=== PATIENT | female | born 1955 | race Caucasian/White ===

== ENCOUNTER → 2021-11-26 12:01 | Outpatient (CLI) | payer MEDICARE, OTHER, SELFPAY ==
--- NOTE | 2021-11-26 12:17 | XR_ITS ---
FINAL REPORT CLINICAL HISTORY: rt hand pain FINDINGS: Right hand Three views were obtained. There is no acute fracture or dislocation. There are mild degenerative changes. No soft tissue abnormality is identified. IMPRESSION: No acute process. Reviewed, Interpreted and Dictated by Bang Anne III, MD Transcribed by Miroslava Vizcaino Authenticated and [facility]
== END ==
PROVIDERS: PCP Internal Medicine; Visit Provider Orthopaedic Surgery
DX: M65.331 Trigger finger, right middle finger (principal)
CPT/HCPCS: 73130

== ENCOUNTER → 2021-12-08 11:31 | Outpatient (CLI) | payer MEDICARE, OTHER, SELFPAY ==
--- NOTE | 2021-12-08 11:37 | XR_ITS ---
FINAL REPORT CLINICAL HISTORY: preop, DIABETIC, PAST SMOKER FINDINGS: Two views of the chest were obtained. The heart size and pulmonary vascularity are within normal limits. The mediastinum is normal. No acute pulmonary abnormality is identified. There is no pneumothorax. The bony thorax is intact. IMPRESSION: No active cardiopulmonary disease. Reviewed, Interpreted and Dictated by Bang Anne III, MD Transcribed by Radha Ramirez Authenticated and [facility]
== END ==
PROVIDERS: PCP Internal Medicine; Visit Provider Orthopaedic Surgery
DX: Z01.810 Encounter for preprocedural cardiovascular examination (principal); M65.331 Trigger finger, right middle finger
CPT/HCPCS: 71046

== ENCOUNTER 2021-12-10 13:04 | Day surgery (SDC) | payer MEDICARE, OTHER, SELFPAY ==
[2021-12-08 13:23] VITALS: BMI 26.3
[2021-12-10 13:18] VITALS: BP 121/61; PULSE 70; RESP 18; TEMP 36.7; O2SAT 100
--- NOTE | 2021-12-10 13:52 | EXP.ANES.CKL ---
PFSH PFSH Medical History Allergies Anxiety Arthritis Depression Diabetes mellitus, type 2 Endometriosis Heart attack History of anemia History of COVID-19 History of transient ischemic attack (TIA) Hyperlipemia Hypothyroid Kidney stone Sinus headache Sleep apnea Tonsillectomy planned Urinary tract infection Surgical History H/O gastric bypass History of hysterectomy History of surgery History of surgery History of thyroidectomy Hx of LASIK Family History Father Heart attack Cirrhosis Mother Heart attack Cirrhosis Grandfather Heart attack Family/Other Heart attack Social History Smoking Status: Former smoker smoking status stop date: QUIT 15 YEARS AGO how long ago did patient quit smokin YEARS alcohol intake: never substance use type: denies use current occupational status: retired Travel in the last 8 weeks: None caffeine: Yes [facility] Anesthesia Checklist Patient Identification Patient Identification: Arm Band and Verbal (Name & ) Structural Data Admitted From: Home Planned Operative Procedure/s: Trigger finger release Consent for Planned Operative Procedure(s) Verified: Yes NPO Status Verified Time NPO: 00:00 Additional verifications Anesthesia Reactions: Yes (N/V) Hx Blood Transfusions: No Blood Transfusion Reaction: No Airway Assessment C-Spine Mobility Assessed: Yes TMJ Mobility Assessed: Yes Dentition: Good Dentition Neurological Assessment Level of Consciousness: Awake Hx Seizures: No Numbness or tingling in extremities: No Anesthesia Plan Anesthesia Risk discussed: Yes Anesthesia Plan: Verified ASA Class: III Anesthesia Type: General
[2021-12-10 14:12] LABS: POC Glucose,Bedside 93 (70-110)
[2021-12-10 15:08] VITALS: BP 144/84; PULSE 82; RESP 16; TEMP 36.2; O2SAT 92
--- NOTE | 2021-12-10 15:08 | P.OP_ITS ---
Date of procedure: 12/10/21 Pre-op Diagnosis:: Right middle finger trigger finger Post-op Diagnosis:: Same Procedure performed:: Right hand middle finger A1 kady release, trigger finger release. Surgeon:: Carlos Hall DO Hat Cleaner(s):: Moises CAMP COMPUTER TRAINING SPECIALIST:: Savage Flores Anesthesia: GETA Estimated blood loss (mL): 0 Operative findings:: Cyst in the flexor tendon sheath with significant swelling of the flexor tendons Operative note:: Patient was identified preoperatively right middle finger was marked yes my initials. Transferred operative suite placed upon operating bed general anesthesia ministered airway secured right upper extremity was then prepped and draped in normal sterile fashion. Once prepped and draped final operative timeout performed to identify proper patient procedure and extremity. Everyone involved in the case agreed. There were no counter indications to beginning. Did receive preoperative antibiotics. Marking pen was used to make plan incision over the A1 kady middle finger right hand. Esmarch was used to exsanguinate extremity pneumatic tourniquet inflated to 250 mmHg. Skin knife was used to incise through skin. Scissor di ssection was taken down to identify the A1 kady. Ragnell retractors were placed and the A1 kady was cut with a [place] blade. Completion of the A1 kady release was completed with scissors under direct visualization. I pulled the flexor tendons through the incision and inspected there was a large amount of swelling along the flexor flexor tendon sheath with a cyst in the flexor tendon sheath this was debrided. There remained a lot of swelling at the flexor tendons. Fingers were taken through range of motion cyst was carefully debrided until able to passively flex and extend without catching. Copious irrigation of the wound was performed skin was closed with nylon stitch sterile hand dressing placed patient with anesthesia taken recovery stable condition. Condition: stable Disposition: PACU Complications:: None apparent
[2021-12-10 15:23] VITALS: BP 126/72; PULSE 66; RESP 18; TEMP 36.2; O2SAT 94
[2021-12-10 15:38] VITALS: BP 133/73; PULSE 69; RESP 18; TEMP 36.2; O2SAT 100
[2021-12-10 15:55] VITALS: BP 129/71; PULSE 69; RESP 18; TEMP 36.2; O2SAT 96
== END 2021-12-10 15:55 | disposition home or self-care (01) ==
PROVIDERS: PCP Internal Medicine; Visit Provider Orthopaedic Surgery
PROC: (CPT 26055; principal; 2021-12-10 14:30)
DX: M65.331 Trigger finger, right middle finger (principal); E11.9 Type 2 diabetes mellitus without complications; Z79.899 Other long term (current) drug therapy
CPT/HCPCS: 26055; 82962; J2405

== ENCOUNTER → 2022-04-28 13:13 | Outpatient (CLI) | payer MEDICARE, OTHER, SELFPAY ==
--- NOTE | 2022-04-28 13:20 | XR_ITS ---
FINAL REPORT CLINICAL HISTORY: trigger finger COMPARISON: 11/26/2021 FINDINGS: RIGHT HAND Three views of the right hand were obtained. The hand is held in partial flexion. There is no acute fracture. There is no dislocation. The visualized joint spaces are normally aligned. There are mild hypertrophic changes of the PIP and DIP joints. There are some mild hypertrophic changes of osteoarthritis at the basilar joint. The soft tissues are unremarkable. IMPRESSION: Hypertrophic changes as above with no acute bony abnormality. Reviewed, Interpreted and Dictated by Kyle Cavazos MD Transcribed by Radha Ramirez Authenticated and [facility]
== END ==
PROVIDERS: PCP Nurse Practitioner Family; Visit Provider Orthopaedic Surgery
DX: M65.331 Trigger finger, right middle finger (principal)
CPT/HCPCS: 73130

== ENCOUNTER → 2022-08-18 14:32 | Outpatient (CLI) | payer MEDICARE, OTHER, SELFPAY ==
--- NOTE | 2022-08-18 14:35 | XR_ITS ---
FINAL REPORT CLINICAL HISTORY: left knee pain FINDINGS: LEFT KNEE SERIES Three views of the left knee were obtained. There is no acute fracture or dislocation. There is mild degenerative change. There is no soft tissue abnormality. IMPRESSION: Mild degenerative change. Reviewed, Interpreted and Dictated by Bang Anne III, MD Transcribed by Kaila Arreaga Authenticated and [facility]
== END ==
PROVIDERS: PCP Nurse Practitioner Family; Visit Provider Orthopaedic Surgery
DX: M25.562 Pain in left knee (principal)
CPT/HCPCS: 73562

== ENCOUNTER → 2022-09-03 15:37 | Outpatient (CLI) | payer MEDICARE, OTHER, SELFPAY ==
--- NOTE | 2022-09-03 15:37 | MR_ITS ---
FINAL REPORT TECHNIQUE: Multiplanar MR without contrast CLINICAL HISTORY: Lt knee pain. MEDIAL SIDED KNEE PAIN WITH PAIN RADIATING DOWN LEG. NO INJURY OR TRAUMA FINDINGS: Articular cartilage: Mild diffuse thinning without focal defect Marrow signal: Unremarkable Joint fluid: Physiologic Menisci: Normal morphology without tear Ligaments: Collateral and cruciate ligaments intact Tendons: Partial tear of the tendinous insertion of the gastrocnemius tendon. IMPRESSION: No meniscal or ligamentous injury. Partial tear of the gastrocnemius tendon. Reviewed, Interpreted and Dictated by Samreen Berg MD Transcribed by Shanda Haile Authenticated and [facility]
== END ==
PROVIDERS: PCP Nurse Practitioner Family; Visit Provider Orthopaedic Surgery
DX: M25.562 Pain in left knee (principal)
CPT/HCPCS: 73721

== ENCOUNTER → 2022-10-06 16:01 | Outpatient (CLI) | payer MEDICARE, OTHER, SELFPAY ==
--- NOTE | 2022-10-06 16:02 | MR_ITS ---
FINAL REPORT CLINICAL HISTORY: right shoulder pain some days are harder than others FINDINGS: Multi planar MR imaging of the right shoulder was performed. The supraspinatus tendon appears intact. There is no abnormal fluid in the subacromial/subdeltoid bursa. The anterior and posterior glenoid yenifer appear intact. The biceps tendon appears intact. There is abnormal marrow edema in the distal clavicle. There are moderate hypertrophic changes of the AC joint. IMPRESSION: Moderate hypertrophic changes of AC joint with abnormal marrow edema in the distal clavicle. Findings may be related to underlying ligamentous instability. Reviewed, Interpreted and Dictated by Kyle Cavazos MD Transcribed by Miroslava Vizcaino Authenticated and [facility]
== END ==
PROVIDERS: PCP Nurse Practitioner Family; Visit Provider Orthopaedic Surgery
DX: M25.811 Other specified joint disorders, right shoulder (principal)
CPT/HCPCS: 73221

== ENCOUNTER 2023-08-03 12:40 | Outpatient (CLI) | payer MEDICARE, OTHER, SELFPAY ==
--- NOTE | 2023-08-03 13:09 | XR_ITS ---
FINAL REPORT CLINICAL HISTORY: lt hip pain COMPARISON: None FINDINGS: LEFT HIP: Two views of the left hip demonstrate no acute fracture or dislocation. Mild degenerative changes present. Osteopenia is present as well. The visualized bony structures are well aligned. No soft tissue abnormality is seen. IMPRESSION: Mild degenerative change, with osteopenia. Reviewed, Interpreted and Dictated by Samreen Berg MD Transcribed by Christen Britton Authenticated and [facility]
== END 2023-08-03 23:59 | disposition home or self-care (01) ==
LOC: RAD 12:41
PROVIDERS: PCP Internal Medicine; Visit Provider Orthopaedic Surgery
DX: M25.552 Pain in left hip (principal)
CPT/HCPCS: 73502

== ENCOUNTER 2023-12-13 12:38 | Outpatient (CLI) | payer MEDICARE, OTHER, SELFPAY ==
--- NOTE | 2023-12-13 12:43 | XR_ITS ---
PROCEDURE INFORMATION: Exam: XR Right Hand Exam date and time: 12/13/2023 1:10 PM Age: 68 years old Clinical indication: Other: Pain right middle finger, trigger; Additional info: Right hand trigger finger TECHNIQUE: Imaging protocol: Radiologic exam of the right hand. Views: 3 or more views. COMPARISON: CR XR HAND RT MIN 3V 04/28/2022 1:27 PM FINDINGS: Bones/joints: Joint space narrowing in the DIP joints and PIP joints of the fingers consistent with degenerative changes.. Persistent flexion of the long finger was present in April 2022. This could represent Dupuytren's contracture.. Degenerative changes in the thumb carpometacarpal joint and in the radiocarpal joint and thumb carpometacarpal joint. There is no evidence of acute fracture.There is no evidence of malalignment or dislocation. Soft tissues: Soft tissue swelling of the hand. IMPRESSION: 1. Joint space narrowing in the DIP joints and PIP joints of the fingers consistent with degenerative changes.. 2. Persistent flexion of the long finger was present in April 2022. This could represent Dupuytren's contracture.. 3. Degenerative changes in the thumb carpometacarpal joint and in the radiocarpal joint and thumb carpometacarpal joint.
== END 2023-12-13 23:59 | disposition home or self-care (01) ==
LOC: RAD 12:39
PROVIDERS: PCP Internal Medicine; Visit Provider Orthopaedic Surgery
DX: M65.331 Trigger finger, right middle finger (principal)
CPT/HCPCS: 73130

== ENCOUNTER 2024-05-01 13:50 | Outpatient (CLI) | payer MEDICARE, OTHER, SELFPAY ==
--- NOTE | 2024-05-01 14:03 | XR_ITS ---
FINAL REPORT CLINICAL HISTORY: dyspnea, recent pneumonia, quit smoking 25 yrs ago, prior to that she smoked for 10 yrs. 4 heart attacks, 1 stent placement. COMPARISON: 12/08/2021 FINDINGS: PA and lateral views of the chest are obtained. There is no prior exam for comparison. The cardiac and mediastinal silhouettes are within normal limits. The lungs are clear. There is no pleural effusion, pneumothorax, or acute osseous abnormality. IMPRESSION: No radiographic evidence of acute cardiac or pulmonary disease. Reviewed, Interpreted and Dictated by Ya Moreau MD Transcribed by Christen Britton Authenticated and [facility]
--- NOTE | 2024-05-01 14:30 | CA_ITS ---
APPROVED REPORT EXAM: Comprehensive 2D, Doppler, and color-flow Echocardiogram [employer] Course Laborer: Negin Quick CRT Ht: 5 ft 2 in Wt: 154lbs BSA: 1.71 BP: 138/64 mmHg Indications: Abnormal ECG, Chest Pain, Diabetes, CAD, 4 MS's, Stents, Takotsubo Syndrome Hx of EF 25%, rebounded to 40's% per pt. Pt getting cath tmw 2D Dimensions LA Volume 24.00 mL LA Volume Index 13.70 mL/m2 (M/F) 16-34 M-Mode Dimensions RVDd 2.56 cm (0.9-2.6) LA Diam 3.43 cm (1.9-4.0) LVDd 3.69 cm (3.5-5.7) LVDs 2.71 cm (3.5-5.7) IVSd 1.47 cm (0.6-1.1) PWd 0.72 cm (0.6-1.1) EF (Teich) 52.80% FS 26.60% EDV (Teich) 57.80 mL TAPSE 1.82 (<1.7) ESV (Teich) 27.30 mL LV Diastology E Decel Time 207 (160-240 msec) E/A Ratio 0.80 MED A' 10.50 cm/s LAT A' 9.00 cm/s Aortic Valve AO Peak GR. 4.60 mmHg Mitral Valve MV E Max Franki. 81.0 (40-130 cm/s) MV A Velocity 101.0 (40-130 cm/s) E/A Ratio 0.80 MV PHT 61.0 ms Pulmonary Valve PV Peak Velocity 97.0 (50-150 cm/s) Tricuspid Valve TR P. Velocity 248.00 cm/s RAP Estimate 10.00 mmHg RVSP 34.60 mmHg Left Ventricle The left ventricle is normal size. The left ventricular systolic function is low normal. There is increased LV wall thickness. The septum is asynchronous. Diastolic function is indeterminate. LVEF is 50%. Right Ventricle The right ventricle is normal size. The right ventricular systolic function is normal. Atria The left atrium is mildly dilated. The right atrium is mildly dilated. Color Doppler demonstrates presence of left to right interatrial shunt. Aortic Valve The aortic valve is mildly thickened. Trace aortic regurgitation. There is no aortic valvular stenosis. Mitral Valve The mitral valve is mildly thickened. Mild mitral regurgitation. Tricuspid Valve Tricuspid valve is grossly normal in structure and function. Mild tricuspid regurgitation. RVSP is 20???25 mmHg. Pulmonic Valve The pulmonary valve is normal in structure. Trace pulmonic regurgitation. Great Vessels The aortic root is normal in size. IVC is normal in size and collapses >50% with inspiration. Pericardium There is no pericardial effusion. Other Information Study Quality: Fair Conclusion Low normal LV systolic function (LVEF 50%). Asynchronous septum. Mild biatrial dilation. Mild MR, mild TR. Color Doppler demonstrates presence of left to right interatrial shunt. Electronically signed by : Machelle Saba MD 05/02/2024 01:12:56
[2024-05-01 16:41] LABS: Anion Gap 7.2 mEq/L (5-15); Blood Urea Nitrogen 11 mg/dl (7-17); Calcium 10.7 mg/dl (8.4-10.2); Carbon Dioxide 33 mmol/L (22.0-30.0); Chloride 108 mmol/L (98-107); Estimated Glomerular Filt Rate 72 ml/min (>60); GFR (African American) 87 ML/MIN (>60); Glucose 113 mg/dl (74-100); Potassium 5.2 mmoL/L (3.5-5.1); Sodium 143 mmol/L (136-145)
[2024-05-01 18:08] LABS: Triiodothryronine (T3) Uptake 27 % (23.5-40.5)
[2024-05-01 18:09] LABS: Free Thyroxine Index 1.5 ug/dL (5.93-13.13); T4 (Thyroxine) 5.7 ug/dl (5.53-11.0)
[2024-05-01 18:23] LABS: Thyroid Stimulating Hormone 5.19 uIU/mL (0.465-4.68)
== END 2024-05-01 23:59 | disposition home or self-care (01) ==
LOC: RT 13:54
PROVIDERS: PCP Internal Medicine; Visit Provider Internal Medicine
DX: I51.7 Cardiomegaly (principal); I34.0 Nonrheumatic mitral (valve) insufficiency; I36.1 Nonrheumatic tricuspid (valve) insufficiency; I25.118 Atherosclerotic heart disease of native coronary artery with other forms of angina pectoris; I44.7 Left bundle-branch block, unspecified; R06.09 Other forms of dyspnea; E13.9 Other specified diabetes mellitus without complications; R94.31 Abnormal electrocardiogram [ECG] [EKG]; Z79.84 Long term (current) use of oral hypoglycemic drugs; Z87.891 Personal history of nicotine dependence
CPT/HCPCS: 36415; 71046; 80048; 84436; 84443; 84479; 93306

== ENCOUNTER 2024-05-02 11:18 | Day surgery (SDC) | payer MEDICARE, OTHER, SELFPAY ==
[2024-05-02] VITALS (9 sets, daily range): BP systolic 118–158; BP diastolic 65–85; PULSE 65–90; RESP 17–20; O2SAT 3–98; BMI 28.1
--- NOTE | 2024-05-02 07:03 | IR_ITS ---
APPROVED REPORT Patient Location: Outpatient PROCEDURES Left heart catheterization Left ventriculogram Selective coronary angiogram INDICATION Left bundle branch block, Known ischemic heart disease, Accelerated angina pectoris, Known coronary disease with stents Informed consent was obtained prior to the procedure. COMPLICATIONS none Estimated Blood Loss: less than 10ml TECHNIQUE One percent lidocaine used to anesthetize the right anterior aspect of the wrist. The right radial artery was accessed via the Seldinger technique. A 6 Faroese sheath was placed in the right radial artery. 2.5 mg of Verapamil, 800 mcg of nitroglycerin, 1mg Lidocaine and 5000 U Heparin were given through the arterial sheath. The papa catheter and 6 Faroese JL 3.5 guide catheter were also used to perform left heart catheterization, left ventriculogram and selective coronary angiogram. At the end of the procedure the sheath was removed good hemostasis was achieved using Traclet band, patient was transferred to the postop holding area in stable condition. ANGIOGRAPHIC RESULTS The left main artery Normal The left anterior descending artery Has a stent in the proximal segment which extends into the midportion which is widely patent free of in-stent restenosis. Distal to the stent there is a 30% transitioning stenosis. The mid to distal LAD is small caliber with diffuse 30 and 40% stenoses. The mid LAD to distal LAD is less than 2 mm in diameter The circumflex artery Is nondominant and has proximal and mid vessel 30 to 40% stenosis The right coronary artery Large and dominant and has a long ostial to proximal 30 to 40% stenosis. There is additional 30 and 40% mid vessel and distal stenoses The VILLARREAL ventriculogram reveals Preserved at 55 to 60% The left ventricular end-diastolic pressure 15 mmHg IMPRESSION Patent stents as described above Diffuse moderate nonflow limiting disease as described above Preserved ejection fraction with normal wall motion Normal LVEDP PLAN 1. Maximize medical management and antianginal medications 2. Risk factor modification Electronically signed by : Raad Juan MD 05/02/2024 13:50:13
[2024-05-02 12:07] LABS: Basophils # 0.1 K/mm3 (0-0.2); Basophils % 0.8 % (0.1-2.0); Eosinophils # 0.4 K/mm3 (0.0-0.4); Eosinophils % 5.6 % (0.1-12.0); Hematocrit 40.4 % (37.0-47.0); Hemoglobin 12.8 g/dL (12.2-16.2); Lymphocytes % 32.7 % (10-50); Mean Corpuscular HGB Conc 31.7 g/dL (31.8-35.4); Mean Corpuscular Hemoglobin 28.1 pg (27.0-31.2); Mean Corpuscular Volume 88.6 fl (81-99); Mean Platelet Volume 10.7 fl (7.4-10.4); Monocytes # 0.5 K/mm3 (0.1-1.0); Monocytes % 7.7 % (1.7-9.3); Neutrophils # 3.3 K/mm3 (1.8-7.8); Platelet Count 255 K/mm3 (142-424); Red Blood Count 4.56 M/mm3 (4.20-5.40); Red Cell Distribution Width 13.3 % (11.5-17.5); White Blood Count 6.2 K/mm3 (4.8-10.8)
[2024-05-02 12:14] LABS: Chloride 105 mmol/L (98-107); Sodium 140 mmol/L (136-145)
[2024-05-02 12:15] LABS: Potassium 4.6 mmoL/L (3.5-5.1)
[2024-05-02 12:17] LABS: Blood Urea Nitrogen 12 mg/dl (7-17); Creatinine Clearance Estimated 60 mL/min (50-200); Estimated Glomerular Filt Rate 62 ml/min (>60); GFR (African American) 76 ML/MIN (>60)
[2024-05-02 12:18] LABS: Anion Gap 9.6 mEq/L (5-15); Calcium 9.6 mg/dl (8.4-10.2); Carbon Dioxide 30 mmol/L (22.0-30.0); Glucose 174 mg/dl (74-100)
[2024-05-02] MEDS: diphenhydrAMINE 50MG/ML VIAL 50 MG IV (12:58)
[2024-05-02] MEDS: NITROGLYCERIN 800MCG/8ML SYR (CATH LAB) 800 MCG IA (12:59)
[2024-05-02] MEDS: VERAPAMIL 2.5MG/ML 2ML VIAL 2.5 MG IV (12:59)
[2024-05-02] MEDS: LIDOCAINE 1% 10ML MDV 20 ML IJ (12:59)
[2024-05-02] MEDS: HEPARIN 1,000 UNITS/ML 10ML VIAL (CATH LAB) 10000 UNIT IV (12:59)
[2024-05-02] MEDS: HEPARIN 1,000 UNITS/500ML NS (CATH LAB) 3000 UNIT IV (13:00)
[2024-05-02] MEDS: FENTANYL 100MCG/2ML VIAL 50 MCG IV ×2 (13:12→13:29)
[2024-05-02] MEDS: MIDAZOLAM HCL 1MG/ML 5ML VIAL 1 MG IV (13:13)
[2024-05-02] MEDS: 0.9 % SODIUM CHLORIDE 500 ML 25 ML IV (13:16)
[2024-05-02] MEDS: MIDAZOLAM 2MG/2ML VIAL 1 MG IV (13:29)
[2024-05-02] MEDS: IOPAMIDOL-370 (76%);100ML BOTTLE 60 ML IV (14:27)
== END 2024-05-02 15:35 | disposition home or self-care (01) ==
LOC: CATHLAB 11:22
PROVIDERS: PCP Internal Medicine; Visit Provider Internal Medicine
DX: I25.118 Atherosclerotic heart disease of native coronary artery with other forms of angina pectoris (principal); Z87.891 Personal history of nicotine dependence; Z88.3 Allergy status to other anti-infective agents; Z79.84 Long term (current) use of oral hypoglycemic drugs; Z95.5 Presence of coronary angioplasty implant and graft; Z82.49 Family history of ischemic heart disease and other diseases of the circulatory system; E11.9 Type 2 diabetes mellitus without complications; Z86.16 Personal history of COVID-19; I25.2 Old myocardial infarction; E03.9 Hypothyroidism, unspecified; I44.7 Left bundle-branch block, unspecified; Z79.899 Other long term (current) drug therapy
CPT/HCPCS: 80048; 85025; 93458; 99152; C1725; C1769; J1200; J1644; J2250; J3010; Q9967

== ENCOUNTER 2024-08-31 08:39 | Outpatient (CLI) | payer MEDICARE, OTHER, SELFPAY ==
--- OUTSIDE RECORDS SUMMARY | 2024-07-11 13:00 | XMS_ITS | Encounter Summary ---
Author Organization [facility] ([place], [place], [place], [place]) Address [address] [place] [address] Care Team Providers Care Workday Consultant Name Role Phone Darrian Reno PA-C Unavailable [phone] Jessica Gomez MD Primary Care Provider [phone] Gibson Bai MD Unavailable Encounter Details Date Type Department Care Team (Late st Contact Info) Description 07/11/2024 1:00 PM EDT - 07/11/2024 11:59 PM EDT Hospital Encounter [facility] Preadmission Testing [address] [facility] [address] [place] [address] Chris Casey MD [address] [facility] [address] [place] [address] Preop examination (Primary Dx); LBBB (left bundle branch block) Discharge Disposition: Home or Self Care Social History Tobacco Use Types Packs/Day Years Used Date Smoking Tobacco: Former Cigarettes 0.3 10 0 05/09/1989 - 05/10/1999 Smokeless Tobacco: Never Alcohol Use Standard Drinks/Week Comments Not Currently 0 (1 standard drink = 0.6 oz pur e alcohol) Family and Community Support Answer Shahram e Recorded Help with Day to Day Activities Not on file 02/20/2023 Feeling Lonely or Isolated Not on file 02/20 Educational Attainment Answer Date Yemi rded Speak language other than [place] Citizen at home Not on file 02/20/2023 Want help with school or training Not on file 02/20/2023 Substance Use Answer Date Recorded Used prescription meds for non-medical reasons N ot on file 02/20/2023 Used illegal drugs past 12 months Not on file 02/20/2023 Comments No Sex and Gender Information Value Date Recorded Sex Assigned at Not on file Legal Sex Female 5:09 PM CDT Gender Identity Not on file Sexual Orientation Not on file documented as of this encounter Last Filed Vital Signs Vital Sign Reading Time Taken Comments Blood Pressure 121/58 07/11/2024 1:13 PM EDT Pulse 90 07/11/2024 1:13 PM EDT Temperature 36.1 C (97 F) 07/11/2024 1:13 PM EDT Respiratory Rate 18 07/11/2024 1:13 PM EDT Oxygen Saturation 98% 07/11/2024 1:13 PM EDT Inhaled Oxygen Concentration - - Weight 68 kg (150 lb) 07/11/2024 1:13 PM EDT Height 157.5 cm (5' 2 ) 07/11/2024 1:13 PM EDT Body Mass Index 27.44 07/11/2024 1:13 PM EDT documented in this encounter Medications at Time of Discharge liothyronine (CYTOMEL) 5 MCG tablet Take 1 tablet (5 mcg total) by mouth daily. 02/04/2024 propranoloL (INDERAL) 20 MG tabletIndication s:Essential tremor Take 1 tablet (20 mg total) by mouth 2 (two) times daily. 180 tablet 3 09/01/2023 ALPRAZolam (XANAX) 0.5 MG tablet Take 1 tablet (0.5 mg total) by mouth 2 (two) times daily. 05/26/2023 aspirin 81 MG EC tablet Take 1 tablet (81 mg total) by mouth daily TAKE 1 TABLET DAILY. cyanocobalamin (vitamin B-12) 1000 MCG tablet Take 1 tablet (1,000 mcg total) by mouth daily. ergocalciferol (ERGOCALCIFEROL) 1,250 mcg (50,000 unit) capsule Take by mouth. 03/17/2022 escitalopram oxalate (LEXAPRO) 10 MG tablet Take 1 tablet (10 mg total) by mouth daily. glipiZIDE (GLUCOTROL XL) 2.5 MG 24 hr tablet Take 1 tablet (2.5 mg total) by mouth daily. loratadine (CLARITIN) 10 mg tablet Take 1 tablet (10 mg total) by mouth daily. metFORMIN (GLUCOPHAGE) 500 MG tablet Take 1 tablet (500 mg total) by mouth 2 (two) times daily with breakfast and dinner Look-alike/Kayleen nd-alike medication. multivitamin per tablet Take 1 tablet by mouth daily. nitroglycerin (NITROSTAT) 0.[address] 1 tablet (0.4 mg total) under the tongue every 5 (five) minutes as needed Put 1 pill under tongue every 5min as needed for chest pain.No more than 3 doses in 15min.Call 911 if pain unrelieved 5min after 1st dose. rosuvastatin (CRESTOR) 40 MG tablet Take 1 tablet (40 mg total) by mouth in the morning. TAKE 1 TABLET DAILY. 30 tablet 11 05/19/2022 zolpidem (AMBIEN) 10 mg tablet Take 1 tablet (10 mg total) by mouth daily. 05/19/2023 HYDROcodone-acet aminophen (NORCO) 7.5-325 mg per tablet Take 1 tablet by mouth every 6 (six) hours as needed for pain for up to 10 days. Max Daily Amount: 4 tablets 20 tablet 07/17/2024 5 levothyroxine (SYNTHROID, LEVOTHROID) 75 MCG tablet Take 1 tablet (75 mcg total) by mouth Every morning on an empty stomach TAKE 1 TABLET DAILY DIRECTED . 5 nitrofurantoin (Macrodantin) 50 MG capsuleIndicatio ns:History of UTI Take 1 capsule (50 mg total) by mouth daily. 30 capsule 3 08/11/2023 5 nitrofurantoin, macrocrystal-mon ohydrate, (MACROBID) 100 MG capsuleIndicatio ns:History of UTI Take 1 capsule (100 mg total) by mouth 2 (two) times daily. 10 capsule 08/11/2023 5 documented as of this encounter Progress Notes * Albertina Cevallos RN - 07/11/2024 1:00 PM EDT Spoke with Kylah at Dr. Casey's office regarding incorrect laterality scheduled for this patient.She stated she left a message for Sania, museum service scheduler for Dr. Casey and would have her giveus a call regarding this matter. documented in this encounter H&P Notes * HERMINIA Candelario - 07/11/2024 1:00 PM EDT History & Physical Name: Emmett Haas : 1955 Age: 69 y.o. SUBJECTIVE: Chief Complaint / Reason for Visit: preop exam HPI: Emmett Haas is a 69 y.o. female who presents prior to PROCEDURE Due to renal calculus. Pt states she has staghorn calculus and has recurrent e. Coli UTI. She saw urology who recommended above procedure. HISTORY: Patient Active Problem List Diagnosis Date Noted LBBB (left bundle branch block) 07/11/2024 Atrial tachycardia (HCC) 07/07/2022 Abnormal ECG 04/16/2022 Angina pectoris ([facility]) 04/16/2022 Coronary artery disease involving grand traverse coronary artery of grand traverse heart without angina pectoris 04/16/2022 Diabetes mellitus (HCC) 04/16/2022 Mixed hyperlipidemia 04/16/2022 Hypertension 04/16/2022 Palpitations 04/16/2022 Stroke with cerebral ischemia ([facility]) 04/16/2022 Takotsubo cardiomyopathy 04/16/2022 Past Surgical History: Procedure Laterality Date ABDOMINOPLASTY 1986 BLADDER SURGERY 1962 COLONOSCOPY CORNEAL LASIK BILATERAL 1999 CORONARY ANGIOPLASTY WITH STENT PLACEMENT ESOPHAGOGASTRODUODENOSCOPY EYE SURGERY Bilateral CATARACT REMOVAL WITH IOL IMPLANTS GASTRIC SURGERY FOR MORBID OBESITY GASTRIC [facility]PASS 2004 HYSTERECTOMY 1987 THERAPEUTIC CYSTOSCOPY THYROID SURGERY 1999 TONSILLECTOMY 1961 URETEROTOMY FOR INSERTION OF STENT ALLERGIES: Farxiga [Dapagliflozin], Neosporin [Benzalkonium Chloride], Ozempic [Semaglutide], Zetia [Ezetimibe], and Niacin Social History Tobacco Use Smoking status: Former Current packs/day: 0.00 Average packs/day: 0.3 packs/day for 10.0 years (2.5 ttl pk-yrs) Types: Cigarettes Start date: 05/09/1989 Quit date: 05/10/1999 Years since quittin.1 Smokeless tobacco: Never Substance Use Topics Alcohol use: Not Currently Family History Problem Relation Name Age of Onset Heart disease Mother Heart disease Father Heart disease Paternal Grandmother Heart disease Paternal Grandfather Heart disease Maternal Grandmother Heart disease Maternal Grandfather Diabetes Brother Diabetes Sister Current Outpatient Medications on File Prior to Encounter Medication Sig Dispense Refill liothyronine (CYTOMEL) 5 MCG tablet Take 1 tablet (5 mcg total) by mouth daily. ALPRAZolam (XANAX) 0.5 MG tablet Take 1 tablet (0.5 mg total) by mouth 2 (two) times daily. aspirin 81 MG EC tablet Take 1 tablet (81 mg total) by mouth daily TAKE 1 TABLET DAILY. cyanocobalamin (vitamin B-12) 1000 MCG tablet Take 1 tablet (1,000 mcg total) by mouth daily. ergocalciferol (ERGOCALCIFEROL) 1,250 mcg (50,000 unit) capsule Take by mouth. escitalopram oxalate (LEXAPRO) 10 MG tablet Take 1 tablet (10 mg total) by mouth daily. glipiZIDE (GLUCOTROL XL) 2.5 MG 24 hr tablet Take 1 tablet (2.5 mg total) by mouth daily. levothyroxine (SYNTHROID, LEVOTHROID) 75 MCG tablet Take 1 tablet (75 mcg total) by mouth Every morning on an empty stomach TAKE 1 TABLET DAILY DIRECTED . (Patient not taking: Reported on 07/11/2024.) loratadine (CLARITIN) 10 mg tablet Take 1 tablet (10 mg total) by mouth daily. metFORMIN (GLUCOPHAGE) 500 MG tablet Take 1 tablet (500 mg total) by mouth 2 (two) times daily withbreakfast and dinner Look-alike/Sound-alike medication. multivitamin per tablet Take 1 tablet by mouth daily. nitrofurantoin (Macrodantin) 50 MG capsule Take 1 capsule (50 mg total) by mouth daily. (Patient not taking: Reported on 07/11/2024.) 30 capsule 3 nitrofurantoin, macrocrystal-monohydrate, (MACROBID) 100 MG capsule Take 1 capsule (100 mg total) by mouth 2 (two) times daily. (Patient not taking: Reported on 07/11/2024.) 10 capsule 0 nitroglycerin (NITROSTAT) 0.[address] 1 tablet (0.4 mg total) under the tongue every 5 (five) minutes as needed Put 1 pill under tongue every 5min as needed for chest pain.No more than 3 doses in 15min.Call 911 if pain unrelieved 5min after 1st dose. propranoloL (INDERAL) 20 MG tablet Take 1 tablet (20 mg total) by mouth 2 (two) times daily. 180 tablet 3 rosuvastatin (CRESTOR) 40 MG tablet Take 1 tablet (40 mg total) by mouth in the morning. TAKE 1 TABLET DAILY. 30 tablet 11 zolpidem (AMBIEN) 10 mg tablet Take 1 tablet (10 mg total) by mouth daily. No current facility-administered medications on file prior to encounter. OBJECTIVE: Blood pressure 121/58, pulse 90, temperature 97 ??F (36.1 ??C), temperature source Tympanic, resp. rate 18, height 1.575 m (5' 2 ), weight 68 kg (150 lb), SpO2 98%. Physical Exam Vitals and nursing note reviewed. Constitutional: Appearance: Normal appearance. She is normal weight. HENT: Head: Normocephalic. Nose: Nose normal. Mouth/Throat: Mouth: Mucous membranes are moist. Eyes: Conjunctiva/sclera: Conjunctivae normal. Cardiovascular: Rate and Rhythm: Normal rate and regular rhythm. Heart sounds: No murmur heard. Pulmonary: Effort: Pulmonary effort is normal. Breath sounds: Normal breath sounds. Musculoskeletal: General: Normal range of motion. Neurological: General: No focal deficit present. Mental Status: She is alert and oriented to person, place, and time. Psychiatric: Mood and Affect: Mood normal. Behavior: Behavior normal. Thought Content: Thought content normal. LABORATORY Results for orders placed or performed during the hospital encounter of 07/11/24 Basic Metabolic Panel Result Value Ref Range Sodium 139 136 - 146 meq/L Potassium 4.8 3.5 - 5.1 meq/L Chloride 106 102 - 112 meq/L CO2 23 21 - 32 meq/L Anion Gap 15 9 - 20 BUN 18 7 - 22 mg/dL Creatinine 1.30 (H) 0.55 - 1.02 mg/dL BUN/Creatinine 14 8 - 20 Glucose 288 (H) 74 - 106 mg/dL Calcium 9.5 8.5 - 10.1 mg/dL Osmolality Calc 290.0 mOsm/kg eGFR (mL/min/1.73m2) 45 (L) >=60 mL/min/1.73m2 CBC - Hemogram (-BK) Result Value Ref Range WBC 6.2 3.9 - 10.0 K/??L RBC 4.93 3.93 - 5.22 M/??L Hemoglobin 13.6 11.2 - 15.7 GM/DL Hematocrit 43.7 34.1 - 44.9 % MCV 89 79 - 95 fL MCH 27.6 25.6 - 32.2 pg MCHC 31.1 (L) 32.2 - 36.5 GM/DL RDW 14.6 (H) 11.6 - 14.4 % Platelets 297 163 - 369 K/CU MM MPV 11.0 9.4 - 12.4 fL nRBC 0 (L) 1 - 5 /100 WBC Hemoglobin A1c Result Value Ref Range Hemoglobin A1C 7.1 (H) 4.2 - 6.3 % eAVG Glucose 157.07 mg/dL ECG 12 lead Result Value Ref Range VENTRICULAR RATE EKG/MIN 77 BPM ATRIAL RATE (MCT) 77 BPM ND Interval 142 ms QRS-INTERVAL (MSEC) 122 ms QT Interval 394 ms QTC Interval 445 ms P Kaleva 50 degrees R AXIS (MCT) 51 degrees T Wave Kaleva 131 degrees Chancellor Diagnosis Normal sinus rhythm Left bundle branch block Abnormal ECG Confirmed by Monica ARIZA SUZANNE ([id number]) on 07/11/2024 4:57:55 PM [facility] 06/01/22 DIAGNOSES: 1. Moderate single vessel coronary artery atherosclerosis with continued patency LAD stent. 2. Normal left ventricular filling pressure without gradient across the aortic valve. CORONARY ANATOMY: 1. Left main trunk: Angiographically normal. 2. Left anterior descending artery: Large caliber vessel with patent proximal LAD stent, which gives rise to 2 small diagonal branches before extending to the apex. The LAD becomes a small caliber vessel after 2nd diagonal branch with ~ 50% tubular stenosis in its mid portion. Mild atherosclerosis in the remainder of anterior descending artery and diagonal branches. 3. Circumflex artery: Large caliber vessel, which gives rise to a tiny high lateral branch, tiny lateral branch, and a large caliber 2nd lateral branch, and a small posterolateral branch. Mild atherosclerosis present in the circumflex artery. 5. Right coronary artery: Dominant vessel. Large caliber vessel, which gives rise to a small caliber posterior descending artery and a small caliber posterolateral branch. Mild atherosclerosis present in the right coronary artery. 6. Left ventricle: Normal left ventricular filling pressure without gradient across the aortic valve. Left ventriculography was not performed. IMPRESSION: Angiographically, the patient has moderate single vessel coronary artery atherosclerosis in small caliber mid LAD. There is continued patency of proximal LAD stent. There is normal filling pressure without gradient across the aortic valve. Medical management and lifestyle optimization of cardiovascular risk factors are recommended. ASSESSMENT & PLAN: Active Problems: Abnormal ECG Coronary artery disease involving grand traverse coronary artery of grand traverse heart without angina pectoris Diabetes mellitus (HCC) Mixed hyperlipidemia Takotsubo cardiomyopathy Atrial tachycardia (HCC) LBBB (left bundle branch block) Preop exam Renal colic Recurrent e. 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 Carr--old, proceed. Hx of takatsubo -hold asa 7 days per anne marie Holbrook to proceed -Echo at OSH 04/03: EF 55%, mild TR. -LHC 04/03 at OSH: long moderate disease of mid LAD and moderate disease of RCA - hx of CAD w/ hx of PCI to LAD. Hx of stress cardiomyopathy w/ recovered EF 55% (8-18). Lexiscanmyoview (04/30): EF 76%, septal photopenia with small ischemic zone. 14 day arrhythmia monitor w/ early cessation at 6 days (04/30): 11 episodes of AT lasting up to 25 seconds, < 1%, PACs/PVC LHC (05/31): moderate single vessel CAD in 2nd diagonal ~50%, patent prox LAD stent Hx of Atrial Tachy BET -continue propranolol HLP -continue statin Reported Hx of CVA by MRI. Hx of bariatric surgery w/ episodes of dry heaving Insomnia, continue ambien EKG: LBBB, NSR RCRI: 2 Proceed pending labs, confirm EKG with LBBB old, Electronically signed by: Keila Cota PA-C, 07/11/2024 at 2:33 PM Labs reviewed and within acceptable limits. LBBB old, may proceed. Cosigned by Mike Culp MD at 07/17/2024 8:42 AM EDT documented in this encounter Procedure Notes * Albertina Cevallos RN - 07/11/2024 1:00 PM EDTSummary: MEDICATION INSTRUCTIONS Medication List ASK your doctor about these medications ALPRAZolam 0.5 MG tablet Commonly known as: XANAX Medication Adjustments for Surgery: Continue until night before surgery aspirin 81 MG EC tablet Medication Adjustments for Surgery: Other (Comment) Notes to patient: PT STATES LAST DOSE WAS 10 DAYS AGO; PER PARTS ROOM CLERK MAY STOP 7 DAYS PRIOR TO SURGERY ergocalciferol 1,250 mcg (50,000 unit) capsule Commonly known as: DRISDOL Medication Adjustments for Surgery: Continue until night before surgery escitalopram 10 MG tablet Commonly known as: LEXAPRO Medication Adjustments for Surgery: Continue until night before surgery glipiZIDE 2.5 MG 24 hr tablet Commonly known as: GLUCOTROL XL Medication Adjustments for Surgery: Continue until night before surgery levothyroxine 75 MCG tablet Commonly known as: SYNTHROID Medication Adjustments for Surgery: Other (Comment) Notes to patient: PT MEDICATION CHANGED TO LIOTHYRONINE liothyronine 5 MCG tablet Commonly known as: CYTOMEL Medication Adjustments for Surgery: Take morning of surgery with sip of water, no other fluids loratadine 10 mg tablet Commonly known as: CLARITIN Medication Adjustments for Surgery: Continue until night before surgery metFORMIN 500 MG tablet Commonly known as: GLUCOPHAGE Medication Adjustments for Surgery: Other (Comment) Notes to patient: STOP 2 DAYS PRIOR TO SURGERY (LAST DOSE ON 07/14/24) multivitamin per tablet Medication Adjustments for Surgery: Other (Comment) Notes to patient: STOP NOW nitrofurantoin (macrocrystal-monohydrate) 100 MG capsule Commonly known as: MACROBID Take 1 capsule (100 mg total) by mouth 2 (two) times daily. Medication Adjustments for Surgery: Other (Comment) Notes to patient: PT NOT TAKING THIS MEDICATION nitrofurantoin 50 MG capsule Commonly known as: Macrodantin Take 1 capsule (50 mg total) by mouth daily. Medication Adjustments for Surgery: Other (Comment) Notes to patient: PT NOT TAKING THIS MEDICATION nitroglycerin 0.4 MG SL tablet Commonly known as: NITROSTAT Medication Adjustments for Surgery: Other (Comment) Notes to patient: TAKE NEEDED propranoloL 20 MG tablet Commonly known as: INDERAL Take 1 tablet (20 mg total) by mouth 2 (two) times daily. Medication Adjustments for Surgery: Take morning of surgery with sip of water, no other fluids rosuvastatin 40 MG tablet Commonly known as: CRESTOR Take 1 tablet (40 mg total) by mouth in the morning. TAKE 1 TABLET DAILY. Medication Adjustments for Surgery: Continue until night before surgery vitamin B-12 1000 MCG tablet Generic drug: cyanocobalamin Medication Adjustments for Surgery: Continue until night before surgery zolpidem 10 mg tablet Commonly known as: AMBIEN Medication Adjustments for Surgery: Continue until night before surgery NO MOTRIN, ALEVE, IBUPROFEN 10 DAYS PRIOR TO SURGERY. YOU MAY TAKE TYLENOL. NO OVER THE COUNTER VITAMINS OR SUPPLEMENTS 10 DAYS PRIOR TO SURGERY UNLESS PRESCRIBED BY PHYSICIAN. documented in this encounter Plan of Treatment Upcoming Encounters Date Type Department Care Team (Late st Contact Info) Description 10/20/2024 9:00 AM EDT Appointment [facility] Breast Imaging [address] [place] [phone] Jessica Gomez MD [address] [place] [address] 10/20/2024 9:30 AM EDT Appointment [facility] Nuclear Medicine [address] [place] [phone] Jessica Gomez MD [address] [place] [address] documented as of this encounter Procedures Procedure Name Priority Date/Time Associated Diagnosis Comments CBC HEMOGRAM (SJ-BKR) Routine 07/11/2024 1:48 PM EDT Preop examination HEMOGLOBIN A1C Routine 07/11/2024 1:48 PM EDT Preop examination BASIC METABOLIC PANEL Routine 07/11/2024 1:48 PM EDT Preop examination [id number] 12-LEAD Routine 07/11/2024 12:19 PM EDT Preop examination documented in this encounter Results * (ABNORMAL) Hemoglobin A1c (07/11/2024 1:48 PM EDT) Hemoglobin A1C 7.1(H) 4.2 - 6.3 % 07/11/2024 3:47 PM EDT [facility] Comment: Hemoglobin A1C levels are related to mean glucose during the preceding 2-3 months. Less than 7% demonstrates glycemic control in diabetic patients. Hemoglobin AlC % Suggested Diagnosis > or = 6.5 Diabetic 5.7 - 6.4 Prediabetic <5.7 Non-diabetic eAVG Glucose 157.07 mg/dL 07/11/2024 3:47 PM EDT [facility] Blood Venipuncture / Unknown 07/11/2024 1:48 PM EDT 07/11/2024 3:08 PM EDT us Chris Casey MD LAB BLOOD ORDERABLES Final Res ult [facility] [address] [place] [address], [facility] [phone] * (ABNORMAL) CBC - Hemogram (SJ-BKR) (07/11/2024 1:48 PM EDT) WBC 6.2 3.9 - 10.0 K/ L 07/11/2024 3:22 PM EDT [facility] RBC 4.93 3.93 - 5.22 M/ L 07/11/2024 3:22 PM EDT [facility] Hemoglobin 13.6 11.2 - 15.7 GM/DL 07/11/2024 3:22 PM EDT [facility] Hematocrit 43.7 34.1 - 44.9 % 07/11/2024 3:22 PM EDT [facility] MCV 89 79 - 95 fL 07/11/2024 3:22 PM EDT [facility] MCH 27.6 25.6 - 32.2 pg 07/11/2024 3:22 PM EDT [facility] MCHC 31.1(L) 32.2 - 36.5 GM/DL 07/11/2024 3:22 PM EDT [facility] RDW 14.6(H) 11.6 - 14.4 % 07/11/2024 3:22 PM EDT [facility] Platelets 297 163 - 369 K/CU MM 07/11/2024 3:22 PM EDT [facility] MPV 11.0 9.4 - 12.4 fL 07/11/2024 3:22 PM EDT [facility] nRBC 0(L) 1 - 5 /100 WBC 07/11/2024 3:22 PM EDT [facility] Blood Venipuncture / Unknown 07/11/2024 1:48 PM EDT 07/11/2024 3:08 PM EDT us Chris Casey MD LAB BLOOD ORDERABLES Final Res ult [facility] [address] [place] [address] * (ABNORMAL) Basic Metabolic Panel (07/11/2024 1:48 PM EDT) Pathologist [facility] Sodium 139 136 - 146 meq/L 07/11/2024 3:38 PM EDT [facility] Potassium 4.8 3.5 - 5.1 meq/L 07/11/2024 3:38 PM EDT [facility] Chloride 106 102 - 112 meq/L 07/11/2024 3:38 PM EDT [facility] CO2 23 21 - 32 meq/L 07/11/2024 3:38 PM EDT [facility] Anion Gap 15 9 - 20 07/11/2024 3:38 PM EDT [facility] BUN 18 7 - 22 mg/dL 07/11/2024 3:38 PM EDT [facility] Creatinine 1.30(H) 0.55 - 1.02 mg/dL 07/11/2024 3:38 PM EDT [facility] BUN/Creatinine 14 8 - 20 07/11/2024 3:38 PM EDT [facility] Glucose 288(H) 74 - 106 mg/dL 07/11/2024 3:38 PM EDT [facility] Calcium 9.5 8.5 - 10.1 mg/dL 07/11/2024 3:38 PM EDT [facility] Osmolality Calc 290.0 mOsm/kg 3:38 PM EDT [facility] eGFR (mL/min/1.73m2) 45(L) >=60 mL/min/1.7 3m2 07/11/2024 3:38 PM EDT [facility] Comment:eGFR of <60 suggests chronic kidney disease if found over a 3 month period of time. eGFR <15 indicates renal failure. Blood Venipuncture / Unknown 07/11/2024 1:48 PM EDT 07/11/2024 3:08 PM EDT us Chris Casey MD LAB BLOOD ORDERABLES Final Res ult [facility] [place], [place] [address] [phone] * ECG 12 lead (07/11/2024 12:19 PM EDT) VENTRICULAR RATE EKG/MIN 77 BPM GE MUSE ATRIAL RATE (MCT) 77 BPM GE MUSE ND Interval 142 ms GE MUSE QRS-INTERVAL (MSEC) 122 ms GE MUSE QT Interval 394 ms GE MUSE QTC Interval 445 ms GE MUSE P Kaleva 50 degrees GE MUSE R AXIS (MCT) 51 degrees GE MUSE T Wave Kaleva 131 degrees GE MUSE Chancellor Diagnosis Normal sinus rhythm Left bundle branch block Abnormal ECG Confirmed by Monica ARIZA SUZANNE ([id number]) on 07/11/2024 4:57:55 PM GE MUSE 07/11/2024 12:1 9 PM EDT 07/11/2024 4:57 PM EDT us Chris Casey MD ECG ORDERABLES Final Result GE MUSE documented in this encounter Visit Diagnoses Diagnosis Preop examination- Primary Unspecified pre-operative examination LBBB (left bundle branch block) Other left bundle branch block Takotsubo cardiomyopathy Takotsubo syndrome Mixed hyperlipidemia Diabetes mellitus (HCC) Type II or unspecified type diabetes mellitus without mention of complication, not stated as uncontrolled Coronary artery disease involving grand traverse coronary artery of grand traverse heart without angina pectoris Atrial tachycardia (HCC) Other specified cardiac dysrhythmias Abnormal ECG Nonspecific abnormal electrocardiogram (ECG) (EKG) LBBB (left bundle branch block) Other left bundle branch block documented in this encounter Care Teams Workday Consultant Relationship Specialty Start Date End Date Jessica Gomez MD [address] [facility] [address] PCP - General Internal Medicine 08/09/23 Darrian Reno PA-C [address] [place] [address] Cardiology 04/15/23 Gibson Bai MD [address] [place] [address] Consulting Physician Urology 08/09/23 documented as of this encounter
--- OUTSIDE RECORDS SUMMARY | 2024-07-17 06:43 | XMS_ITS | Encounter Summary ---
Author Organization [employer] ([place], [place], [place], [place]) Address [address] [place] [address] Care Team Providers Care Business Unit Controller Name Role Phone Darrian Reno PA-C Unavailable [phone] Jessica Gomez MD Primary Care Provider [phone] Gibson Bai MD Unavailable Reason for Visit * Auth/Cert (Routine) Specialty Diagnoses / Procedures Referred By Contac t Referred To Contact Diagnoses Calculus of kidney N20.0 Procedures AR LITHOTRIPSY XTRCORP SHOCK WAVE LITHOTRIPSY,EXTRACORPOREAL SHOCK WAVE (ESWL) Chris Casey MD [address] [place] [address] Phone: tel: fax: Referral ID Status Reason Start Date Expiration Date Visits Re quested Visits Authorized [id number] 07/04/2024 1 1 Encounter Details Date Type Department Care Team (Late st Contact Info) Description 07/17/2024 6:43 AM EDT - 07/17/2024 11:28 AM EDT Hospital Encounter [facility] Surgery Department [address] [place] [address] Chris Casey MD [facility] [address] [place] [address] Kidney stone (Primary Dx) Discharge Disposition: Home or Self Care Social [...] Date Yemi rded Speak language other than [place] at home Not on file 02/20/2023 Want [...] Sign Reading Time Taken Comments Blood Pressure 151/70 07/17/2024 11:15 AM EDT Pulse 70 07/17/2024 11:15 AM EDT Temperature 36.1 C (97 F) 07/17/2024 11:10 AM EDT Respiratory Rate 16 07/17/2024 11:15 AM EDT Oxygen Saturation 95% 07/17/2024 11:15 AM EDT Inhaled Oxygen Concentration - - Weight 67.2 kg (148 lb 3.2 oz) 07/17/2024 7:05 A M EDT Height 157.5 cm (5' 2 ) 07/17/2024 7:05 AM EDT Body Mass Index 27.11 07/17/2024 7:05 AM EDT documented in this encounter Discharge Instructions * Discharge Instr - Other Orders* Mayra Ness RN - 07/17/2024 11:07 AM EDT Strain urine Postural drainage * Attachments The following attachments cannot be sent through Care Everywhere. * ESWL for Kidney Stones Care After ([facility]) * General Anesthesia Adult Care After ([facility]) documented in this encounter Medications at Time [...] Daily Amount: 4 tablets 20 tablet 07/17/2024 documented as of this encounter Progress Notes * Angel Lopez RN - 07/17/2024 8:00 AM EDT Patient is booked for left EWL. Upon taking the history patient stated that she has right kidney stone.The surgeon also put the consent order for right ESWL. His H&P also shows right kidney stones. I called commercial front load driver and informed them. documented in this encounter H&P Notes * Chris Casey MD - 07/17/2024 7:40 AM EDT History of Present Illness History Of Present Illness Emmett Haas is a 69 y.o. female presenting with right renal stone and history of recurrent UTI.Plan for ESWL for stone fragmentation. All questions have been addressed. Past Medical History She has a past medical history of Arthritis, B12 deficiency, Coronary artery disease, Diabetes mellitus (HCC), Glaucoma, Hearing loss, History of AL (myocardial infarction), Hypertension, Kidney stones, LBBB (left bundle branch block), Low back pain, PONV (postoperative nausea and vomiting), Sleep apnea, Stroke (HCC), Thyroid disease, Tremor, and Vertigo. Surgical History She has a past surgical history that includes Abdominoplasty (1985); Bladder surgery (1962); Coronary angioplasty with stent; CORNEAL LASIK BILATERAL (1999); GASTRIC SURGERY FOR MORBID OBESITY GASTRIC BYPASS (2003); Hysterectomy (1986); THERAPEUTIC CYSTOSCOPY; Thyroid surgery (1999); Tonsillectomy (1961); URETEROTOMY FOR INSERTION OF STENT; Eye surgery (Bilateral); Colonoscopy; and Esophagogastroduodenoscopy. Social History She reports that she quit smoking about 25 years ago. Her smoking use included cigarettes. She started smoking about 35 years ago. She has a 2.5 pack-year smoking history. She has never used smokeless tobacco. She reports that she does not currently use alcohol. She reports that she does not use drugs. Family History Her family history includes Diabetes in her brother and sister; Heart disease in her father, maternal grandfather, maternal grandmother, mother, paternal grandfather, and paternal grandmother. Allergies Farxiga [Dapagliflozin], Neosporin [Benzalkonium Chloride], Ozempic [Semaglutide], Zetia [Ezetimibe], and Niacin Medications Current Outpatient Medications Medication Instructions ALPRAZolam (XANAX) 0.5 mg, oral, 2 times daily aspirin 81 mg, oral, Daily, TAKE 1 TABLET DAILY cyanocobalamin (VITAMIN B-12) 1,000 mcg, oral, Daily ergocalciferol (ERGOCALCIFEROL) 1,250 mcg (50,000 unit) capsule oral escitalopram (LEXAPRO) 10 mg, oral, Daily glipiZIDE (GLUCOTROL XL) 2.5 mg, oral, Daily levothyroxine (SYNTHROID) 75 mcg, Every morning on an empty stomach liothyronine (CYTOMEL) 5 mcg, Daily loratadine (CLARITIN) 10 mg, oral, Daily metFORMIN (GLUCOPHAGE) 500 mg, oral, 2 times daily with breakfast and dinner, Look-alike/Sound-alike medication multivitamin per tablet 1 tablet, oral, Daily nitrofurantoin (MACRODANTIN) 50 mg, oral, Daily nitrofurantoin, macrocrystal-monohydrate, (MACROBID) 100 MG capsule 100 mg, oral, 2 times daily nitroglycerin (NITROSTAT) 0.4 mg, sublingual, Every 5 min PRN, Put 1 pill under tongue every 5min as needed for chest pain.No more than 3 doses in 15min.Call 911 if pain unrelieved 5min after 1st dose propranoloL (INDERAL) 20 mg, oral, 2 times daily rosuvastatin (CRESTOR) 40 mg, oral, Daily, TAKE 1 TABLET DAILY zolpidem (AMBIEN) 10 mg, oral, Daily Review of Systems Review of Systems Constitutional: Negative. Negative for chills and fever. Respiratory: Negative. Negative for shortness of breath. Cardiovascular: Negative. Last Recorded Vitals Blood pressure 113/62, pulse 68, temperature 97.3 ??F (36.3 ??C), temperature source Tympanic, resp. rate 20, height 1.575 m (5' 2 ), weight 67.2 kg (148 lb 3.2 oz), SpO2 97%. Physical Exam Vitals reviewed. Constitutional: Appearance: Normal appearance. Pulmonary: Effort: Pulmonary effort is normal. Abdominal: Palpations: Abdomen is soft. Neurological: Mental Status: She is alert. Diagnostic Results Admission on 07/17/2024 Component Date Value Ref Range Status POC-GLUCOSE 07/17/2024 133 (H) 70 - 110 mg/dL Final Slash Trimmer 07/17/[id number] brain without IV contrast, CT cervical spine without contrast Narrative: CT HEAD WITHOUT CONTRAST HISTORY: Acute headache, fall injury COMPARISON:None TECHNIQUE: Thin-section axial images of the brain were performed without contrast. This study was performed with techniques to keep radiation doses as low as reasonably achievable, (ALARA). Individualized dose reduction techniques using automated exposure control or adjustment of mA and/or kV according to the patient size were employed. FINDINGS: The visualized paranasal sinuses demonstrate no abnormalities. The mastoid air cells are unremarkable. Bone windows demonstrate no fractures or other abnormalities. Intracranially, the brainstem and posterior fossa are within normal limits. There is mild atrophy with mild microvascular change. The ventricles and basal cisterns are unremarkable. There is no evidence of acute ischemia or hemorrhage. There are no masses or mass effect. There are no extra-axial fluid collections. The visualized orbits and globes are unremarkable. Impression: No acute intracranial abnormalities. CT CERVICAL SPINE 01/19/2024 12:37 PM HISTORY: Status post fall with neck pain. COMPARISON: None. PROCEDURE: Axial images were obtained from the skull base to the thoracic inlet by computed tomography. 3 D reconstruction images were performed. This study was performed with techniques to keep radiation doses as low as reasonably achievable, (ALARA). Individualized dose reduction techniques using automated exposure control or adjustment of mA and/or kV according to the patient size were employed. FINDINGS: There is no acute fracture or subluxation. There is minimal leftward curvature of the cervical spine. There is reversal of the normal cervical curve. There is disc space narrowing noted at C6-C7. There is bony foraminal stenosis on the right at C6-C7 and on the left at C7-T1. There are moderate carotid vascular calcifications noted. The facets are normally aligned. The soft tissues are unremarkable. Limited images of the lung apices are unremarkable. IMPRESSION: Degenerative changes without acute fracture. Images reviewed, interpreted, and dictated by Dr. Duane Coelho. Transcribed by Sania Webster PA-C. Assessment & Plan Active Problems: PONV (postoperative nausea and vomiting) Right ESWL Electronically signed by: Chris Casey MD, 07/17/2024 at 7:40 AM documented in this encounter OR Notes * Op Note - Chris Casey MD - 07/17/2024 10:44 AM EDT Date: 07/17/2024 Procedures: Right extracorporal shockwave lithotripsy Diagnosis: Pre-Op Diagnosis Codes: * Calculus of kidney [N20.0] Post-Op Diagnosis Codes: * Calculus of kidney [N20.0] Indications: Emmett Haas is an 69 y.o. female with large right renal stone presenting for ESWL.The risks, benefits, and alternatives of the above procedure were discussed and the patient has elected to proceed. Surgeons: Surgeons and Role: * Chris Casey MD - Primary Findings: Right renal stone, fragmentation seen with fluoroscopy during ESWL Procedure Details: The patient was seen in the preoperative area. The site of surgery was properly noted/marked if necessary per policy. The patient has been actively warmed in preoperative area. Preoperative antibiotics have been ordered and given within 1 hours of case start. Venous thrombosis prophylaxis have been ordered including bilateral sequential compression devices. Patient was taken tot operative suite and positioned supine position. Anesthesia induced. Repositioned on the lithotripter table to position the stone within the lithotripter focus using biplanar fluoroscopy. All pressure points padded. Prepped timeout stage completed. Preoperative antibiotics have been given. With the stone within the lithotripter focus ESWL was initiated with escalating energy. A total of 3000 shockwaves were administered to the stone with initial right setting of 90 and later decreased to 60 shockwaves per minute. A 3-minute pause was performed after 100 shocks to allow for renal vasoconstriction. Intermittent fluoroscopy performed throughout the procedure to confirm the stone remained within the lithotripter focus and to evaluate degree of fragmentation. Stone fragmentation was noted by expansion of the stone and the stone becoming less dense throughout the procedure. Patient tolerated procedure well. She is taken to recovery room in stable condition. Anesthesia: General Estimated Blood Loss: * No values recorded between 07/17/2024 9:35 AM and 07/17/2024 10:44 AM * Total IV Fluids: See anesthesia record Drains: * No LDAs found * Specimens: Specimens (From admission, onward) None Complications: None * No complications entered in OR log * Disposition: PACU - hemodynamically stable. Condition: stable Attending Attestation: I performed the procedure. documented in this encounter Plan of Treatment Upcoming Encounters Date Type Department Care Team (Late st Contact Info) Description 10/20/2024 9:00 AM EDT Appointment [facility] Breast Imaging [address] [place] [address] Jessica Gomez MD [address] [place] [address] 10/20/2024 9:30 AM EDT Appointment [facility] Nuclear Medicine [address] [place] [address] Jessica Gomez MD [address] [place] [address] documented as of this encounter Procedures Procedure Name Priority Date/Time Associated Diagnosis Comments NOVA GLUCOSE POC Routine 07/17/2024 10:4 4 AM EDT AR LITHOTRIPSY XTRCORP SHOCK WAVE 07/17/2024 9:35 AM EDT Calculus of kidney Case Notes AGILITI CONFIRMATION #[id number] SPOKE TO ITALIA NOVA GLUCOSE POC Routine 07/17/2024 7:07 AM EDT XR ABDOMEN/KUB 1 VW Routine 07/17/2024 6:53 AM EDT EKG-SCANNED 07/17/2024 documented in this encounter Results * (ABNORMAL) Glucose, Nova Meter (07/17/2024 10:44 AM EDT) POC-GLUCOSE 146(H) 70 - 110 mg/dL 07/17/2024 10:45 AM EDT [facility] Comment:In the event of poor peripheral blood flow, venous or arterial blood should be used due to the potential of erroneous results. Slash Trimmer [id number] 07/17/2024 10:45 AM EDT [facility] Blood WHOLE BLOOD / Unknown 07/17/2024 10:44 AM EDT 07/17/2024 10:45 AM EDT Narrative [facility] - 07/17/2024 10:45 AM EDT Slash Trimmer ID is - [id number] us Chris Casey MD POINT OF CARE TEST ORDERABLES Final Result Performing Organization Address [facility] Number [facility] [address] [phone] * (ABNORMAL) Glucose, Nova Meter (07/17/2024 7:07 AM EDT) POC-GLUCOSE 133(H) 70 - 110 mg/dL 07/17/2024 7:09 AM EDT [facility] Comment:In the event of poor peripheral blood flow, venous or arterial blood should be used due to the potential of erroneous results. Slash Trimmer [id number] 07/17/2024 7:09 AM EDT [facility] Blood WHOLE BLOOD / Unknown 07/17/2024 7:07 AM EDT 07/17/2024 7:09 AM EDT Narrative [facility] - 07/17/2024 7:09 AM EDT Slash Trimmer ID is - [id number] us Chris Casey MD POINT OF CARE TEST ORDERABLES Final Result Performing Organization Address [facility] Co de Phone Number [facility] [address] [phone] * XR Abdomen KUB 1 view (07/17/2024 6:53 AM EDT) Anatomical Region Laterality Modality Abdomen X-Ray 07/17/2024 7:38 AM EDT Impressions 07/17/2024 7:41 AM EDT Right nephrolithiasis as detailed. Narrative 07/17/2024 7:41 AM EDT Abdomen HISTORY: Preoperative for urinary tract calculus FINDINGS: 2 supine views. Comparison date 08/09/2023. An 18 mm stone overlies the right lower pole kidney. It previously measured 13 mm. There are vascular calcifications. There is a moderately large amount of stool. There is no bowel dilatation. Procedure Note Italia Diaz MD - 07/17/2024 Abdomen HISTORY: Preoperative for urinary tract calculus FINDINGS: 2 supine views. Comparison date 08/09/2023. An 18 mm stone overlies the right lower pole kidney. It previously measured 13 mm. There are vascular calcifications. There is a moderately large amount of stool. There is no bowel dilatation. IMPRESSION: Right nephrolithiasis as detailed. Anselmo Dominguez Jr., MD IMG DIAGNOSTIC IMAGING ORDERABLES Final Result * EKG-SCANNED (07/17/2024) Narrative 07/17/2024 Ordered by an unspecified provider. us Default Scanning Provider SCAN ORDERS Final Result documented in this encounter Visit Diagnoses Diagnosis Kidney stone- Primary Calculus of kidney PONV (postoperative nausea and vomiting) Nausea with vomiting documented in this encounter Administered Medications Inactive Administered Medications - up to 3 most recent administrations Medication Order MAR Action Action Date Dose Rate Site electrolyte-R (NORMOSOL-R) infusion intravenous, Continuous, Starting on Wed07/17/24 at 0730, Pre-op Rate/Dose Change 07/17/2024 9:31 AM EDT 100 mL/hr 100 mL/hr New Bag 07/17/2024 7:48 AM EDT 1,000 mLs famotidine (PEPCID) tablet 20 mg 20 mg Once, oral, On Wed07/17/24 at 0730, For 1 dose, Pharmacist to renally dose if CrCl is less than 50 mL/min or on CRRT., Pre-op Given 07/17/2024 7:23 AM EDT 20 m g fentaNYL PF (SUBLIMAZE) injection 25 mcg 25 mcg Every 5 min PRN, intravenous, moderate pain (4-6) use second line, First Line for pain moderate or greater, Starting on Wed07/17/24 at 1033, For 4 doses, Maximum cumulative dose 100 mcg. If maximum dose is reached, proceed to 2nd Line agent., PACU glucose chew tab 16 g 16 g Every 15 min PRN, oral, low blood glucose (specify value in prn comments), mild symptomatic hypoglycemia,, Starting on Wed07/17/24 at 0739, Give for blood glucose 60-70 mg/dL if patient is alert and symptomatic. Repeat as ordered until blood glucose above 80 mg/dL., Pre-op HYDROmorphone (DILAUDID) injection 0.5 mg 0.5 mg Every 10 min PRN, intravenous, severe pain (7-10), 2nd Line agent after max dose Fentanyl given if ordered., Starting on Wed07/17/24 at 1033, For 4 doses, Maximum cumulative dose 2 mg, PACU, PACU ondansetron (ZOFRAN) injection 4 mg 4 mg Every 15 min PRN, intravenous, nausea, vomiting, Starting on Wed07/17/24 at 1033, For 2 doses, 1st line for nausea For IV push, give over 2 - 5 minutes., PACU Given 07/17/2024 11:06 AM EDT 4 mg oxyCODONE (ROXICODONE) immediate release tablet 5 mg 5 mg Once as needed, oral, moderate pain (4-6) use first line, severe pain (7-10) use first line, For patients going home if they have not received hydromorphone or morphine., Starting on Wed07/17/24 at 1033, For 1 dose, Look-alike/Sound-alike medication, PACU sodium chloride flush 10 mL 10 mL As needed, intravenous, line care, Starting on Wed07/17/24 at 0738, Every 8 hours and PRN to flush, Pre-op documented in this encounter Active and Recently Administered Medications Times are shown in EDT. Scheduled Medication Order 07/15/2024 07/16/2024 07/17/2024 ceFAZolin (ANCEF) IVPB 2 g/50 mL D5W (premix) (COMPLETED) 2 g Once, intravenous, Administer over 30 Minutes, On Wed07/17/24 at 0800, For 1 dose, Administer within 60 minutes of incision or procedure start., Pre-op, Please choose an indication: Surgical Prophylaxis 0748 (Handoff - Prov ider: Angel Lopez RN)0942 (Given - Provider: No Win CRNA) famotidine (PEPCID) tablet 20 mg (COMPLETED) 20 mg Once, oral, On Wed07/17/24 at 0730, For 1 dose, Pharmacist to renally dose if CrCl is less than 50 mL/min or on CRRT., Pre-op 0723 (Given - Provid er: Angel Lopez RN) Continuous Medication Order 07/15/2024 07/16/2024 07/17/2024 electrolyte-R (NORMOSOL-R) infusion intravenous, Continuous, Starting on Wed07/17/24 at 0730, Pre-op 0748 (New Bag - Prov ider: Anegl Lopez RN)0931 (Rate/Dose Change - Provider: No Win CRNA)1043 (Anesthesia Volume Adjustment - Provider: No Win CRNA) PRN Medication Order 07/15/2024 07/16/2024 07/17/2024 fentaNYL PF (SUBLIMAZE) injection 25 mcg 25 mcg Every 5 min PRN, intravenous, moderate pain (4-6) use second line, First Line for pain moderate or greater, Starting on Wed07/17/24 at 1033, For 4 doses, Maximum cumulative dose 100 mcg. If maximum dose is reached, proceed to 2nd Line agent., PACU glucose chew tab 16 g 16 g Every 15 min PRN, oral, low blood glucose (specify value in prn comments), mild symptomatic hypoglycemia,, Starting on Wed07/17/24 at 0739, Give for blood glucose 60-70 mg/dL if patient is alert and symptomatic. Repeat as ordered until blood glucose above 80 mg/dL., Pre-op HYDROmorphone (DILAUDID) injection 0.5 mg 0.5 mg Every 10 min PRN, intravenous, severe pain (7-10), 2nd Line agent after max dose Fentanyl given if ordered., Starting on Wed07/17/24 at 1033, For 4 doses, Maximum cumulative dose 2 mg, PACU, PACU ondansetron (ZOFRAN) injection 4 mg 4 mg Every 15 min PRN, intravenous, nausea, vomiting, Starting on Wed07/17/24 at 1033, For 2 doses, 1st line for nausea For IV push, give over 2 - 5 minutes., PACU 1106 (Given - Provid er: Negin Meléndez RN) oxyCODONE (ROXICODONE) immediate release tablet 5 mg 5 mg Once as needed, oral, moderate pain (4-6) use first line, severe pain (7-10) use first line, For patients going home if they have not received hydromorphone or morphine., Starting on Wed07/17/24 at 1033, For 1 dose, Look-alike/Sound-alike medication, PACU sodium chloride flush 10 mL(Linked Group 1) 10 mL As needed, intravenous, line care, Starting on Wed07/17/24 at 0738, Every 8 hours and PRN to flush, Pre-op Linked Groups Order Group 1: Insert Peripheral IV (CANCELED) STAT, Once, On Wed07/17/24 at 0739, For 1 occurrence, Pre-op And Saline Lock IV (CANCELED) Routine, Once, On Wed07/17/24 at 0739, For 1 occurrence, Pre-op And sodium chloride flush 10 mLJump to med 10 mL As needed, intravenous, line care, Starting on Wed07/17/24 at 0738, Every 8 hours and PRN to flush, Pre-op documented in this encounter Care Teams Business Unit Controller Relationship Specialty Start Date End Date Jessica Gomez MD [address] [place] [address] PCP - General Internal Medicine 08/09/23 Darrian Reno PA-C [address] [facility] [address] [place] [address] Cardiology 04/15/23 Gibson Bai MD [address] [place] [address] Consulting Physician Urology 08/09/23 documented as of this encounter
--- OUTSIDE RECORDS SUMMARY | 2024-07-17 09:17 | XMS_ITS | Encounter Summary ---
Author Organization [employer] ([place], [place], [place], [place]) Address [address] [place] [address] Care Team Providers Care Finishing Trimmer Name Role Phone Darrian Reno PA-C Unavailable [phone] Jessica Gomez MD Primary Care Provider [phone] Gibson Bai MD Unavailable Reason for Visit * Auth/Cert (Routine) Specialty Diagnoses / Procedures Referred By Contac t Referred To Contact Diagnoses Calculus of kidney N20.0 Procedures SD LITHOTRIPSY XTRCORP SHOCK WAVE LITHOTRIPSY,EXTRACORPOREAL SHOCK WAVE (ESWL) Chris Casey MD [address] [place] [address] Phone: tel: fax: Referral ID Status Reason Start Date Expiration Date Visits Re quested Visits Authorized [id number] 07/04/2024 1 1 Encounter Details Date Type Department Care Team (Late st Contact Info) Description 07/17/2024 9:17 AM EDT - 07/17/2024 10:41 AM EDT Surgery [facility] Surgery Department [address] [place] [address] Chris Casey MD [address] [facility] [address] [place] [address] RIGHT EXTRACORPOREAL SHOCKWAVE LITHOTRIPSY Social History Tobacco Use Types Packs/Day Years [...] Date Yemi rded Speak language other than Citizen Of [place] at home Not on file 02/20/2023 Want [...] Sign Reading Time Taken Comments Blood Pressure 141/69 07/17/2024 10:40 AM EDT Pulse 87 07/17/2024 10:40 AM EDT Temperature 36.6 C (97.8 F) 07/17/2024 10:37 AM EDT Respiratory Rate 17 07/17/2024 10:40 AM EDT Oxygen Saturation 91% 07/17/2024 10:40 AM EDT Inhaled Oxygen Concentration - - [...] * ESWL for Kidney Stones Care After (Citizen Of [place]) * General Anesthesia Adult Care After (Citizen Of [place]) documented in this encounter Medications at Time [...] also shows right kidney stones. I called waterfront director and informed them. documented in this encounter [...] mellitus (HCC), Glaucoma, Hearing loss, History of [place] (myocardial infarction), Hypertension, Kidney stones, LBBB (left [...] 133 (H) 70 - 110 mg/dL Final Recycle Worker 07/17/[id number] brain without IV contrast, CT [...] bilateral sequential compression devices. Patient was taken tothe operative suite and positioned supine position. Anesthesia [...] Info) Description 10/20/2024 9:00 AM EDT Appointment [facility] Breast Imaging [address] [place] [address] Jessica Gomez MD [address] [place] [address] 10/20/2024 9:30 AM EDT Appointment [facility] Nuclear Medicine [address] [place] [address] Jessica Gomez MD [address] [place] [address] documented as of this encounter Procedures Procedure Name Priority Date/Time Associated Diagnosis Comments NOVA GLUCOSE POC Routine 07/17/2024 10:4 4 AM EDT SD LITHOTRIPSY XTRCORP SHOCK WAVE 07/17/2024 9:35 AM EDT Calculus of kidney Case Notes AGILITI CONFIRMATION #[id number] SPOKE TO ITALIA NOVA GLUCOSE POC Routine 07/17/2024 7:07 AM EDT XR ABDOMEN/KUB 1 VW Routine 07/17/2024 6:53 AM EDT EKG-SCANNED 07/17/2024 documented in this encounter Results * (ABNORMAL) Glucose, Nova Meter (07/17/2024 10:44 AM EDT) POC-GLUCOSE 146(H) 70 - 110 mg/dL 07/17/2024 10:45 AM EDT [facility] Comment:In the event of poor peripheral blood flow, venous or arterial blood should be used due to the potential of erroneous results. Recycle Worker [id number] 07/17/2024 10:45 AM EDT [facility] Blood WHOLE BLOOD / Unknown 07/17/2024 10:44 AM EDT 07/17/2024 10:45 AM EDT Narrative [facility] - 07/17/2024 10:45 AM EDT Recycle Worker ID is - [id number] us Chris Casey MD POINT OF CARE TEST ORDERABLES Final Result Performing Organization Address [facility] Number [facility] [address] [phone] * (ABNORMAL) Glucose, Nova Meter (07/17/2024 7:07 AM EDT) POC-GLUCOSE 133(H) 70 - 110 mg/dL 07/17/2024 7:09 AM EDT [facility] Comment:In the event of poor peripheral blood flow, venous or arterial blood should be used due to the potential of erroneous results. Recycle Worker [id number] 07/17/2024 7:09 AM EDT [facility] Blood WHOLE BLOOD / Unknown 07/17/2024 7:07 AM EDT 07/17/2024 7:09 AM EDT Narrative [facility] - 07/17/2024 7:09 AM EDT Recycle Worker ID is - [id number] us Chris Casey MD POINT OF CARE TEST ORDERABLES Final Result Performing Organization Address [facility] Number [facility] [address] [phone] * XR Abdomen KUB 1 view (07/17/2024 [...] Narrative 07/17/2024 Ordered by an unspecified provider. Default Scanning Provider SCAN ORDERS Final Result documented in this encounter Visit Diagnoses Diagnosis Kidney stone- Primary Calculus of kidney PONV (postoperative nausea and vomiting) Nausea with vomiting Calculus of kidney documented in this encounter Administered Medications Inactive [...] Pre-op 0748 (New Bag - Prov ider: Angel Lopez RN)0931 (Rate/Dose Change - Provider: No [...] Pre-op documented in this encounter Care Teams Finishing Trimmer Relationship Specialty Start Date End Date Jessica Gomez MD [address] [place] [address] PCP - General Internal Medicine 08/09/23 Darrian Reno PA-C [address] [facility] [address] [place] [address] Cardiology 04/15/23 Gibson Bai MD [address] [place] [address] Consulting Physician Urology 08/09/23 documented as of this encounter
--- OUTSIDE RECORDS SUMMARY | 2024-07-17 09:37 | XMS_ITS | Encounter Summary ---
Author Organization [employer] ([place], [place], [place], [place]) Address [address] [place] [address] Care Team Providers Care Hemming And Tacking Machine Operator Name Role Phone Darrian Reno PA-C Unavailable [phone] Jessica Gomez MD Primary Care Provider [phone] Gibson Bai MD Unavailable Reason for Visit * Auth/Cert (Routine) Specialty Diagnoses / Procedures Referred By Contac t Referred To Contact Diagnoses Calculus of kidney N20.0 Procedures [place] LITHOTRIPSY XTRCORP SHOCK WAVE LITHOTRIPSY,EXTRACORPOREAL SHOCK WAVE (ESWL) Chris Casey MD [address] [facility] [address] [place] [address] Phone: tel: fax: Referral ID Status Reason Start Date Expiration Date Visits Re quested Visits Authorized [id number] 07/04/2024 1 1 Encounter Details Date Type Department Care Team (Late st Contact Info) Description 07/17/2024 9:37 AM EDT Anesthesia Event [facility] Surgery Department [address] [place] [address] No Win CRNA [address], [place] [id number] Guilherme Davis MD [address] [place], [place] [id number] Anesthesia Record Procedure Summary Procedure Name Responsible Anesthesiologist Anesthesia Start Time Anesthesia Stop Time RIGHT EXTRACORPOREAL SHOCKWAVE LITHOTRIPSY (Right: Pelvis) No Win, SCANNING TECH 07/17/24 0937 07/17/24 1044 Events Date Time Event Comment 07/17/2024 0739 0937 An Start Patient identif ied and chart reviewed. 0937 An Start Data Anesthesia mac imelda and monitors checked. 0937 Quick Note Preop BP 113/62 0940 Pre-Induction Eval FDA anest hesia machine pre-use checkout completed. Patient status reassessed prior to start of anesthesia care. 0940 An Induction 0943 An Intubation 0943 Anesthesia Ready 0949 an simba now start 1037 An Extubation 1037 an stop data 1043 Handoff to Receiving I compl eted my handoff to the receiving clinician during which we: 1. Identified the patient. 2. Identified the responsible provider. 3. Reviewed the pertinent medical history. 4. Discussed the surgical course. 5. Reviewed intra-op anesthesia management and issues during anesthesia. 6. Set expectations for post-procedure period. 7. Allowed opportunity for questions and acknowledgement of understanding. 1044 An Stop Meds Name Total dexamethasone (DECADRON) injection 4 mg/ mL 4 mg ePHEDrine injection 50 mg/mL 5 mg fentaNYL (SUBLIMAZE) injection 25 mcg lidocaine (XYLOCAINE) injection 2% 40 mg ondansetron (ZOFRAN) injection vial 4 mg propofol (DIPRIVAN) injection 10 mg/mL b olus 140 mg ceFAZolin (ANCEF) IVPB 2 g/50 mL D5W (pr emix) 2 g electrolyte-R (NORMOSOL-R) infusion 121. 67 mL * Agents Name O2 N2O Air SEVOFLURANE * Blood No blood administrations on file. Lines, Drains, and Airways Type Details Placement Removal Peripheral IV Placement Date: 11/02; Placement Time: 0740; Size: 22 G; Orientation: Anterior, Left; Location: Forearm; Site Prep: Chlorhexidine ; Insertion attempts: 1; Removal Date: 07/17/24; Removal Time: 1127 07/17/24 0740 by Angel Lopez RN 07/17/24 1127 by Mayra Ness RN ETT Placement Date 07/17; Placement Time 0943 (created via procedure documentation); Removal Date 07/17/24; Removal Time 1037 07/17/24 0943 by No Win CRNA 07/17/24 1037 by No Win CRNA documented in this encounter Social History Tobacco Use Types Packs/Day Years [...] Date Yemi rded Speak language other than Namibian at home Not on file 02/20/2023 Want [...] on file documented as of this encounter OR Notes * Anesthesia Postprocedure Evaluation - No Win CRNA - 07/17/2024 10:44 AM EDT Patient: Emmett Haas Procedure Summary Date: 07/17/24 Room / Location: [facility] OR [facility] OPERATING ROOM Anesthesia Start: 936 Anesthesia Stop: Procedure: RIGHT EXTRACORPOREAL SHOCKWAVE LITHOTRIPSY (Right: Pelvis) Diagnosis: Calculus of kidney (N20.0) Surgeons: Chris Casey MD Responsible Provider: No Win CRNA Anesthesia Type: general ASA Status: 3 Anesthesia Type: general Vitals Value Taken Time BP 141/69 07/17/24 1041 Temp 97.8 07/17/24 1044 Pulse 81 07/17/24 1043 Resp 9 07/17/24 1043 SpO2 96 % 07/17/24 1043 Vitals shown include unfiled device data. Ht 1.575 m (5' 2 ) Wt 67.2 kg (148 lb 3.2 oz) BMI 27.11 kg/m?? Anesthesia Post Evaluation Patient location during evaluation: PACU Patient participation: complete - patient participated Level of consciousness: awake Pain management: adequate Multimodal analgesia pain management approach Airway patency: patent Two or more strategies used to mitigate risk of obstructive sleep apnea Cardiovascular status: stable Respiratory status: nasal cannula Hydration status: stable Color: Activity: Inotropes/Vasopressors: There were no known notable events for this encounter. No Win CRNA 07/17/2024 10:44 AM EDT * Anesthesia Procedure Notes - No Win CRNA - 07/17/2024 9:49 AM EDT Associated Order(s): Intubation Intubation Authorized by: No Win CRNA Performed by: No Win CRNA Date/Time: 07/17/2024 9:43 AM Urgency: elective Indications and Patient Condition Indications for airway management: anesthesia and airway protection Spontaneous Ventilation: absent Sedation level: general anesthesia Preoxygenated: yes Patient position: sniffing no Mask difficulty assessment: 0 - not attempted no Final Airway Details Final airway type: supraglottic airway Supraglottic airway type: classic Size: 3 Number of attempts at approach: 1 Number of other approaches attempted: 0 * Anesthesia Preprocedure Evaluation - Aleksey Santiago MD - 07/17/2024 7:37 AM EDT Anesthesia Pre Evaluation Ms. Emmett Haas is a 69 y.o. 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 No CP since. >4 METS.) (+) Hypertension (+) LBBB (left bundle branch block) ENDOCRINE (within normal limits) GASTROINTESTINAL (within normal limits) /RENAL (within normal limits) NEURO/PSYCH (+) Stroke with cerebral ischemia (HCC) RESPIRATORY SYSTEM (within normal limits) Clinical information reviewed: NPO Status Date of last liquid: 07/16/24 Time of last liquid: 1999 Date of last solid: 07/16/24 Time of last solid: 1999 Physical Exam Airway Mallampati: II TM distance: >3 FB Neck ROM: full Cardiovascular - normal exam Dental - normal exam Pulmonary - normal exam Abdominal - normal exam Anesthesia Plan ASA 3 Planned anesthetic: general (TIVA) Anesthesia Plan Factors- The patient is not a current smoker. Induction: intravenous Postoperative Plan- Postoperative administration of opioids is intended. Trial extubation is planned. Informed Consent- Anesthetic plan and risks discussed with patient. Blood Consent- Use of blood products discussed with patient who. Plan discussed with SCANNING TECH. documented in this encounter Plan of Treatment Upcoming Encounters Date Type Department Care Team (Late st Contact Info) Description 10/20/2024 9:00 AM EDT Appointment [facility] Breast Imaging [address] [place] [address] Jessica Gomez MD [address] [place] [address] 10/20/2024 9:30 AM EDT Appointment [facility] Nuclear Medicine [address] [place] [address] Jessica Gomez MD [address] [place] [address] documented as of this encounter Procedures Procedure Name Priority Date/Time Associated Diagnosis Comments ANESTHESIA INTUBATION Routine 07/17/2024 9:43 AM EDT documented in this encounter Results * AN SINGLE LUMEN INTUBATION (07/17/2024 9:43 AM EDT) Narrative No Win CRNA - 07/17/2024 9:43 AM EDT No Win CRNA 07/17/2024 9:49 AM Intubation Authorized by: No Win CRNA Performed by: No Win CRNA Date/Time: 07/17/2024 9:43 AM Urgency: elective Indications and Patient Condition Indications for airway management: anesthesia and airway protection Spontaneous Ventilation: absent Sedation level: general anesthesia Preoxygenated: yes Patient position: sniffing no Mask difficulty assessment: 0 - not attempted no Final Airway Details Final airway type: supraglottic airway Supraglottic airway type: classic Size: 3 Number of attempts at approach: 1 Number of other approaches attempted: 0 No Win CRNA ANESTHESIA ORDERABLES Final Result documented in this encounter Visit Diagnoses Not on filedocumented in this encounter Administered Medications Inactive Administered Medications - up to 3 most recent administrations Medication Order MAR Action Action Date Dose Rate Site ceFAZolin (ANCEF) IVPB 2 g/50 mL D5W (premix) 2 g Once, intravenous, Administer over 30 Minutes, On Wed07/17/24 at 0800, For 1 dose, Administer within 60 minutes of incision or procedure start., Pre-op, Please choose an indication: Surgical Prophylaxis Given 07/17/2024 9:42 AM EDT 2 g dexAMETHasone (DECADRON) injection As needed, intravenous, Starting on Wed07/17/24 at 0940, Anesthesia Intra-op Given 07/17/2024 9:40 AM EDT 4 mg electrolyte-R (NORMOSOL-R) infusion intravenous, Continuous, Starting on Wed07/17/24 at 0730, Pre-op Rate/Dose Change 07/17/2024 9:31 AM EDT 100 mL/hr 100 mL/hr New Bag 07/17/2024 7:48 AM EDT 1,000 mLs ePHEDrine sulfate injection As needed, intravenous, Starting on Wed07/17/24 at 1001, Anesthesia Intra-op Given 07/17/2024 10:01 AM EDT 5 mg fentaNYL PF (SUBLIMAZE) injection As needed, intravenous, Starting on Wed07/17/24 at 0940, Anesthesia Intra-op Given 07/17/2024 9:40 AM EDT 25 mcg lidocaine (XYLOCAINE) injection 2% As needed, intravenous, Starting on Wed07/17/24 at 0940, Anesthesia Intra-op Given 07/17/2024 9:40 AM EDT 40 mg ondansetron (ZOFRAN) injection As needed, intravenous, Starting on Wed07/17/24 at 1032, Anesthesia Intra-op Given 07/17/2024 10:32 AM EDT 4 mg propofol (DIPRIVAN) injection 10 mg/mL bolus As needed, intravenous, Starting on Wed07/17/24 at 0940, Anesthesia Intra-op Given 07/17/2024 9:40 AM EDT 140 mg documented in this encounter Care Teams Hemming And Tacking Machine Operator Relationship Specialty Start Date End Date Jessica Gomez MD [address] [place] [address] PCP - General Internal Medicine 08/09/23 Darrian Reno PA-C [address] [place] [address] Cardiology 04/15/23 Gibson Bai MD [address] [place] [address] Consulting Physician Urology 08/09/23 documented as of this encounter
--- NOTE | 2024-08-31 08:42 | XR_ITS ---
FINAL REPORT CLINICAL HISTORY: left hip fx PAIN STARTED IN HIP THEN GOES DOWN TO KNEE AND SHINS X 2 MONTHS FEELS PRESSURE/ SWELLING IN KNEE NO SURGERIES COMPARISON: 08/03/2023 FINDINGS: LEFT HIP: Two views of the left hip with an AP view of the pelvis demonstrate no acute fracture or dislocation. There is mild degenerative change. The visualized bony structures are well aligned. No soft tissue abnormality is seen. IMPRESSION: Mild degenerative change without acute bony abnormality. Reviewed, Interpreted and Dictated by Samreen Berg MD Transcribed by Babita Nguyen Authenticated and [facility]
--- NOTE | 2024-08-31 08:42 | XR_ITS ---
FINAL REPORT CLINICAL HISTORY: Left tibia fibula pain PAIN STARTED IN HIP THEN GOES DOWN TO KNEE AND SHINS X 2 MONTHS FEELS PRESSURE/ SWELLING IN KNEE NO SURGERIES COMPARISON: None FINDINGS: Two views of the left tibia/fibula were obtained. There is no acute fracture or dislocation. The joint spaces are intact. There is no soft tissue abnormality. IMPRESSION: No acute bony abnormality. Reviewed, Interpreted and Dictated by Samreen Berg MD Transcribed by Babita Nguyen Authenticated and [facility]
--- NOTE | 2024-08-31 08:42 | XR_ITS ---
FINAL REPORT CLINICAL HISTORY: left knee pain PAIN STARTED IN HIP THEN GOES DOWN TO KNEE AND SHINS X 2 MONTHS FEELS PRESSURE/ SWELLING IN KNEE NO SURGERIES COMPARISON: 08/18/2022 FINDINGS: LEFT KNEE 3 views of the left knee were obtained. There is no acute fracture or dislocation. Visualized joint spaces are normally aligned. Soft tissues are unremarkable. IMPRESSION: No acute bony abnormality. Reviewed, Interpreted and Dictated by Samreen Berg MD Transcribed by Babita Nguyen Authenticated and [facility]
--- OUTSIDE RECORDS SUMMARY | 2024-08-31 08:43 | XMS_ITS | Clinical Summary ---
Author Organization [facility] Address [address] [place] [address] Care Team Providers Care Director Of Operations Name Role Phone Unavailable Primary Care Provider Unavailabl e Social History Tobacco Use Types Packs/Day Years Used Date Smoking Tobacco: Never Assessed Comments Unknown Sex and Gender Information Value Date Recorded Sex Assigned at Not on file Legal Sex Female 6:24 AM EST Gender Identity Not on file Sexual Orientation Not on file Plan of Treatment Health Maintenance Due Date Last Done Comments COLOGUARD 1956 COLONOSCOPY 1956 Colorectal Screening Combination 1956 FIT 1956 HEP C SCREENING 1956 SIGMOIDOSCOPY 1956 ANNUAL WELLNESS EXAM 06/01/1959 DTAP/TDAP/TD VACCINE (1 - Tdap) 06/01/1975 ANNUAL MAMMOGRAM 1996 PNEUMOCOCCAL VACCINE 65+ YEA RS (1 of 1 - PCV) 2006 Shingles Vaccine (Shingrix) (1 of 2) 2006 DEXA SCAN EVERY 2 YR (Osteoporosis Screen) 2021 INFLUENZA VACCINE (#1) 2024 9, 12/02/2017, 03/01/2017 HEP A VACCINE Aged Out 06/09/2018, 12/20/2017 No longer eligible based on patient's age to complete this topic HIB VACCINE Aged Out No longer eligi ble based on patient's age to complete this topic ROTOVIRUS VACCINE Aged Out No longer eligible based on patient's age to complete this topic Insurance MEDICARE
--- OUTSIDE RECORDS SUMMARY | 2024-08-31 08:43 | XMS_ITS | Encounter Summary ---
Author Organization [employer] ([place], [place], [place], [place]) Address [address] [place] [address] Care Team Providers Care Automotive Exhaust Emissions Technician Name Role Phone Darrian Reno PA-C Unavailable [phone] Jessica Gomez MD Primary Care Provider [phone] Gibson Bai MD Unavailable Encounter Details Date Type Department Care Team (Late st Contact Info) Description 07/17/2024 Outside Orders [facility] Admitting [address] [place] [address] Provider, Not In System [place] Social History Tobacco Use Types Packs/Day Years [...] Date Yemi rded Speak language other than Panamanian at home Not on file 02/20/2023 Want [...] on file documented as of this encounter Plan of Treatment Upcoming Encounters Date Type Department Care Team (Late st Contact Info) Description 10/20/2024 9:00 AM EDT Appointment [facility] Breast Imaging [address] [place] [address] Jessica Gomez MD [address] [facility] [place] [address] 10/20/2024 9:30 AM EDT Appointment [facility] Nuclear Medicine [address] [place] [address] Jessica Gomez MD [address] [facility] [place] [address] documented as of this encounter Visit Diagnoses Not on filedocumented in this encounter Care Teams Automotive Exhaust Emissions Technician Relationship Specialty Start Date End Date Jessica Gomez MD [address] [place] [address] PCP - General Internal Medicine 08/09/23 Darrian Reno PA-C [address], [facility] [address] [place] [address] Cardiology 04/15/23 Gibson Bai MD [address] [facility] [address] [place] [address] Consulting Physician Urology 08/09/23 documented as of this encounter
--- OUTSIDE RECORDS SUMMARY | 2024-08-31 08:43 | XMS_ITS | Encounter Summary ---
Author Organization [employer] ([place], [place], [place], [place]) Address [address] [place] [address] Care Team Providers Care Molder Wax Ball Name Role Phone Shadia Darrian CAMP Unavailable [phone] Jessica Gomez MD Primary Care Provider Gibson Bai MD Unavailable Encounter Details Date Type Department Care Team (Latest Contact Info) Description 07/17/2024 Travel Social History Tobacco Use Types Packs/Day Years [...] Date Yemi rded Speak language other than Syrian at home Not on file 02/20/2023 Want [...] Info) Description 10/20/2024 9:00 AM EDT Appointment [facility] Breast Imaging [address] [place] [address] Jessica Gomez MD [address] [place] [address] 10/20/2024 9:30 AM EDT Appointment [facility] Nuclear Medicine [address] [place] [address] Jessica Gomez MD [address] [place] [address] documented as of this encounter Visit Diagnoses Not on filedocumented in this encounter Care Teams Molder Wax Ball Relationship Specialty Start Date End Date Jessica Gomez MD [address] [place] [address] PCP - General Internal Medicine 08/09/23 Darrian Reno PA-C [address], [place] [address] [place] [address] Cardiology 04/15/23 Gibson Bai MD [address] [place] [address] Consulting Physician Urology 08/09/23 documented as of this encounter
--- OUTSIDE RECORDS SUMMARY | 2024-08-31 08:43 | XMS_ITS | Encounter Summary ---
Author Organization [employer] ([place], [place], [place], [place]) Address [address] [place] [address] Care Team Providers Care E Merchant Name Role Phone Darrian Reno PA-C Unavailable [phone] Jessica Gomez MD Primary Care Provider [phone] Gibson Bai MD Unavailable Reason for Referral * Mammography (Routine) - New Request Specialty Diagnoses / Procedures Referred By Contac t Referred To Contact Radiology Diagnoses Encounter for screening mammogram for malignant neoplasm of breast Procedures MM digital mammo screen with jaqueline bilateral Jessica Gomez MD [address] [place] [address] Phone: tel: fax: [facility] [address] [place] [phone] Phone: tel: fax: Referral ID Status Reason Start Date Expiration Date V isits Requested Visits Authorized [id number] New Request 08/01/2024 08/01/2025 1 1 Encounter Details Date Type Department Care Team (Late st Contact Info) Description 08/01/2024 Outside Orders [facility] Central Scheduling [address] [place] [address] Jessica Gomez MD [address] [place] [address] Encounter for screening mammogram for malignant neoplasm of breast (Primary Dx) Social History Tobacco Use Types Packs/Day Years [...] Date Yemi rded Speak language other than Hungarian at home Not on file 02/20/2023 Want [...] Info) Description 10/20/2024 9:00 AM EDT Appointment [facility] [address] [place] [phone] Jessica Gomez MD [address] [place] [address] 10/20/2024 9:30 AM EDT Appointment [facility] [address] [place] [phone] Jessica Gomez MD [address] [place] [address] Scheduled Orders Name Type Priority Associated Diagnoses Orde r Schedule MM digital mammo screen with jaqueline bilateral Imaging Routine Encounter for screening mammogram for malignant neoplasm of breast Expected: 08/01/2024, Expires: 08/01/2025 documented as of this encounter Visit Diagnoses Diagnosis Encounter for screening mammogram for malignant neoplasm of breast- Primary documented in this encounter Care Teams E Merchant Relationship Specialty Start Date End Date Jessica Gomez MD [address] [place] [address] PCP - General Internal Medicine 08/09/23 Darrian Reno PA-C [address] [place] [address] Cardiology 04/15/23 Gibson Bai MD [address] [place] [address] Consulting Physician Urology 08/09/23 documented as of this encounter
--- OUTSIDE RECORDS SUMMARY | 2024-08-31 08:43 | XMS_ITS | Encounter Summary ---
Author Organization [employer] ([place], [place], [place], [place]) Address [address] [place] [address] Care Team Providers Care Slipman Name Role Phone Darrian Reno PA-C Unavailable [phone] Jessica Gomez MD Primary Care Provider [phone] Gibson Bai MD Unavailable Reason for Referral * DXA (Routine) - New Request Specialty Diagnoses / Procedures Referred By Contdarci t Referred To Contact Radiology Diagnoses Encounter for screening for osteoporosis Procedures DXA bone density spine and hip Jessica Gomez MD [address] [place] [address] Phone: tel: fax: [facility] [address] [place] [phone] Phone: tel: fax: Referral ID Status Reason Start Date Expiration Date V isits Requested Visits Authorized [id number] New Request 08/02/2024 08/02/2025 1 1 Encounter Details Date Type Department Care Team (Late st Contact Info) Description 08/02/2024 Outside Orders [facility] Central Scheduling [address] [place] [address] Jessica Gomez MD [address] [place] [address] Encounter for screening for osteoporosis (Primary Dx) Social History Tobacco Use Types [...] rded Speak language other than Citizen [place] at home Not on file 02/20/2023 Want [...] Info) Description 10/20/2024 9:00 AM EDT Appointment [facility] [address] [place] [phone] Jessica Gomez MD [address] [place] [address] 10/20/2024 9:30 AM EDT Appointment [facility] Nuclear Medicine [address] [place] [phone] Jessica Gomez MD [address] [facility] [place] [address] Scheduled Orders Name Type Priority Associated Diagnoses Orde r Schedule DXA bone density spine and hip Imaging Routine Encounter for screening for osteoporosis Expected: 08/02/2024, Expires: 08/02/2025 documented as of this encounter Visit Diagnoses Diagnosis Encounter for screening for osteoporosis- Primary documented in this encounter Care Teams Slipman Relationship Specialty Start Date End Date Jessica Gomez MD [address] [place] [address] PCP - General Internal Medicine 08/09/23 Darrian Reno PA-C [address] [place] [address] Cardiology 04/15/23 Gibson Bai MD [address] [place] [address] Consulting Physician Urology 08/09/23 documented as of this encounter
--- OUTSIDE RECORDS SUMMARY | 2024-08-31 08:43 | XMS_ITS | Encounter Summary ---
Author Organization [employer] ([place], [place], [place], [place]) Address [address] [place] [address] Care Team Providers Care Talent Acquisition Relationship Manager Name Role Phone Shadia Darrian CAMP Unavailable [phone] Jessica Gomez MD Primary Care Provider [phone] Gibson Bai MD Unavailable Encounter Details Date Type Department Care Team (Latest Contact Info) Description 07/11/2024 Travel Social History Tobacco Use Types Packs/Day [...] Date Yemi rded Speak language other than Haitian at home Not on file 02/20/2023 Want [...] Info) Description 10/20/2024 9:00 AM EDT Appointment [facility] [address] [place] [address] Jessica Gomez MD [address] [place] [address] 10/20/2024 9:30 AM EDT Appointment [facility] Nuclear Medicine [address] [place] [address] Jessica Gomez MD [address] [place] [address] documented as of this encounter Visit Diagnoses Not on filedocumented in this encounter Care Teams Talent Acquisition Relationship Manager Relationship Specialty Start Date End Date Jessica Gomez MD [address] [place] [address] PCP - General Internal Medicine 08/09/23 Darrian Reno PA-C [address] [facility] [address] [place] [address] Cardiology 04/15/23 Gibson Bai MD [address] [place] [address] Consulting Physician Urology 08/09/23 documented as of this encounter
--- OUTSIDE RECORDS SUMMARY | 2024-08-31 08:43 | XMS_ITS | Data Portability ---
Author Organization [place] [facility], [employer] Address [address] [place] [address] 1 [place] [address] Assessment No assessment recorded. Plan of Treatment Reminders Order Date Submit Date Provider Last Modified By Organization Details Last Modified Time Details Appointments None recorded. Lab CMP, serum or plasma 2021 023 [email or web address] [facility], [address] [place] [address], [address], 3 08:37:23 HbA1c (hemoglobin A1c), blood 2021 023 [facility], [address] [place] [address], [address], 3 08:37:23 CBC w/ auto diff 2021 023 [email or web address] [facility], [address] [place] [address], [address], 3 08:37:23 Referral None recorded. Procedures None recorded. Surgeries None recorded. Imaging MAMMO, screening, digital, bilateral [email or web address] [place] [address] (Central Scheduling), [address], [place], [address], 2 09:26:31 CT, head, w/wo contrast 2021 022 NICOLE [facility] (Central Scheduling), [address], [place], [address], 2 16:34:17 Medication Orders amoxicillin 875 mg tablet 2021 [facility], [address], [place], [address], 11:48:31 zolpidem 10 mg tablet 2021 [facility], [address], [place], [address], 09:02:58 escitalopra m 20 mg tablet 2021 [facility], [address], [place], [address], 09:03:06 alprazolam 0.25 mg tablet 2021 [facility], [address], [place], [address], 09:03:12 rosuvastati n 10 mg tablet 2021 [facility], [address], [place], [address], 09:03:03 primidone 50 mg tablet 2021 [facility], [address], [place], [address], 09:03:09 lisinopril 5 mg tablet 2021 [facility], [address], [place], [address], 09:03:15 Euthyrox 75 mcg tablet 2021 [facility], [address], [place], [address], 2 09:02:52 Janumet XR 100 mg-1,000 mg tablet,exte nded release 2021 022 [facility], [address], [place], [address], 2 09:03:00 Patient TargetsNo targets recorded. Patient InstructionsNo instructions recorded. Reason for Referral None Reported. Results Created Date Observation Date Name Description Value Unit Range Abnormal Flag Note LastModifiedBy Organization Detail LastModifiedTime 11/27/19 22 11/26/2021 XR, hand No observ ation record ed. [email or web address] [facility] [address] [place], [address], 11/26/2021 17:11:17 12/09/19 22 12/08/2021 XR, chest , 2 view No observ ation record ed. [email or web address] [facility] Radiology [facility] [address] [place], [address], 12/08/2021 16:47:17 12/10/19 22 12/09/2021 CT, head, w/wo contr ast No observ ation record ed. [email or web address] [facility] [address] [place], [address], 12/09/2021 17:04:02 01/06/20 22 01/05/2022 MAMMO , scree ranjit, digit al, bilat eral No observ ation record ed. [email or web address] [facility] (Central [facility]) [address], [place], [address], 01/06/2022 11:48:29 08/03/19 24 08/03/2023 imagi ng/di agnos tic resul t No observ ation record ed. [address] , [place], [address], 08/04/2023 12:20:48 12/13/1912/13/2023 XR, hand No observ ation record ed. [email or web address] [address] [place], [address], 12/14/2023 08:37:00 05/02/1905/01/2024 imagi ng/di agnos tic resul t No observ ation record ed. [address] [place], [address], 05/02/2024 08:30:42 05/03/1905/01/2024 imagi ng/di agnos tic resul t No observ ation record ed. [facility] (Registration ) [address] [facility], [place], [address], 05/02/2024 08:30:40 Result Notes None recorded. Problems Name Problem SNOMED Code Status Onset Date Resolution Date Notes Provider Name and Address Organization Details Recorded Time Pure hypercho lesterol emia [id number] Completed 200406/27/2015 Problem Code: E78.0; Problem Code Type: ICD-10; Not Available [facility] 3 14:35:33 Hyperlip idemia 60931667 Completed 200408/07/2016 Problem Code: E78.5; Problem Code Type: ICD-10; Not Available [facility] 3 14:35:33 Acquired hypothyr oidism 323424315 Completed 200412/18/2013 Problem Code: 244.8; Problem Code Type: ICD-9; Not Available [facility] 3 14:35:44 Hypothyr oidism 58264936 Completed 200404/13/2008 Problem Code: 244.9; Problem Code Type: ICD-9; Not Available [facility] 3 14:35:45 Type 2 diabetes mellitus without complica tion 436957087 Completed 200402/16/2014 Problem Code: 250.00; Problem Code Type: ICD-9; Not Available [facility] 3 14:35:46 Uncontro lled type 2 diabetes mellitus 256884745 Completed 200403/01/2017 ProblemC ode: 'E11.65' ; ProblemC odeType: 'ICD-10' ; Not Available [facility] 3 14:36:31 Cellulit is and abscess of foot excludin g toe Active 2004 Problem Code: 682.7; Problem Code Type: ICD-9; Not Available [facility] 3 14:36:00 Low back pain 748165381 Completed 200509/15/2005 Problem Code: 724.2; Problem Code Type: ICD-9; Not Available [facility] 3 14:36:01 Onychomy cosis due to dermatop hyte 595977509 Completed 200511/17/2005 Problem Code: 110.1; Problem Code Type: ICD-9; Not Available [facility] 3 14:35:43 Non-supp urative otitis media 697441076 Active 2005 Problem Code: 381.4; Problem Code Type: ICD-9; Not Available [facility] 3 14:36:20 Pain of multiple joints 00370362 Completed 200605/30/2012 Problem Code: 719.49; Problem Code Type: ICD-9; Not Available [facility] 3 14:36:00 Cramp in limb 279573603 Completed 200602/25/2007 Problem Code: 729.82; Problem Code Type: ICD-9; Not Available [facility] 3 14:36:01 Acquired hypothyr oidism 200351983 Active 2006 Problem Code: 244.8; Problem Code Type: ICD-9; Not Available [facility] 3 14:35:49 Reduced libido 2570529 Active 2008 Problem Code: 799.81; Problem Code Type: ICD-9; Not Available [facility] 3 14:36:06 Spasm 13519404 Completed 200806/12/2008 Problem Code: 728.85; Problem Code Type: ICD-9; Not Available [facility] 3 14:36:24 Disorder of bone and articula r cartilag e 387288994 Active 2008 Problem Code: 733.90; Problem Code Type: ICD-9; Not Available [facility] 3 14:36:02 Spasm 20278705 Completed 200811/26/2008 Problem Code: 728.85; Problem Code Type: ICD-9; Not Available [facility] 3 14:36:01 Single major depressi ve episode, moderate Completed 200903/01/2017 Problem Code: 296.22; Problem Code Type: ICD-9; Not Available [facility] 3 14:35:53 Fibromyo sitis 93784369 Completed 200905/23/2010 Problem Code: 729.1; Problem Code Type: ICD-9; Not Available [facility] 3 14:36:01 Contusio n of multiple sites of upper limb 61067818 Completed 200905/23/2010 Problem Code: 923.8; Problem Code Type: ICD-9; Not Available [facility] 3 14:36:09 Generali zed anxiety disorder 85162306 Active 2009 ProblemC ode: 'F41.8'; ProblemC odeType: 'ICD-10' ; Not Available [facility] 3 14:36:42 Mild depressi on 888157732 Active 2009 ProblemC ode: 'F32.8'; ProblemC odeType: 'ICD-10' ; Not Available [facility] 3 14:36:45 Acute maxillar y sinusiti s 15559003 Completed 200912/16/2010 Problem Code: 461.0; Problem Code Type: ICD-9; Not Available [facility] 3 14:35:58 Mixed hyperlip idemia 954492482 Active 2011 Problem Code: E78.2; Problem Code Type: ICD-10; Not Available [facility] 3 14:35:32 Hypothyr oidism 84905050 Completed 201102/28/2015 Problem Code: 244.9; Problem Code Type: ICD-9; Not Available [facility] 3 14:35:44 Hyperlip idemia 09632651 Completed 201105/15/2013 Problem Code: 272.4; Problem Code Type: ICD-9; Not Available [facility] 3 14:35:52 Spasm 85431927 Completed 201112/14/2011 Problem Code: 728.85; Problem Code Type: ICD-9; Not Available [facility] 3 14:36:01 Bariatri c operativ e procedur e Active 2011 Problem Code: V45.86; Problem Code Type: ICD-9; Not Available [facility] 3 14:36:08 Hormone replacem ent therapy Active 2011 Problem Code: V07.4; Problem Code Type: ICD-9; Not Available [facility] 3 14:36:09 Pain in limb 84675750 Completed 201208/02/2012 Problem Code: 729.5; Problem Code Type: ICD-9; Not Available [facility] 3 14:36:04 Vitamin D deficien cy 61660549 Active 2012 Problem Code: 268.9; Problem Code Type: ICD-9; Not Available [facility] 3 14:36:18 Coronary arterios clerosis in iqugmiut artery 97957874215 07 Completed 201202/28/2015 Problem Code: 414.01; Problem Code Type: ICD-9; Not Available [facility] 3 14:35:57 Kidney stone 05732299 Completed 201211/14/2012 Problem Code: 592.0; Problem Code Type: ICD-9; Not Available [facility] 3 14:35:59 Atherosc lerosis of coronary artery without angina pectoris 15071418637 4103 Completed 201206/27/2015 ProblemC ode: 'I25.10' ; ProblemC odeType: 'ICD-10' ; Not Available [facility] 3 14:36:37 Low back pain 479476898 Active 2012 Problem Code: 724.2; Problem Code Type: ICD-9; Not Available [facility] 3 14:36:02 Single major depressi ve episode Completed 201210/20/2012 Problem Code: 296.20; Problem Code Type: ICD-9; Not Available [facility] 3 14:35:53 Dysthymi a 05220506 Completed 201203/02/2016 Problem Code: 300.4; Problem Code Type: ICD-9; Not Available [facility] 3 14:35:54 Mood disorder 07011747 Active 2012 ProblemC ode: 'F34.8'; ProblemC odeType: 'ICD-10' ; Not Available [facility] 3 14:36:43 Pain in limb 46625733 Active 2012 Problem Code: 729.5; Problem Code Type: ICD-9; Not Available [facility] 3 14:36:05 Acute suppurat mary otitis media without spontane ous rupture of ear drum 24529233 Completed 201210/26/2013 Problem Code: 382.00; Problem Code Type: ICD-9; Not Available [facility] 3 14:35:56 Headache 36430533 Completed 201212/29/2012 Problem Code: 784.0; Problem Code Type: ICD-9; Not Available [facility] 3 14:36:26 Dysfunct ion of eustachi an tube 57476704 Completed 201211/14/2013 Problem Code: 381.81; Problem Code Type: ICD-9; Not Available [facility] 3 14:35:56 Dizzines s and giddines s 768939821 Completed 201307/06/2019 Problem Code: R42; Problem Code Type: ICD-10; Not Available [facility] 3 14:35:35 Screenin g mammogra phy Completed 201303/09/2014 Problem Code: V76.12; Problem Code Type: ICD-9; Not Available [facility] 3 14:36:07 Acute upper respirat ory infectio n of multiple sites Completed 201303/23/2014 Problem Code: 465.8; Problem Code Type: ICD-9; Not Available [facility] 3 14:36:22 Herpes zoster 4821772 Completed 201306/29/2014 Problem Code: 053.9; Problem Code Type: ICD-9; Not Available [facility] 3 14:35:43 Dyssomni a 12772754 Completed 201312/18/2013 Problem Code: 780.59; Problem Code Type: ICD-9; Not Available [facility] 3 14:36:03 Screenin g for cancer Completed 201302/16/2014 Problem Code: V76.49; Problem Code Type: ICD-9; Not Available [facility] 3 14:36:09 Hearing loss 61978920 Active 2014 Problem Code: 389.9; Problem Code Type: ICD-9; Not Available [facility] 3 14:35:55 Headache 29326128 Active 2014 Problem Code: 784.0; Problem Code Type: ICD-9; Not Available [facility] 3 14:36:05 Blisters of multiple sites 935530008 Completed 201404/17/2014 Problem Code: 919.2; Problem Code Type: ICD-9; Not Available [facility] 3 14:36:27 Transien t insomnia 313454114 Completed 201409/29/2014 Problem Code: 307.41; Problem Code Type: ICD-9; Not Available [facility] 3 14:35:56 Neck pain 44112560 Completed 201409/29/2014 Problem Code: 723.1; Problem Code Type: ICD-9; Not Available [facility] 3 14:36:23 Transien t insomnia 245277603 Completed 201412/09/2014 Problem Code: 307.41; Problem Code Type: ICD-9; Not Available [facility] 3 14:35:55 Palpitat ions 91306668 Completed 201412/09/2014 Problem Code: 785.1; Problem Code Type: ICD-9; Not Available [facility] 3 14:36:26 Acute sinusiti s 41062481 Completed 201504/29/2015 Problem Code: J01.90; Problem Code Type: ICD-10; Not Available [facility] 3 14:35:34 Body [facility] 25-29 [facility] 881938261 Completed 201504/14/2016 Problem Code: Z68.27; Problem Code Type: ICD-10; Not Available [facility] 3 14:35:37 Finding of body mass index 395798568 Active 2015 Problem Code: V85.23; Problem Code Type: ICD-9; Not Available [facility] 3 14:36:10 Left upper quadrant pain 449177615 Completed 201507/06/2019 Problem Code: R10.12; Problem Code Type: ICD-10; Not Available [facility] 3 14:35:34 Body [facility] index 25-29 [facility] 324962446 Completed 201506/12/2019 Problem Code: Z68.26; Problem Code Type: ICD-10; Not Available [facility] 3 14:35:41 Insomnia 180321228 Completed 201503/02/2016 Problem Code: 780.52; Problem Code Type: ICD-9; Not Available [facility] 3 14:36:03 Left upper quadrant pain 803550133 Completed 201511/25/2015 Problem Code: R10.12; Problem Code Type: ICD-10; Not Available [facility] 3 14:35:35 Infestat ion by Sarcopte s scabiei perez hominis 985958945 Completed 201502/04/2016 Problem Code: B86; Problem Code Type: ICD-10; Not Available [facility] 3 14:35:32 Body mass index 25-29 - [facility] 468917931 Completed 201506/12/2019 Problem Code: Z68.28; Problem Code Type: ICD-10; Not Available [facility] 3 14:35:39 Acute sinusiti s 36933305 Completed 201603/02/2017 Problem Code: 461.9; Problem Code Type: ICD-9; Not Available [facility] 3 14:35:57 Screenin igor rojo phy Completed 201607/24/2016 Problem Code: Z12.31; Problem Code Type: ICD-10; Not Available [facility] 3 14:35:37 Finding of general energy 256817231 Active 2016 Problem Code: R53.83; Problem Code Type: ICD-10; Not Available [facility] 3 14:35:35 Body mass index 25-29 - [place] 716627177 Completed 201606/12/2019 Problem Code: Z68.27; Problem Code Type: ICD-10; Not Available [facility] 3 14:35:42 Malaise and fatigue 141169368 Active 2016 Problem Code: 780.79; Problem Code Type: ICD-9; Not Available [facility] 3 14:36:03 Finding of body mass index 457171324 Completed 201612/21/2016 Problem Code: V85.23; Problem Code Type: ICD-9; Not Available [facility] 3 14:36:10 Vitamin B deficien cy 22618679 Active 2016 Problem Code: 266.2; Problem Code Type: ICD-9; Not Available [facility] 3 14:35:48 Iron deficien cy anemia 88529243 Completed 201610/30/2016 Problem Code: D50.9; Problem Code Type: ICD-10; Not Available [facility] 3 14:35:32 Iron deficien cy anemia 21418367 Completed 201601/01/2017 Problem Code: D50.9; Problem Code Type: ICD-10; Not Available [facility] 3 14:35:32 Fracture of calcaneu s 684267183 Completed 201601/01/2017 Problem Code: S92.001S ; Problem Code Type: ICD-10; Not Available [facility] 3 14:35:35 Closed fracture of calcaneu s 65566871 Completed 201601/01/2017 Problem Code: 825.0; Problem Code Type: ICD-9; Not Available [facility] 3 14:36:07 Coronary arterios clerosis in iqugmiut artery 73464847032 07 Active 2016 Problem Code: 414.01; Problem Code Type: ICD-9; Not Available [facility] 3 14:35:59 Atherosc lerosis of coronary artery without angina pectoris 71682672490 4103 Completed 201603/01/2017 ProblemC ode: 'I25.10' ; ProblemC odeType: 'ICD-10' ; Not Available [facility] 3 14:36:38 Acute myocardi al infarcti on 88784942 Completed 201602/19/2017 Problem Code: I21.29; Problem Code Type: ICD-10; Not Available [facility] 3 14:35:33 Body mass index 25-29 - [place] 561125827 Completed 201706/12/2019 Problem Code: Z68.26; Problem Code Type: ICD-10; Not Available [facility] 3 14:35:36 Body mass index 25-29 - [place] 489536592 Completed 201706/12/2019 Problem Code: Z68.26; Problem Code Type: ICD-10; Not Available [facility] 3 14:35:40 Body mass index 25-29 - [place] 197563227 Completed 201706/12/2019 Problem Code: Z68.26; Problem Code Type: ICD-10; Not Available [facility] 3 14:35:39 Precordi al pain 91548149 Completed 201712/02/2018 Problem Code: R07.2; Problem Code Type: ICD-10; Not Available [facility] 3 14:35:34 Body mass index 25-29 - [place] 038909652 Completed 201706/12/2019 Problem Code: Z68.26; Problem Code Type: ICD-10; Not Available [facility] 3 14:35:39 Body mass index 25-29 - [facility] 743266657 Completed 201806/12/2019 Problem Code: Z68.26; Problem Code Type: ICD-10; Not Available [facility] 3 14:35:40 Acute vaginiti s 98006247 Active 2018 Problem Code: N76.0; Problem Code Type: ICD-10; Not Available [facility] 3 14:35:34 Atrophic vaginiti s 15166470 Active 2018 Problem Code: N95.2; Problem Code Type: ICD-10; Not Available [facility] 3 14:35:35 Body mass index 25-29 [facility] 828511510 Completed 201806/12/2019 Problem Code: Z68.25; Problem Code Type: ICD-10; Not Available [facility] 3 14:35:38 Hand pain 30462874 Active 2018 Not Available [facility] 3 14:36:42 Body mass index 25-29 - [facility] 485259859 Completed 201806/12/2019 Problem Code: Z68.25; Problem Code Type: ICD-10; Not Available [facility] 3 14:35:39 Cataract 989786869 Active 2018 ProblemC ode: 'H26.9'; ProblemC odeType: 'ICD-10' ; Not Available [facility] 3 14:36:46 Acute pharyngi tis 245836491 Active 2018 ProblemC ode: 'J02.9'; ProblemC odeType: 'ICD-10' ; Not Available [facility] 3 14:36:36 Influenz a vaccine needed 89810698955 06 Active 2018 Problem Code: Z23; Problem Code Type: ICD-10; Not Available [facility] 3 14:35:36 Body mass index 25-29 - [facility] 216617690 Completed 201806/12/2019 Problem Code: Z68.25; Problem Code Type: ICD-10; Not Available [facility] 3 14:35:38 Eustachi an tube disorder 72719480 Active 2019 Problem Code: H69.93; Problem Code Type: ICD-10; Not Available [facility] 3 14:35:33 Acute sinusiti s 08776283 Active 2019 Problem Code: J01.90; Problem Code Type: ICD-10; Not Available [facility] 3 14:36:11 Body mass index 25-29 - [place] 799474384 Completed 201906/12/2019 Problem Code: Z68.26; Problem Code Type: ICD-10; Not Available [facility] 3 14:36:14 Screenin g mammogra phy Completed 201902/05/2020 Problem Code: Z12.31; Problem Code Type: ICD-10; Not Available [facility] 3 14:35:37 Body mass index 20-24 - normal 955774546 Completed 201902/05/2020 ProblemC ode: 'Z68.24' ; ProblemC odeType: 'ICD-10' ; Not Available [facility] 3 14:36:30 Hyperten sive disorder 07220187 Active 2019 Problem Code: I10; Problem Code Type: ICD-10; Not Available [facility] 3 14:35:33 Family history of sudden cardiac 22780676704 9104 Active 2019 Problem Code: Z82.41; Problem Code Type: ICD-10; Not Available [facility] 3 14:35:42 Uncontro lled type 2 diabetes mellitus 013916721 Active 2019 ProblemC ode: 'E11.65' ; ProblemC odeType: 'ICD-10' ; Not Available [facility] 3 14:36:33 Body mass index 25-29 - [place] 140987403 Active 2019 Problem Code: Z68.26; Problem Code Type: ICD-10; Not Available [facility] 3 14:35:37 Finding of gastroin testinal device 375206987 Active 2019 Problem Code: Z98.84; Problem Code Type: ICD-10; Not Available [facility] 3 14:35:43 General examinat ion of patient Completed 201902/05/2020 ProblemC ode: 'Z00.00' ; ProblemC odeType: 'ICD-10' ; Not Available [facility] 3 14:36:28 At risk - finding 814795087 Completed 201902/05/2020 Problem Code: Z91.89; Problem Code Type: ICD-10; Not Available [facility] 3 14:36:15 Screenin g for malignan t neoplasm of colon Active 2019 ProblemC ode: 'Z12.11' ; ProblemC odeType: 'ICD-10' ; Not Available [facility] 3 14:36:30 Bilatera l earache 228398623 Active 2020 ProblemC ode: 'H92.03' ; ProblemC odeType: 'ICD-10' ; Not Available [facility] 3 14:36:42 Nausea 496916434 Active 2020 Problem Code: R11.0; Problem Code Type: ICD-10; Not Available [facility] 3 14:36:12 Iron deficien cy anemia secondar y to inadequa te dietary iron intake 927938740 Active 2020 Problem Code: D50.8; Problem Code Type: ICD-10; Not Available [facility] 3 14:36:11 Intestin al malabsor ption 493227049 Active 2020 Problem Code: K90.9; Problem Code Type: ICD-10; Not Available [facility] 3 14:35:34 Kidney disease 41941257 Active 2020 Problem Code: N28.9; Problem Code Type: ICD-10; Not Available [facility] 3 14:35:34 Screenin g mammogra phy Active 2021 Problem Code: Z12.31; Problem Code Type: ICD-10; Not Available [facility] 3 14:35:36 At risk - finding 295744194 Active 2021 Problem Code: Z91.89; Problem Code Type: ICD-10; Not Available [facility] 3 14:35:43 Obesity 738497797 Active 2021 ProblemC ode: 'E66.9'; ProblemC odeType: 'ICD-10' ; Not Available [facility] 3 14:36:27 Snoring 61929277 Active 2021 Problem Code: R06.83; Problem Code Type: ICD-10; Not Available [facility] 3 14:35:35 Hyperlip idemia 76757250 Active 2021 Nico Lobo [place] [address] [address], [place], [place], [address] [place] [address] , [facility] 2 07:53:04 Hypothyr oidism 87988048 Active 2021 Nico [address] [address], [place], [address] [place] [address] , [facility] 2 07:53:16 Hypergly cemia due to type 2 diabetes mellitus 38843731150 9109 Active 2021 Nico Lobo [address] [address], [place], [address] [place] [address] , [facility] 2 07:54:37 Anxiety 98369121 Active 2021 Nico Lobo [place] [address] [address], [place], [address] [place] [address] , [facility] 2 08:28:50 Coronary atherosc lerosis 689955877 Active [facility] 08:[facility]57 Family history of sudden 358503918 Completed 202112/03/2021 Jessica Gomez [facility] 2 08:40:17 History of bariatri c surgical procedur e 139087779 Completed 202112/03/2021 [facility] 08:[facility]29 Cobalami n deficien cy 111798479 Active 2021 Jessica Gomez null, [facility] 2 08:40:41 Hyperten sive heart disease without congesti ve heart failure 36361801 Active 2021 Jessica Gomez null, [facility] 2 08:41:04 Insomnia 939780264 Active 2021 Jessica Gomez null, [facility] 2 08:41:12 Anemia 178088486 Active 2021 Jessica Gomez null, [facility] 2 08:41:20 Allergic rhinitis 20742628 Active 2021 Jessica Gomez null, [facility] 2 08:41:35 Tremor 83759586 Active 2021 Jessica Gomez null, [facility] 2 08:51:02 Obstruct mary sleep apnea syndrome 00699880 Active [address], [address] , [facility] 2 07:56:45 Problem Notes None recorded. Medical Equipment None Reported. Allergies Allergen ID Allergen Name Allergen Category Reaction Reaction Severity Criticality Documentation Date Start Date Code Code System Note Provider Name and Address Organization Details Recorded Time 09622 Avelox medicatio n Not available Not available Not available 03/27/2022 74418 6 RxNorm Not Available [facility] 3 14:57:16 70672 niacin medicatio n Not available Not available Not available 03/27/20222004 7393 RxNorm Not Available [facility] 3 14:57:16 10271 miconazol e nitrate medicatio n Not available Not available Not available 03/27/20222004 16746 RxNorm Not Available [facility] 3 14:57:16 93680 primidone medicatio n dizziness moderate Not available 03/27/2022 8691 RxNorm Not Available [facility] 3 14:57:16 [id number] Seroquel medicatio n other moderate Not available 03/27/2022 [id number] RxNorm Not Available [facility] 3 14:57:17 Medications Name Sig Start Date Stop Date Status Note LastModified by Organization Details LastModified Time amoxicillin 500 mg capsule 1 cap(s) po q8h for 7 days 05/15 completed Not Available Not Available Not Available metformin 500 mg tablet 1 po q PM 03/09 completed Not Available Not Available Not Available Levoxyl 150 mcg tablet Take 1 tablet(s) by mouth daily 12/29 completed Not Available Not Available Not Available ivermectin 3 mg tablet Take 5 tabs now and 5 tabs one week later 12/12 completed Not Available Not Available Not Available primidone 50 mg tablet Take 1 tablet by mouth twice daily active Not Available Not Available No t Available Levoxyl 88 mcg tablet Take 1 tablet(s) by mouth daily 05/15 completed Not Available Not Available Not Available prednisone 10 mg tablet 6 tabs x2 days, 5 tabs x2 days, 4 tabs x 2 days, 3 tabs x2 days, 2 tabs x2 days, 1 tab x2 days then off 06/11 completed Not Available Not Available Not Available Vitamin B-12 1,000 mcg/mL injection solution 1000mcg weekly x 3 weeks then 1000mcg monthly 10/06 completed Not Available Not Available Not Available clindamycin HCl 300 mg capsule Take 1 capsule(s ) by mouth q6h Take with a full glass of water or with food 01/12 completed Not Available Not Available Not Available Estratest F.S. 1.25 mg-2.5 mg tablet Take 1/2 tablet(s) by mouth daily 12/13 completed Not Available Not Available Not Available Coreg 3.125 mg tablet 1 po qd 09/01 completed Not Available Not Available Not Available trazodone 50 mg tablet Take 1 tablet(s) by mouth at bedtime for 2 weeks and then increase to 2 tablets by mouth at bedtime. 05/31 completed Not Available Not Available Not Available clindamycin HCl 75 mg capsule Take 1 capsule(s ) by mouth q6h Take with a full glass of water or with food 11/13 completed Not Available Not Available Not Available Avelox 400 mg tablet 1 po qd x 14 days 03/12 completed Not Available Not Available Not Available Restoril 15 mg capsule Take 1-2capsul e(s) by mouth at bedtime prn for insomnia 10/10 completed Not Available Not Available Not Available famotidine 40 mg tablet active Not Available Not Available Not Available Medrol (El) 4 mg tablets in a dose pack Take as directed 11/14 completed Not Available Not Available Not Available Levoxyl 100 mcg tablet Take 1 tablet(s) by mouth daily 04/13 completed Not Available Not Available Not Available Levoxyl 175 mcg tablet Take 1 tablet(s) by mouth daily 10/20 completed Not Available Not Available Not Available Seroquel 25 mg tablet 1 po qhs 12/02 completed Not Available Not Available Not Available Lantus U-100 Insulin 100 unit/mL subcutaneou s solution 10 units 07/03 completed Not Available Not Available Not Available Diflucan 150 mg tablet 1 po qd x3 days 08/29 completed Not Available Not Available Not Available Ativan 2 mg tablet Take 1 tablet(s) by mouth at bedtime 12/07 completed Not Available Not Available Not Available clopidogrel 75 mg tablet Take 1 tablet(s) by mouth daily 12/21 completed Not Available Not Available Not Available aspirin 81 mg tablet,ivana yed release 1 po QD 2012 active Not Available Not Available Not Avai lable tramadol 50 mg tablet Take 1 tablet(s) by mouth q 4 to 6 hr PRN active Not Available Not Available No t Available simvastatin 40 mg tablet 1 po qhs 12/16 completed Not Available Not Available Not Available levothyroxi ne 75 mcg tablet Take 1 tablet by mouth once daily active Not Available Not Available No t Available amoxicillin 875 mg tablet Take 1 tablet every 12 hours by oral route for 14 days. active Not Available Not Available No t Available alprazolam 0.25 mg tablet Take 1 tablet by mouth twice daily as needed active Not Available Not Available No t Available MagOx 400 mg (241.3 mg magnesium) tablet 1 po bid 05/31 completed Not Available Not Available Not Available amitriptyli ne 25 mg tablet take 2 tablets (50 mg) by oral route once daily at bedtime 05/06 completed Not Available Not Available Not Available metoclopram miguel 5 mg tablet active Not Available Not Available Not Available Percocet 10 mg-325 mg tablet one po qd prn 03/23 completed Not Available Not Available Not Available Valium 5 mg tablet one qhs 12/07 completed Not Available Not Available Not Available cephalexin 500 mg capsule TAKE 1 CAPSULE BY MOUTH THREE TIMES DAILY FOR 7 DAYS 12/03 completed Not Available Not Available Not Available Elimite 5 % topical cream Apply sufficien t amount and massage into the skin from the head to the soles of the feet. Remove after 8 to 14 hours. 04/04 completed Not Available Not Available Not Available nitroglycer in 0.4 mg sublingual tablet DISSOLVE ONE TABLET UNDER THE TONGUE EVERY 5 MINUTES NEEDED FOR CHEST PAIN. DO NOT EXCEED A TOTAL OF 3 DOSES IN 15 MINUTES active Not Available Not Available No t Available Levoxyl 50 mcg tablet Take 1 tablet(s) by mouth daily 06/26 completed Not Available Not Available Not Available montelukast 10 mg tablet take 1 tablet (10 mg) by oral route once daily in the evening 12/04 completed Not Available Not Available Not Available lisinopril 5 mg tablet TAKE 1 TABLET BY MOUTH ONCE DAILY active Not Available Not Available No t Available zolpidem 5 mg tablet 1-2 po qhs 08/07 completed Not Available Not Available Not Available Levaquin 500 mg tablet Take 1 tablet(s) by mouth daily for 7 days 04/13 completed Not Available Not Available Not Available metoprolol succinate ER 25 mg tablet,exte nded release 24 hr Take 1 tablet(s) by mouth daily 09/02 completed Not Available Not Available Not Available estradiol 0.01% (0.1 mg/gram) vaginal cream active Not Available Not Available Not Available levofloxaci n 750 mg tablet take 1 tablet (750 mg) by oral route once daily 06/11 completed Not Available Not Available Not Available zolpidem 10 mg tablet TAKE 1 TABLET BY MOUTH AT BEDTIME active Not Available Not Available No t Available Vitamin D2 1,250 mcg (50,000 unit) capsule 1 capsule weekly for 8 weeks 09/14 completed Not Available Not Available Not Available cefdinir 300 mg capsule TAKE 1 CAPSULE BY MOUTH EVERY 12 HOURS FOR 7 DAYS 12/03 completed Not Available Not Available Not Available fluoxetine 20 mg capsule Take 1 capsule(s ) by mouth [facility] 12/16 completed Not Available Not Available Not Available fluticasone propionate 50 mcg/actuati on nasal spray,suspe nsion inhale 1 spray (50 mcg) in each nostril by intranasa l route 2 times per day 2019 active Not Available Not Available Not Avai lable lisinopril 2.5 mg tablet Take 1 tablet(s) by mouth daily 08/07 completed Not Available Not Available Not Available loratadine 10 mg tablet take 1 tablet (10 mg) by oral route once daily 2019 active Not Available Not Available Not Avai lable amoxicillin 875 mg-potassiu m clavulanate 125 mg tablet active Not Available Not Available Not Available Flexeril 10 mg tablet 1 po q 6 hours prn 04/20 completed Not Available Not Available Not Available Actos 30 mg tablet Take 1 tablet(s) by mouth daily 11/10 completed Not Available Not Available Not Available Levoxyl 137 mcg tablet Take 1 tablet(s) by mouth daily 12/29 completed Not Available Not Available Not Available escitalopra m 10 mg tablet Take 1 tablet by mouth once daily 2020 active Not Available Not Available Not Avai lable escitalopra m 20 mg tablet Take 1 tablet by mouth once daily active Not Available Not Available No t Available Vitamin D3 25 mcg (1,000 unit) capsule Take 1 capsule(s ) by mouth daily 05/31 completed Not Available Not Available Not Available black cohosh 50 mg capsule BID 10/20 completed Not Available Not Available Not Available Premarin 0.9 mg tablet Take 1 tablet(s) by mouth daily 05/15 completed Not Available Not Available Not Available rosuvastati n 10 mg tablet Take 1 tablet by mouth once daily active Not Available Not Available No t Available Climara Pro 0.045 mg-0.015 mg/24 hr transdermal patch 2 patches q week 03/23 completed Not Available Not Available Not Available Lexapro 5 mg tablet Take 1 tablet(s) by mouth daily 03/01 completed Not Available Not Available Not Available Vytorin 10 mg-20 mg tablet Take 1 tablet(s) by mouth daily in the evening. 09/27 completed Not Available Not Available Not Available duloxetine 30 mg capsule,del ayed release active Not Available Not Available Not Available zolpidem ER 12.5 mg tablet,exte nded release,mul tiphase TAKE 1 TABLET BY MOUTH AT BEDTIME 12/05 completed Not Available Not Available Not Available multivitami n with minerals Take 1 tablet(s) by mouth daily 2018 active Not Available Not Available Not Avai lable Fish Oil 09/14 completed Not Available Not Available Not Available Allergy Relief 12/12 completed Not Available Not Available Not Available Vitamin 08/29 completed Not Available Not Available Not Available Januvia 100 mg tablet Take 1 tablet(s) by mouth daily 08/20 completed Not Available Not Available Not Available Lodrane 24 D 12 mg-90 mg capsule,ext ended release Take 1 cap by mouth daily 06/03 completed Not Available Not Available Not Available calcium 600 mg (as carbonate)- vitamin D3 10 mcg (400 unit) tablet Take 1 tablet(s) by mouth daily 05/30 completed Not Available Not Available Not Available levocetiriz ine 5 mg tablet Take 1 tablet(s) by mouth each evening 05/31 completed Not Available Not Available Not Available estrogens, conjugated, synthetic B 0.9 mg tablet 1/2 applicato r twice weekly 12/05 completed Not Available Not Available Not Available Effient 10 mg tablet 1 po qd 10/20 completed Not Available Not Available Not Available Mucus Relief ER 600 mg tablet, extended release TAKE 1 TABLET BY MOUTH EVERY 12 HOURS FOR 10 DAYS 12/03 completed Not Available Not Available Not Available Janumet XR 100 mg-1,000 mg tablet,exte nded release TAKE 1 TABLET BY MOUTH ONCE DAILY active Not Available Not Available No t Available QNASL 80 mcg/actuati on nasal aerosol spray [place] 2 spray(s) in each nostril daily 12/02 completed Not Available Not Available Not Available Zetonna 37 mcg/actuati on nasal HFA inhaler [place] 1 spray(s) in each nostril daily 09/14 completed Not Available Not Available Not Available Brisdelle 7.5 mg capsule Take 1 capsule(s ) by mouth daily at bedtime 02/16 completed Not Available Not Available Not Available Farxiga 10 mg tablet Take 1 tablet by mouth once daily 2020 active Not Available Not Available Not Avai lable Farxiga 5 mg tablet Take 1 tablet(s) by mouth daily 03/04 completed Not Available Not Available Not Available Tanzeum 30 mg/0.5 mL subcutaneou s pen injector Inject 30 mg subcutane ously q week on the same day every week, with or without meals 12/18 completed Not Available Not Available Not Available Belsomra 20 mg tablet Take 1 tablet(s) by mouth at bedtime 08/07 completed Not Available Not Available Not Available Vitals Date Recorded Body height Respiratory rate Body temperature Body mass index (BMI) Body weight Heart rate Systolic And Diastolic Provider Name and Address Organization Details Last Updated DateTime 2 157.48 cm 18 /min 98.2 [degF] 26.7 kg/m2 99309.2 g 74 /min 108/64 mm[Hg] [place], [place] [address] [facility] [address], [place], [address], [facility] 2 08:22:56 Date Recorded Body height Respiratory rate Body temperature Body mass index (BMI) Body weight Heart rate Systolic And Diastolic Provider Name and Address Organization Details Last Updated DateTime 2 157.48 cm 18 /min 98.4 [degF] 26.2 kg/m2 10182.4 3 g 94 /min 116/64 mm[Hg] Nico Lobo MA [address] [place] [address] 1, [place], [address], [facility] 2 11:06:46 Social History Question Answer Notes LastModified by Organizat ion Details LastModified Time Tobacco Smoking Status Former Smoker Nico Lobo MA [address] [facility] [address], [place], [address], [facility] 12/03/2021 08:20:07 Do You Have An Advance Directive? No Information not available 12/03/2021 Sex: Unknown Functional Status Question Answer Note LastModified by Organization D etails LastModified Time What is your level of alcohol consumption? None Information not available 12/03/2021 Mental Status None recorded. Family History Nothing Reported. Medical History No medical history recorded. Gynecological HistoryNo gynecological history recorded. Obstetrics History GPAL:G 0 P 0 0 0 0 Immunizations Vaccine Type Date Status Note Provider Nam e and Address Organization Details Recorded Time Influenza, high-dose, quadrivalent, PF 2 completed Jessica quiles, [facility] 12/04/2021 11:38:51 Influenza, split virus, quadrivalent, preservative 8 completed Not Available [facility] 03/30/2022 13:59:29 Influenza, split virus, quadrivalent, preservative 6 completed Not Available [facility] 03/30/2022 13:59:29 Influenza, recombinant, quadrivalent, PF 8 completed Not Available [facility] 03/30/2022 13:59:30 Influenza, recombinant, quadrivalent, PF 9 completed Not Available [facility] 03/30/2022 13:59:30 Influenza, split virus, trivalent, preservative 4 completed Not Available [facility] 03/30/2022 13:59:30 Past Encounters Encounter ID Performer Location Encounter Start Date Encounter Closed Date Diagnosis/Indication Diagnosis SNOMED-CT Code Diagnosis ICD10 Code Diagnosis Note [id number] Jessica Gomez MD Main Office [address] [place] [id number] 12/03/2021 08:14:26 12/03/2021 09:26:31 Essential hypertension 89715635 I11.9 Will continue with lisinopril . 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 Hyperlipidemia 30917021 E78.5 Hypothyroidism 81754390 E03.9 Anxiety 02971431 F41.9 Coronary atherosclerosis 104057764 I25.10 Hypertensi ve heart disease without congestive heart failure 38218948 I11.9 Insomnia 968104342 G47.0 0 Headache 50615776 R51.9 She is having frequent headaches and is having issues with balance and dizzy. Will see if can get CT of head with and without contrast. Tremor 04643005 R25.1 Screening mammography 24 319311 Z12.31 Administra tion of influenza vaccine 03349747 Z23 [id number] Jessica Gomez MD Main Office [address] [place] [id number] 12/11/2021 10:55:12 12/11/2021 11:49:21 Obstructive sleep apnea syndrome 40261248 G47.33 She is compliant with her CPAP machine using 4-8 hours/nigh t and is feeling better rested and improved quality of life. Ethmoidal sinusitis 8465 3000 J32.2 Possible cause of her dizziness. Will treat with amoxicilli n. Health Concerns Section Related Observation LastModified by Organization Detai ls LastModified Time None Recorded Concern Status LastModified by Organization Details LastModified Time None Recorded Advance Directives Directive N: Payers Insurance Date Sequence Insurance Name Policy Number Policy Zepeda Covered Member ID Zepeda Member ID Guarantor Name 12/03/2021 1 *SELF PAY* Eddie Haas 03/14/2022 2 [employer] (MEDICARE SUPPLEMENT) Emmett Haas [id number] Emmett Haas 07/16/2022 1 [place] Emmett Haas [id number] Emmett Quinteros Samina Notes Date Note Type Note Provider Name and Address Organization Details Recorded Time 2 text/html DiabetesReported by PatientHPIFor duration, patient reportschronic. For control, patient reportsusually well controlledandnormal range of home blood sugars (in the low 100s). For compliance, patient reportscompliant with medications,compliant with follow-up visits, andcompliant with diet. For self care, patient reportsseeing eye doctor regularlyandchecking feet regularly. For associated symptoms, patient reportsno weight gain,no dizziness,no increased appetite, andno blurred vision. Hypertension IM/FMReported by PatientHPIFor quality, patient reportshere for check-up. For severity, patient reportsno symptoms. For duration, patient reportshtn present for many years. For alleviating factors, patient reportsmedication. For associated symptoms, patient reportsno shortness of breathandno fatigue.She does continue with lisinopril. Jessica quiles, [facility] 12/04/2021 11:38:54 2 text/html Obstructive Sleep ApneaReported by PatientHPIFor severity, patient reportsmoderate. For timing, patient reportsgradual. For duration, patient reports4 months. For aggravating factors, patient reportsnone. For alleviating factors, patient reportspositive airway pressure devices.She has been using her CPAP machine since 07/2021 and using it 4-8 hours/night. She feels that using the CPAP has improved her quality of life and sleeping better. Not having waking periods from snoring. Jessica quiles [facility] 12/11/2021 11:48:37 OBGyn Episode No OBEpisode recorded.
--- OUTSIDE RECORDS SUMMARY | 2024-08-31 08:44 | XMS_ITS | Clinical Summary ---
Author Organization [employer] ([place], [place], [place], [place]) Address [address] [place] [address] Care Team Providers Care Marine Underwriter Name Role Phone Darrian Reno PA-C Unavailable [phone] Jessica Gomez MD Primary Care Provider [phone] Gibson Bai MD Unavailable Allergies Active Allergy Reactions Criticality Noted Date Comments Dapagliflozin Other (See Comments) High 04/15/2023 Worsening kidney function Benzalkonium Chloride Other (See Comments) High 0604/2024 TACHYCARDIA Niacin Palpitations Low 02/21/2016 Semaglutide Nausea And Vomiting,Other (See Comments) High 04/15/2023 Ezetimibe Nausea And Vomiting High 04/15/2023 Medications aspirin 81 MG EC tablet Take 1 tablet (81 mg total) by mouth daily TAKE 1 TABLET DAILY. Active nitroglycerin (NITROSTAT) 0.[address] 1 tablet (0.4 mg total) under the tongue every 5 (five) minutes as needed Put 1 pill under tongue every 5min as needed for chest pain.No more than 3 doses in 15min.Call 911 if pain unrelieved 5min after 1st dose. Active ergocalciferol (ERGOCALCIFEROL ) 1,250 mcg (50,000 unit) capsule Take by mouth. 3 Active rosuvastatin (CRESTOR) 40 MG tablet Take 1 tablet (40 mg total) by mouth in the morning. TAKE 1 TABLET DAILY. 30 tablet 11 3 Active loratadine (CLARITIN) 10 mg tablet Take 1 tablet (10 mg total) by mouth daily. Active metFORMIN (GLUCOPHAGE) 500 MG tablet Take 1 tablet (500 mg total) by mouth 2 (two) times daily with breakfast and dinner Look-alike/So und-alike medication. Active glipiZIDE (GLUCOTROL XL) 2.5 MG 24 hr tablet Take 1 tablet (2.5 mg total) by mouth daily. Active escitalopram oxalate (LEXAPRO) 10 MG tablet Take 1 tablet (10 mg total) by mouth daily. Active ALPRAZolam (XANAX) 0.5 MG tablet Take 1 tablet (0.5 mg total) by mouth 2 (two) times daily. 4 Active zolpidem (AMBIEN) 10 mg tablet Take 1 tablet (10 mg total) by mouth daily. 4 Active cyanocobalamin (vitamin B-12) 1000 MCG tablet Take 1 tablet (1,000 mcg total) by mouth daily. Active multivitamin per tablet Take 1 tablet by mouth daily. Active propranoloL (INDERAL) 20 MG tabletIndicatio ns:Essential tremor Take 1 tablet (20 mg total) by mouth 2 (two) times daily. 180 tablet 3 4 09/01/19 25 Active liothyronine (CYTOMEL) 5 MCG tablet Take 1 tablet (5 mcg total) by mouth daily. 4 Active Active Problems Problem Noted Date Diagnosed Date PONV (postoperative nausea and vomiting) 025 LBBB (left bundle branch block) 07/11/2024 Atrial tachycardia 07/07/2022 Abnormal ECG 04/16/2022 Angina pectoris 04/16/2022 Coronary artery disease invo lving [place] coronary artery of [place] heart without angina pectoris 04/16/2022 Diabetes mellitus 04/16/2022 Mixed hyperlipidemia 04/16/2022 Hypertension 04/16/2022 Palpitations 04/16/2022 Stroke with cerebral ischemia 04/16/2022 Takotsubo cardiomyopathy 04/16/2022 Resolved Problems Problem Noted Date Diagnosed Date Resolved Date Chest pain, atypical 04/16/2022 023 Shortness of breath 04/16/2022 05/20/19 23 Encounters Date Type Department Care Team Description 08/02/2024 Outside Orders [facility] Scheduling [address] [place] [address] Jessica Gomez MD Encounter for screening for osteoporosis (Primary Dx) 08/01/2024 Outside Orders [facility] Scheduling [address] [place] [address] Jessica Gomez MD Encounter for screening mammogram for malignant neoplasm of breast (Primary Dx) 07/17/2024 9:37 AM EDT Anesthesia Event [facility] Surgery Department [address] [place] [address] No Win, Guilherme Zimmerman MD 07/17/2024 9:17 AM EDT - 07/17/2024 10:41 AM EDT Surgery [facility] Surgery Department [address] [place] [address] Chris Casey MD RIGHT EXTRACORPOREAL SHOCKWAVE LITHOTRIPSY 07/17/2024 6:43 AM EDT - 07/17/2024 11:28 AM EDT Hospital Encounter [facility] Surgery Department [address] [place] [address] Chris Casey MD Kidney stone (Primary Dx) Discharge Disposition: Home or Self Care 07/17/2024 Outside [facility] Admitting [address] [place] [address] Provider, Not In System 07/17/2024 Travel 07/11/2024 1:00 PM EDT - 07/11/2024 11:59 PM EDT Hospital Encounter [facility] Preadmission Testing [address] [address] [place] [address] Chris Casey MD Preop examination (Primary Dx); LBBB (left bundle branch block) Discharge Disposition: Home or Self Care 07/11/2024 Travel from Last 3 Months Family History Medical History Relation Name Comments Diabetes Brother Heart disease Father Heart disease Maternal Grandfather Heart disease Maternal Grandmother Heart disease Mother Heart disease Paternal Grandfather Heart disease Paternal Grandmother Diabetes Sister Relation Name Status Comments Brother Alive Father Maternal Grandfather Maternal Grandmother Mother Paternal Grandfather Paternal Grandmother Sister Alive Social History Tobacco Use Types Packs/Day Years Used Date Smoking Tobacco: Former Cigarettes 0.3 10 0 05/09/1989 - 05/10/1999 Smokeless Tobacco: Never Tobacco Cessation:Counseling Given: Not Answered Alcohol Use Standard Drinks/Week Comments Not Currently 0 (1 standard drink = 0.6 oz pur e alcohol) Family and Community Support Answer Shahram e Recorded Help with Day to Day Activities Not on file 02/20/2023 Feeling Lonely or Isolated Not on file 02/20 Educational Attainment Answer Date Yemi rded Speak language other than Belarusian at home Not on file 02/20/2023 Want [...] on file Sexual Orientation Not on file Last Filed Vital Signs Vital Sign Reading [...] Mass Index 27.11 07/17/2024 7:05 AM EDT Plan of Treatment Upcoming Encounters Date Type Department Care Team (Late st Contact Info) Description 10/20/2024 9:00 AM EDT Appointment [facility] [address] [place] [phone] Jessica Gomez MD [address] [place] [phone] 10/20/2024 9:30 AM EDT Appointment [facility] [address] [place] [address] Jessica Gomez MD [address] [place] [address] Health Maintenance Due Date Last Done Comments CT Colonography 1956 Colonoscopy 1956 Colorectal Cancer Screening 1956 DXA SCAN 1956 Diabetic Kidney Health Evalu ation (KED) 1956 FOBT/FIT 1956 Fit-DNA (Cologuard) 1956 Sigmoidoscopy 1956 Diabetic Eye Exam 1966 Depression Screening (12+) 1968 Hepatitis C Screening 1974 DTAP/TDAP/TD VACCINES (1 - Tdap) 06/01/1975 Shingles Vaccine (Zoster) (1 of 2) 2006 Medicare Initial AWV G0438 03/12/2016 Respiratory Syncytial Virus (RSV) Adult or (1 - Risk 60-74 years 1-dose series) 2016 Pneumococcal 50+ years (2 of 2 - PCV) 12/09/202202/2021 COVID-19 VACCINE (1 - season) 2023 Breast Cancer Screening 01/06/2024 01/05/2022 Falls Risk Screening 02/09/2024 Influenza Vaccine (#1) 2024 2, 12/12/2018, 12/02/2017 Hemoglobin A1C 01/10/2025 07/11/2024 Tobacco Cessation Counseling and Screening (12+) 07/17/2025 07/17/2024 Procedures Procedure Name Priority Date/Time Associated Diagnosis Comments NOVA GLUCOSE POC Routine 07/17/2024 10:44 AM EDT ANESTHESIA INTUBATION Routine 07/17/2024 9:43 AM EDT RI LITHOTRIPSY XTRCORP SHOCK WAVE 07/17/2024 9:35 AM EDT Calculus of kidney Case Notes AGILITI CONFIRMATION #[id number] SPOKE TO ITALIA RANKIN GLUCOSE POC Routine 07/17/2024 7:07 AM EDT XR ABDOMEN/KUB 1 VW Routine 07/17/2024 6:53 AM EDT EKG-SCANNED 07/17/2024 HEMOGLOBIN A1C Routine 07/11/2024 1:48 PM EDT Preop examination CBC HEMOGRAM (SJ-BKR) Routine 07/11/2024 1:48 PM EDT Preop examination BASIC METABOLIC PANEL Routine 07/11/2024 1:48 PM EDT Preop examination FS_MODEL_IP_ECG 12-LEAD Routine 07/11/2024 12:19 PM EDT Preop examination MM DIGITAL MAMMO SCREEN BILATERAL Routine 01/05/2022 2:39 PM EST Visit for screening mammogram from Last 3 Months or Most Recently Relevant to Health Maintenance Results * (ABNORMAL) Glucose, Nova Meter (07/17/2024 10:44 AM EDT) Only the most recent of2 resultswithin the time period is included. POC-GLUCOSE 146(H) 70 - 110 mg/dL 07/17/2024 10:45 AM EDT [facility] Comment:In the event of poor peripheral blood flow, venous or arterial blood should be used due to the potential of erroneous results. Laboratory Apparatus Glass Blower [id number] 07/17/2024 10:45 AM EDT [facility] Blood WHOLE BLOOD / Unknown 07/17/2024 10:44 AM EDT 07/17/2024 10:45 AM EDT Narrative [facility] - 07/17/2024 10:45 AM EDT Laboratory Apparatus Glass Blower ID is - [id number] us Chris Casey MD POINT OF CARE TEST ORDERABLES Final Result [facility] [address] [id number] [phone] * AN SINGLE LUMEN INTUBATION (07/17/2024 9:43 AM EDT) Narrative No Win CRNA - 07/17/2024 9:43 AM EDT No iWn CRNA 07/17/2024 9:49 AM Intubation Authorized by: oN Win CRNA Performed by: No Win CRNA [...] 1 Number of other approaches attempted: 0 us No Win CRNA ANESTHESIA ORDERABLES Final Result * XR Abdomen KUB 1 view (07/17/2024 [...] bowel dilatation. IMPRESSION: Right nephrolithiasis as detailed. us Anselmo Dominguez Jr., MD IMG DIAGNOSTIC IMAGING ORDERABLES Final Result * EKG-SCANNED (07/17/2024) Narrative 07/17/2024 Ordered by an unspecified provider. us Default Scanning Provider SCAN ORDERS Final Result * (ABNORMAL) CBC - Hemogram (SJ-BKR) (07/11/2024 1:48 PM EDT) WBC 6.2 3.9 - 10.0 K/ L 07/11/2024 3:22 PM EDT [facility] RBC 4.93 3.93 - 5.22 M/ L 07/11/2024 3:22 PM EDT [facility] Hemoglobin 13.6 11.2 - 15.7 GM/DL 07/11/2024 3:22 PM EDT [facility] Hematocrit 43.7 34.1 - 44.9 % 07/11/2024 3:22 PM EDT [facility] MCV 89 79 - 95 fL 07/11/2024 3:22 PM EDT [facility] MCH 27.6 25.6 - 32.2 pg 07/11/2024 3:22 PM EDT [facility] MCHC 31.1(L) 32.2 - 36.5 GM/DL 07/11/2024 3:22 PM EDT [facility] RDW 14.6(H) 11.6 - 14.4 % 07/11/2024 3:22 PM EDT [facility] Platelets 297 163 - 369 K/CU MM 07/11/2024 3:22 PM EDT [facility] MPV 11.0 9.4 - 12.4 fL 07/11/2024 3:22 PM EDT [facility] nRBC 0(L) 1 - 5 /100 WBC 07/11/2024 3:22 PM EDT [facility] Blood Venipuncture / Unknown 07/11/2024 1:48 PM EDT 07/11/2024 3:08 PM EDT us Chris Casey MD LAB BLOOD ORDERABLES Final Res ult Performing Organization Address [facility] Co de Phone Number [facility] [address] [phone] * (ABNORMAL) Hemoglobin A1c (07/11/2024 1:48 PM EDT) Hemoglobin A1C 7.1(H) 4.2 - 6.3 % 07/11/2024 3:47 PM EDT [facility] Comment: Hemoglobin A1C levels are related to mean glucose during the preceding 2-3 months. Less than 7% demonstrates glycemic control in diabetic patients. Hemoglobin AlC % Suggested Diagnosis > or = 6.5 Diabetic 5.7 - 6.4 Prediabetic <5.7 Non-diabetic eAVG Glucose 157.07 mg/dL 07/11/2024 3:47 PM EDT [facility] Blood Venipuncture / Unknown 07/11/2024 1:48 PM EDT 07/11/2024 3:08 PM EDT us Chris Casey MD LAB BLOOD ORDERABLES Final Res ult Performing Organization Address [facility] Co de Phone Number [facility] [address] [phone] * (ABNORMAL) Basic Metabolic Panel (07/11/2024 1:48 PM EDT) Sodium 139 136 - 146 meq/L 07/11/2024 3:38 PM EDT [facility] Potassium 4.8 3.5 - 5.1 meq/L 07/11/2024 3:38 PM EDT [facility] Chloride 106 102 - 112 meq/L 07/11/2024 3:38 PM EDT [facility] CO2 23 21 - 32 meq/L 07/11/2024 3:38 PM EDT [facility] Anion Gap 15 9 - 20 07/11/2024 3:38 PM EDT [facility] BUN 18 7 - 22 mg/dL 07/11/2024 3:38 PM EDT [facility] Creatinine 1.30(H) 0.55 - 1.02 mg/dL 07/11/2024 3:38 PM EDT [facility] BUN/Creatinine 14 8 - 20 07/11/2024 3:38 PM EDT [facility] Glucose 288(H) 74 - 106 mg/dL 07/11/2024 3:38 PM EDT [facility] Calcium 9.5 8.5 - 10.1 mg/dL 07/11/2024 3:38 PM EDT [facility] Osmolality Calc 290.0 mOsm/kg 3:38 PM EDT [facility] eGFR (mL/min/1.73m2) 45(L) >=60 mL/min/1.7 3m2 07/11/2024 3:38 PM EDT [facility] Comment:eGFR of <60 suggests chronic kidney disease if found over a 3 month period of time. eGFR <15 indicates renal failure. Blood Venipuncture / Unknown 07/11/2024 1:48 PM EDT 07/11/2024 3:08 PM EDT us Chris Casey MD LAB BLOOD ORDERABLES Final Res ult [facility] [address] [place] [address] * ECG 12 lead (07/11/2024 12:19 PM EDT) VENTRICULAR RATE EKG/MIN 77 BPM GE MUSE ATRIAL RATE (MCT) 77 BPM GE MUSE RI Interval 142 ms GE MUSE QRS-INTERVAL (MSEC) 122 ms GE MUSE QT Interval 394 ms GE MUSE QTC Interval 445 ms GE MUSE P Paulina 50 degrees GE MUSE R AXIS (MCT) 51 degrees GE MUSE T Wave Paulina 131 degrees GE MUSE [place] Diagnosis Normal sinus rhythm Left bundle branch block Abnormal ECG Confirmed by Monica ARIZA SUZANNE ([id number]) on 07/11/2024 4:57:55 PM GE MUSE 07/11/2024 12:1 9 PM EDT 07/11/2024 4:57 PM EDT us Chris Casey MD ECG ORDERABLES Final Result GE MUSE * MM digital mammo screen bilateral (01/05/2022 2:39 PM EST) Anatomical Region Laterality Modality Breast Bilateral Mammography 01/05/2022 3:08 PM EST Impressions 01/05/2022 3:09 PM EST BI-RADS 1, negative. Recommendation is for yearly follow-up mammography. Narrative 01/05/2022 3:09 PM EST Bilateral digital screening mammogram with CAD FINDINGS: Comparison date: 06/15/2019 Standard views. Breast parenchyma: Extremely dense, which reduces the sensitivity of the exam. There are no new or suspicious densities. There are some benign-appearing calcifications. There are no areas of focal mammographic concern. There have been no appreciable changes. us Jessica Gomez MD IMG MAMMOGRAPHY ORDERABLES Fi nal Result from Last 3 Months or Most Recently Relevant to Health Maintenance Insurance MEDICARE PART [place] [address] Advance Directives For more information, please contact: [phone] Documents on File Type Date Recorded Patient Construction Technology Instructor Expl tiannaion Advance Directives and Bry g Will 06/01/2022 5:26 AM * Full Code (Latest Code Status on File) Date Activated Date Inactivated Comments 07/17/2024 6:40 AM 07/17/2024 12:28 PM * Full Code Date Activated Date Inactivated Comments 06/01/2022 8:46 AM 06/02/2022 4:24 AM * Full Code Date Activated Date Inactivated Comments 06/01/2022 5:25 AM 06/01/2022 8:46 AM Care Teams Marine Underwriter Relationship Specialty Start Date End Date Jessica Gomez MD [address] [facility] [place] [address] PCP - General Internal Medicine 08/09/23 Darrian Reno PA-C [address] [place] [address] Cardiology 04/15/23 Gibson Bai MD [address] [place] [address] Consulting Physician Urology 08/09/23
--- OUTSIDE RECORDS SUMMARY | 2024-08-31 08:44 | XMS_ITS | Data Portability ---
Author Organization [place] - At Home Visit, [facility], AT HOME VISIT, [facility] Address [address] [facility] [address] [place] [address] Assessment Encounter Date Assessment Date Assessment LastModified by Organization Details LastModified Time 03/16/2022 03/16/2022 Emmett HAAS 66yo F 1955 #679 New office visit today to establish care for primary care. States PCP has moved. Through intake completed with allergy review, problem, medication reconciliation, vaccines, vitals reviewed, , , Surgical history also reviewed. Medical release signed today. Will need records from old PCP. c/o fatigue, feelings of impending doom, concentration issues. States she needs lab work today. Not available 03/16/2022 19:17:43 03/19/2022 03/19/2022 Emmett HAAS 66yo F 1955 #679 Patient presented for follow up of labs. Studies ordered as below. Discussed plan with patient, who expressed understanding. Follow up as noted below. c/o being unable to get medications from the pharmacy. Needs refills. Not available 03/19/2022 14:15:16 04/13/2022 04/13/2022 Emmett HAAS 66yo F 1955 #679 Follow up visit today to check symptoms and to see if patient has improved from med changes. c/o ongoing insomnia, not feeling any different, lump in throat, thoracic back pain. Not available 04/13/2022 13:58:09 05/21/2022 05/21/2022 Emmett HAAS 66yo F 1955 #449 Office visit today. NAD. Gait stable. Appears fatigued today. Follow up after cardiology visit, and medical records being pulled, recent medication changes as well. c/o on going palpitations, atypical chest pain. Not available 05/22/2022 09:22:05 07/13/2022 07/13/2022 Emmett HAAS 66yo F 1955 #679 New office visit today to establish care for primary care. States PCP has moved. Through intake completed with allergy review, problem, medication reconciliation, vaccines, vitals reviewed, SH, FH, Surgical history also reviewed. Medical release signed today. Will need records from old PCP. c/o fatigue, feelings of impending doom, concentration issues. States she needs lab work today. Not available 07/13/2022 21:22:47 Plan of Treatment Reminders Order Date Submit Date Provider Last Modified By Organization Details Last Modified Time Details Appointments None recorded. Lab CBC w/ auto diff 2022 023 Not available 3 21:42:00 TSH, serum or plasma 2022 023 Not available 3 21:42:00 CMP, serum or plasma 2022 023 Not available 3 21:42:00 lipid panel, serum 2022 023 Not available 3 21:42:00 HbA1c (hemoglobin A1c), blood 2022 023 Not available 3 21:42:01 vitamin B12, serum 2022 023 Not available 3 19:35:22 vitamin D, 25-hydroxy, total, serum 2022 023 Not available 3 19:35:22 iron + TIBC + ferritin, serum 2022 023 Not available 3 19:35:21 estradiol, serum 2022 023 Not available 3 19:35:21 CBC w/ auto diff 2022 023 Not available 3 19:35:22 TSH, serum or plasma 2022 023 Not available 3 19:35:22 CMP, serum or plasma 2022 023 Not available 3 19:35:22 lipid panel, serum 2022 023 Not available 3 19:35:21 magnesium, serum or plasma 2022 023 Not available 3 19:35:23 HbA1c (hemoglobin A1c), blood 2022 023 Not available 3 19:35:21 Referral gastroenter ologist referral 2022 023 Raad Kinsey MD, [address], [place] [address], [place], [address], 3 12:23:12 Procedures None recorded. Surgeries None recorded. Imaging US, thyroid 2022 023 [email or web address] [id number] [facility] [address], [place], [address], 3 15:35:33 XR, thoracic spine, 2 view 2022 023 [email or web address] 8 [facility] ([facility]), [address], [place], [address], 3 15:35:33 Medication Orders rosuvastati n 40 mg tablet 2022 023 [facility], [address], [place], [address], 3 21:42:18 ergocalcife rol (vitamin D2) 1,250 mcg (50,000 unit) capsule 2022 023 [facility], [address], [place], [address], 3 21:42:25 famotidine 40 mg tablet 2022 023 [facility], [address] [facility] [address] [facility] [address] [address], [place], [address], 3 21:42:19 duloxetine 30 mg capsule,del ayed release [address] [facility], [address], [place], [address], 3 10:34:45 metformin 500 mg tablet 2022 023 [facility], [address], [place], [address], 3 21:42:15 cyanocobala min (vit B-12) 1,000 mcg/mL injection solution 2022 023 [facility], [address], [place], [address], 3 21:42:18 ergocalcife rol (vitamin D2) 1,250 mcg (50,000 unit) capsule 2022 023 [facility], [address], [place], [address], 3 15:30:36 alprazolam 0.25 mg tablet 2022 023 [facility], [address], [place], [address], 3 15:30:38 Ozempic 0.25 mg or 0.5 mg (2 mg/1.5 mL) subcutaneou s pen injector 2022 023 [facility], [address], [place], [address], 3 21:21:58 daridorexan t 25 mg tablet [address] [facility], [address], [place], [address], 3 08:25:08 metronidazo le 0.75 % (37.5 mg/5 gram) vaginal gel 2022 023 [facility], [address], [place], [address], 3 12:09:10 duloxetine 60 mg capsule,del ayed release [address] [facility], [address], [place], [address], 3 21:36:42 levothyroxi ne 100 mcg tablet [address] [facility], [address], [place], [address], 3 15:00:44 zolpidem 10 mg tablet [address] [facility], [address], [place], [address], 3 11:46:01 alprazolam 0.25 mg tablet 2022 023 [facility], [address], [place], [address], 3 12:26:11 neomycin-po lymyxin-dex ameth 3.5 mg/mL-10,00 0 unit/mL-0.1 % eye drops [address] [facility], [address], [place], [address], 3 21:21:26 metformin 500 mg tablet [address] [facility], [address], [place], [address], 3 15:00:08 glipizide ER 2.5 mg tablet, extended release 24 hr [address] [facility], [address], [place], [address], 3 21:20:49 estradiol 0.01% (0.1 mg/gram) vaginal cream 2022 023 [facility], [address], [place], [address], 3 12:08:09 metoclopram miguel 5 mg tablet [address] [facility], [address], [place], [address], 3 21:21:04 polymyxin B sulfate 10,000 unit-trimet hoprim 1 mg/mL eye drops [address] [facility], [address], [place], [address], 3 21:21:53 ergocalcife rol (vitamin D2) 1,250 mcg (50,000 unit) capsule 2022 023 [facility], [address], [place], [address], 3 09:15:50 famotidine 40 mg tablet [address] [facility], [address], [place], [address], 3 15:01:40 lisinopril 5 mg tablet 2022 023 [facility], [address], [place], [address], 3 14:53:52 duloxetine 30 mg capsule,del ayed release [address] [facility], [address], [place], [address], 3 10:34:45 glipizide 2.5 mg-metformi n 500 mg tablet 2022 023 [facility], [address], [place], [address], 3 14:10:38 cyanocobala min (vit B-12) 1,000 mcg/mL injection solution 2022 023 [facility], [address], [place], [address], 3 09:15:48 Patient TargetsNo targets recorded. Patient Instructions Encounter Date Encounter Id Patient Instructions Last Modified By Organization Details Last Modified Time 03/16/2022 [id number] Call 911 or go directly to ER for increased shortness of breath, chest pain, muscle weakness, changes in speech, visual changes, facial asymmetry. Call our office for any needs, changes, or for any issues. Continue to take medications as directed and until finished. Not available 03/16/2022 19:31:40 03/19/2022 [id number] Call 911 or go directly to ER for increased shortness of breath, chest pain, muscle weakness, changes in speech, visual changes, facial asymmetry. Call our office for any needs, changes, or for any issues. Continue to take medications as directed and until finished. Not available 03/19/2022 14:19:42 04/13/2022 [id number] Call 911 or go directly to ER for increased shortness of breath, chest pain, muscle weakness, changes in speech, visual changes, facial asymmetry. Call our office for any needs, changes, or for any issues. Continue to take medications as directed and until finished. Not available 04/13/2022 14:07:36 05/21/2022 [id number] Call 911 or go directly to ER for increased shortness of breath, chest pain, muscle weakness, changes in speech, visual changes, facial asymmetry. Call our office for any needs, changes, or for any issues. Continue to take medications as directed and until finished. Not available 05/22/2022 09:57:02 07/13/2022 [id number] Call 911 or go directly to ER for increased shortness of breath, chest pain, muscle weakness, changes in speech, visual changes, facial asymmetry. Call our office for any needs, changes, or for any issues. Continue to take medications as directed and until finished. 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 Not Available 2022 09:20:02 05/15/19 23 01/05/2022 MAMMO , diagn ostic , bilat eral No observ ation record ed. Not Available 2022 09:20:02 05/15/19 23 12/09/2021 CT, brain , w/wo contr ast No observ ation record ed. Not Available 2022 09:20:02 05/29/19 23 05/22/2022 US, thyro id No observ ation record ed. [facility] (Medical Record) [address], [place], [address], 07/13/2022 21:27:17 08/19/19 23 08/18/2022 XR, knee No observ ation record ed. [address], [place], [id number], 08/21/2022 11:23:16 09/04/1909/03/2022 MRI, knee, w/o contr ast No observ ation record ed. [address], [place], [id number], 09/03/2022 21:50:56 10/07/1910/06/2022 MRI, shoul gabbie, w/o contr ast No observ ation record ed. [address], [place], [id number], 10/13/2022 09:07:43 Result Notes None recorded. Problems Name Problem SNOMED Code Status Onset Date Resolution Date Notes Provider Name and Address Organization Details Recorded Time Gastroeso phageal reflux disease without esophagit is 295010482 Active 2022 Vonda Martinez NP, S [facility] [address], [place], [address], [place] - [place], [facility] 3 15:09:39 Essential hypertens ion 51361621 Active 2022 Vonda Martinez NP, S [facility] [place] [address], [place], [address], [place], [facility] 3 15:09:40 Fatigue 39943298 Active 2022 Vonda Martinez NP, [facility] [place] [address], [place], [address], [place], [facility] 3 15:09:40 Chronic anemia 984430835 Active 2022 Vonda Martinez NP, [facility] [place] [address], [place], [address], [place], [facility] 3 15:09:39 Hyperglyc emia due to type 2 diabetes mellitus 925791712858 109 Active 2022 Vonda Martinez NP, S [facility] [place] [address], [place], [address], [place], [facility] 3 15:09:40 Depressiv e disorder 29980625 Active 2022 Vonda Martinez NP, [address], [place], [address], [place], [facility] 3 15:09:40 Atrophic vaginitis 39530373 Active 2022 Vonda Martinez NP, [address], [place], [address], [place], [facility] 3 15:09:40 Atheroscl erosis of coronary artery without angina pectoris 969474839894 103 Active 2022 Vonda Martinez NP, [address], [place], [address], [place], [facility] 3 15:09:40 Sense of impending doom 656175010 Active 2022 Vonda Martinez NP, [address], [place], [address], [place], [facility] 3 15:09:40 Essential tremor 961360893 Active 2022 Vonda Martinez NP, [address], [place], [address], [place], [facility] 3 15:09:40 Insomnia 275751625 Active 2022 Vonda Martinez NP, [address], [place], [address], [place], [facility] 3 15:09:39 Generaliz ed anxiety disorder 74787378 Active 2022 Vonda Martinez NP, [address], [place], [address], [place], [facility] 3 15:09:39 Acquired hypothyro idism 967615083 Active 2022 Vonda Martinez NP, [address], [place], [address], [place], [facility] 3 15:09:39 Chronic hiccup 894515625 Active 2022 Vonda Martinez NP, [facility] [place] [address], [place], [address], [place], [facility] 3 15:09:40 Disorder of vitamin B12 891192661 Active 2022 Vonda Martinez NP, [facility] [place] [address], [place], [address], [place], [facility] 3 15:09:40 Vitamin D deficienc y 39181548 Active 2022 Vonda Martinez NP, [address], [place], [address], [place], [facility] 3 15:09:40 Chronic kidney disease stage 3A 558694907 Active 2022 Vonda Martinez NP, [address], [place], [address], [place], [facility] 3 15:09:40 Feeling of lump in throat 802112300 Active 2022 Vonda Martinez NP, [facility] [place] [address], [place], [address], [place], [facility] 3 15:09:39 Obstructi ve sleep apnea syndrome 22020143 Active 2022 Vonda Martinez NP, [facility] [place] [address], [place], [address], [place], [facility] 3 15:09:40 Postgastr ic surgery syndrome 90318793 Active 2022 Vonda Martinez NP, [facility] [place] [address], [place], [address], [place], [facility] 3 15:09:40 Thoracic back pain 143881315 Active 2022 Vonda Martinez NP, S [address], [place], [address], [place], [facility] 3 15:09:39 Fishy vaginal discharge 042358187 Active 2022 Vonda Martinez NP, S [address], [place], [address], [place], [facility] 3 15:09:40 Acute urinary tract infection 981342274 Active 2022 Vonda Martinez NP, S [address], [place], [address], [place] [facility] 3 15:09:40 Mixed hyperlipi demia 049825354 Active 2022 Vonda Martinez NP, S [address], [place], [address], [place], [facility] 3 15:09:39 Electroca rdiogram abnormal 707627449 Active 2022 Vonda Martinez NP, S [address], [place], [address], [place], [facility] 15:09:39 Angina pectoris 040319355 Completed 202204/16/2022 Vonda Martinez NP, S [address], [place], [address], [place], [facility] 15:09:39 Cerebrova scular accident 131811684 Completed 202204/16/2022 Vonda Martinez NP, S [address], [place], [address], [place], [facility] 15:09:39 Hypertens mary disorder 95403387 Active 2022 Vonda Martinez NP, S [address], [place], [address], [place] [facility] 3 15:09:40 Takotsubo cardiomyo angelito 490337508 Active 2022 Vonda Martinez NP, S [address], [place], [address], [place], [facility] 15:09:40 Coronary arteriosc lerosis 48768331 Active 2022 Vonda Martinez NP, S [facility] [place] [address], [place], [address], [place] [facility] 3 15:09:40 Diabetes mellitus 50477767 Completed 202204/16/2022 Vonda Martinez NP, [address] [facility] [place] [address], [place], [address], [place], [facility] 15:09:40 Palpitati ons 86006612 Active 2022 Vonda Martinez NP, [facility] [place] [address], [place], [address], [place], [facility] 15:09:40 Angina co-occurr ent and due to coronary arteriosc lerosis 234323968589 31809 Active 2022 Vonda Martinez NP, S [facility] [place] [address], [place], [address], [place], [facility] 09:22:31 Problem Notes None recorded. Procedures Surgical History Date Name Laterality Status Provider Name and Address Organization Details Recorded Time 07/14/19 lab collection.[facility] gregor Martinez NP, S [facility] [place] [address], [place], [address], [place], [facility] 07/13/2022 21:26:49 05/13/19 radionuclide imaging of perfusion of myocardium under stress and reinjection using Thallium 201 completed Vonda Martinez NP, S [facility] [address], [place], [address], [place], [facility] 05/21/2022 15:19:22 03/16/19 23 lab collection.brendon gregor Chino Martinez, [employer], S [address], [place], [place], [address], [place], [facility] 03/16/2022 19:12:30 01/06/20 22 Date of Last Mammogram completed JANET CAMACHO [place] - [place], [facility] 05/14/2022 12:15:17 09/19/19 17 Date of Last Colonoscopy completed Vonda Martinez NP, S [address], [place], [place], [address], [place], [facility] 05/21/2022 15:15:17 07/14/19 15 cardiac catheterization completed Vonda Martinez NP, S [address], [place], [place], [address], [place], [facility] 05/21/2022 15:23:25 09/13/19 13 placement of stent in coronary artery completed Vonda Martinez NP, S [address], [place], [address], [place], [facility] 05/21/2022 15:19:49 05/16/19 09 Most Recent Bone Density completed Vonda Martinez NP, S [address], [place], [address], [place], [facility] 05/21/2022 15:14:22 lithotripsy completed Vonda Martinez NP, S [address], [place], [address], [place], [facility] 05/21/2022 15:21:09 tonsillectomy completed Vonda Martinez NP, S [address], [place], [address], [place], [facility] 05/21/2022 15:20:09 thyroidectomy completed Vonda Martinez NP, S [address], [place], [address], [place], [facility] 05/21/2022 15:20:28 excision of lipoma completed Nikhil Martinez NP, S [address], [place], [address], [place], [facility] 05/21/2022 15:20:36 Cataract Surgery completed Vonda Martinez NP, S [facility] [place] [address], [place], [address], [place], [facility] 05/21/2022 15:21:32 Hysterectomy completed Vonda Martinez NP, [facility] [place] [address], [place], [address], [place], [facility] 05/21/2022 15:21:47 Gastric bypass for obesity completed Vonda Martinez NP, [facility] [place] [address], [place], [address], [place], [facility] 05/21/2022 15:22:03 procedure on urinary bladder completed Vonda Martinez NP, [facility] [place] [address], [place], [address], [place], [facility] 05/21/2022 15:22:26 abdominoplasty completed Vonda Martinez NP, [address] [place] [address], [place], [address], [place], [facility] 05/21/2022 15:22:46 LASIK completed Vonda Martinez NP, [address] [place] [address], [place], [address], [place], [facility] 05/21/2022 15:23:01 Imaging Results None recorded. Procedure Notes None recorded. Medical Equipment None Reported. Allergies Allergen ID Allergen Name Allergen Category Reaction Reaction Severity Criticality Documentation Date Start Date Code Code System Note Provider Name and Address Organization Details Recorded Time 3086 Avelox medicatio n Not available Not available Not available 05/14/2022 74315 6 RxNorm [place] - At Home Visit, [facility] 3 11:50:53 3087 Seroquel medicatio n Not available Not available Not available 05/14/2022 25776 RxNorm JANET quiles, [place] - [place], [facility] 3 11:51:33 3088 niacin medicatio n palpitati ons mild Not available 05/14/20222016 7393 RxNorm Vonda Martinez NP, [address] [facility], [place], [address], [place] - [place], [facility] 3 15:09:38 3089 bacitraci n / neomycin / polymyxin B medicatio n Not available Not available Not available 05/14/2022 21110 9 RxNorm JANET CAMACHO [facility], [place] - At [place] Visit, [facility] 3 11:52:11 Medications Name Sig Start Date Stop Date Status Note LastModified by Organization Details LastModified Time metformin 500 mg tablet Take 1 tablet twice a day by oral route for 90 days. active Not Available Not Available No t Available primidone 50 mg tablet 04/13 completed Not Available Not Available Not Available BD Insulin Syringe 1 mL 25 x 1 active Not Available Not Available N ot Available metronidazo le 0.75 % (37.5 mg/5 gram) vaginal gel INSERT 1 APPLICATO RFUL VAGINALLY ONCE DAILY FOR 5 DAYS 05/14 completed Not Available Not Available Not Available famotidine 40 mg tablet Take 1 tablet every day by oral route for 90 days. 2022 active Not Available Not Available Not Avai lable Medrol (El) 4 mg tablets in a dose pack per manufactu re direction 03/16 completed Not Available Not Available Not Available aspirin 81 mg tablet,ivana yed release 81 mg by oral route. active Not Available Not Available No t Available tramadol 50 mg tablet TAKE 1 TABLET BY MOUTH EVERY 4 HOURS NEEDED FOR POST OP PAIN 03/19 completed Not Available Not Available Not Available levothyroxi ne 75 mcg tablet 03/19 completed Not Available Not Available Not Available levothyroxi ne 100 mcg tablet Take 1 tablet every day by oral route for 90 days. active Not Available Not Available No t Available alprazolam 0.5 mg tablet TAKE 1 TABLET BY MOUTH TWICE DAILY NEEDED active Not Available Not Available No t Available amoxicillin 875 mg tablet 03/16 completed Not Available Not Available Not Available alprazolam 0.25 mg tablet TAKE 1 TABLET BY MOUTH TWICE DAILY NEEDED active Not Available Not Available No t Available metoclopram miguel 5 mg tablet Take 1 tablet 3 times a day by oral route as needed for 30 days. 07/13 completed Not Available Not Available Not Available glipizide ER 2.5 mg tablet, extended release 24 hr TAKE 1 TABLET BY MOUTH ONCE DAILY active Not Available Not Available No t Available cephalexin 500 mg capsule TAKE 1 CAPSULE BY MOUTH THREE TIMES DAILY FOR 7 DAYS 03/16 completed Not Available Not Available Not Available cyanocobala min (vit B-12) 1,000 mcg/mL injection solution INJECT 1 ML SUBCUTANE OUSLY ONCE A WEEK active Not Available Not Available No t Available neomycin-po lymyxin-dex ameth 3.5 mg/mL-10,00 0 unit/mL-0.1 % eye drops INSTILL 1 DROP INTO AFFECTED EYE(S) EVERY 3 TO 4 HOURS 07/13 completed Not Available Not Available Not Available polymyxin B sulfate 10,000 unit-trimet hoprim 1 mg/mL eye drops INSTILL 1 DROP INTO AFFECTED EYE(S) BY OPHTHALMI C ROUTE EVERY 6 HOURS 07/13 completed Not Available Not Available Not Available nitroglycer in 0.[address] by sublingua l route. active Not Available Not Available No t Available montelukast 10 mg tablet Take 1 tablet every day by oral route in the evening. 05/21 completed Not Available Not Available Not Available lisinopril 5 mg tablet Take 1 tablet every day by oral route for 90 days. 05/21 completed Not Available Not Available Not Available zolpidem 5 mg tablet Take 5 mg by oral route. 05/21 completed Not Available Not Available Not Available metoprolol succinate ER 25 mg tablet,exte nded release 24 hr TAKE 1 TABLET BY MOUTH IN THE MORNING active Not Available Not Available No t Available ergocalcife rol (vitamin D2) 1,250 mcg (50,000 unit) capsule TAKE 1 CAPSULE BY MOUTH ONCE EVERY MONTH 2022 active Not Available Not Available Not Avai lable BD Tuberculin Syringe 1 mL 25 gauge x 5/8 USE DIRECTED active Not Available Not Available No t Available estradiol 0.01% (0.1 mg/gram) vaginal cream Insert 1 g 3 times a week by vaginal route for 90 days. 05/14 completed Not Available Not Available Not Available zolpidem 10 mg tablet TAKE 1 TABLET BY MOUTH ONCE DAILY FOR 30 DAYS active Not Available Not Available No t Available cefdinir 300 mg capsule TAKE 1 CAPSULE BY MOUTH EVERY 12 HOURS FOR 7 DAYS 03/16 completed Not Available Not Available Not Available amoxicillin 875 mg-potassiu m clavulanate 125 mg tablet Take 1 tablet every 12 hours by oral route for 10 days. 03/16 completed Not Available Not Available Not Available amoxicillin 500 mg-potassiu m clavulanate 125 mg tablet Take 1 tablet every 12 hours by oral route for 10 days. 03/16 completed Not Available Not Available Not Available escitalopra m 10 mg tablet TAKE 1 TABLET BY MOUTH ONCE DAILY active Not Available Not Available No t Available escitalopra m 20 mg tablet 03/16 completed Not Available Not Available Not Available Asprin Ec Low Dose 81 mg tablet,ivana yed release Take 1 tablet every day by oral route. 07/13 completed Not Available Not Available Not Available glipizide 2.5 mg-metformi n 500 mg tablet Take 1 tablet twice a day by oral route for 90 days. 03/19 completed Not Available Not Available Not Available ezetimibe 10 mg tablet Take 1 tablet every day by oral route in the morning for 90 days. active Not Available Not Available No t Available rosuvastati n 10 mg tablet 05/21 completed Not Available Not Available Not Available rosuvastati n 40 mg tablet TAKE 1 TABLET BY MOUTH ONCE DAILY IN THE MORNING active Not Available Not Available No t Available nitrofurant oin monohydrate /macrocryst als 100 mg capsule TAKE 1 CAPSULE BY MOUTH EVERY 12 HOURS FOR 5 DAYS 05/14 completed Not Available Not Available Not Available duloxetine 30 mg capsule,del ayed release TAKE 1 CAPSULE BY MOUTH ONCE DAILY AT BEDTIME FOR 90 DAYS 08/17 completed Not Available Not Available Not Available duloxetine 60 mg capsule,del ayed release Take 1 capsule every day by oral route for 90 days. 07/13 completed Not Available Not Available Not Available loratadine 10 mg oral tablet by oral route once daily active Not Available Not Available No t Available Levoxyl 75 mcg oral tablet by oral route once daily 05/21 completed Not Available Not Available Not Available primidone 50 mg oral tablet oral route 2 times per day 05/21 completed Not Available Not Available Not Available Salonpas 07/13 completed Not Available Not Available Not Available multivitami n 1 tablet qd active Not Available Not Available No t Available Mucus Relief ER 600 mg tablet, extended release TAKE 1 TABLET BY MOUTH EVERY 12 HOURS FOR 10 DAYS 03/16 completed Not Available Not Available Not Available Janumet XR 100 mg-1,000 mg tablet,exte nded release Take 1 tablet every day by oral route. 05/21 completed Not Available Not Available Not Available cyanocobala min (vit B-12) 1,000 mcg/mL injection kit Inject 1000 ugs every week by injection route. 05/21 completed Not Available Not Available Not Available Farxiga 10 mg tablet Take 1 tablet every day by oral route. 05/21 completed Not Available Not Available Not Available Flonase Allergy Relief 50 mcg/actuati on nasal spray,suspe nsion [place] 1 spray every day by intranasa l route. 07/13 completed Not Available Not Available Not Available Ozempic 0.25 mg or 0.5 mg (2 mg/1.5 mL) subcutaneou s pen injector 0.25 mg SC qwk x4wk 07/13 completed Not Available Not Available Not Available Paxlovid 300 mg (150 mg x 2)-100 mg tablets in a dose pack per manufactu re direction . 03/16 completed Not Available Not Available Not Available Quviviq 25 mg tablet 04/17 completed Not Available Not Available Not Available Ozempic 0.25 mg or 0.5 mg (2 mg/3 mL) subcutaneou s pen injector INJECT 0.5MG SUBCUTANE OUSLY ONCE A WEEK active Not Available Not Available No t Available Vitals Date Recorded Body height Body mass index (BMI) Body weight Body temperature Respiratory rate Heart rate Oxygen saturation Oxygen saturation in Arterial blood by Pulse oximetry Systolic And Diastolic Provider Name and Address Organization Details Last Updated DateTime 3 154.94 cm 28.6 kg/m2 56371.1 7 g 97.6 [degF] 18 /min 73 /min 99 % 99 % 137/98 mm[Hg] Vonda Martinez NP, [address], [place], [address], [place] - At Home Visit, [facility] 3 19:03:53 Date Recorded Body height Body mass index (BMI) Body weight Body temperature Respiratory rate Heart rate Oxygen saturation Oxygen saturation in Arterial blood by Pulse oximetry Systolic And Diastolic Provider Name and Address Organization Details Last Updated DateTime 3 154.94 cm 29.1 kg/m2 57984.9 4 g 97.9 [degF] 18 /min 85 /min 95 % 95 % 122/80 mm[Hg] Vonda Martinez NP, [address], [place], [address], [place] - At Home Visit, [facility] 3 14:09:47 Date Recorded Body height Body mass index (BMI) Body weight Body temperature Respiratory rate Heart rate Oxygen saturation Oxygen saturation in Arterial blood by Pulse oximetry Systolic And Diastolic Provider Name and Address Organization Details Last Updated DateTime 3 154.94 cm 28.9 kg/m2 87851.9 1 g 97.5 [degF] 18 /min 93 /min 96 % 96 % 117/82 mm[Hg] Vonda Martinez NP, [address], [place], [address], [place] - At Home Visit, [facility] 3 13:53:08 Date Recorded Body height Body mass index (BMI) Body weight Respiratory rate Body temperature Heart rate Oxygen saturation Oxygen saturation in Arterial blood by Pulse oximetry Systolic And Diastolic Provider Name and Address Organization Details Last Updated DateTime 3 154.94 cm 28.7 kg/m2 91682.3 2 g 16 /min 97 [degF] 99 /min 97 % 97 % 127/88 mm[Hg] Vonda Martinez NP, [address], [place], [address], [place] - At Home Visit, [facility] 3 15:06:29 Date Recorded Body height Body mass index (BMI) Body weight Body temperature Respiratory rate Heart rate Oxygen saturation Oxygen saturation in Arterial blood by Pulse oximetry Systolic And Diastolic Provider Name and Address Organization Details Last Updated DateTime 154.94 cm 270.6 kg/m2 914831. 27 g 97.8 [degF] 16 /min 75 /min 96 % 96 % 111/80 mm[Hg] Vonda Martinez NP, [address] [facility] [address], [place], [address], [place] - At Home Visit, [facility] 21:18:41 Social History Question Answer Notes LastModified by myLINGO[employer] ion Details LastModified Time Tobacco Smoking Status Never Smoker Vonda Martinez NP, [address] [facility] [address], [place], [address], [place] - At Home Visit, [facility] 03/16/2022 19:06:52 Do You Have An Advance Directive? No Information n ot available 03/16/2022 Are You Blind Or Do You Have Difficulty Seeing? No Information n ot available 03/16/2022 Is Blood Transfusion Acceptable In An Emergency? Yes Information not available 03/16/2022 What Is Your Level Of Caffeine Consumption? Moderate Information not available 03/16/2022 Are You A Caregiver? Yes Information not available 03/16/2022 In The 14 Days Before Symptom Onset, Have You Had Close Contact With A Laboratory-confirm ed COVID-19 While That Case Was Ill? No Information n ot available 03/16/2022 In The 14 Days Before Symptom Onset, Have You Had Close Contact With A Person Who Is Under Investigation For COVID-19 While That Person Was Ill? No Information not available 03/16/2022 Have You Been To An Area Known To Be High Risk For COVID-19? No Information not available 03/16/2022 Are You Deaf Or Do You Have Serious Difficulty Hearing? No Information not available 03/16/2022 Have There Been Any Changes To Your Family Or Social Situation? No Information no t available 03/16/2022 Do You Have A Medical Power Of President Sales [employer] Marketing? No Information not available 03/16/2022 What Was The Date Of Your Most Recent Tobacco Screening? 07/13/2022 Information not available 07/13/2022 How Many Children Do You Have? 2 Information not available 03/16/2022 Do You Have An Out Of Hospital DNR? No Information not available 03/16/2022 Do You Have Any Pets? No Information not available 03/16/2022 What Is Your Relationship Status? Information not available 03/16/2022 Do You Use Your Seat Belt Or Car Seat Routinely? Yes Information not available 03/16/2022 Do You Have Smoke And Carbon Monoxide Detectors In Your Home? Yes Information not available 03/16/2022 Are You Passively Exposed To Smoke? No Information no t available 03/16/2022 Are There Any Smokers In Your House? No Information not available 03/16/2022 Do You Use Sunscreen Routinely? No Information not available 03/16/2022 Has Tobacco Cessation Counseling Been Provided? Yes Information not available 03/16/2022 On What Date Was Tobacco Cessation Counseling Provided? 07/13/2022 Information not available 07/13/2022 Do You Have Difficulty Walking Or Climbing Stairs? No Information not available 03/16/2022 Are You Currently In School? No Information not available 03/16/2022 Do You Have Any Dietary Restrictions? No Information not available 03/16/2022 Sex: Female Functional Status Question Answer Note LastModified by Organizat ion Details LastModified Time Do you use any illicit or recreational drugs? No Information not available 03/16/2022 Do you or have you ever used any other forms of tobacco or nicotine? No Information not available 03/16/2022 What is your level of alcohol consumption? None Information not available 03/16/2022 Are you currently employed? No Information not available 03/16/2022 Do you have transportation difficulties? No Information not available 03/16/2022 Are you able to walk? YESWOREST Information not available 03/16/2022 Do you have difficulty doing errands alone? No Information not available 03/16/2022 Are you able to care for yourself? Yes Information not available 03/16/2022 Do you have difficulty dressing or bathing? No Information not available 03/16/2022 Mental Status Question Answer Note LastModified by Organizat ion Details LastModified Time Do you feel stressed (tense, restless, nervous, or anxious, or unable to sleep at night)? [id number] Information not available 03/16/2022 Do you have difficulty concentrating, remembering or making decisions? No Information no t available 03/16/2022 Family History Relationship Description Onset Age of this Age Resolved Age Notes LastModified by Organization Details LastModified Time Father No current problems or disability Not available 03/16 19:06:16 Mother No current problems or disability Not available 03/16 19:06:16 Medical History Condition Response Coronary Artery Disease Y Other N Hyperthyroidism N Blood Transfusion N Hypothyroidism Y Developmental or Behavioral Disorders N Defects or Inherited Disease N Breast Problem N Blood Diseases-HIV/AIDS, Hepatitis N Headaches, Migraines N Anesthesia Complications N Meniere's disease N Obesity N Vision or Eye Problems N Head Injury/Concussion N Infertility N Cancer N Varicosities N Endometriosis N High Cholesterol Y Allergies/Hayfever N Ear or Hearing Problems N Hospitalizations Y COPD, Asthma, Bronchiectasis, History of TB N Liver Disease-Cirrhosis, Fatty Liver N ADD/ADHD N Skin Problems N Anemia Y MRSA exposure N GI Problems-Constipation, GERD Y Pulmonary Embolism, DVT, Stroke N Mental Issues- Depression, Anxiety, Eati ng disorder N Diabetes Y Seizures/Epilepsy N Bladder, Prostate, Kidney Stones Y AIDS/HIV N Muscle, Joint, Bone Problems, Gout, Fibr omyalgia, Back Pain Y Congestive Heart Failure (CHF) N Eczema N Abuse/Domestic Violence N Heart Disease Y Pre-Eclampsia N Hypertension Y Osteoporosis N Autism Spectrum Disorder (ASD) N Thrombophilias N Gynecological History Statement/Question Response Date of Last Colonoscopy 09/18/2016 Date of Last Mammogram 01/05/2022 Most Recent Bone Density 05/15/2008 Post Menopausal Bleeding N Menses Monthly N Date of Last Pap Smear Hormone Replacement Therapy N Obstetrics History GPAL:G 0 P 0 0 0 0 Immunizations Vaccine Type Date Status Note Provider Nam e and Address Organization Details Recorded Time pneumococcal polysaccharide PPV23 2 completed Not Available [facility] 07/07/2022 14:15:06 influenza, unspecified formulation 2 completed Not Available [facility] 07/07/2022 14:15:07 Past Encounters Encounter ID Performer Location Encounter Start Date Encounter Closed Date Diagnosis/Indication Diagnosis SNOMED-CT Code Diagnosis ICD10 Code Diagnosis Note [id number] Vonda Martinez NP, S Office [address] [facility] [address] [place] [address] 03/16/2022 11:30:40 03/16/2022 19:38:45 Essential hypertension 37342896 I10 BP 137/98. Patient's blood pressure is at goal of 139/89 or less. Condition is stable. Continue current medication s and treatment plan. I recommend that you exercise for 30-45 minutes 5 days a week. I also recommend a balanced diet with fruits and vegetables every day, lean meats, and little fried foods. The DASH diet (you can find this online) is a good example of this.Check your blood pressure 3-4 times a week. Write them down and bring that blood pressure log to your next appointmen t. Notify me if your blood pressure stays over 140/90.Mera cking cbc, cmp, tsh, flp, mag today. Currently on lisinopril 5mg qd. Fatigue 94192457 R53.83 c/o debilitati ng fatigue. Checking vit b, vit d, tibc, estradiol level. Mixed hyperlipidemia 267 017590 E78.2 Checking flp today. Currently on rosuvastat in 10mg hs. Discussed weight loss and weight management . Encouraged 30 min of physical activity daily. Increase fruits/veg gies in diet. Avoid process foods and concentrat ed sweets. Voiced understand ing. Chronic anemia 338254140 D51.1 history of iron infusions. Poor absorption due to weight loss surgery. Checking TIBC today. Hyperglyce kristyn due to type 2 diabetes mellitus [id number] 29765 E11.65 Does not know last A1c. Checking A1c today. Reports being on Janumet and unable to afford med. She then purchased Novolin 70/30 and has been self administer ing 50units every am. Reports weight gain and general feeling of being unwell.Dis cussed lifestyle modificati on.1. Increase physical activity: Physical activity makes you more sensitive to insulin, one reason why it s a corner[place] e of diabetes management .2. Weight loss: Weight loss is important too, as is avoiding high blood sugar, reducing stress, and getting enough sleep.3. Diet: Eliminate concentrat ed sweets, white sugar from your diet such as sodas, pastas, white bread.4. Drink plenty of water. Pt unable to tolerate metformin due to GI side effects Depressive disorder 9442 0251 F32.1 Pt expresses feeling of impending doom. D/c escitalopr am. Starting on Duloxetine 30mg for 30 day trail. Discussed depressive symptoms. Defers referral to psych at this time. Denies feelings of self harm. Atrophic vaginitis 69930 000 N95.2 c/o painful intercours e. Has been on ELMORE therapy before. Starting on estradiol vaginal cream. Gastroesop hageal reflux disease without esophagitis 861774194 K21.9 Reports symptoms are controlled using famotidine and metoclopra mide. Following lifestyle changes recommende d may reduce your symptoms. This changes would include: 1. losing weight if you re overweight or have obesity 2. elevating your head during sleep by placing a foam wedge or extra pillows under your head and upper back to incline your body and raise your head off your bed 6 to 8 inches 3. quitting smoking if you smoke4. Avoid Foods and drinks that have been commonly linked to GERD symptoms include: acidic foods, such as citrus fruits and tomatoes; alcoholic drinks; chocolate coffee and other sources of caffeine; high-fat foods; mint; spicy foods.5. Avoid bending at the waste. Atheroscle rosis of coronary artery without angina pectoris [id number] 88907 I25.10 History of cardiac issues in the past, [place]. Pulling patient medical records. Denies any chest pain today. Is on ASA daily. Essential tremor 0698679 09 G25.0 Currently on primidone. Pt reports med is not helping. Will reassess once lab return. Insomnia 136723734 G47.0 9 Currently on ambien and xanax. Discussed that both meds need to be d/c. Advised to start duloxetine , stop ambien, begin to wean off xanax. Pt voiced understand ing. Generalize d anxiety disorder 24110412 F41.1 Takes xanax as needed. Acquired hypothyroidism 827535810 E03.4 Currently on levothyrox ine 75mcg daily. Pt educated about Hypothyroi dism symptoms which may includeTir edness. More sensitivit y to cold. Constipati on. Dry skin. Weight gain. Puffy face. Hoarse voice.Coar se hair and skin. Muscle weakness. Muscle aches, tenderness and stiffness. Menstrual cycles that are heavier than usual or irregular. Thinning hair. Slowed heart rate, also called bradycardi a. Depression . Memory problems. Pt self reports symptoms of hypothyroi dism: weight gain, puffy face, depression , hair falling out. Checking tsh today. Chronic hiccup 301351321 R06.6 Mucopurule nt conjunctivitis of bilateral eyes 4138632675 99488 H10.023 Disorder o f vitamin B12 240447582 E53.8 Vitamin D deficiency 347 04692 E55.9 [id number] Vonda Martinez NP, S Office [address] [place] [id number] 03/19/2022 11:56:33 03/19/2022 15:00:28 Hyperglycemia due to type 2 diabetes mellitus [id number] 84583 E11.65 Does not know last A1c. Checking A1c today. Reports being on Janumet and unable to afford med. She then purchased Novolin 70/30 and has been self administer ing 50units every am. Reports weight gain and general feeling of being unwell.Dis cussed lifestyle modificati on.1. Increase physical activity: Physical activity makes you more sensitive to insulin, one reason why it s a [place] e of diabetes management .2. Weight loss: Weight loss is important too, as is avoiding high blood sugar, reducing stress, and getting enough sleep.3. Diet: Eliminate concentrat ed sweets, white sugar from your diet such as sodas, pastas, white bread.4. Drink plenty of water. Pt unable to tolerate metformin due to GI side effects. Unable to get combo medication due to pharmacy. Ordering regular metformin 500mg and glipizide 2.5 ER. Advised to take together. Mucopurule nt conjunctivitis of bilateral eyes 4321794596 22649 H10.023 ongoing eye infection. Pharmacy was unable to supply med to patient. Out of stock. Called pharmacy. Sending new script for randi-poly-d ex to pharmacy. Acquired hypothyroidism 325066679 E03.4 Currently on levothyrox ine 75mcg daily. Pt educated about Hypothyroi dism symptoms which may includeTir edness. More sensitivit y to cold. Constipati on. Dry skin. Weight gain. Puffy face. Hoarse voice.Coar se hair and skin. Muscle weakness. Muscle aches, tenderness and stiffness. Menstrual cycles that are heavier than usual or irregular. Thinning hair. Slowed heart rate, also called bradycardi a. Depression . Memory problems. Pt self reports symptoms of hypothyroi dism: weight gain, puffy face, depression , hair falling out.TSH 3.13. Due to s/s of hypothyroi dism. Increasing levothyrox ine to 100mcg and instructed to contact our office for racing heart. Generalize d anxiety disorder 18520011 F41.1 Takes xanax as needed. Needs Pedro Luis report. Discussed narcotic agreement with patient and signed. Pt voiced understand ing that we may require same day drug test via urine or blood. Also voiced that we require at least 2 business day to fill any and all scripts. That narcotics are only prescribed in 30 day increments and may be discontinu ed by the provider at the providers discretion . Any violation of the narcotic contract, voids the contract, and the provider will not prescribe any future script, other than to wean off the narcotic. Discussed that all narcotics have the tendency for addiction. Pt voiced understand ing and accepts responsibi lity. Pedro Luis UTD, narcotic agreement on file. Insomnia 948018211 G47.0 9 Currently on ambien and xanax. Discussed that both meds need to be d/c. Advised to start duloxetine , stop ambien, begin to wean off xanax. Pt voiced understand ing. Needs refill on zolpidem today. Chronic ki dney disease stage 3A 467600051 N18.31 GFR 50. Will continue to monitor. Advised to avoid nephrotoxi c drugs. [id number] Vonda Martinez NP, S Office [address] [facility] [address] [place] [id number] 04/13/2022 11:16:48 04/13/2022 14:56:40 Depressive disorder 06054424 F32.1 Duloxetine 30mg has helped some. Not great difference for the patient symptoms. Increasing to Duloxetine 60mg daily. Advised to track symptoms. Feeling of lump in throat 794755862 F45.8 c/o ongoing lump in throat. 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 States has not had ultrasound in years. Due to current feeling of globus, Im ordering thyroid ultrasound today and GI referral. Pt has issues with Gerd as well as gastric surgery in the past. Insomnia 847546075 G47.0 9 Currently on ambien and xanax. Discussed that both meds need to be d/c. Advised to start duloxetine , stop ambien, begin to wean off xanax. Pt voiced understand ing.Stoppi ng ambien today, trailing daridorexa nt 25 mg. Discussed not to take ambien and daridorexa nt at the same time. Obstructiv e sleep apnea syndrome 20834371 G47.33 Wear CPAP as directed. Postgastri c surgery syndrome 15744664 K91.1 History of gastric surgery for weight loss. Pt reports issues with reflux and diarrhea. Sending referral to GI. Thoracic back pain 79092 8004 M54.6 c/o upper thoracic back pain since Jan 2022. Ordering thoracic spine xray. Pain worse at night. Concern for malignancy or heart blockage. No trauma. Fishy vagi nal discharge 759955587 N89.8 c/o fishy vaginal order with estrogen cream use. Sending metronidaz ole to pharmacy x 5 days at HS. Advised to hold estrogen cream during metronidaz ole use. [id number] Vonda Martinez, BRYNN, S Office [address] [facility] [address] [place] [address] 05/21/2022 14:29:46 05/22/2022 10:04:49 Hyperglycemia due to type 2 diabetes mellitus [id number] 34939 E11.65 A1c 7.9. Currently on metformin and glipizide 2.5. State sugars are mostly controlled . Cardiology recommende d adding Ozempic. Prescribin g this today.Disc ussed lifestyle modificati on.1. Increase physical activity: Physical activity makes you more sensitive to insulin, one reason why it s a cornerston e of diabetes management .2. Weight loss: Weight loss is important too, as is avoiding high blood sugar, reducing stress, and getting enough sleep.3. Diet: Eliminate concentrat ed sweets, white sugar from your diet such as sodas, pastas, white bread.4. Drink plenty of water. Pt unable to tolerate metformin due to GI side effects. Unable to get combo medication due to pharmacy. Ordering regular metformin 500mg and glipizide 2.5 ER. Advised to take together. Generalize d anxiety disorder [id number] F41.1 Takes xanax as needed. Needs Pedro Luis report. Discussed narcotic agreement with patient and signed. Pt voiced understand ing that we may require same day drug test via urine or blood. Also voiced that we require at least 2 business day to fill any and all scripts. That narcotics are only prescribed in 30 day increments and may be discontinu ed by the provider at the providers discretion . Any violation of the narcotic contract, voids the contract, and the provider will not prescribe any future script, other than to wean off the narcotic. Discussed that all narcotics have the tendency for addiction. Pt voiced understand ing and accepts responsibi lity. Pedro Luis UTD, narcotic agreement on file. Needs refill today. Vitamin D deficiency [id number] E55.9 Needs refill on vitamin D today. Palpitations [id number] R0 0.2 reports ongoing flips-flop s of heart with one forceful beat. Pain radiates into neck when this occurs. Occurs at rest and with activity. Is intermitte nt, frequency has increased. Reports decreased caffeine intake. Angina co- occurrent and due to coronary arteriosclerosis [id number] I25.119 CP relief with nitro. She is symptomati c with unstable angina. Is scheduled for LHC with possible interventi on [facility] . History of CAD. Recent myocardial perfusion imaging and response to regadenoso n stress test is abnormal, borderline 04/30. Normal wall motion Lexiscan myoview- no ischemia, EF >70% 11/26. Hx of stress cardiomyop athy with recovered EF 55% 09/25. 50% LAD stenosis, patent stent 12/25. Last EKG- SR w LBBB, rate 95. Reviewed cardiology note:Start ed on metoprolol Er 25mg, stop Lisinopril . Holter results show some runs of atrial tach, no afib. Stress test + for ischemia. Mixed hyperlipidemia 267 829820 E78.2 03/17/22-TCC 195, TRI 214, HDL 64, LDL 88.2. Cardiology increased Rosuvastat in to 40mg. Discussed weight loss and weight management . Encouraged 30 min of physical activity daily. Increase fruits/veg gies in diet. Avoid process foods and concentrat ed sweets. Voiced understand ing. [address] Vonda Martinez, [employer], [address] [facility], [address] [place] [address] 07/13/2022 12:41:41 07/13/2022 21:43:14 Atherosclerosis of coronary artery without angina pectoris [id number] I25.10 History of cardiac issues in the past, [place]. Pulling patient medical records. Denies any chest pain today. Is on ASA, metoprolol , ezetimibe, rosuvastat in. Followed by Cardiology at [facility]. Recent heart cath 05/31. Has SL nitro as needed. Essential hypertension [id number] I10 BP 137/98. Patient's blood pressure is at goal of 139/89 or less. Condition is stable. Continue current medication s and treatment plan. I recommend that you exercise for 30-45 minutes 5 days a week. I also recommend a balanced diet with fruits and vegetables every day, lean meats, and little fried foods. The DASH diet (you can find this online) is a good example of this.Check your blood pressure 3-4 times a week. Write them down and bring that blood pressure log to your next appointmen t. Notify me if your blood pressure stays over 140/90.Mera cking cbc, cmp, tsh, flp, mag today. Currently on lisinopril 5mg qd. Mixed hyperlipidemia 267 [id number] E78.2 Checking flp today. Currently on rosuvastat in 40 mg hs. Discussed weight loss and weight management . Encouraged 30 min of physical activity daily. Increase fruits/veg gies in diet. Avoid process foods and concentrat ed sweets. Voiced understand ing. Sending refill to pharmacy. Cardiology added ezetimibe. Hyperglyce kristyn due to type 2 diabetes mellitus [id number] 45148 E11.65 Checking A1c today. Pt stopped glipizide due to hypoglycem ia. Currently taking metformin 500mg daily and Ozempic. Pt unable to tolerate Ozempic greater than 0.25mg. Advised to stay at this dose until the nausea decreases. Discussed lifestyle modificati on.1. Increase physical activity: Physical activity makes you more sensitive to insulin, one reason why it s a corner[place] e of diabetes management .2. Weight loss: Weight loss is important too, as is avoiding high blood sugar, reducing stress, and getting enough sleep.3. Diet: Eliminate concentrat ed sweets, white sugar from your diet such as sodas, pastas, white bread.4. Drink plenty of water. Acquired hypothyroidism [id number] E03.4 Currently on levothyrox ine 100 mcg daily. Pt educated about Hypothyroi dism symptoms which may includeTir edness. More sensitivit y to cold. Constipati on. Dry skin. Weight gain. Puffy face. Hoarse voice.Coar se hair and skin. Muscle weakness. Muscle aches, tenderness and stiffness. Menstrual cycles that are heavier than usual or irregular. Thinning hair. Slowed heart rate, also called bradycardi a. Depression . Memory problems. Checking tsh. Fatigue [id number] R53.83 c/o fatigue. Checking lab work today. Gastroesop hageal reflux disease without esophagitis [id number] K21.9 Reports symptoms are controlled using famotidine . Following lifestyle changes recommende d may reduce your symptoms. This changes would include:1. losing weight if you re overweight or have obesity2. elevating your head during sleep by placing a foam wedge or extra pillows under your head and upper back to incline your body and raise your head off your bed 6 to 8 inches3. quitting smoking if you smoke4. Avoid Foods and drinks that have been commonly linked to GERD symptoms include:ac idic foods, such as citrus fruits and tomatoes; alcoholic drinks; chocolatec offee and other sources of caffeine; high-fat foods; mint; spicy foods.5. Avoid bending at the waste.Need refill on famotidine Depressive disorder [id number] F32.1 Pt expresses feeling of impending doom. D/c escitalopr am. Starting on Duloxetine 30mg for 30 day trail. Discussed depressive symptoms. Defers referral to psych at this time. Denies feelings of self harm. Insomnia [id number] G47.0 9 Currently on ambien and xanax. Discussed that both meds need to be d/c. Advised to start duloxetine , stop ambien, begin to wean off xanax. Pt voiced understand ing. Generalize d anxiety disorder [id number] F41.1 Takes xanax as needed. States that anxiety is improved with meds. Discussed narcotic agreement with patient. Pt voiced understand ing that we may require same day drug test via urine or blood. Also voiced that we require at least 2 business day to fill any and all scripts. That narcotics are only prescribed in 30 day increments and may be discontinu ed by the provider at the providers discretion . Any violation of the narcotic contract, voids the contract, and the provider will not prescribe any future script, other than to wean off the narcotic. Discussed that all narcotics have the tendency for addiction. Pt voiced understand ing and accepts responsibi lity. Pedro Luis UTD, narcotic agreement on file. 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 Sending refill to [facility]. Vitamin D deficiency [phone] 86773 E55.9 Needs refill on vitamin D today. Health Concerns Section Related Observation LastModified by Organization Detai ls LastModified Time None Recorded Concern Status LastModified by Organization Details LastModified Time None Recorded Advance Directives Directive N: Payers Insurance Date Sequence Insurance Name Policy Number Policy Zepeda Covered Member ID Zepeda Member ID Guarantor Name 07/10/2022 1 [employer] (MEDICARE[place] Emmett Haas [id number] Emmett Haas 03/16/2022 2 [employer] (MEDICARE SUPPLEMENT) Emmett Haas [id number] Emmett Haas Notes Date Note Type Note Provider Name and Address Organization Details Recorded Time 023 text/ht ml HyperlipidemiaReported by PatientHPIFor type of hyperlipidemia, patient reportscombined. For duration, patient reportschronic. For control, patient reportsunchanged. For complications, patient reportscoronary artery diseaseandcardiovascular diseasebut reportsno peripheral artery disease. For risk factors, patient reportsdiabetesandhypertension. For compliance, patient reportscompliant,compliant with diet, andexercises. FatigueReported by PatientHPIFor severity, patient reportschange in sleep patterns,change in exercise habits,changes in normal activities, andworsening. For modifying factors, patient reportsnot taking vitaminsbut reportsno new stressors in life. For associated symptoms, patient reportsdepression,anxiety,sleep disturbances,unrefreshing sleep, andexertional fatiguebut reportsno alcohol consumption,no snoring,no apnea,no weight loss,no weight gain,no chest pain,no joint pain,no rash,no palpitations,no sob,no dizziness,no sore throat,no joint pain,no headache,no tender, swollen glands, andno fever. For status, patient reportschronicandworse. For quality, patient reportsgeneralizedandthroughout the day/evening. For duration, patient reportsconstantandsymptoms lasting over 2 weeks. For timing, patient reportsprogressive. DiabetesReported by PatientHPIFor control, patient reportsusually poorly controlledandworsened since last visitbut reportsnormal range of home blood sugars (in the low 100s). For associated symptoms, patient reportsweight gain (___ lbs)andfatiguebut reportsno weight loss,no dizziness,no sweats,no headaches,no confusion,no increased thirst,no increased appetite,no increased urination,no blurred vision,no numbness of feet,no calluses on feet,no fatigue,no blurred vision, andno paresthesias. For duration, patient reportschronic. For compliance, patient reportscompliant with medications,compliant with follow-up visits,compliant with diet, andcompliant with home glucose monitoring. For self care, patient reportsmonitoring glucose __,seeing eye doctor regularly, andchecking feet regularly. Hypertension IM/FMReported by PatientHPIFor associated symptoms, patient reportsfatiguebut reportsno shortness of breath,no palpitations,no decline in exercise capacity,exertional dyspnea,no snoring,no sleep apnea,no muscle weakness,no numbness,no tingling,no tachycardia,no excessive sweating,no thinning skin,no flank pain,no headaches,no loss of vision, andno chest pain. For quality, patient reportshere for check-up,malaise, andfatigue. For alleviating factors, patient reportsmedication. For aggravating factors, patient reportsworse with activity. For self care, patient reportsnot under emotional stress,non-smoker,on special diet,limiting alcohol intake, andexercises regularly. HypothyroidReported by PatientHPIFor associated symptoms, patient reportsfatigue,depressed mood, andedemabut reportsno weakness,no lightheadedness,no cold intolerance,no constipation,no weight gain,no involuntary weight loss,no menstrual irregularity,no pain,no dry/coarse skin,no deepening of the voice,no hoarseness,no goiter,no mass detected,no chest pain, andno palpitations. For reason for visit, patient reportsmedication adjustment,general check-up, andts check/labs. For duration, patient reports>12 months. For treatment, patient reportstaking medication as directed.ROS as noted in the HPI Vonda Martinez NP, [address], [address], [place] - At Home Visit, [facility] 03/17/2022 09:15:56 023 text/ht ml FatigueReported by PatientHPIFor severity, patient reportschange in sleep patterns,change in exercise habits,changes in normal activities, andworsening. For modifying factors, patient reportsnot taking vitaminsbut reportsno new stressors in life. For associated symptoms, patient reportsdepression,anxiety,sleep disturbances,unrefreshing sleep, andexertional fatiguebut reportsno alcohol consumption,no snoring,no apnea,no weight loss,no weight gain,no chest pain,no joint pain,no rash,no palpitations,no sob,no dizziness,no sore throat,no joint pain,no headache,no tender, swollen glands, andno fever. For status, patient reportschronicandworse. For quality, patient reportsgeneralizedandthroughout the day/evening. For duration, patient reportsconstantandsymptoms lasting over 2 weeks. For timing, patient reportsprogressive. HyperlipidemiaReported by PatientHPIFor type of hyperlipidemia, patient reportscombined. For duration, patient reportschronic. For control, patient reportsunchanged. For complications, patient reportscoronary artery diseaseandcardiovascular diseasebut reportsno peripheral artery disease. For risk factors, patient reportsdiabetesandhypertension. For compliance, patient reportscompliant,compliant with diet, andexercises. Eye PainReported by Patienthas been unable to get med from pharmacy Generalized Anxiety DisorderReported by PatientHPIFor associated symptoms, patient reportsdifficulty concentrating,difficulty controlling worry,excess anxiety,muscle tension, andsleep disturbancesbut reportsno difficulty swallowing,no sweating,no hot flashes,no chest pain,no increased heart rate,no shortness of breath,no nausea,no diarrhea,no fatigue,no irritability,no dizziness,no muscle aches,no trembling,no twitching,no exaggerated startle response,no headaches, andno restlessness. For onset/timing, patient reportsas long as patient can remember. For context, patient reportslife stressors. For modifying factors, patient reportspsychotropic medicationandother medications.needs refill DiabetesReported by PatientHPIFor control, patient reportsusually poorly controlledandworsened since last visitbut reportsnormal range of home blood sugars (in the low 100s). For associated symptoms, patient reportsweight gain (___ lbs)andfatiguebut reportsno weight loss,no dizziness,no sweats,no headaches,no confusion,no increased thirst,no increased appetite,no increased urination,no blurred vision,no numbness of feet,no calluses on feet,no fatigue,no blurred vision, andno paresthesias. For duration, patient reportschronic. For compliance, patient reportscompliant with medications,compliant with follow-up visits,compliant with diet, andcompliant with home glucose monitoring. For self care, patient reportsmonitoring glucose __,seeing eye doctor regularly, andchecking feet regularly.pharmacy does not have the med sent. HypothyroidReported by PatientHPIFor associated symptoms, patient reportsfatigue,depressed mood, andedemabut reportsno weakness,no lightheadedness,no cold intolerance,no constipation,no weight gain,no involuntary weight loss,no menstrual irregularity,no pain,no dry/coarse skin,no deepening of the voice,no hoarseness,no goiter,no mass detected,no chest pain, andno palpitations. For reason for visit, patient reportsmedication adjustment,general check-up, [facility]. For duration, patient reports>12 months. For treatment, patient reportstaking medication as directed. Hypertension IM/FMReported by PatientHPIFor associated symptoms, patient reportsfatiguebut reportsno shortness of breath,no palpitations,no decline in exercise capacity,exertional dyspnea,no snoring,no sleep apnea,no muscle weakness,no numbness,no tingling,no tachycardia,no excessive sweating,no thinning skin,no flank pain,no headaches,no loss of vision, andno chest pain. For quality, patient reportshere for check-up,malaise, andfatigue. For alleviating factors, patient reportsmedication. For aggravating factors, patient reportsworse with activity. For self care, patient reportsnot under emotional stress,non-smoker,on special diet,limiting alcohol intake, andexercises regularly. InsomniaReported by PatientHPIFor associated symptoms, patient reportsanxietyandlegs feel restlessbut reportsno snoring,no depression,no known sleep apnea,no pain,no dyspnea, andno urinary frequency. For severity, patient reportssame.needs refillROS as noted in the HPI Vonda Martinez NP, [address], [address], [place] - At Home Visit, [facility] 03/19/2022 14:20:39 023 text/ht ml FatigueReported by PatientHPIFor severity, patient reportschange in sleep patterns,change in exercise habits,changes in normal activities, andworsening. For modifying factors, patient reportsnot taking vitaminsbut reportsno new stressors in life. For associated symptoms, patient reportsdepression,anxiety,sleep disturbances,unrefreshing sleep, andexertional fatiguebut reportsno alcohol consumption,no snoring,no apnea,no weight loss,no weight gain,no chest pain,no joint pain,no rash,no palpitations,no sob,no dizziness,no sore throat,no joint pain,no headache,no tender, swollen glands, andno fever. For status, patient reportschronicandworse. For quality, patient reportsgeneralizedandthroughout the day/evening. For duration, patient reportsconstantandsymptoms lasting over 2 weeks. For timing, patient reportsprogressive. HyperlipidemiaReported by PatientHPIFor type of hyperlipidemia, patient reportscombined. For duration, patient reportschronic. For control, patient reportsunchanged. For complications, patient reportscoronary artery diseaseandcardiovascular diseasebut reportsno peripheral artery disease. For risk factors, patient reportsdiabetesandhypertension. For compliance, patient reportscompliant,compliant with diet, andexercises. DiabetesReported by PatientHPIFor control, patient reportsusually poorly controlledandworsened since last visitbut reportsnormal range of home blood sugars (in the low 100s). For associated symptoms, patient reportsweight gain (___ lbs)andfatiguebut reportsno weight loss,no dizziness,no sweats,no headaches,no confusion,no increased thirst,no increased appetite,no increased urination,no blurred vision,no numbness of feet,no calluses on feet,no fatigue,no blurred vision, andno paresthesias. For duration, patient reportschronic. For compliance, patient reportscompliant with medications,compliant with follow-up visits,compliant with diet, andcompliant with home glucose monitoring. For self care, patient reportsmonitoring glucose __,seeing eye doctor regularly, andchecking feet regularly. InsomniaReported by PatientHPIFor severity, patient reportsworsening. For associated symptoms, patient reportsanxietyandsleep apneabut reportsno snoring,no depression,no pain,no dyspnea,no urinary frequency, andlegs do not feel restless. HypothyroidReported by PatientHPIFor associated symptoms, patient reportsfatigue,depressed mood, andedemabut reportsno weakness,no lightheadedness,no cold intolerance,no constipation,no weight gain,no involuntary weight loss,no menstrual irregularity,no pain,no dry/coarse skin,no deepening of the voice,no hoarseness,no goiter,no mass detected,no chest pain, andno palpitations. For duration, patient reports>12 months. For treatment, patient reportstaking medication as directed. Hypertension IM/FMReported by PatientHPIFor associated symptoms, patient reportsfatiguebut reportsno shortness of breath,no palpitations,no decline in exercise capacity,exertional dyspnea,no snoring,no sleep apnea,no muscle weakness,no numbness,no tingling,no tachycardia,no excessive sweating,no thinning skin,no flank pain,no headaches,no loss of vision, andno chest pain. For quality, patient reportshere for check-up,malaise, andfatigue. For alleviating factors, patient reportsmedication. For aggravating factors, patient reportsworse with activity. For self care, patient reportsnot under emotional stress,non-smoker,on special diet,limiting alcohol intake, andexercises regularly.ROS as noted in the HPI Vonda Martinez NP, [address] [facility] [address] [address], [place], [address], [place] - At Home Visit, [facility] 04/13/2022 14:08:07 023 text/ht ml FatigueReported by PatientHPIFor severity, patient reportschange in sleep patterns,change in exercise habits,changes in normal activities, andworsening. For modifying factors, patient reportsnot taking vitaminsbut reportsno new stressors in life. For associated symptoms, patient reportsdepression,anxiety,sleep disturbances,unrefreshing sleep, andexertional fatiguebut reportsno alcohol consumption,no snoring,no apnea,no weight loss,no weight gain,no chest pain,no joint pain,no rash,no palpitations,no sob,no dizziness,no sore throat,no joint pain,no headache,no tender, swollen glands, andno fever. For status, patient reportschronicandworse. For quality, patient reportsgeneralizedandthroughout the day/evening. For duration, patient reportsconstantandsymptoms lasting over 2 weeks. For timing, patient reportsprogressive. HyperlipidemiaReported by PatientHPIFor type of hyperlipidemia, patient reportscombined. For duration, patient reportschronic. For control, patient reportsunchanged. For complications, patient reportscoronary artery diseaseandcardiovascular diseasebut reportsno peripheral artery disease. For risk factors, patient reportsdiabetesandhypertension. For compliance, patient reportscompliant,compliant with diet, andexercises.cardiology has increased cholestrol medication. DiabetesReported by PatientHPIFor control, patient reportsusually poorly controlledandworsened since last visitbut reportsnormal range of home blood sugars (in the low 100s). For associated symptoms, patient reportsweight gain (___ lbs)andfatiguebut reportsno weight loss,no dizziness,no sweats,no headaches,no confusion,no increased thirst,no increased appetite,no increased urination,no blurred vision,no numbness of feet,no calluses on feet,no fatigue,no blurred vision, andno paresthesias. For duration, patient reportschronic. For compliance, patient reportscompliant with medications,compliant with follow-up visits,compliant with diet, andcompliant with home glucose monitoring. For self care, patient reportsmonitoring glucose __,seeing eye doctor regularly, andchecking feet regularly.cardiology wants ozempic added to regimen. Pt report that blood sugars are controlled. Angina/Chest PainReported by Patient Hypertension IM/FMReported by PatientHPIFor associated symptoms, patient reportsfatiguebut reportsno shortness of breath,no palpitations,no decline in exercise capacity,exertional dyspnea,no snoring,no sleep apnea,no muscle weakness,no numbness,no tingling,no tachycardia,no excessive sweating,no thinning skin,no flank pain,no headaches,no loss of vision, andno chest pain. For quality, patient reportshere for check-up,malaise, andfatigue. For alleviating factors, patient reportsmedication. For aggravating factors, patient reportsworse with activity. For self care, patient reportsnot under emotional stress,non-smoker,on special diet,limiting alcohol intake, andexercises regularly.bp running too low. Cardiology stopped lisinopril and started on beta esperanza. PalpitationsReported by PatientHPIFor quality, patient reports__ fluttering,skipping,forceful, and__ pounding. For triggers/context, patient reportsat rest,abrupt onset without warning,after caffeine use,restless legs, andanxiety. For associated symptoms, patient reportschest painandfatiguebut reportsno dyspnea,no decline in exercise capacity, andno associated dizziness. For location, patient reportschestandthroat. For severity, patient reportsvery limiting. For duration, patient reportshas noted for months. For onset/timing, patient reportsmultiple times per dayandintermittent. For aggravating factors, (none). For alleviating factors, (none).Seen cardiology 05/19/22- recent stress test, has upcoming cardiac cath on 06/01/22ROS as noted in the HPI Vonda Martinez NP, [address] [address], [place], [address], [place] - At Home Visit, [facility] 05/22/2022 09:57:56 023 text/ht ml FatigueReported by PatientHPIFor severity, patient reportschange in sleep patterns,change in exercise habits,changes in normal activities, andworsening. For modifying factors, patient reportsnot taking vitaminsbut reportsno new stressors in life. For associated symptoms, patient reportsdepression,anxiety,sleep disturbances,unrefreshing sleep, andexertional fatiguebut reportsno alcohol consumption,no snoring,no apnea,no weight loss,no weight gain,no chest pain,no joint pain,no rash,no palpitations,no sob,no dizziness,no sore throat,no joint pain,no headache,no tender, swollen glands, andno fever. For status, patient reportschronicandworse. For quality, patient reportsgeneralizedandthroughout the day/evening. For duration, patient reportsconstantandsymptoms lasting over 2 weeks. For timing, patient reportsprogressive. HyperlipidemiaReported by PatientHPIFor type of hyperlipidemia, patient reportscombined. For duration, patient reportschronic. For control, patient reportsunchanged. For complications, patient reportscoronary artery diseaseandcardiovascular diseasebut reportsno peripheral artery disease. For risk factors, patient reportsdiabetesandhypertension. For compliance, patient reportscompliant,compliant with diet, andexercises.cardiology has increased cholestrol medication. DiabetesReported by PatientHPIFor control, patient reportsusually poorly controlledandworsened since last visitbut reportsnormal range of home blood sugars (in the low 100s). For associated symptoms, patient reportsweight gain (___ lbs)andfatiguebut reportsno weight loss,no dizziness,no sweats,no headaches,no confusion,no increased thirst,no increased appetite,no increased urination,no blurred vision,no numbness of feet,no calluses on feet,no fatigue,no blurred vision, andno paresthesias. For duration, patient reportschronic. For compliance, patient reportscompliant with medications,compliant with follow-up visits,compliant with diet, andcompliant with home glucose monitoring. For self care, patient reportsmonitoring glucose __,seeing eye doctor regularly, andchecking feet regularly.cardiology wants ozempic added to regimen. Pt report that blood sugars are controlled. Angina/Chest PainReported by Patient Hypertension IM/FMReported by PatientHPIFor associated symptoms, patient reportsfatiguebut reportsno shortness of breath,no palpitations,no decline in exercise capacity,exertional dyspnea,no snoring,no sleep apnea,no muscle weakness,no numbness,no tingling,no tachycardia,no excessive sweating,no thinning skin,no flank pain,no headaches,no loss of vision, andno chest pain. For quality, patient reportshere for check-up,malaise, andfatigue. For alleviating factors, patient reportsmedication. For aggravating factors, patient reportsworse with activity. For self care, patient reportsnot under emotional stress,non-smoker,on special diet,limiting alcohol intake, andexercises regularly.bp running too low. Cardiology stopped lisinopril and started on beta esperanza. HypothyroidReported by PatientHPIFor associated symptoms, patient reportsfatigue,depressed mood, andedemabut reportsno weakness,no lightheadedness,no cold intolerance,no constipation,no weight gain,no involuntary weight loss,no menstrual irregularity,no pain,no dry/coarse skin,no deepening of the voice,no hoarseness,no goiter,no mass detected,no chest pain, andno palpitations. For reason for visit, patient reportsmedication adjustment,general check-up, [facility] For duration, patient reports>12 months. For treatment, patient reportstaking medication as directed. PalpitationsReported by PatientHPIFor associated diagnoses, patient reportsanxiety disorder.heart cath completed-wnl. Followed by cardiology- improvedROS as noted in the HPI Vonda Martinez NP, [address] [address], [place], [address], [facility] - At Home Visit, [facility] 07/13/2022 21:42:07 OBGyn Episode No OBEpisode recorded.
--- OUTSIDE RECORDS SUMMARY | 2024-08-31 08:44 | XMS_ITS | Clinical Summary ---
[facility] Address [address] [place] [address] Care Team Providers Care First Helper Name Role Phone Jessica Gomez MD Primary Care Provider [phone] Allergies Active Allergy Reactions Criticality Noted Date Comments Moxifloxacin Hcl GI Intolerance 11/27/2019 Bacitracin Rash Low 03/28/2023 Dapagliflozin Itching 04/15/2023 Worsening kidney function Ezetimibe Irritability 04/15/2023 Omd-Cbaam-Wirr-Lidocaine Irritability 0 Neomycin Rash Low 03/28/2023 Niacin Palpitations Low 10/12/2012 Polymyxin B Rash Low 03/28/2023 Semaglutide Irritability 04/15/2023 Simvastatin Myalgia 10/12/2012 Medications zolpidem (AMBIEN) 10 MG tablet Take 1 tablet by mouth Daily. 09/10/19 20 Active rosuvastatin (CRESTOR) 10 MG tablet Take 4 tablets by mouth Daily. 10/03/19 20 Active montelukast (SINGULAIR) 10 MG tablet Take 1 tablet by mouth Daily. 09/08/19 20 Active escitalopram (LEXAPRO) 10 MG tablet Take 1 tablet by mouth Daily. 08/07/19 20 Active ALPRAZolam (XANAX) 0.25 MG tablet Take 1 tablet by mouth Daily. 09/10/19 20 Active Multiple Vitamins-Minerals (multivitamin with minerals) tablet tablet Take 1 tablet by mouth Daily. Active aspirin 81 MG chewable tablet Chew 1 tablet Daily. Active primidone (MYSOLINE) 50 MG tablet Take 2 tablets by mouth Every Night. 180 tablet 3 11/27/19 Active metFORMIN (GLUCOPHAGE) 500 MG tablet Take 1 tablet by mouth 2 (Two) Times a Day. Active nitrofurantoin (MACRODANTIN) 50 MG capsule Take 1 capsule by mouth Daily. 08/11/19 24 Active nitrofurantoin, macrocrystal-monoh ydrate, (MACROBID) 100 MG capsule Take 1 capsule by mouth 2 (Two) Times a Day. 08/11/19 24 Active glipizide (GLUCOTROL XL) 2.5 MG 24 hr tablet Take 1 tablet by mouth Daily. Active cyanocobalamin 1000 MCG/ML injection Inject 0.1 mL into the appropriate muscle as directed by prescriber 1 (One) Time. 10/05/19 24 Active loratadine (CLARITIN) 10 MG tablet Take 1 tablet by mouth Daily. Active dexAMETHasone (DECADRON) 1 MG tabletIndications: Weight gain Take at 11 pm the night before 8 am cortisol check 1 tablet 10/22/19 24 Active levothyroxine (Synthroid) 75 MCG tabletIndications: Acquired hypothyroidism Take 1 pill 6 days per week 30 tablet 11 11/03/19 24 Active liothyronine (CYTOMEL) 5 MCG tabletIndications: Acquired hypothyroidism Take 1 tablet by mouth Daily. NEEDS AN APPOINTMENT FOR REFILLS 90 tablet 02/04/20 24 Active Active Problems Problem Noted Date Diagnosed Date Tremor 10/04/2019 Encounters Date Type Department Care Team Description 06/03/2024 Refill [facility] END[facility] [address] [address] Fabrizio Del Cid MD Acquired hypothyroidism from Last 3 Months Family History Medical History Relation Name Comments Diabetes Brother Cancer Maternal Grandmother Dementia Maternal Grandmother Diabetes Maternal Grandmother Cancer Mother Dementia Mother Diabetes Mother Diabetes Sister Relation Name Status Comments Brother Maternal Grandmother Mother Sister Social History Tobacco Use Types Packs/Day Years Used Date Smoking Tobacco: Former Smokeless Tobacco: Never Alcohol Use Standard Drinks/Week Comments Never 0 (1 standard drink = 0.6 oz pur e alcohol) AUDIT-C Answer Date Recorded Q1: How often do you have a drink containing alc ohol? Never 10/04/2019 Average Number of Drinks Not on file 020 Frequency of Binge Drinking Not on file 09/09 Abuse Screen Answer Date Recorded Unsafe at Home or Work/School Not on file Feels Threatened by Someone? Not on file 10/2022 Does Anyone Keep You from Co ntacting Others or Doint Things Outside the Home? Not on file 11/16/2022 Physical Sign of Abuse Present Not on file 1 Housing Stability Answer Date Recorded Current Living Arrangements Not on file 10/2022 Potentially Unsafe Housing Conditions Not on isabelle e 11/16/2022 Family and Community Support Answer Shahram e Recorded Help with Day-to-Day Activities Not on file 11/16/2022 Lonely or Isolated Not on file 11/16/2022 Employment Answer Date Recorded Do you want help finding or keeping work or a ciara b? Not on file 11/16/2022 Disabilities Answer Date Recorded Concentrating, Remembering, or Making Decisions Difficulty Not on file 11/16/2022 Doing Errands Independently Difficulty Not on fi le 11/16/2022 Education Answer Date Recorded Help with school or training? Not on file Preferred Language Not on file 11/16/2022 Comments Unknown Sex and Gender Information Value Date Recorded Sex Assigned at Not on file Legal Sex Female 10:12 AM EDT Gender Identity Not on file Sexual Orientation Not on file Last Filed Vital Signs Vital Sign Reading Time Taken Comments Blood Pressure 120/60 10/22/2023 1:10 PM EDT Pulse 68 10/22/2023 1:10 PM EDT Temperature 35.7 C (96.2 F) 11/27/2019 1:38 PM EDT Respiratory Rate - - Oxygen Saturation 98% 10/22/2023 1:10 PM EDT Inhaled Oxygen Concentration - - Weight 69.4 kg (153 lb) 10/22/2023 1:10 PM EDT Height 154.9 cm (5' 0.98 ) 10/22/2023 1:10 PM ED T Body Mass Index 28.92 10/22/2023 1:10 PM EDT Plan of Treatment Health Maintenance Due Date Last Done Comments DXA SCAN 1956 DIABETIC EYE EXAM 1966 DIABETIC FOOT EXAM 1966 URINE MICROALBUMIN-CREATININ E RATIO (uACR) 1966 Pneumococcal Vaccine 50+ (1 of 2 - PCV) 06/01/1975 TDAP/TD VACCINES (1 - Tdap) 06/01/1975 COLOGUARD 2001 COLON CANCER SCREENING 5 YEA R SIGMOIDOSCOPY 2001 COLONOSCOPY 2001 [address]AL CANCER SCREENING 2001 CT COLONOGRAPHY 2001 FECAL OCCULT BLOOD TEST 2001 FIT Testing (1 year) 2001 ZOSTER VACCINE (1 of 2) 2006 ANNUAL WELLNESS VISIT 10/04/2019 HEPATITIS C SCREENING 10/04/2019 COVID-19 Vaccine ( - season) 2023 MAMMOGRAM 01/06/2024 01/05/2022 HEMOGLOBIN A1C 04/20/2024 10/22/2023, 06/0 06/2022, 03/17/2022 INFLUENZA VACCINE 11/08/2024 Procedures Procedure Name Priority Date/Time Associated Diagnosis Comments HEMOGLOBIN A1C Routine 10/22/2023 1:52 PM EDT Controlled type 2 diabetes mellitus without complication, without long-term current use of insulin from Last 3 Months or Most Recently Relevant to Health Maintenance Results * (ABNORMAL) Hemoglobin A1c (10/22/2023 1:52 PM EDT) Hemoglobin A1C 7.60(H) 4.80 - 5.60 % 10/23/2023 12:42 AM EDT [facility] Blood Venipuncture / Unknown 10/22/2023 1:52 PM EDT 10/22/2023 1:52 PM EDT Narrative [facility] - 10/23/2023 12:42 AM EDT Hemoglobin A1C Ranges: Increased Risk for Diabetes 5.7% to 6.4% Diabetes >= 6.5% Diabetic Goal < 7.0% us Tomeka Lee PA-C LAB BLOOD ORDERABLES Final Result [facility]
[address] [place] [address], from Last 3 Months or Most Recently Relevant to Health Maintenance Insurance Member Subscriber Plan / Payer (Ef fective 2015-Present) Name:Emmett Haas Member ID:[id number] Relation to Subscriber:Self Name:Emmett Haas Subscriber ID:[id number] Payer ID:[id number] Group ID:Not on file Type:Not on file Address: [facility] [id number] [employer] Care Teams First Helper Relationship Specialty Start Date End Date Jessica Gomez MD [address] [place] [address] PCP - General Internal Medicine 10/04/19
--- OUTSIDE RECORDS SUMMARY | 2024-08-31 08:44 | XMS_ITS | Patient Health Record ---
Author Organization [facility] Address [address] [place] [id number] Support Name Relationship Address Phone YAMILETH ROCK Guarantor Unknown [phone] Reason For Referral No Information Plan Of Treatment No Information
--- OUTSIDE RECORDS SUMMARY | 2024-08-31 08:44 | XMS_ITS | Data Portability ---
Author Organization [place] [facility] & ALISSA Kenney ADMIN Address [address] [place] [id number] Care Team Providers Care Admin Assistant Name Role Phone JASS BENOIT Primary Care Provider Assessment Encounter Date Assessment Date Assessment LastModified by Organization Details LastModified Time 05/24/2024 05/24/2024 I have personally reviewed the past medical, family, and social histories and ROS, along with all orders in today's record and have noted any changes. A [id number] t electronic director of category management program has been utilized for much of this encounter note. Electronic director of category management of spoken language can sometimes lead to errors, and at times, nonsensical words or phrases may be inadvertently transcribed. Every effort has been taken to review and correct these, but some may still exist. If there are any questions regarding this note please contact my office at [phone]. Thank you! Not available 05/16/2024 15:06:14 06/14/2024 06/14/2024 I have personally reviewed the past medical, family, and social histories and ROS, along with all orders in today's record and have noted any changes. A [id number]-[id number] t electronic director of category management program has been utilized for much of this encounter note. Electronic director of category management of spoken language can sometimes lead to errors, and at times, nonsensical words or phrases may be inadvertently transcribed. Every effort has been taken to review and correct these, but some may still exist. If there are any questions regarding this note please contact my office at [phone]. Thank you! Not available 06/14/2024 09:50:43 Plan of Treatment Reminders Order Date Submit Date Provider Last Modified By Organization Details Last Modified Time Details Appointments OV NEW 15 2024 02:00P M OSMAN SANCHEZ Not available Not available Not available OV EST 15 2024 01:45P M Jass Benoit MD Not available Not available Not available Medicare Annual Wellness 30min 2025 01:45P M Jass Benoit MD Not available Not available Not available Lab vitamin D, 25-hydrox y, total, serum 2024 025 [facility] (Lab Registration) , [address] [place] [address] [place], [address], 08/01/2024 20:18:11 TSH + free T4, serum 2024 025 [facility] (Lab Registration) , [address] [place] [address] [place], [address], 08/01/2024 23:55:48 T3, total, serum 2024 025 [facility] (Lab Registration) , [address] [place] [address] [place], [address], 08/03/2024 13:12:16 CMP, serum or plasma 2024 025 [facility] (Lab Registration) , [address] [place] [address] [place], [address], 08/01/2024 23:45:34 CBC w/ auto diff 2024 025 [facility] (Lab Registration) , [address] [place] [address] [place], [address], 08/01/2024 21:28:38 hemoglobi n A1c, QN, blood [address] [facility] (Lab Registration) , [address] [place] [address] [place], [address], 08/08/2024 08:10:51 lipid panel, serum 2024 025 [facility] (Lab Registration) , [address] [facility] [place], [address], 08/02/2024 00:25:59 microalbu min/creat inine, ratio panel, urine 2024 025 [facility] (Lab Registration) , [address] [facility] [place], [address], 08/02/2024 00:10:31 vitamin B12, serum 2024 025 [facility] (Lab Registration) , [address] [facility] [place], [address], 08/01/2024 20:48:35 drug confirmat ion, urine 2024 025 [facility] (Lab Registration) , [address] [facility] [place], [address], 05/05/2024 16:40:49 urinalysi s, dipstick [id number] [place] [address] Family Medicine- Dept 648, [address] [facility], [place], [address], 04/28/2024 16:13:02 culture, urine 2024 025 [facility] (Lab Registration) , [address] [facility] [place], [address], 04/28/2024 19:54:36 vitamin D, 25-hydrox y, total, serum 2024 025 [facility] (Lab Registration) , [address] [facility] [place], [address], 08/01/2024 23:50:15 CMP, serum or plasma [address] [facility] (Lab Registration) , [address] [facility] [place], [address], 08/02/2024 08:04:57 hemoglobi n A1c, QN, blood 2024 025 [facility] (Lab Registration) , [address] [place] [address] [place], [address], 08/01/2024 22:56:50 microalbu min/creat inine, ratio panel, urine [id number] [facility] [address] [facility] (Lab Registration) , [address] [place] [address] [place], [address], 08/02/2024 08:04:57 CBC w/ auto diff 2023 025 [facility], [address] [place] [address], [address], 04/21/2024 08:38:21 vitamin D, 25-hydrox y, total, serum 2023 025 [facility], [address] [place] [address], [address], 04/21/2024 08:38:23 lipid panel, serum 2023 025 [facility], [address] [place] [address], [address], 04/21/2024 08:38:22 CMP, serum or plasma 2023 025 [facility], [address] [place] [address], [address], 04/21/2024 08:38:20 HbA1c (hemoglob in A1c), blood 2023 025 [facility], [address] [place] [address], [address], 04/21/2024 08:38:23 Referral gastroent erologist referral - please schedule with Taylor 2024 025 evelyn Wright HISTOLOGIC TECHNICIAN, [address] [place], [address], 05/26/2024 11:34:09 Procedures upper endoscopy procedure (EGD) (PROC) [address] (Central Scheduling), [address] [place] [address] [place], [address], 06/21/2024 08:24:05 colonosco py procedure (PROC) [address] (Central Scheduling), [address] [place] [address] [place], [address], 2024 13:39:10 Surgeries None recorded. Imaging MAMMO, screening , digital, bilateral 2024 025 [email or web address] [facility] (Central Scheduling), [address], [place], [address], 08/15/2024 12:00:32 bone density - Please try to schedule on same day as mammogram . 2024 025 [email or web address] [facility] (Central Scheduling), [address], [place], [address], 08/15/2024 12:00:32 XR, chest, 2 view 2024 [facility] (Lab Registration) , [address] [place] [address] [place], [address], 04/29/2024 23:12:33 Medication Orders loratadin e 10 mg tablet 2024 025 [facility], [address], [place], [address], 04/28/2024 15:46:49 zolpidem 10 mg tablet 2024 025 [facility], [address], [place], [address], 04/28/2024 15:46:53 alprazola m 0.5 mg tablet 2024 025 [facility], [address], [place], [address], 04/28/2024 15:46:53 escitalop jus 10 mg tablet 2024 025 [facility], [address], [place], [address], 04/28/2024 15:46:48 propranol ol 20 mg tablet 2024 025 [facility], [address], [place], [address], 04/28/2024 15:46:45 rosuvasta tin 40 mg tablet 2024 025 [facility], [address], [place], [address], 04/28/2024 15:46:45 cholecalc iferol (vitamin D3) 1,250 mcg (50,000 unit) capsule 2024 025 [facility], [address], [place], [address], 04/28/2024 15:46:45 liothyron ine 5 mcg tablet 2024 025 [facility], [address], [place], [address], 04/28/2024 15:46:51 glipizide ER 2.5 mg tablet, extended release 24 hr 2024 025 [facility], [address], [place], [address], 04/28/2024 15:46:46 metformin 500 mg tablet [email or web address] [place] [address] Pharmacy [address], [address], [place], [address], 08/01/2024 14:30:56 cyanocoba rosina (vit B-12) 1,000 mcg/mL injection solution 2024 025 [facility], [address], [place], [address], 04/28/2024 15:46:45 Patient TargetsNo targets recorded. Patient Instructions Encounter Date Encounter Id Patient Instructions Last Modified By Organization Details Last Modified Time 05/24/2024 [id number] learning about swallowing problems [email or web address] Not available 05/24/2024 20:06:17 06/14/2024 [id number] learning about swallowing problems [email or web address] Not available 06/14/2024 18:17:17 Reason for Referral Kiln Stoker Referral for Screening for malignant neoplasm of colon please schedule with Taylor Referring Physician: Jass Benoit, Internal Medicine, Encounter Date: 04/28/2024 Results Created Date Observation Date Name Description Value Unit Range Abnormal Flag Note LastModifiedBy Organization Detail LastModifiedTime 06/08/1906/07/2024 RFS-P ATHOL OGY SPECI MEN REQUE ST pathreq Patho logy [address] [place] [address] Phone or [phone] Fax Camacho hankins Jr., M.D., Medic al Direc tor [facility] [address] : [place] [address] Phone Numbe r: [id number] 00 Elijah conti M.D. PATHO LOGY REPOR T Patie nt Name: OMARI CARSON Date of : 1955 Age/S ex: 69/F Accou nt Numbe r: [id number] Medic al Recor d Numbe r: [id number] Order ing MD: ROESMARY RICHARDSON Date Colle cted : 2024 Date Recei sarah : 2024 Date Repor yomaira : 2024 Exam: Biops y Acces jhonathan# : [id number] Labor atory #: [id number] Copie s To: Techn ician : Clini zeus Histo ry Dysph agia, scree ranjit BodyS ite ANAST OMOSI S, BIOPS Y Gross Descr iptio n Label ed anas tomos is biops y consi sts of multi ple piece s of moreno soft tissu e measu ring 1.3 x 0.4 x 0.2 [address] in aggre gate. Speci mens are filte red and submi tted entir trey in 1 block . BKO Micro scopi c Descr iptio n Secti ons confi rm small porti ons of small bowel mucos a with a stan l villo us archi tectu re and stan l numbe rs of infla mmato ry cells in the rosina a propr ia. No neopl yaakov or evide nce of lakshmi c disea se is seen. Final Diagn osis BENIG N SMALL BOWEL MUCOS A Stain H BodyS ite DUODE NUM, BIOPS Y Gross Descr iptio n Label ed duod enal biops y consi sts of multi ple piece s of moreno soft tissu e measu ring 1.2 x 0.4 x 0.2 [address] in aggre gate. Speci mens are filte red and submi tted entir trey in 1 block . Micro scopi c Descr iptio n Legal ly authe ntica yomaira by ELIJAH LOMAX MD 06-07 15:38 :00 Secti ons of duode num confi rm duode nal mucos a with a stan l villo us archi tectu re and stan l numbe rs of infla mmato ry cells in the rosina a propr ia. Final Diagn osis NO PATHO LOGIC ABNOR MALIT Y, NEGAT CHARANJIT FOR ARANA ES OF LAKSHMI [place] [address] BodyS ite ESOPH МАРИНА, BIOPS Y SubSi te MID Gross Descr iptio n Label ed mid esoph марина biops y consi sts of 3 piece s of moreno soft tissu e measu ring 0.7 x 0.3 x 0.2 cm in aggre gate. Submi tted entir trey in 1 block . Micro scopi c Descr iptio n The squam ous epith elium shows no basal hyper plasi a, elong ation of papil lae or eosin ophil s. Scatt ered lymph ocyte s are prese nt. Viral arana e and dyspl yaakov are not prese nt. Final Diagn osis CHRON IC NONSP ECIFI C [place]OPH [place] [address] BodyS ite TRANS VERSE COLON POLYP SubSi te AT 90CM Gross Descr iptio n Label ed roman svers e polyp biops y consi sts of multi ple piece s of moreno soft tissu e measu ring 1.4 x 0.4 x 0.2 [address] in aggre gate. Speci mens are filte red and submi tted entir trey in 1 block . BKO Micro scopi c Descr iptio n Secti ons confi rm nodul ar fragm ents of color ectal mucos a with stan lly forme d gland s and no adeno matou s or hyper plast ic trans forma tion. Legal ly authe ntica yomaira by ELIJAH LOMAX MD 06-07 15:38 :00 Final Diagn osis BENIG N MUCOS AL POLYP EJT/[place] [address] Legal ly authe ntica yomaira by ELIJAH LOMAX MD 06-07 15:38 :00 Not Available [facility] (Pre-Op Clinic) [address] [place] [address], [address], 06/07/2024 16:00:43 11/22/19 24 11/23/2023 CMP14 +EGFR glucose 144 mg/dL 70-99 above high normal Not Available [facility] ([facility]) [address] [facility], [place], [address], 11/23/2023 04:36:15 11/22/19 24 11/23/2023 CMP14 +EGFR BUN 13 mg/dL 8-27 normal Not Available [facility] ([facility]) [address] [facility], [place], [address], 11/23/2023 04:36:15 11/22/19 24 11/23/2023 CMP14 +EGFR creatinine 1.14 mg/dL 0.57-1 .00 above high normal Not Available [facility] ([facility]) [address] [facility], [address], 11/23/2023 04:36:15 11/22/19 24 11/23/2023 CMP14 +EGFR eGFR 53 mL/mi n/1.7 3 >59 below low normal Not Available [facility] ([facility]) [address] [facility], [address], 11/23/2023 04:36:15 11/22/1911/23/2023 CMP14 +EGFR BUN/creatini ne ratio 11 12-28 below low normal Not Available [facility] ([facility]) [address] [facility], [address], 11/23/2023 04:36:15 11/22/1911/23/2023 CMP14 +EGFR sodium 142 mmol/ L 134-14 4 normal Not Available [facility] ([facility]) [address] [facility], [address], 11/23/2023 04:36:15 11/22/1911/23/2023 CMP14 +EGFR potassium 4.9 mmol/ L 3.5-5. 2 normal Not Available [facility] ([facility]) [address] [facility], [address], 11/23/2023 04:36:15 11/22/1911/23/2023 CMP14 +EGFR chloride 101 mmol/ L 96-106 normal Not Available [facility] ([facility]) [address] [facility], [address], 11/23/2023 04:36:15 11/22/1911/23/2023 CMP14 +EGFR carbon dioxide, total 28 mmol/ L 20-29 normal Not Available [facility] ([facility]) [address] [facility], [address], 11/23/2023 04:36:15 11/22/19 24 11/23/2023 CMP14 +EGFR calcium 9.7 mg/dL 8.7-10 .3 normal Not Available [facility] ([facility]) [address] [facility] [address], [place], [address], 11/23/2023 04:36:15 11/22/19 24 11/23/2023 CMP14 +EGFR protein, total 7.3 g/dL 6.0-8. 5 normal Not Available [facility] ([facility]) [address] [place], [address], 11/23/2023 04:36:15 11/22/1911/23/2023 CMP14 +EGFR albumin 4.6 g/dL 3.9-4. 9 normal Not Available [facility] ([facility]) [address] [place], [address], 11/23/2023 04:36:15 11/22/19 24 11/23/2023 CMP14 +EGFR globulin, total 2.7 g/dL 1.5-4. 5 Not Available [facility] ([facility]) [address] [place], [address], 11/23/2023 04:36:15 11/22/19 24 11/23/2023 CMP14 +EGFR bilirubin, total 0.3 mg/dL 0.0-1. 2 normal Not Available [facility] ([facility]) [address] [place], [address], 11/23/2023 04:36:15 11/22/19 24 11/23/2023 CMP14 +EGFR alkaline phosphatase 63 IU/L 44-121 normal Not Available [facility] ([facility]) [address] [place], [address], 11/23/2023 04:36:15 11/22/19 24 11/23/2023 CMP14 +EGFR AST (SGOT) 23 IU/L 0-40 normal Not Available [facility] ([facility]) [address] [facility], [place], [address], 11/23/2023 04:36:15 11/22/1911/23/2023 CMP14 +EGFR ALT (SGPT) 13 IU/L 0-32 normal Not Available [facility] ([facility]) [address] [facility] [address], [place], [address], 11/23/2023 04:36:15 11/22/1911/23/2023 CBC WITH DIFFE RENTI AL/PL ATELE T WBC 6.0 x10e3 /uL 3.4-10 .8 normal Not Available [facility] ([facility]) [address] [facility] [address], [place], [address], 11/23/2023 04:36:16 11/22/1911/23/2023 CBC WITH DIFFE RENTI AL/PL ATELE T RBC 4.85 x10e6 /uL 3.77-5 .28 normal Not Available [facility] ([facility]) [address] [facility] [address], [place], [address], 11/23/2023 04:36:16 11/22/1911/23/2023 CBC WITH DIFFE RENTI AL/PL ATELE T hemoglobin 14.0 g/dL 11.1-1 5.9 normal Not Available [facility] ([facility]) [address] [facility] [address], [place], [address], 11/23/2023 04:36:16 11/22/1911/23/2023 CBC WITH DIFFE RENTI AL/PL ATELE T hematocrit 45.2 % 34.0-4 6.6 normal Not Available [facility] ([facility]) [address] [place], [address], 11/23/2023 04:36:16 11/22/19 24 11/23/2023 CBC WITH DIFFE RENTI AL/PL ATELE T MCV 93 fL 79-97 normal Not Available [facility] ([facility]) [address] [facility] [address], [place], [address], 11/23/2023 04:36:16 11/22/1911/23/2023 CBC WITH DIFFE RENTI AL/PL ATELE T MCH 28.9 pg 26.6-3 3.0 normal Not Available [facility] ([facility]) [address] [facility] [address], [place], [address], 11/23/2023 04:36:16 11/22/1911/23/2023 CBC WITH DIFFE RENTI AL/PL ATELE T MCHC 31.0 g/dL 31.5-3 5.7 below low normal Not Available [facility] ([facility]) [address] [facility], [place], [address], 11/23/2023 04:36:16 11/22/1911/23/2023 CBC WITH DIFFE RENTI AL/PL ATELE T RDW 13.0 % 11.7-1 5.4 Not Available [facility] ([facility]) [address] [facility], [place], [address], 11/23/2023 04:36:16 11/22/19 24 11/23/2023 CBC WITH DIFFE RENTI AL/PL ATELE T platelets 314 x10e3 /uL 150-45 0 normal Not Available [facility] ([facility]) [address] [facility] [address], [place], [address], 11/23/2023 04:36:16 11/22/1911/23/2023 CBC WITH DIFFE RENTI AL/PL ATELE T neutrophils 48 % not estab. normal Not Available [facility] ([facility]) [address] [facility] [address], [place], [address], 11/23/2023 04:36:16 11/22/19 24 11/23/2023 CBC WITH DIFFE RENTI AL/PL ATELE T lymphs 38 % not estab. normal Not Available [facility] ([facility]) [address] [facility], [place], [address], 11/23/2023 04:36:16 11/22/19 24 11/23/2023 CBC WITH DIFFE RENTI AL/PL ATELE T monocytes 10 % not estab. normal Not Available [facility] ([facility]) [address] [facility], [place], [address], 11/23/2023 04:36:16 11/22/1911/23/2023 CBC WITH DIFFE RENTI AL/PL ATELE T eos 3 % not estab. normal Not Available [facility] ([facility]) [address] [facility], [place], [address], 11/23/2023 04:36:16 11/22/19 24 11/23/2023 CBC WITH DIFFE RENTI AL/PL ATELE T basos 1 % not estab. 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 0 normal Not Available [facility] ([facility]) [address] [place], [address], 11/23/2023 04:36:16 11/22/19 24 11/23/2023 CBC WITH DIFFE RENTI AL/PL ATELE T lymphs (absolute) 2.3 x10e3 /uL 0.7-3. 1 normal Not Available [facility] ([facility]) [address] [place], [address], 11/23/2023 04:36:16 11/22/19 24 11/23/2023 CBC WITH DIFFE RENTI AL/PL ATELE T monocytes(ab solute) 0.6 x10e3 /uL 0.1-0. 9 normal Not Available [facility] ([facility]) [address] [facility], [place], [address], 11/23/2023 04:36:16 11/22/19 24 11/23/2023 CBC WITH DIFFE RENTI AL/PL ATELE T eos (absolute) 0.2 x10e3 /uL 0.0-0. 4 normal Not Available [facility] ([facility]) [address] [facility], [place], [address], 11/23/2023 04:36:16 11/22/19 24 11/23/2023 CBC WITH DIFFE RENTI AL/PL ATELE T baso (absolute) 0.1 x10e3 /uL 0.0-0. 2 normal Not Available [facility] ([facility]) [address] [facility], [place], [address], 11/23/2023 04:36:16 11/22/19 24 11/23/2023 CBC WITH DIFFE RENTI AL/PL ATELE T immature granulocytes 0 % not estab. Not Available [facility] ([facility]) [address] [place], [address], 11/23/2023 04:36:16 11/22/19 24 11/23/2023 CBC WITH DIFFE RENTI AL/PL ATELE T immature grans (abs) 0.0 x10e3 /uL 0.0-0. 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 6 above high normal Predi abete s: 5.7 - 6.4 Diabe radha: >6.4 Glyce danielle contr ol for adult s with diabe radha: <7.0 Not Available [facility] ([facility]) [address] [place], [address], 11/23/2023 04:36:18 11/22/19 24 11/23/2023 TRIIO DOTHY CHRIS E (T3) triiodothyro nine (T3) 97 NG/dL 71-180 normal Not Available [facility] ([facility]) [address] [facility], [place], [address], 11/23/2023 04:36:19 11/22/19 24 11/23/2023 VITAM IN B12 vitamin B12 491 pg/mL 232-12 45 normal Not Available [facility] ([facility]) [address] [facility], [place], [address], 11/23/2023 04:36:20 04/21/19 25 04/21/2024 CMP14 +EGFR glucose 188 mg/dL 70-99 above high normal Not Available [facility] ([facility]) [address] [place], [address], 04/21/2024 08:38:20 04/21/19 25 04/21/2024 CMP14 +EGFR BUN 13 mg/dL 8-27 normal Not Available [facility] ([facility]) [address] [place], [address], 04/21/2024 08:38:20 04/21/19 25 04/21/2024 CMP14 +EGFR creatinine 1.09 mg/dL 0.57-1 .00 above high normal Not Available [facility] ([facility]) [address] [facility], [place], [address], 04/21/2024 08:38:20 04/21/19 25 04/21/2024 CMP14 +EGFR eGFR 56 mL/mi n/1.7 3 >59 below low normal Not Available [facility] ([facility]) [address] [facility], [place], [address], 04/21/2024 08:38:20 04/21/19 25 04/21/2024 CMP14 +EGFR BUN/creatini ne ratio 12 12-28 normal Not Available [facility] ([facility]) [address] [place], [address], 04/21/2024 08:38:20 04/21/19 25 04/21/2024 CMP14 +EGFR sodium 141 mmol/ L 134-14 4 normal Not Available [facility] ([facility]) [address] [place], [address], 04/21/2024 08:38:20 04/21/19 25 04/21/2024 CMP14 +EGFR potassium 4.9 mmol/ L 3.5-5. 2 normal Not Available [facility] ([facility]) [address] [place], [address], 04/21/2024 08:38:20 04/21/19 25 04/21/2024 CMP14 +EGFR chloride 103 mmol/ L 96-106 normal Not Available [facility] ([facility]) [address] [place], [address], 04/21/2024 08:38:20 04/21/19 25 04/21/2024 CMP14 +EGFR carbon dioxide, total 22 mmol/ L 20-29 normal Not Available [facility] ([facility]) [address] [place], [address], 04/21/2024 08:38:20 04/21/19 25 04/21/2024 CMP14 +EGFR calcium 9.6 mg/dL 8.7-10 .3 normal Not Available [facility] ([facility]) [address] [place], [address], 04/21/2024 08:38:20 04/21/19 25 04/21/2024 CMP14 +EGFR protein, total 7.2 g/dL 6.0-8. 5 normal Not Available [facility] ([facility]) [address] [place], [address], 04/21/2024 08:38:20 04/21/19 25 04/21/2024 CMP14 +EGFR albumin 4.5 g/dL 3.9-4. 9 normal Not Available [facility] ([facility]) [address] [place], [address], 04/21/2024 08:38:20 04/21/19 25 04/21/2024 CMP14 +EGFR globulin, total 2.7 g/dL 1.5-4. 5 Not Available [facility] ([facility] [facility]) [address] [place], [address], 04/21/2024 08:38:20 04/21/19 25 04/21/2024 CMP14 +EGFR bilirubin, total 0.2 mg/dL 0.0-1. 2 normal Not Available [facility] ([facility]) [address] [place], [address], 04/21/2024 08:38:20 04/21/19 25 04/21/2024 CMP14 +EGFR alkaline phosphatase 66 IU/L 44-121 normal Not Available [facility] ([facility]) [address] [place], [address], 04/21/2024 08:38:20 04/21/19 25 04/21/2024 CMP14 +EGFR AST (SGOT) 25 IU/L 0-40 normal Not Available [facility] ([facility]) [address] [place], [address], 04/21/2024 08:38:20 04/21/19 25 04/21/2024 CMP14 +EGFR ALT (SGPT) 18 IU/L 0-32 normal Not Available [facility] ([facility]) [address] [place], [address], 04/21/2024 08:38:20 04/21/19 25 04/21/2024 CBC WITH DIFFE RENTI AL/PL ATELE T WBC 5.3 x10e3 /uL 3.4-10 .8 normal Not Available [facility] ([facility]) [address] [place], [address], 04/21/2024 08:38:21 04/21/19 25 04/21/2024 CBC WITH DIFFE RENTI AL/PL ATELE T RBC 4.82 x10e6 /uL 3.77-5 .28 normal Not Available [facility] ([facility]) [address] [place], [address], 04/21/2024 08:38:21 04/21/19 25 04/21/2024 CBC WITH DIFFE RENTI AL/PL ATELE T hemoglobin 13.5 g/dL 11.1-1 5.9 normal Not Available [facility] ([facility]) [address] [place], [address], 04/21/2024 08:38:21 04/21/19 25 04/21/2024 CBC WITH DIFFE RENTI AL/PL ATELE T hematocrit 43.0 % 34.0-4 6.6 normal Not Available [facility] ([facility]) [address] [place], [address], 04/21/2024 08:38:21 04/21/19 25 04/21/2024 CBC WITH DIFFE RENTI AL/PL ATELE T MCV 89 fL 79-97 normal Not Available [facility] ([facility]) [address] [place], [address], 04/21/2024 08:38:21 04/21/19 25 04/21/2024 CBC WITH DIFFE RENTI AL/PL ATELE T MCH 28.0 pg 26.6-3 3.0 normal Not Available [facility] ([facility]) [address] [place], [address], 04/21/2024 08:38:21 04/21/19 25 04/21/2024 CBC WITH DIFFE RENTI AL/PL ATELE T MCHC 31.4 g/dL 31.5-3 5.7 below low normal Not Available [facility] ([facility]) [address] [place], [address], 04/21/2024 08:38:21 04/21/19 25 04/21/2024 CBC WITH DIFFE RENTI AL/PL ATELE T RDW 13.4 % 11.7-1 5.4 Not Available [facility] ([facility]) [address] [place], [address], 04/21/2024 08:38:21 04/21/19 25 04/21/2024 CBC WITH DIFFE RENTI AL/PL ATELE T platelets 279 x10e3 /uL 150-45 0 normal Not Available [facility] ([facility]) [address] [facility], [place], [address], 04/21/2024 08:38:21 04/21/19 25 04/21/2024 CBC WITH DIFFE RENTI AL/PL ATELE T neutrophils 57 % not estab. normal Not Available [facility] ([facility]) [address] [facility], [place], [address], 04/21/2024 08:38:21 04/21/19 25 04/21/2024 CBC WITH DIFFE RENTI AL/PL ATELE T lymphs 31 % not estab. normal Not Available [facility] ([facility]) [address] [facility], [place], [address], 04/21/2024 08:38:21 04/21/19 25 04/21/2024 CBC WITH DIFFE RENTI AL/PL ATELE T monocytes 8 % not estab. normal Not Available [facility] ([facility]) [address] [place], [address], 04/21/2024 08:38:21 04/21/19 25 04/21/2024 CBC WITH DIFFE RENTI AL/PL ATELE T eos 3 % not estab. normal Not Available [facility] ([facility]) [address] [facility], [place], [address], 04/21/2024 08:38:21 04/21/19 25 04/21/2024 CBC WITH DIFFE RENTI AL/PL ATELE T basos 1 % not estab. 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 0 normal Not Available [facility] ([facility]) [address] [place], [address], 04/21/2024 08:38:21 04/21/19 25 04/21/2024 CBC WITH DIFFE RENTI AL/PL ATELE T lymphs (absolute) 1.6 x10e3 /uL 0.7-3. 1 normal Not Available [facility] ([facility]) [address] [place], [address], 04/21/2024 08:38:21 04/21/19 25 04/21/2024 CBC WITH DIFFE RENTI AL/PL ATELE T monocytes(ab solute) 0.4 x10e3 /uL 0.1-0. 9 normal Not Available [facility] ([facility]) [address] [place], [address], 04/21/2024 08:38:21 04/21/19 25 04/21/2024 CBC WITH DIFFE RENTI AL/PL ATELE T eos (absolute) 0.2 x10e3 /uL 0.0-0. 4 normal Not Available [facility] ([facility]) [address] [place], [address], 04/21/2024 08:38:21 04/21/19 25 04/21/2024 CBC WITH DIFFE RENTI AL/PL ATELE T baso (absolute) 0.1 x10e3 /uL 0.0-0. 2 normal Not Available [facility] ([facility]) [address] [place], [address], 04/21/2024 08:38:21 04/21/19 25 04/21/2024 CBC WITH DIFFE RENTI AL/PL ATELE T immature granulocytes 0 % not estab. Not Available [facility] ([facility]) [address] [facility], [place], [address], 04/21/2024 08:38:21 04/21/19 25 04/21/2024 CBC WITH DIFFE RENTI AL/PL ATELE T immature grans (abs) 0.0 x10e3 /uL 0.0-0. 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 Not Available [facility] ([facility]) [address] [facility], [place], [address], 04/21/2024 08:38:21 04/21/19 25 04/21/2024 LIPID PANEL cholesterol, total 145 mg/dL 100-19 9 normal Not Available [facility] ([facility]) [address] [facility], [place], [address], 04/21/2024 08:38:22 04/21/19 25 04/21/2024 LIPID PANEL triglyceride s 230 mg/dL 0-149 above high normal Not Available [facility] ([facility]) [address] [place], [address], 04/21/2024 08:38:22 04/21/19 25 04/21/2024 LIPID PANEL HDL cholesterol 49 mg/dL >39 normal Not Available [facility] ([facility]) [address] [facility], [place], [address], 04/21/2024 08:38:22 04/21/19 25 04/21/2024 LIPID PANEL VLDL cholesterol zeus 37 mg/dL 5-40 Not Available [facility] ([facility]) [address] [place], [address], 04/21/2024 08:38:22 04/21/19 25 04/21/2024 LIPID PANEL LDL chol calc ([facility]) 59 mg/dL 0-99 Not Available [facility] ([facility]) [address] [place], [address], 04/21/2024 08:38:22 04/21/19 25 04/21/2024 LIPID PANEL LDL calc 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 6 above high normal Predi abete s: 5.7 - 6.4 Diabe radha: >6.4 Glyce danielle contr ol for adult s with diabe radha: <7.0 Not Available [facility] ([facility]) [address] [place], [address], 04/21/2024 08:38:23 04/21/1904/21/2024 VITAM IN D, 25-HY DROXY vitamin D, 25-hydroxy 27.0 NG/mL 30.0-1 00.0 below low normal Vitam in D defic iency has been defin ed by the Insti tute of Medic ine and an Endoc rine Socie ty pract ice guide line as a level of serum 25-OH vitam in D less than 20 ng/mL (1,2) . The Endoc rine Socie ty went on to fur er defin e vitam in D insuf ficie ncy as a level betwe en 21 and 29 ng/mL (2). 1. IOM (Inst itute of Medic ine). 2010. Dieta ry refer ence eusebio es for calci um and D. Shannon campos [place]: [facility] Press . 2. Audra arzola MF, Elvin ames [place], Booker off-F sakina i ROONEY, et al. Evalu ation , treat ment, and preve ntion of vitam in D defic iency : an Endoc rine Socie ty clini zeus pract ice guide line. JCEM. 2010; 96(7) :1911 -30. Not Available [facility] ([facility]) [address] [facility], [place], [address], 04/21/2024 08:38:23 04/29/1904/28/2024 CULTU RE URINE W PRESU MP ID results [facility] 04-29 947 No Signi fican t Growt h at 1 Day [facility] 04-30 853 [place] te:1 50,00 0 Colon y Count Gram Negat charanjit Rods Not Available [facility] ([facility]) [address] [place] [address] [place], [address], 04/30/2024 08:54:52 04/29/1904/28/2024 CULTU RE URINE W PRESU MP ID note Unles s other denney noted testi ng perfo rmed at: [facility] [address] [place] [address] Elijah conti MD Not Available [facility] ([facility]) [address] [place] [address] [place], [address], 04/30/2024 08:54:52 04/29/19 25 04/28/2024 CULTU RE URINE W PRESU MP ID culur ===== ===== ===== ===== ===== ===== ===== ===== ===== ===== ===== ===== ===== ===== ===== ===== ===== ===== ===== ===== ===== ===== ===== ===== CULTU RE NO.: [id number] Exam Statu s: Final Exam Type: CULTU RE URINE W PRESU ===== ===== ===== ===== ===== ===== ===== ===== ===== ===== ===== ===== ===== ===== ===== ===== ===== ===== ===== ===== ===== ===== ===== ===== Cultu re Repor t: Organ ism #01 Esche aftab a coli (ESCC OL) Antib iotic s ESCCO L Achie vable Achie vable (01) Dosag e Serum Level Urine Level mcg/m l mcg/m l Amika nancy <=8 S 007S Ampic illin <=4 S 007S Ampic illin /Sulb actam 2/1 S 007S Aztre onam <=2 S 007S Cefep kelsy <=1 S 007S Cefta zidim e <=2 S 007S Ceftr iaxon e <=1 S 007S Cipro floxa nancy <=0.2 5 S 007S CARBR S 007S Ertap enem <=0.2 5 S 007S ESBL NEG N 007S Genta micin <=2 S 007S Levof loxac in <=0.5 S 007S Merop enem <= 0.5 S 007S Nitro furan toin 32 S 007S Piper acill in/Ta zobac <=2/4 S 007S Tetra cycli ne <=2 S 007S Tobra mycin <=2 S 007S Trime thopr im/Grajeda lfame <=0.5 / S 007S [facility] 04-29 947 No Signi fican t Growt h at 1 Day [facility] 04-30 853 [place] te:1 50,00 0 Colon y Count Gram Negat charanjit Rods Not Available [facility] ([facility]) [address] [place] [address] [place], [address], 05/01/2024 07:22:52 04/29/19 25 04/28/2024 CULTU RE URINE W PRESU MP ID note Unles s other denney noted testi ng perfo rmed at: [facility] [address] [place] [address] Elijah conti MD Not Available [facility] ([facility]) [address] [place] [address] [place], [address], 05/01/2024 07:22:52 04/29/19 25 04/28/2024 COMPL IANCE DRUG CLAYTON SIS, UR note Unles s other denney noted testi ng perfo [facility]med at: [facility] [address] [place] [address] Elijah conti MD Not Available [facility] ([facility]) [address] [place] [address] [place], [address], 05/05/2024 16:16:31 04/29/1905/05/2024 COMPL IANCE DRUG CLAYTON SIS, UR summary FINAL ===== ===== ===== ===== ===== ===== ===== ===== ===== ===== ===== ===== ===== === TOXAS SURE COMP DRUG CLAYTON SIS,U R ===== ===== ===== ===== ===== ===== ===== ===== ===== ===== ===== ===== ===== === Test Resul t Flag Uni ts Drug Prese nt Alpra zolam 113 ng/ mg creat Alpha -hydr oxyal prazo cowan 285 ng/ mg creat Sourc e of alpra zolam is a sched uled presc ripti on medic ati on. Alpha -hydr oxyal prazo cowan is an expec yomaira metab olite of alpr azola m. Zolpi dem PRESE NT Zolpi dem Acid PRESE NT Zolpi dem acid is an expec yomaira metab olite of zolpi dem. Cital opram PRESE NT Desme thylc lisbet pram PRESE NT Desme thylc lisbet pram is an expec yomaira metab olite of cital opr am or the enant iomer ic form, escit alopr am. Aceta minop hen PRESE NT Napro xen PRESE NT Diphe nhydr amine PRESE NT Doxyl amine PRESE NT Dextr ometh orpha n PRESE NT Dextr orpha n/Lev orpha nol PRESE NT Dextr orpha n is an expec yomaira metab olite of dextr ometh orpha n , an over- the-c ounte r or presc ripti on cough suppr essan t. Dextr orpha n canno t be disti nguis hed from the sched uled presc ripti on medic ation levor phano l by the metho d used for clayton sis. Propr anolo l PRESE NT ===== ===== ===== ===== ===== ===== ===== ===== ===== ===== ===== ===== ===== === Test Resul t Flag Units Ref Ra nge Creat inine 119 mg/dL >=20 ===== ===== ===== ===== ===== ===== ===== ===== ===== ===== ===== ===== ===== === Decla red Medic ation s: Medic ation list was not provi ded. ===== ===== ===== ===== ===== ===== ===== ===== ===== ===== ===== ===== ===== === For clini zeus consu ltati on, pleas e call . ===== ===== ===== ===== ===== ===== ===== ===== ===== ===== ===== ===== ===== === Not Available [facility] ([facility]) [address] [place] [address] [place], [address], 05/05/2024 16:16:31 04/29/19 25 05/05/2024 COMPL IANCE DRUG CLAYTON SIS, UR pdf . Perfo rmed at: - [facility] [address] [place] [address] Lab Direc tor: Ivana hankins [facility] , Phone : [phone] Not Available [facility] ([facility]Op [facility]) [address] [place] [address] [place], [address], 05/05/2024 16:16:31 04/29/19 25 04/28/2024 urina lysis , dipst ick Leukocytes (reference range) small Not Available [facility]- Dept [address] [place] [address], [phone], 04/28/2024 15:38:02 04/29/19 25 04/28/2024 urina lysis , dipst ick Nitrite (reference range:) negati ve Not Available [facility]- Dept [address] [place] [address], [phone], 04/28/2024 15:38:02 04/29/19 25 04/28/2024 urina lysis , dipst ick Urobilinogen (reference range) 0.2 Not Available [facility]- Dept [address] [place] [address], [phone], 04/28/2024 15:38:02 04/29/19 25 04/28/2024 urina lysis , dipst ick Protein (reference range) trace Not Available [address], [address], 04/28/2024 15:38:02 04/29/19 25 04/28/2024 urina lysis , dipst ick pH (reference range 5-8.5) 5.0 Not Available [address], [address], 04/28/2024 15:38:02 04/29/19 25 04/28/2024 urina lysis , dipst ick Blood (reference range:) small Not Available [address], [address], 04/28/2024 15:38:02 04/29/19 25 04/28/2024 urina lysis , dipst ick Specific Otis (reference range) 1.025 Not Available [address], [address], 04/28/2024 15:38:02 04/29/19 25 04/28/2024 urina lysis , dipst ick Ketone (reference range) trace Not Available [address], [address], 04/28/2024 15:38:02 04/29/19 25 04/28/2024 urina lysis , dipst ick Bilirubin (reference range) negati ve Not Available [address], [address], 04/28/2024 15:38:02 04/29/19 25 04/28/2024 urina lysis , dipst ick Glucose (reference range) negati ve Not Available [facility]- Dept [address] [place] [address], [phone], 04/28/2024 15:38:02 04/29/19 25 04/28/2024 urina lysis , dipst ick Color (reference range: yellow-brown ) Yellow Not Available [facility]- Dept [address] [place] [address], [phone], 04/28/2024 15:38:02 08/02/19 25 08/01/2024 CBC W/ AUTO DIFF WBC 7.14 K/uL 4.5-11 .5 Not Available [facility] ([facility]) [address] [place] [address] [place], [address], 08/01/2024 19:10:55 08/02/19 25 08/01/2024 CBC W/ AUTO DIFF RBC 4.50 M/uL 4.0-5. 4 Not Available [facility] ([facility]) [address] [place] [address] [place], [address], 08/01/2024 19:10:55 08/02/19 25 08/01/2024 CBC W/ AUTO DIFF HGB 12.7 g/dL 12.0-1 5.0 Not Available [facility] ([facility]) [address] [place] [address] [place], [address], 08/01/2024 19:10:55 08/02/19 25 08/01/2024 CBC W/ AUTO DIFF HCT 39.7 % 35-49 Not Available [facility] ([facility]) [address] [place] [address] [place], [address], 08/01/2024 19:10:55 08/02/19 25 08/01/2024 CBC W/ AUTO DIFF MCV 88.2 fL 80.0-1 00.0 Not Available [facility] (Pre-Op Clinic) [address] [place] [address] [place], [address], 08/01/2024 19:10:55 08/02/19 25 08/01/2024 CBC W/ AUTO DIFF MCH 28.2 pg 26.0-3 2.0 Not Available [facility] ([facility]) [address] [place] [address] [place], [address], 08/01/2024 19:10:55 08/02/19 25 08/01/2024 CBC W/ AUTO DIFF MCHC 32.0 g/dL 32.0-3 6.0 Not Available [facility] ([facility]) [address] [place] [address] [place], [address], 08/01/2024 19:10:55 08/02/19 25 08/01/2024 CBC W/ AUTO DIFF RDW 14.4 % 11.5-1 4.5 Not Available [facility] ([facility]) [address] [place] [address] [place], [address], 08/01/2024 19:10:55 08/02/19 25 08/01/2024 CBC W/ AUTO DIFF platelet count 295 K/uL 142-42 4 Not Available [facility] ([facility]) [address] [place] [address] [place], [address], 08/01/2024 19:10:55 08/02/19 25 08/01/2024 CBC W/ AUTO DIFF MPV 10.7 fL 6.8-10 .2 high Not Available [facility] ([facility]) [address] [place] [address] [place], [address], 08/01/2024 19:10:55 08/02/19 25 08/01/2024 CBC W/ AUTO DIFF neutrophil % 63.6 % 50-70 Not Available [facility] ([facility]) [address] [place] [address] [place], [address], 08/01/2024 19:10:55 08/02/19 25 08/01/2024 CBC W/ AUTO DIFF lymphocyte % 26.2 % 18.0-4 2.0 Not Available [facility] ([facility]) [address] [place] [address] [place], [address], 08/01/2024 19:10:55 08/02/19 25 08/01/2024 CBC W/ AUTO DIFF monocyte % 7.0 % 2.0-11 .0 Not Available [facility] ([facility]) [address] [place] [address] [place], [address], 08/01/2024 19:10:55 08/02/19 25 08/01/2024 CBC W/ AUTO DIFF eosinophil % 2.2 % 1.0-3. 0 Not Available [facility] ([facility]) [address] [place] [address] [place], [address], 08/01/2024 19:10:55 08/02/1908/01/2024 CBC W/ AUTO DIFF basophil % 0.6 % 0.0-2. 0 Not Available [facility] ([facility]) [address] [place] [address] [place], [address], 08/01/2024 19:10:55 08/02/19 25 08/01/2024 CBC W/ AUTO DIFF immature granulocytes % 0.4 % 0.0-0. 8 Not Available [facility] ([facility]) [address] [place] [address] [place], [address], 08/01/2024 19:10:55 08/02/19 25 08/01/2024 CBC W/ AUTO DIFF nucleated red blood cells % 0.0 % Not Available [facility] ([facility]) [address] [place] [address] [place], [address], 08/01/2024 19:10:55 08/02/19 25 08/01/2024 CBC W/ AUTO DIFF neutrophil # 4.54 K/uL Not Available [facility] ([facility]) [address] [place] [address] [place], [address], 08/01/2024 19:10:55 08/02/19 25 08/01/2024 CBC W/ AUTO DIFF lymphocyte # 1.87 K/uL Not Available [facility] ([facility]) [address] [place] [address] [place], [address], 08/01/2024 19:10:55 08/02/19 25 08/01/2024 CBC W/ AUTO DIFF monocyte # 0.50 K/uL Not Available [facility] (Pre-Op [facility]) [address] [place] [address] [place], [address], 08/01/2024 19:10:55 08/02/19 25 08/01/2024 CBC W/ AUTO DIFF eosinophil # 0.16 K/uL Not Available [facility] ([facility]Op [facility]) [address] [place] [address] [place], [address], 08/01/2024 19:10:55 08/02/19 25 08/01/2024 CBC W/ AUTO DIFF basophil # 0.04 K/uL Not Available [facility] ([facility]Op [facility]) [address] [place] [address] [place], [address], 08/01/2024 19:10:55 08/02/19 25 08/01/2024 CBC W/ AUTO DIFF immature gramulocytes # 0.03 K/uL Not Available [facility] ([facility]Op [facility]) [address] [place] [address] [place], [address], 08/01/2024 19:10:55 08/02/19 25 08/01/2024 CBC W/ AUTO DIFF nucleated red blood cells # 0.00 k/uL Not Available [facility] ([facility]Op [facility]) [address] [place] [address] [place], [address], 08/01/2024 19:10:55 08/02/19 25 08/01/2024 CBC W/ AUTO DIFF manual differential NO Not Available [facility] (Pre[facility]Op [facility]) [address] [place] [address] [place], [address], 08/01/2024 19:10:55 08/02/19 25 08/01/2024 CBC W/ AUTO DIFF note Unles s other denney noted testi ng perfo [facility]med at: [facility] [address] [place] [address] Elijah conti MD Not Available [facility] ([facility]) [address] [place] [address] [place], [address], 08/01/2024 19:10:55 08/02/19 25 08/01/2024 HEMOG LOBIN A1C HGB A1C 8.3 % 4.3-6. 1 high HEMOG LOBIN LEVEL S ARE RELAT ED TO MEAN BLOOD GLUCO SE LEVEL S DURIN G THE PRECE DING 2-3 MONTH S. REFER ENCE RANGE NON-D IABET IC PATIE NTS: 4.3 - 6.1 % DIABE TIC PATIE NTS: 6.2 % AND ABOVE Not Available [facility] ([facility]) [address] [place] [address] [place], [address], 08/01/2024 20:02:20 08/02/19 25 08/01/2024 HEMOG LOBIN A1C estimated average glucose(EAG) 192 mg/dL 77-128 high Not Available [facility] ([facility]Op [facility]) [address] [place] [address] [place], [address], 08/01/2024 20:02:20 08/02/19 25 08/01/2024 HEMOG LOBIN A1C note Unles s other denney noted testi ng perfo rmed at: [facility] [address] [place] [address] Elijah conti MD Not Available [facility] ([facility]) [address] [place] [address] [place], [address], 08/01/2024 20:02:20 08/02/19 25 08/01/2024 COMP METAB OLIC PANEL sodium 140 mmol/ L 137-14 7 Not Available [facility] ([facility]) [address] [facility] [place], [address], 08/01/2024 20:14:05 08/02/19 25 08/01/2024 COMP METAB OLIC PANEL potassium 4.9 mmol/ L 3.5-5. 1 Not Available [facility] ([facility]) [address] [facility] [place], [address], 08/01/2024 20:14:05 08/02/19 25 08/01/2024 COMP METAB OLIC PANEL chloride 105 mmol/ L 98-110 Not Available [facility] ([facility]) [address] [place] [address] [place], [address], 08/01/2024 20:14:05 08/02/19 25 08/01/2024 COMP METAB OLIC PANEL carbon dioxide 27 mmol/ L 21-30 Not Available [facility] ([facility]) [address] [place] [address] [place], [address], 08/01/2024 20:14:05 08/02/19 25 08/01/2024 COMP METAB OLIC PANEL anion gap 8 mmol/ L 6-14 Not Available [facility] ([facility]) [address] [place] [address] [place], [address], 08/01/2024 20:14:05 08/02/19 25 08/01/2024 COMP METAB OLIC PANEL glucose 106 mg/dL 70-115 Not Available [facility] ([facility]) [address] [place] [address] [place], [address], 08/01/2024 20:14:05 08/02/19 25 08/01/2024 COMP METAB OLIC PANEL BUN 19 mg/dL 7-17 high Not Available [facility] ([facility]) [address] [place] [address] [place], [address], 08/01/2024 20:14:05 08/02/19 25 08/01/2024 COMP METAB OLIC PANEL creatinine 0.9 mg/dL 0.5-1. 5 Not Available [facility] ([facility]) [address] [place] [address] [place], [address], 08/01/2024 20:14:05 08/02/19 25 08/01/2024 COMP METAB OLIC PANEL BUN/creatini ne ratio 21 10-20 high Not Available [facility] ([facility]) [address] [place] [address] [place], [address], 08/01/2024 20:14:05 08/02/19 25 08/01/2024 COMP METAB OLIC PANEL glom filtration rate 70 mL/mi n >60- GFR LIMIT ATION : The eGFR equat ion CKD-E PI 2020 is not appli cable for pedia tric patie nts or great er than 90 years of age. The follo wing condi tions may alter the GFR resul t: extre mes in body size, malnu triti on or obesi ty, skele tristen muscl e disea se, parap legia or quadr ipleg ia, veget buddy diet or rapid ly arana ing kiney funct ion. Not Available [facility] (Pre-Op Clinic) [address] [place] [address] [place], [address], 08/01/2024 20:14:05 08/02/19 25 08/01/2024 COMP METAB OLIC PANEL osmolality (calculated) 294 mosmo l/kg 275-30 1 OSMOL ALITY IS A CALCU LATIO N UTILI ZING THE SERUM /PLAS MA SODIU M, GLUCO SE AND UREA NITRO GEN (BUN) LEVEL S. FOR THE MOST ACCUR ATE RESUL T A MEASU RED SERUM OSMOL ALITY IS SUGGE STED. Not Available [facility] (Pre-Op Clinic) [address] [place] [address] [place], [address], 08/01/2024 20:14:05 08/02/19 25 08/01/2024 COMP METAB OLIC PANEL total protein 7.0 g/dL 6.2-8. 2 Not Available [facility] (Pre-Op Clinic) [address] [place] [address] [place], [address], 08/01/2024 20:14:05 08/02/19 25 08/01/2024 COMP METAB OLIC PANEL albumin 4.4 g/dL 3.5-5. 0 Not Available [facility] (Pre-Op Clinic) [address] [place] [address] [place], [address], 08/01/2024 20:14:05 08/02/19 25 08/01/2024 COMP METAB OLIC PANEL calcium 9.7 mg/dL 8.5-10 .8 Not Available [facility] (Pre-Op Clinic) [address] [place] [address] [place], [address], 08/01/2024 20:14:05 08/02/19 25 08/01/2024 COMP METAB OLIC PANEL bilirubin total 0.3 mg/dL 0.2-1. 3 Not Available [facility] (Pre-Op Clinic) [address] [place] [address] [place], [address], 08/01/2024 20:14:05 08/02/19 25 08/01/2024 COMP METAB OLIC PANEL AST (SGOT) 39 IU/L 14-36 high Not Available [facility] (Pre-Op Clinic) [address] [place] [address] [place], [address], 08/01/2024 20:14:05 08/02/19 25 08/01/2024 COMP METAB OLIC PANEL ALT (SGPT) 37 IU/L 0-35 high Pleas e note new refer ence inter abril for ALT. Due to a recen t manuf actur er metho dolog y arana e, the refer ence inter abril for ALT is lower effec tive May 30, 2020. Not Available [facility] (Pre-Op Clinic) [address] [place] [address] [place], [address], 08/01/2024 20:14:05 08/02/19 25 08/01/2024 COMP METAB OLIC PANEL alk phosphatase 66 IU/L 38-126 Not Available [facility] (Pre-Op Clinic) [address] [facility] [place], [address], 08/01/2024 20:14:05 08/02/19 25 08/01/2024 COMP METAB OLIC PANEL note Unles s other denney noted testi ng perfo rmed at: [facility] [address] [place] [address] Elijah conti MD Not Available [facility] (Pre-Op Clinic) [address] [facility] [place], [address], 08/01/2024 20:14:05 08/02/19 25 08/01/2024 LIPID PANEL cholesterol 144 mg/dL 0-200 Not Available [facility] (Pre-Op Clinic) [address] [facility] [place], [address], 08/01/2024 20:14:06 08/02/19 25 08/01/2024 LIPID PANEL HDL 55 mg/dL 40- Not Available [facility] (Pre-Op Clinic) [address] [facility] [place], [address], 08/01/2024 20:14:06 08/02/19 25 08/01/2024 LIPID PANEL total chol/HDL ratio 2.6 0-4 Not Available [facility] (Pre-Op Clinic) [address] [facility] [place], [address], 08/01/2024 20:14:06 08/02/19 25 08/01/2024 LIPID PANEL triglyceride 255 mg/dL 35-135 high Not Available [facility] (Pre-Op Clinic) [address] [facility] [place], [address], 08/01/2024 20:14:06 08/02/19 25 08/01/2024 LIPID PANEL LDL calculated <39.50 mg/dL 0-130 Not Available [facility] (Pre-Op Clinic) [address] [facility] [place], [address], 08/01/2024 20:14:06 08/02/19 25 08/01/2024 LIPID PANEL VLDL calculated 51 mg/dL 0-40 high Not Available [facility] (Pre-Op Clinic) [address] [place] [address] [place], [address], 08/01/2024 20:14:06 08/02/19 25 08/01/2024 LIPID PANEL note Unles s other denney noted testi ng perfo rmed at: [facility] [address] [place] [address] Elijah conti MD Not Available [facility] (Pre-Op Clinic) [address] [place] [address] [place], [address], 08/01/2024 20:14:06 08/02/19 25 08/01/2024 VITAM IN D, 25-HY DROXY vitamin D, 25-hydroxy 72.1 NG/mL 30-100 Vitam in D defic iency has been defin ed by the [facility] rine [facility] ty pract ice guide line as a level of serum 25-OH vitam in D less than 20 ng/mL . The Endoc rine Socie ty went on to [facility], 1928–1983 defin e vitam in D insuf ficie ncy as a level betwe en 20 and 29 ng/mL . Level s of vitam in D betwe en 30 and 100 ng/mL are consi dered suffi ent. Level s above 100 ng/mL are consi dered poten tiall y toxic . Not Available [facility] (Pre-Op Clinic) [address] [place] [address] [place], [address], 08/01/2024 20:18:11 08/02/19 25 08/01/2024 VITAM IN D, 25-HY DROXY note Unles s other denney noted testi ng perfo rmed at: [facility] [address] [place] [address] Elijah conti MD Not Available [facility] (Pre[facility]Op [facility]) [address] [place] [address] [place], [address], 08/01/2024 20:18:11 08/02/19 25 08/01/2024 T4 FREE T4 free 0.70 NG/dL 0.78-2 .19 low Not Available [facility] (Pre-Op Clinic) [address] [place] [address] [place], [address], 08/01/2024 20:24:29 08/02/19 25 08/01/2024 T4 FREE note Unles s other denney noted testi ng perfo rmed at: [facility] [address] [place] [address] Elijah conti MD Not Available [facility] (Pre-Op [facility]) [address] [place] [address] [place], [address], 08/01/2024 20:24:29 08/02/19 25 08/01/2024 MICRO ALB/C REATI NINE RATIO creatinine urine 129.3 mg/dL 22.0-3 28.0 Not Available [facility] (Pre-Op Clinic) [address] [place] [address] [place], [address], 08/01/2024 20:37:09 08/02/19 25 08/01/2024 MICRO ALB/C REATI NINE RATIO microalbumin , urine 29.80 mg/L 0-17 high Not Available [facility] (Pre-Op Clinic) [address] [place] [address] [place], [address], 08/01/2024 20:37:09 08/02/19 25 08/01/2024 MICRO ALB/C REATI NINE RATIO microalb/cre at ratio 23.0 mg/g_ creat 0.0-30 .0 Not Available [facility] (Pre-Op Clinic) [address] [place] [address] [place], [address], 08/01/2024 20:37:09 08/02/19 25 08/01/2024 MICRO ALB/C REATI NINE RATIO note Unljarret s other denney noted testi ng perfo rmed at: [facility] [address] [place] [address] Elijah conti MD Not Available [facility] (Pre[facility]Op [facility]) [address] [place] [address] [place], [address], 08/01/2024 20:37:09 08/02/19 25 08/01/2024 TSH thyroid stim hormone 3.30 uIU/m L 0.465- 4.68 Not Available [facility] (Pre-Op [facility]) [address] [place] [address] [place], [address], 08/01/2024 20:41:19 08/02/19 25 08/01/2024 TSH note Liliam conti other denney noted testi ng perfo rmed at: [facility] [address] [place] [address] Elijah conti MD Not Available [facility] (Pre[facility]Op [facility]) [address] [place] [address] [place], [address], 08/01/2024 20:41:19 08/02/19 25 08/01/2024 VITAM IN B12 vitamin B12 286 pg/mL 239-93 1 Not Available [facility] (Pre-Op Clinic) [address] [place] [address] [place], [address], 08/01/2024 20:48:35 08/02/19 25 08/01/2024 VITAM IN B12 note Liliam s other denney noted testi ng perfo rmed at: [facility] [address] [place] [address] Elijah conti MD Not Available [facility] (Pre[facility]Op [facility]) [address] [place] [address] [place], [address], 08/01/2024 20:48:35 08/02/19 25 08/01/2024 T3 TOTAL note Liliam s other denney noted testi ng perfo rmed at: [facility] [address] [place] [address] Elijah conti MD Not Available [facility] (Pre-Op [facility]) [address] [place] [address] [place], [address], 08/03/2024 13:12:16 08/02/19 25 08/03/2024 T3 TOTAL triiodothyro nine (T3) 123 NG/dL 71-180 Perfo rmed at: [facility] [address] [facility], [place] [address] Lab Direc tor: Chau barriga PhD, Phone : [phone] Not Available [facility] (Pre-Op Clinic) [address] [place] [address] [place], [address], 08/03/2024 13:12:16 04/30/19 25 04/28/2024 XR, chest , 2 view [facility] [address] [place] [address] (Phone ) HARVEY Varela REPORT Name: EMMETT DHALIWAL : 1955 Accoun t #: [id number] Age: 68 Years Patien t Type: Outpat ient Sex: F Access ion#: [id number] Exam Descri ption: CHEST PA AND LAT Exam Reason : r05.3 chroni c cough Order Date/T kelsy: 2024 04:49: 47 PM Dictat ed By: Don messer MD Orderi ng Physic nidhi: JASS BENOIT Attend ing Physic nidhi: JASS BENOIT EXAM DESCRI PTION: XR CHEST 2 VIEWS CLINIC AL INDICA TION: r05.3 chroni c cough COMPAR LUIS EDUARDO: None. TECHNI QUE: Two view radiog raph of the chest was obtain ed. FINDIN GS: The heart size is normal . The pulmon fredy vascul ature is normal . No focal consol idatio n. No pneumo thorax or pleura l effusi on. No acute osseou s or soft tissue abnorm ality. IMPRES JHONATHAN: No acute cardio pulmon fredy abnorm ality. Electr onical ly signed by: Don messer MD 2024 11:09 PM EDT RP Workst ation: [id number] PAGE 1 OF 2 Name: EMMETT DHALIWAL : 1955 Accoun t #: [id number] Age: 68 Years Patien t Type: Outpat ient Sex: F Access ion#: [id number] Exam Descri ption: CHEST PA AND LAT Exam Reason : r05.3 chroni c cough Order Date/T kelsy: 2024 04:49: 47 PM Princi pal Interp reter Name: Don messer Provid er ID: [id number] PAGE 2 OF 2 CC'ed Logic: Orderi ng Provid er: KAYCEE REGAN CC Provid er: CARLINE ED PCP Attend ing Provid er: KAYCEE REGAN Referr ing Provid er: KAYCEE REGAN Admitt ing Provid er: KAYCEE REGAN [id number] [facility] (Central Scheduling) [address] [place] [address] [place], [address], 04/30/2024 10:18:57 04/30/19 25 04/28/2024 XR, chest , 2 view No observ ation record ed. NICOLE [facility] (Lab Registration) [address] [place], [place] [address], [address], 04/30/2024 10:18:42 Result Notes Documentation Provider Name and Address Organization Details Recorded Time Xr, Chest, 2 View : [address] [place] [address] (Phone) IMAGING REPORT ___ Name: EMMETT HAAS : 1955 Age: 68 Years Patient Type: Outpatient Sex: F Exam Description: CHEST PA AND LAT Exam Reason: r05.3 chronic cough Order Date/Time: 04/28/2024 04:49:47 PM Dictated By: Don Paez MD Ordering Physician: JASS BENOIT Attending Physician: JASS BENOIT ___ EXAM DESCRIPTION: XR CHEST 2 VIEWS CLINICAL INDICATION: r05.3 chronic cough COMPARISON: None. TECHNIQUE: Two view radiograph of the chest was obtained. FINDINGS: The heart size is normal. The pulmonary vasculature is normal. No focal consolidation. No pneumothorax or pleural effusion. No acute osseous or soft tissue abnormality. IMPRESSION: No acute cardiopulmonary abnormality. Electronically signed by: Don Paez MD 04/29/2024 11:09 PM EDT PAGE 1 OF 2 Name: EMMETT HAAS : 1955 Age: 68 Years Patient Type: Outpatient Sex: F Exam Description: CHEST PA AND LAT Exam Reason: r05.3 chronic cough Order Date/Time: 04/28/2024 04:49:47 PM ___ Principal Business Banking Relationship Manager Name: Don Paez Provider ID: [id number] PAGE 2 OF 2 CC'ed Logic: Ordering Provider: KAYCEE REGAN CC Provider: ELLA PCP Attending Provider: KAYCEE REGAN Referring Provider: KAYCEE REGAN Admitting Provider: KAYCEE Benoit MD [address], [address], [place], [address], [place] [facility] [place] & [place] 04/30/2024 10:18:57 Problems Name Problem SNOMED Code Status Onset Date Resolution Date Notes Provider Name and Address Organization Details Recorded Time Insomnia 485398323 Active 2022 Jass Benoit MD [address], [address], [place], [address], [place] [facility] & [place] 3 08:20:43 Generalized anxiety disorder 74752999 Active 2022 Jass Benoit MD [address], [address], [place], [address], [place] & [place] 3 08:21:18 Coronary arterioscle rosis 13734065 Active 2022 Taylor Wright NP [address], [address], [place], [address], [place] & [place] 5 21:57:20 Hypothyroid ism 35057230 Active 2022 Jass Benoit MD [address], [address], [place], [address], [place] & [place] 3 08:21:45 Hyperlipide kristyn 24447527 Active 2022 Jass Benoit MD [address], [address], [place], [address], [place] & [place] 3 10:16:09 Gastroesoph ageal reflux disease without esophagitis 603692649 Active 2022 Jass Benoit MD [address], [address], [place], [address], [place] & [place] 3 10:16:16 Hyperglycem ia due to type 2 diabetes mellitus 7129619474660 09 Active 2022 Jass Benoit MD [address], [address], [place], [address], [place] & [place] 3 10:34:23 Iron deficiency anemia 18309952 Active 2022 Jass Benoit MD [address], [address], [place], [address], [place] & [place] 3 16:44:49 Cobalamin deficiency 119417242 Active 2022 Jass Benoit MD [address], [address], [place], [address], [place] & [place] 3 16:49:57 Vitamin D deficiency 82543327 Active 2022 Jass Benoit MD [address], [address], [place], [address], [place] & [place] 3 16:50:56 Allergic rhinitis 89200228 Active 2022 Jass Benoit MD [address], [address], [place], [address], [place] & [place] 3 16:54:56 Urinary incontinenc e 715842881 Active 2022 Jass Benoit MD [address], [address], [place], [address], [place] & [place] 3 17:00:28 Obstructive sleep apnea syndrome 77816739 Active 2022 Jass Benoit MD [address], [address], [place], [address], [place] & [place] 3 17:04:40 Staghorn calculus 020365309 Active 2023 Jass Benoit MD [facility] [address], [place], [address], [place] & [place] 4 10:33:54 Chronic urinary tract infection 422073629 Active 2023 Jass Benoit MD [facility] [address], [address], [place], [address], [place] & [place] 4 14:57:00 Hypertensiv e heart and chronic kidney disease 4191050524025 Active 2024 Jass Benoit MD [facility] [address], [place], [address], [place] 5 14:12:09 Chronic kidney disease stage 3A 160240723 Active 2024 Jass Benoit MD [facility] [address], [address], [place], [address], [place] & [place] 5 14:12:13 Dysphagia 96015607 Active 2024 Taylor Wright NP [address], [address], [place], [address], [place] & [place] 5 14:33:42 Problem Notes Documentation Provider Name and Address Organization Details Recorded Time Kiln Stoker Consult Note : [facility] [address] [place] [facility] [address]KYLFCTO, Panda M (id #[id number], : 1955) Date: 07/08/2024RE: Emmett Haas, : 1955, PT ID #[id number] Benoit MD, I would like to thank you for referring Emmett Haas to our practice for consultation and evaluation of Follow Up , on 06/14/2024. I have enclosed a copy of the office evaluation for your records. Once again, thank you for allowing me to participate in the care of this patient. Sincerely, Electronically Signed by: TAYLOR WRIGHT NP Encounter Reason/Date Follow Up 06/14/2024 - 02:45PM - [facility] History of Present IllnessPleasant 68 [address] old patient of 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 Has not had a colonoscopy in years-last one was in [facility]. Still having symptoms. No other concerns or complaints at this time. Denies difficulty chewing, choking, nausea, vomiting, hematemesis, heartburn, acid reflux, abdominal pain, constipation, melena, hematochezia. Denies known family history of colon cancer, polyps. Denies tobacco, alcohol, illicit drug use including marijuana. Denies use of anticoagulant, GLP-1 agonist, iron supplement. Only occasionally uses Naprosyn for her knee pain. PREVIOUS INVESTIGATIONS REVIEWED:06/06/2024EGD/colonos copy op report reviewed. Poor pre-recommend repeat in 1-3 years.PATHOLOGY:Anastomosis: benign small bowel mucosaDuodenum Biopsy: No pathologic abnormalityMid esophagus biopsy: chronic nonspecific esophagitisTransverse colon polyp at 90 cm: benign mucosal polyp 5A1C 8.0-highCholesterol 145Trigs 230-highWBC 5.3HGB 13.5HCT 43.0MCV 89PLT 279BUN 13Creatinine 1.09-highTotal Bili 0.2AST 25ALT 18Alk Phos 66Review of SystemsROS as noted in the HPIPhysical ExamGENERAL APPEARANCE: Alert and pleasant. Appears to be well hydrated and well nourished. No acute distress noted. No evidence of abuse and/or trauma. HEAD: Normocephalic. Atraumatic. EYES: Conjunctiva clear. Lids normal. MOUTH: Lips, gums, tongue normal. NECK/THYROID: Supple with no masses noted. Trachea midline. CARDIOVASCULAR: RRR with no JVD noted. LUNGS: Eupneic with no wheezes noted. ABDOMINAL: Soft, non-distended, and non-tender with normal bowel sounds. SKIN: Warm, dry, pink with no visible rashes, lesions, or ulcerations noted. PSYCH: Alert and oriented x 3. Mood, affect, judgment and insight intact. No signs of oversedation or intoxication noted.Procedure DocumentationNone recordedAssessment/PlanI have personally reviewed the past medical, family, and social histories and ROS, along with all orders in today's record and have noted any changes. A [id number] electronic director of category management program has been utilized for much of this encounter note. Electronic director of category management of spoken language can sometimes lead to errors, and at times, nonsensical words or phrases may be inadvertently transcribed. Every effort has been taken to review and correct these, but some may still exist. If there are any questions regarding this note please contact my office at [phone]. Thank you! 1. Dysphagia-Patient with episodes of dysphagia due to solids. Concern for stricture versus spasm. Patient with history of acid reflux. Can order barium swallow if symptoms persist.R13.10: Dysphagia, unspecified LEARNING ABOUT SWALLOWING PROBLEMS 2.History of bariatric surgeryRecommend that patient establish with [place] [facility].Z98.84: Bariatric surgery status 3. Screening for malignant neoplasm of colon-Poor prep-recommend repeat in 1-3 years.Z12.11: Encounter for screening for malignant neoplasm of colon 4.Coronary artery disease, unspecified vessel or lesion type, unspecified whether angina present, unspecified whether [place] or transplanted heartRecommend to continue follow up with specialist/PCP regarding this.I25.10: Atherosclerotic heart disease of [place] coronary artery without angina pectoris 5. Hypertensive disorder- Patient with current diagnosis of hypertension. Encouraged healthy lifestyle, including sodium intake reduction, avoidance of caffeine/nicotine, increased heart healthy activity. Encourage patient to continue follow up with PCP for disease management.I10: Essential (primary) hypertension 6. Hyperlipidemia- Patient with current diagnosis of hyperlipidemia. Discussed the correlation between elevated cholesterol/triglycerides and steatosis, as well as the potential progression to fibrosis/cirrhosis and the increased risk of liver cancer. Encouraged to follow heart healthy lifestyle, including avoiding saturated fats and trans-fats, eating polyunsaturated fats in moderation, increased heart healthy activity. Encourage patient to continue follow up with PCP for disease management.E78.5: Hyperlipidemia, unspecified 7. Type 2 diabetes mellitus- Patient with current diagnosis of DMII. Encouraged glucose control, healthy lifestyle and diet, increased heart healthy activity. Encourage patient to continue follow up with PCP/market analyst for disease management.E11.8: Type 2 diabetes mellitus with unspecified complications 8. Hypothyroidism- Patient with current diagnosis of hypothyroidism. Encourage follow up with PCP for disease management.E03.9: Hypothyroidism, unspecified Return to Office Jass Bneoit MD for Medicare Annual Wellness 30min at [facility] Medicine- Dept 648 on 08/01/2024 at 01:45 PM Jass Benoit MD [facility], [address], [place], [address], [place] & [place] 07/09/2024 13:45:14 Procedures Surgical History Date Name Laterality Status Provider Name and Address Organization Details Recorded Time 08/02/19 25 Medicare Annual Wellness Visit Health Risk Assessment completed Jass Benoit MD [address] [place] [address] Drive, [address], [place], [address], [place] [facility] [place] 08/01/2024 14:25:29 01/22/20 23 Medicare Annual Wellness Visit Health Risk Assessment completed Jass Benoit MD [address] [place] [address], [address], [place], [address], [place] [facility] & [place] 01/21/2023 17:08:16 01/06/20 22 Most Recent Mammogram completed Carola Zelaya [place] [facility] [place] 01/13/2023 15:53:46 02/08/19 22 completed Cheleste Garcia [place] [facility] & [place] 01/13/2023 15:52:47 12/30/19 14 Date of Last Colonoscopy completed Joanieestnahomy Zelaya [place] & [place] 04/14/2023 16:43:58 12/30/19 14 Colonoscopy completed Joanieeste Garcia [place] & [place] 01/13/2023 15:51:27 02/08/19 13 Date of Last Pap Smear [place] Cheleste [place] 01/13/2023 15:52:47 02/08/19 13 Most Recent Bone Density [place] Cheleste [place] & [place] 01/13/2023 15:52:47 02/08/19 13 Cardiovascular Surgery [place] Cheleste [place] & [place] 01/13/2023 15:52:53 02/08/19 04 Abdominal Surgery [place] Cheleste [place] & [place] 01/13/2023 15:52:53 02/08/19 00 Thyroid Surgery [place] Cheleste [place] & [place] 01/13/2023 15:52:53 02/08/18 99 LASIK [place] Cheleste [place] 01/13/2023 15:52:52 Tonsillectomy [place] Cheleste [place] 09/15/2022 12:32:44 hysterectomy [place] Cheleste [place] & [place] 09/15/2022 12:32:53 thyroidectomy [place] Cheleste [place] & [place] 09/15/2022 12:32:59 renal lithotripsy completed Chelest e [place] & [place] 09/15/2022 12:33:09 abdominoplasty completed Cheleste [place] & [place] 09/15/2022 12:33:24 cystoscopy [place] Cheleste [place] & [place] 09/15/2022 12:33:57 Other completed Cheleste [place] 09/15/2022 12:34:15 cardiac catheterization completed Cheleste [place] & [place] 01/13/2023 15:57:10 Imaging Results None recorded. Procedure Notes None recorded. Medical Equipment None Reported. Allergies Allergen ID Allergen Name Allergen Category Reaction Reaction Severity Criticality Documentation Date Start Date Code Code System Note Provider Name and Address Organization Details Recorded Time 853153 dapaglifl ozin Not available Not available Not available Not available 04/11/2024 57990 64 RxNorm Catalina peres y funct ion [place] [facility] & [place] 5 15:49:49 980749 semagluti de medicatio n nausea vomiting Not available Not available Not available 04/11/2024 RxNorm ISAEL [facility] & [place] 5 15:50:10 [id number] ezetimibe medicatio n nausea vomiting Not available Not available Not available 04/11/2024 [id number] 8 RxNorm ISAEL [facility] & [place] 5 15:50:15 40654 niacin medicatio n palpitati ons Not available Not available 11/26/2021 7393 RxNorm ISAEL Rivera [facility] & [place] 2 11:30:33 67575 bacitraci n / neomycin / polymyxin B medicatio n Not available Not available Not available 11/26/2021 [id number] 9 RxNorm ISAEL Rivera [facility] & [place] 2 11:30:47 Medications Name Sig Start Date Stop Date Status Note LastModified by Organization Details LastModified Time Singulair 10 mg tablet 1 tablet every day by oral route. 04/07 completed Not Available Not Available Not Available methocarbam ol 500 mg tablet TAKE 1 TABLET BY MOUTH THREE TIMES DAILY FOR 5 DAYS 04/28 completed Not Available Not Available Not Available metformin 500 mg tablet TAKE 2 TABLET BY MOUTH TWICE DAILY active Not Available Not Available No t Available primidone 50 mg tablet TAKE 1 TABLET BY MOUTH TWICE DAILY 09/22 completed Not Available Not Available Not Available nitrofurant oin macrocrysta l 50 mg capsule TAKE 1 CAPSULE BY MOUTH ONCE DAILY 04/28 completed Not Available Not Available Not Available azithromyci n 250 mg tablet TAKE 2 TABLETS BY MOUTH ON DAY 1, AND THEN TAKE 1 TABLET BY MOUTH ONCE A DAY ON DAY 2 THROUGH DAY 5 04/28 completed Not Available Not Available Not Available metronidazo le 0.75 % (37.5 mg/5 gram) vaginal gel INSERT 1 APPLICATO RFUL VAGINALLY ONCE DAILY FOR 5 DAYS 09/22 completed Not Available Not Available Not Available famotidine 40 mg tablet TAKE 1 TABLET BY MOUTH ONCE DAILY FOR 90 DAYS 09/22 completed Not Available Not Available Not Available sulfamethox azole 800 mg-trimetho prim 160 mg tablet TAKE 1 TABLET BY MOUTH EVERY 12 HOURS FOR 5 DAYS 05/24 completed Not Available Not Available Not Available liothyronin e 5 mcg tablet TAKE 1 TABLET BY MOUTH ONCE DAILY . APPOINTME NT REQUIRED FOR FUTURE REFILLS active Not Available Not Available No t Available aspirin 81 mg tablet,ivana yed release Take 1 tablet every day by oral route. active Not Available Not Available No t Available tramadol 50 mg tablet TAKE 1 TABLET BY MOUTH EVERY 4 HOURS NEEDED FOR POST OP PAIN 09/22 completed Not Available Not Available Not Available levothyroxi ne 75 mcg tablet TAKE 1 TABLET BY MOUTH ONCE DAILY 09/22 completed Not Available Not Available Not Available levothyroxi ne 100 mcg tablet TAKE 1 TABLET BY MOUTH ONCE DAILY 11/25 completed Not Available Not Available Not Available alprazolam 0.5 mg tablet TAKE 1 TABLET BY MOUTH TWICE DAILY NEEDED active Not Available Not Available No t Available amoxicillin 875 mg tablet 09/22 completed Not Available Not Available Not Available alprazolam 0.25 mg tablet 05/25 completed Not Available Not Available Not Available metoclopram miguel 5 mg tablet 09/22 completed Not Available Not Available Not Available dexamethaso ne 1 mg tablet TAKE 1 TABLET BY MOUTH AT 11:00 P.M. THE NIGHT BEFORE 8:00 A.M. CORTISOL CHECK 11/25 completed Not Available Not Available Not Available benzonatate 100 mg capsule TAKE 1 CAPSULE BY MOUTH THREE TIMES DAILY NEEDED FOR COUGH 04/28 completed Not Available Not Available Not Available glipizide ER 2.5 mg tablet, extended release 24 hr TAKE 1 TABLET BY MOUTH ONCE DAILY active Not Available Not Available No t Available hydrocodone 7.5 mg-acetamin ophen 325 mg tablet TAKE 1 TABLET BY MOUTH EVERY 6 HOURS NEEDED FOR PAIN FOR UP TO 10 DAYS . DO NOT EXCEED DAILY AMOUNT OF 4 TABLETS 08/01 completed Not Available Not Available Not Available cephalexin 500 mg capsule TAKE 1 CAPSULE BY MOUTH THREE TIMES DAILY FOR 7 DAYS 11/26 completed Not Available Not Available Not Available cyanocobala min (vit B-12) 1,000 mcg/mL injection solution INJECT 1 ML SUBCUTANE OUSLY ONCE EVERY MONTH active Not Available Not Available No t Available neomycin-po lymyxin-dex ameth 3.5 mg/mL-10,00 0 unit/mL-0.1 % eye drops INSTILL 1 DROP INTO AFFECTED EYE(S) EVERY 3 TO 4 HOURS 09/22 completed Not Available Not Available Not Available nitroglycer in 0.[address] 1 TABLET UNDER THE TONGUE EVERY 2 HOURS NEEDED MAX DOSE IS 3 TABS IN 15 MINUTES active Not Available Not Available No t Available lisinopril 5 mg tablet TAKE 1 TABLET BY MOUTH ONCE DAILY 09/22 completed Not Available Not Available Not Available metoprolol succinate ER 25 mg tablet,exte nded release 24 hr TAKE 1 & 1/2 (ONE & ONE-HALF) TABLETS BY MOUTH NIGHTLY 09/22 completed Not Available Not Available Not Available ergocalcife rol (vitamin D2) 1,250 mcg (50,000 unit) capsule Take 1 capsule every month by oral route. 11/25 completed Not Available Not Available Not Available BD Tuberculin Syringe 1 mL 25 gauge x 5/8 active Not Available Not Available Not Available levofloxaci n 500 mg tablet TAKE 1 TABLET BY MOUTH EVERY 24 HOURS FOR 7 DAYS 08/23 completed Not Available Not Available Not Available zolpidem 10 mg tablet TAKE 1 TABLET BY MOUTH ONCE DAILY active Not Available Not Available No t Available propranolol 20 mg tablet TAKE 1 TABLET BY MOUTH TWICE DAILY active Not Available Not Available No t Available ondansetron 4 mg disintegrat ing tablet DISSOLVE 1 TABLET IN MOUTH EVERY 6 HOURS NEEDED 11/25 completed Not Available Not Available Not Available cefdinir 300 mg capsule TAKE 1 CAPSULE BY MOUTH EVERY 12 HOURS FOR 7 DAYS 09/22 completed Not Available Not Available Not Available lisinopril 2.5 mg tablet 11/25 completed Not Available Not Available Not Available loratadine 10 mg tablet Take 1 tablet every day by oral route for 90 days. 2024 active Not Available Not Available Not Avai lable amoxicillin 875 mg-potassiu m clavulanate 125 mg tablet 09/22 completed Not Available Not Available Not Available escitalopra m 10 mg tablet TAKE 1 TABLET BY MOUTH ONCE DAILY active Not Available Not Available No t Available escitalopra m 20 mg tablet TAKE 1 TABLET BY MOUTH ONCE DAILY 09/22 completed Not Available Not Available Not Available ezetimibe 10 mg tablet 09/22 completed Not Available Not Available Not Available rosuvastati n 10 mg tablet TAKE 1 TABLET BY MOUTH ONCE DAILY 09/22 completed Not Available Not Available Not Available rosuvastati n 40 mg tablet TAKE 1 TABLET BY MOUTH ONCE DAILY active Not Available Not Available No t Available nitrofurant oin monohydrate /macrocryst als 100 mg capsule TAKE 1 CAPSULE BY MOUTH TWICE DAILY 08/23 completed Not Available Not Available Not Available duloxetine 30 mg capsule,del ayed release 01/18 completed Not Available Not Available Not Available duloxetine 60 mg capsule,del ayed release TAKE 1 CAPSULE BY MOUTH ONCE DAILY FOR 90 DAYS 09/22 completed Not Available Not Available Not Available cholecalcif barry (vitamin D3) 1,250 mcg (50,000 unit) capsule TAKE 1 CAPSULE BY MOUTH ONCE A WEEK active Not Available Not Available No t Available glipizide ER 2.5 mg 24 hr tablet,exte nded release Take 1 tablet every day by oral route. 09/23 completed Not Available Not Available Not Available Mucus Relief ER 600 mg tablet, extended release TAKE 1 TABLET BY MOUTH EVERY 12 HOURS FOR 10 DAYS 11/26 completed Not Available Not Available Not Available Janumet XR 100 mg-1,000 mg tablet,exte nded release TAKE 1 TABLET BY MOUTH ONCE DAILY 09/22 completed Not Available Not Available Not Available Multi Vitamin active Not Available Not Available Not Available Jardiance 10 mg tablet Take 1 tablet every day by oral route for 90 days. 11/25 completed Not Available Not Available Not Available metoprolol tartrate 37.5 mg tablet Take 1 tablet every day by oral route. 08/23 completed Not Available Not Available Not Available metoprolol succinate ER 25 mg capsule sprinkle, ext. release 24 hr Take 1.5 capsules every day by oral route. 08/23 completed Not Available Not Available Not Available Ozempic 0.25 mg or 0.5 mg (2 mg/3 mL) subcutaneou s pen injector 01/21 completed Not Available Not Available Not Available Vitals Date Recorded Body height Body mass index (BMI) Body weight Body temperature Oxygen saturation Oxygen saturation in Arterial blood by Pulse oximetry Heart rate Systolic And Diastolic Provider Name and Address Organization Details Last Updated DateTime 5 157.48 cm 27.8 kg/m2 72416.7 4 g 97.2 [degF] 97 % 97 % 98 /min 138/78 mm[Hg] Siri KIRKLAND [facility] & [place] 5 15:13:55 Date Recorded Body height Body mass index (BMI) Body weight Body temperature Oxygen saturation Oxygen saturation in Arterial blood by Pulse oximetry Heart rate Systolic And Diastolic Provider Name and Address Organization Details Last Updated DateTime 5 157.48 cm 28.1 kg/m2 01894.7 9 g 98 [degF] 97 % 97 % 80 /min 122/80 mm[Hg] Haylee KIRKLAND [facility] & [place] 5 15:08:05 Date Recorded Body height Body mass index (BMI) Body weight Body temperature Oxygen saturation Oxygen saturation in Arterial blood by Pulse oximetry Heart rate Systolic And Diastolic Provider Name and Address Organization Details Last Updated DateTime 5 157.48 cm 27.8 kg/m2 18006.0 4 g 97 [degF] 97 % 97 % 77 /min 118/78 mm[Hg] Haylee KIRKLAND [facility] & [place] 5 14:57:46 Date Recorded Pain severity - 0-10 verbal numeric rating [Score] - Reported Provider Name and Address Organization Details Last Updated DateTime 08/01/2024 2 Neli Honeycutt [address] [place] [address], [address], [place], [address], ISAEL [facility] & [place] 08/01/2024 14:14:22 Date Recorded Body height Body mass index (BMI) Body weight Body temperature Oxygen saturation Oxygen saturation in Arterial blood by Pulse oximetry Heart rate Systolic And Diastolic Provider Name and Address Organization Details Last Updated DateTime 5 157.48 cm 27.3 kg/m2 77454.2 6 g 97.1 [degF] 97 % 97 % 67 /min 110/64 mm[Hg] Viridiana bourgeois [facility] & [place] 5 14:02:28 Date Recorded Body height Body mass index (BMI) Body weight Body temperature Oxygen saturation Oxygen saturation in Arterial blood by Pulse oximetry Heart rate Systolic And Diastolic Provider Name and Address Organization Details Last Updated DateTime 4 157.48 cm 28.4 kg/m2 37715.2 5 g 96.9 [degF] 97 % 97 % 72 /min 112/72 mm[Hg] Loretta Singh [facility] & [place] 4 14:40:50 Social History Question Answer Notes LastModified by [employer] Details LastModified Time Tobacco Smoking Status Former Smoker Lilian Mulligan [facility] & [place] 11/26/2021 11:34:43 Do You Have An Advance Directive? No Information not available 01/13/2023 Are You Blind Or Do You Have Difficulty Seeing? No Information not available 01/21/2023 What Is Your Level Of Caffeine Consumption? Moderate Information not available 01/21/2023 What Was The Date Of Your Most Recent Tobacco Screening? 04/07/2023 Information not available 04/28/2023 Are You Passively Exposed To Smoke? No Information not available 01/13/2023 Sex: Female Functional Status Question Answer Note LastModified by Organizat ion Details LastModified Time Do you use any illicit or recreational drugs? No [email or web address] Information not available 11/26/2021 Do you or have you ever used any other forms of tobacco or nicotine? No Information not available 01/21/2023 What is your level of alcohol consumption? None Information not available 11/26/2021 What is your exercise level? Occasional Information not available 04/28/2023 Mental Status Question Answer Note LastModified by Organization D etails LastModified Time Do you feel stressed (tense, restless, nervous, or anxious, or unable to sleep at night)? [id number] Information not available 01/21/2023 Family History Relationship Description Onset Age of this Age Resolved Age Notes LastModified by Organization Details LastModified Time Mother Cirrhosis of liver [email or web address] Not available 2024 13:47:38 Mother Parents [email or web address] Not available 2024 13:47:38 Mother Disorder of endocrine system pt. added direct ly (09/19) [email or web address] Not available 09/19/2022 16:28:24 Mother Myocardial infarction pt. added direct ly (09/19) [email or web address] Not available 09/19/2022 16:28:50 Mother Liver problem pt. added direct ly (09/19) [email or web address] Not available 09/19/2022 16:29:13 Mother Disorder of thyroid gland pt. added direct ly (09/19) [email or web address] Not available 09/19/2022 16:29:52 Mother Heart disease Not available 2022 15:54:48 Father Cirrhosis of liver [email or web address] Not available 2024 13:47:38 Father Parents [email or web address] Not available 2024 13:47:38 Father Myocardial infarction pt. added direct ly (09/19) [email or web address] Not available 09/19/2022 16:28:50 Father Liver problem pt. added direct ly (09/19) [email or web address] Not available 09/19/2022 16:29:13 Father Heart disease Not available 2022 15:54:48 Maternal Grandmother Diabetes mellitus [email or web address] Not available 2024 13:47:38 Maternal Grandmother Disorder of endocrine system pt. added direct ly (09/19) [email or web address] Not available 09/19/2022 16:28:24 Maternal Grandmother Disorder of thyroid gland pt. added direct ly (09/19) [email or web address] Not available 09/19/2022 16:29:52 Maternal Grandmother Heart disease Not available 2022 15:54:48 Maternal Grandfather Diabetes mellitus [email or web address] Not available 2024 13:47:38 Maternal Grandfather Heart disease Not available 2022 15:54:48 Brother Disorder of endocrine system pt. added direct ly (09/19) [email or web address] Not available 09/19/2022 16:28:24 Brother Myocardial infarction pt. added direct ly (09/19) [email or web address] Not available 09/19/2022 16:28:50 Brother Diabetes mellitus [email or web address] Not available 2024 13:47:38 Sister Disorder of endocrine system pt. added direct ly (09/19) [email or web address] Not available 09/19/2022 16:28:24 Sister Hypertensive disorder pt. added direct ly (09/19) [email or web address] Not available 09/19/2022 16:29:34 Sister Diabetes mellitus [email or web address] Not available 2024 13:47:38 Paternal Grandfather Myocardial infarction pt. added direct ly (09/19) [email or web address] Not available 09/19/2022 16:28:50 Paternal Grandfather Heart disease Not available 2022 15:54:48 Paternal Uncle Myocardial infarction pt. added direct ly (09/19) [email or web address] Not available 09/19/2022 16:28:50 Paternal Grandmother Liver problem pt. added direct ly (09/19) [email or web address] Not available 09/19/2022 16:29:13 Paternal Grandmother Heart disease Not available 2022 15:54:48 Medical History Condition Response Anxiety Disorder Y Diabetes Y Coronary Artery Disease Y Vision or Eye Problems Y Arthritis Y Kidney Stones Y Ear or Hearing Problems Y Thyroid Problems Y Stroke Y Kidney or Bladder Problems Y Depression Y Hypothyroidism Y Anemia Y Reflux/GERD Y High Cholesterol Y Heart Attack (IA) Y Heart Disease Y Hypertension Y Gynecological History Statement/Question Response Abnormal Pap Y Flow Light 02/08/2021 Date of LMP 06/18/1987 Duration of Flow (days) 6 Age at Menarche 10 Most Recent Mammogram 01/05/2022 Date of Last Colonoscopy 12/29/2013 Most Recent Bone Density 02/09/2012 Sexually Active? N Menses Monthly N Date of Last Pap Smear 02/09/2012 Obstetrics History GPAL:G 0 P 0 0 0 0 Past Encounters Encounter ID Performer Location Encounter Start Date Encounter Closed Date Diagnosis/Indication Diagnosis SNOMED-CT Code Diagnosis ICD10 Code Diagnosis Note [id number] Lilian Amaro NP, [facility] [address] [address] 11/27/2021 15:20:30 11/27/2021 16:29:40 Recurrent urinary tract infection 138170474 N39.0 Urinalysis positive for leukocytes . Will send urine for culture and sensitivit y. Will start patient on cefdinir 300 mg b.i.d. for 7 days. Nocturia 556281194 R35.1 History of calculus of kidney 308793810 Z87.442 [id number] Jass Benoit MD [facility]- Dept [address] [place] [id number] 09/22/2022 09:55:59 09/22/2022 11:48:08 Hyperglycemia due to type 2 diabetes mellitus 1026335655 46031 E11.65 Will continue with metformin. She tried ozempic, but was unable to tolerate this medication due to abdominal distension . Will restart glipizide. Unable to add VELVET or ARB due to low blood pressures due to microalbum in concerns. Hypertensi ve heart disease 48941444 I11.9 Hypothyroidism 08219354 E03.9 Will continue with current synthroid dosage. Hyperlipidemia 71659229 E78.5 Will continue with crestor. Coronary arteriosclerosis 69686523 I25.10 Had a heart cath on 06/01/2022 and had moderate single vessel coronary artery atheroscle rosis with continued patency of the LAD stent. Insomnia 438518017 G47.0 0 Will continue with ambien. She has been on this medication for a number of years and has proven to be beneficial . Dysuria 85907894 R30.0 No evidence of UTI on today's urinalysis . Will continue with staying well hydrated. Generalize d anxiety disorder 02259688 F41.1 She tried cymbalta, but this medication did not work. She is to continue with lexapro and xanax. WIll increase xanax slightly as she has been having more anxiety as of recently. [id number] Jass Benoit MD [facility]- Dept [address] [place], [place] [address] 01/21/2023 15:42:35 01/21/2023 17:19:33 Adult health examination 573664741 Z00.00 Overall Wellness done in the office today. Screening colonoscopy 44 5589595 Z12.11 Up to date with last 2013 and will need repeat 12/2023. Screening mammography 24 804265 Z12.31 Up to date and will get report for records. Screening for osteoporosis 441747989 Z13.820 WIll plan on DEXA scan on next year's visit with mammogram. Hypertensi ve heart disease 68491430 I11.9 Coronary arteriosclerosis 23871696 I25.10 Had a heart cath on 06/01/2022 and had moderate single vessel coronary artery atheroscle rosis with continued patency of the LAD stent. Hyperglyce kristyn due to type 2 diabetes mellitus 1807458336 76356 E11.65 Will continue with metformin. She tried ozempic, but was unable to tolerate this medication due to abdominal distension . Will restart glipizide. Unable to add VELVET or ARB due to low blood pressures due to microalbum in concerns. Hyperlipidemia 21199741 E78.5 Hypothyroidism 54835333 E03.9 Will continue with current synthroid dosage. Insomnia 211620269 G47.0 0 Iron defic iency anemia 92673078 D50.9 Gastroesop hageal reflux disease without esophagitis 781616014 K21.9 Generalize d anxiety disorder 35597306 F41.1 Taking hig h risk medication 6933619133 45430 Z91.89 Resting tremor 63996536 G25.2 Will refer to neurology, but not until the new year as she is going to [place] for the winter. Cobalamin deficiency 190 310047 E53.8 Vitamin D deficiency 347 12563 E55.9 Allergic rhinitis 526782 04 J30.9 Urinary incontinence 165 954927 R32 Influenza vaccination declined 352006762 Z28.21 Body mass index 25-29 - overweight 594221730 Z68.28 Obstructiv e sleep apnea syndrome 26416671 G47.33 [id number] Jass Benoit MD [facility]- Dept [address] [address] 04/19/2023 14:40:49 04/19/2023 15:54:13 Myocardial infarction due to demand ischemia 9700610115 2118967 I21.A1 Recently saw cardiology in [place]. They have requested records from [place]. Was only added back on lisinopril for now. Atrial par oxysmal tachycardia 779320990 I47.19 Doing well with metoprolol . Takotsubo cardiomyopathy 031233568 I51.81 Recent ECHO showed normal EF and heart cath was normal showing no blockage. Nausea and vomiting 1692 1999 R11.2 Likely due to a viral etiology and she is doing well now, but will get her a script for zofran PRN. Acute urin fredy tract infection 960342205 N39.0 [id number] Jass Benoit MD [facility]- Dept [address] [place] [address] 05/26/2023 14:27:43 05/26/2023 15:40:55 Hyperglycemia due to type 2 diabetes mellitus 7026473253 55918 E11.65 Will continue with metformin. Has not had any recent labs. Hypertensi ve heart disease 56825687 I11.9 Will continue with lisinopril and metoprolol . Hypothyroidism 22127199 E03.9 Will continue with current synthroid dosage. Hyperlipidemia 11036263 E78.5 Continue with crestor. Coronary arteriosclerosis 57620444 I25.10 Had a heart cath on 06/01/2022 and had moderate single vessel coronary artery atheroscle rosis with continued patency of the LAD stent. Cobalamin deficiency 190 501232 E53.8 Insomnia 286255001 G47.0 0 Continue with ambien. Iron defic iency anemia 19860036 D50.9 Trace of h emolyzed blood detected in urine 762755967 R31.9 [id number] Jass Benoit MD [facility]- Dept [address] [place] [address] 08/24/2023 09:58:29 08/24/2023 11:07:00 Hyperglycemia due to type 2 diabetes mellitus 0427001134 54885 E11.65 Will continue with metformin and glipizide. Will add jardiance for further kidney protection . Hypertensi ve heart disease 06328874 I11.9 Will continue with lisinopril and propranolo l. Coronary arteriosclerosis 45813681 I25.10 Following closely with cardiology and recently changed from metoprolol to propanolol . Hypothyroidism 79140803 E03.9 Will continue with current synthroid dosage. Hyperlipidemia 54555058 E78.5 Continue with crestor. Proteinuria 34551519 R80 .9 [address] been sent by Dr. Bai for ultrasound of the kidneys next week and repeat labs. [facility] Taking hig h risk medication 3821785895 31080 Z91.89 Pain of le ft hip joint 0366993769 04110 M25.[address] Had steroid injection [address] Dr[address] Hall and this has helped tremendous ly. Staghorn calculus 814149 [address] Bai for now, but may need referral to [facility] in the upcoming future. Cobalamin deficiency 190 303729 E53.8 [id number] Jass Benoit MD [facility]- Dept [address] [place] [address] [place] [address] 11/26/2023 14:20:15 11/26/2023 15:52:05 Hyperglycemia due to type 2 diabetes mellitus 4027606660 13424 E11.65 Will continue with metformin, glipizide, and jardiance. Hypertensi ve heart disease 19067311 I11.9 Will continue with lisinopril and propranolo l. Coronary arteriosclerosis 47619244 I25.10 Following closely with cardiology and recently changed from metoprolol to propanolol . Hyperlipidemia 76512872 E78.5 Continue with crestor. Hypothyroidism 35972840 E03.9 She is following closely with endocrinol ognataliia and recently changed from levothyrox ine to liothyroni ne. Iron defic iency anemia 90601879 D50.9 Most recent labs reviewed in the office today. Vitamin D deficiency 347 45809 E55.9 Influenza vaccination declined 067692307 Z28.21 [id number] Jass Benoit MD [facility]- Dept [address] [place] [address] 04/28/2024 14:22:48 04/28/2024 15:51:39 Hyperglycemia due to type 2 diabetes mellitus 4011742912 78348 E11.65 Will continue with metformin and glipizide. She reports not being as compliant with her medication s. Coronary arteriosclerosis 76158290 I25.10 Following closely with cardiology . Hypothyroidism 25006151 E03.9 She is following closely with endocrinol mandi. Obstructiv e sleep apnea syndrome 04587799 G47.33 She has not been as compliant with her CPAP as she realizes she should be. Iron defic iency anemia 25379246 D50.9 Labs reviewed in the office today. Insomnia 819703996 G47.0 0 Continue with ambien. Vitamin D deficiency 347 13650 E55.9 Chronic cough 40224837 R 05.3 Will plan on xray as she had what sounds to be an aspiration pneumonia in 03/2024 and I am still concerned about food particles that she aspirated (a peanut). Chronic ki dney disease stage 3A 939750460 N18.31 DId discuss in detail today. Hypertensi ve heart and chronic kidney disease 0371914680 104 I13.10 Will continue with lisinopril and propranolo l. Dysuria 47600495 R30.0 Taking hig h risk medication 1909398795 35657 Z79.899 Generalize d anxiety disorder 15867010 F41.1 Cobalamin deficiency 190 121698 E53.8 Hyperlipidemia 55118046 E78.5 Continue with crestor. Screening for malignant neoplasm of colon 355331933 Z12.11 Esophageal dysphagia 408 84811 R13.19 Being referred to GI and will likely need EGD. Allergic rhinitis 392919 04 J30.9 [id number] Taylor Wright NP [facility] [address] [place] [address] [address], [place] [address] 05/24/2024 14:22:06 05/24/2024 15:01:49 Dysphagia 51554255 R13.10 Patient with episodes of dysphagia due to solids. Concern for stricture versus spasm. Patient with history of acid reflux. Will order barium swallow. Will schedule EGD to rule out stricture/ spasm and to help identify underlying cause of dysphagia. History of bariatric surgical procedure [id number] Z98.84 Recommend that patient establish with [facility] [place] [facility] . Screening for malignant neoplasm of colon [id number] Z12.11 Will schedule for age appropriat e screening colonoscop y. Will order basic labs to ensure patient has adequate renal and hepatic function as well as no significan t abnormalit ies that would increase risk of the procedure, including anemia. Colonoscopy planned [id number] Z76.89 Will schedule colonoscop y. Colonoscop y informatio n sheet given. Advised of risks and benefits of the procedure, including risks of perforatio n, possibly missing small abnormalit ies, possible infection, as well as risks of anesthesia . Patient verbalizes understand ing and wishes to proceed. Procedure prep explained to patient. Prep ordered. Coronary arteriosclerosis 05359032 I25.10 Recommend to continue follow up with specialist /PCP regarding this. Hypertensive disorder 38 245654 I10 Patient with current diagnosis of hypertensi on. Encouraged healthy lifestyle, including sodium intake reduction, avoidance of caffeine/n icotine, increased heart healthy activity. Encourage patient to continue follow up with PCP for disease management . Hyperlipidemia 75939673 E78.5 Patient with current diagnosis of hyperlipid emia. Discussed the correlatio n between elevated cholestero l/triglyce rides and steatosis, as well as the potential progressio n to fibrosis/c irrhosis and the increased risk of liver cancer. Encouraged to follow heart healthy lifestyle, including avoiding saturated fats and trans-fats , eating polyunsatu rated fats in moderation , increased heart healthy activity. Encourage patient to continue follow up with PCP for disease management . Type 2 jayson betes mellitus 21183313 E11.8 Patient with current diagnosis of DMII. Encouraged glucose control, healthy lifestyle and diet, increased heart healthy activity. Encourage patient to continue follow up with PCP/endocr inologist for disease management . Hypothyroidism 74656278 E03.9 Patient with current diagnosis of hypothyroi dism. Encourage follow up with PCP for disease management . [id number] Taylor Wright NP [facility] [address] [place] [address] ISAEL GALLAGHER [phone] 06/14/2024 14:36:28 06/14/2024 14:58:40 Dysphagia 31981766 R13.10 Patient with episodes of dysphagia due to solids. Concern for stricture versus spasm. Patient with history of acid reflux. Can order barium swallow if symptoms persist. History of bariatric surgical procedure 496665921 Z98.84 Recommend that patient establish with [facility] [place] [facility] . Screening for malignant neoplasm of colon 242199029 Z12.11 Poor prep-recom mend repeat in 1-3 years. Coronary arteriosclerosis 52078790 I25.10 Recommend to continue follow up with specialist /PCP regarding this. Hypertensive disorder 38 548110 I10 Patient with current diagnosis of hypertensi on. Encouraged healthy lifestyle, including sodium intake reduction, avoidance of caffeine/n icotine, increased heart healthy activity. Encourage patient to continue follow up with PCP for disease management . Hyperlipidemia 32480502 E78.5 Patient with current diagnosis of hyperlipid emia. Discussed the correlatio n between elevated cholestero l/triglyce rides and steatosis, as well as the potential progressio n to fibrosis/c irrhosis and the increased risk of liver cancer. Encouraged to follow heart healthy lifestyle, including avoiding saturated fats and trans-fats , eating polyunsatu rated fats in moderation , increased heart healthy activity. Encourage patient to continue follow up with PCP for disease management . Type 2 jayson betes mellitus 34491137 E11.8 Patient with current diagnosis of DMII. Encouraged glucose control, healthy lifestyle and diet, increased heart healthy activity. Encourage patient to continue follow up with PCP/endocr inologist for disease management . Hypothyroidism 69531941 E03.9 Patient with current diagnosis of hypothyroi dism. Encourage follow up with PCP for disease management . [id number] Jass Benoit MD [facility]- Dept [address] [place] [phone] 08/01/2024 13:45:15 08/01/2024 14:47:25 Adult health examination 197138761 Z00.00 Overall Wellness done in the office today. Screening colonoscopy 44 6202167 Z12.11 Up to date with last 06/06/2024 , but poor prep and repeat in 1-3 years. Screening mammography 24 556600 Z12.31 Screening for osteoporosis 758621790 Z13.820 Hyperglyce kristyn due to type 2 diabetes mellitus 5145301801 29837 E11.65 Coronary arteriosclerosis 17334118 I25.10 Hyperlipidemia 00190035 E78.5 Iron defic iency anemia 96687203 D50.9 Obstructiv e sleep apnea syndrome 75270447 G47.33 Hypothyroidism 40327088 E03.9 Vitamin D deficiency 347 25104 E55.9 Urinary incontinence 165 739762 R32 Hypertensi ve heart and chronic kidney disease 7119352397 104 I13.10 Chronic ki dney disease stage 3A 801310006 N18.31 Allergic rhinitis 943748 04 J30.9 Cobalamin deficiency 190 103042 E53.8 Chronic ur inary tract infection 389732821 N39.0 Gastroesop hageal reflux disease without esophagitis 290005736 K21.9 Generalize d anxiety disorder 90780066 F41.1 Insomnia 421882712 G47.0 0 Overweight 551561775 E66 .3 Overweight in adulthood with body mass index of 25 or more but less than 30 273146774 Z68.27 Health Concerns Section Related Observation LastModified by Organization Detai ls LastModified Time None Recorded Concern Status LastModified by Organization Details LastModified Time None Recorded Advance Directives Directive N: Payers Insurance Date Sequence Insurance Name Policy Number Policy Zepeda Covered Member ID Zepeda Member ID Guarantor Name 08/28/2023 2 [employer] INSUR[employer] Code Fever (MEDICARE SUPPLEMENT) Emmett M Samina [id number] Enrikea M Samina 06/11/2024 2 [employer] INSUR[employer] Code [place] (MEDICARE SUPPLEMENT) Emmett M Samina [id number] Enrikea M Samina 08/22/2024 [place] - [facility] (MEDICARE) Panda J Samina [id number] Panda M Samina 08/22/2024 1 [place] Enrikea J Samina [id number] Enrikea M Samina 01/13/2021 2 [place] [id number] R Jorge M Samina [id number] Panda M Samina 01/13/2021 2 [place] [id number] R Panda M Samina [id number] Panda M Samina 11/27/2021 2 [place] [id number] R Emmett M Samina [id number] Enrikea M Samina Notes Date Note Type Note Provider Name and Address Organization Details Recorded Time 4 text/html Diabetes F/UReported by PatientHPIFor context, patient reportsnot missing doses of medicationsandno side effects from medications. For associated symptoms, patient reportsno unintentional weight gain,no unintentional weight loss,no dizziness, andno headaches.She does continue with glipizide, jardiance and metformin. Jass Benoit MD [address] [place] [address], [address], [place], [address], [facility] & [place] 11/26/2023 15:04:28 5 text/html Diabetes F/UReported by PatientHPIFor context, patient reportsno side effects from medicationsandmissing doses of medication. For associated symptoms, patient reportsno unintentional weight gain,no unintentional weight loss,no dizziness, andno headaches.She does continue with metformin and glipizide. Jass Benoit MD [address] [place] [address], [address], [place], [address], [facility] & [place] 04/28/2024 16:13:29 5 text/html ROS as noted in the HPI Pleasant 68 [address] patient of Dr. Jass Benoit, PCP with PMH significant for DMII, CAD, anxiety, HTN, HLD, hypothyroidism, hx of Isaura-en-Y (2003), who presents today for screening colonoscopy. Has not had a colonoscopy in years-last one was in [facility]. Intermittently has diarrhea. Dependent on what she eats. If she has Chadian or Arabic will cause it. Since February has begun having issue with medications getting stuck. Has to over chew her food due to feeling like it gets stuck. Also complains of taking a few bites, feeling full. Then a few minutes later will feel hungry again. Has gained 20 pounds. Has not followed up with bariatrics in quite some time. Denies difficulty chewing, choking, nausea, vomiting, hematemesis, heartburn, acid reflux, abdominal pain, constipation, melena, hematochezia. Denies known family history of colon cancer, polyps. Denies tobacco, alcohol, illicit drug use including marijuana. Denies use of anticoagulant, GLP-1 agonist, iron supplement. Only occasionally uses Naprosyn for her knee pain. PREVIOUS INVESTIGATIONS REVIEWED:5A1C 8.0-highCholesterol 145Trigs 230-highWBC 5.3HGB 13.5HCT 43.0MCV 89PLT 279BUN 13Creatinine 1.09-highTotal Bili 0.2AST 25ALT 18Alk Phos 66 Taylor Wright, BRYNN [address] [facility], [address], [address], [facility] [place] & [place] 05/24/2024 21:58:33 5 text/html ROS as noted in the HPI Pleasant [address] of 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 Has not had a colonoscopy in years-last one was in [facility]. Still having symptoms. No other concerns or complaints at this time. Denies difficulty chewing, choking, nausea, vomiting, hematemesis, heartburn, acid reflux, abdominal pain, constipation, melena, hematochezia. Denies known family history of colon cancer, polyps. Denies tobacco, alcohol, illicit drug use including marijuana. Denies use of anticoagulant, GLP-1 agonist, iron supplement. Only occasionally uses Naprosyn for her knee pain. PREVIOUS INVESTIGATIONS REVIEWED:06/06/2024EGD/col onoscopy op report reviewed. Poor pre-recommend repeat in 1-3 years.PATHOLOGY:Anastomosi s: benign small bowel mucosaDuodenum Biopsy: No pathologic abnormalityMid esophagus biopsy: chronic nonspecific esophagitisTransverse colon polyp at 90 cm: benign mucosal polyp 5A1C 8.0-highCholesterol 145Trigs 230-highWBC 5.3HGB 13.5HCT 43.0MCV 89PLT 279BUN 13Creatinine 1.09-highTotal Bili 0.2AST 25ALT 18Alk Phos 66 Taylor Wright NP [address], [address], [place], [address], [facility] & [place] 07/08/2024 15:48:25 5 text/html Medicare Annual Wellness VisitReported by PatientSocial/Behavioral HistoryFor fracture risk, patient reportshistory of fracturesbut reportsno sudden unexplained fractures. For physical activity, patient reportsdoes not exercise on a regular basis. For diet and nutrition, patient reportshealthy diet.Mental Status:For depression risk, patient reportsfeels sad, empty, or tearful,loss of interest in activities,sleep disturbances or insomnia,loss of energy,feelings of worthlessness or guilt, andhistory of depressionbut reportsno significant changes in weight,no agitation,no thoughts of suicide, andno history of mood disorders. For orientation, patient reportsno disorientation to time,no disorientation to date, andno disorientation to place. For concentration and memory, patient reportsno decreased concentrating ability,no memory lapses or loss, anddoes not forget words. For speech/motor difficulties, patient reportsno speech difficulties,no difficulty expressing formulated concepts,no difficulty with fine manipulative tasks,no difficulty writing/copying,no slowed reaction time, anddoes not knock things over when trying to pick them up.Functional AbilityFor hearing, patient reportsloss of hearing: in both ears(has hearing aids but does not wear them). For activities of daily living, patient reportsunable to control urination and bowelsbut reportsable to bathe with limited or no assistance,able to dress with limited or no assistance,able to feed self with limited or no assistance,able to get out of chair or bed with limited or no assistance,able to groom with limited or no assistance, andable to toilet with limited or no assistance. For falls risk assessment, patient reportsinjury with fallbut reportsfall(s) in the past year 1(concussion). For instrumental activities of daily living, patient reportsable to do house work with limited or no assistance,able to grocery shop with limited or no assistance,able to manage medications with limited or no assistance,able to manage money with limited or no assistance,able to prepare meals with limited or no assistance, andable to use the phone with limited or no assistance. For home safety, patient reportsno unsafe juan antonio hazzards,working smoke/co detectors,use of seatbelts,has hand bars in the bathroom/shower, andgood lighting in the home. For vision, (wears glasses). Jass Benoit MD [address] [place] [address], [address], [place], [address], [facility] 08/01/2024 14:34:49 OBGyn Episode No OBEpisode recorded.
--- OUTSIDE RECORDS SUMMARY | 2024-08-31 08:44 | XMS_ITS | Referral Summary ---
Author Organization [employer] ([place], [place], [place], [place]) Address [address] [place] [address] Care Team Providers Care Feather Separator Name Role Phone Darrian Reno PA-C Unavailable [phone] Jessica Gomez MD Primary Care Provider Gibson Bai MD Unavailable Encounters Date Type Department Care Team Description 08/02/2024 Outside Orders [facility] Scheduling [address] [place] [address] Jessica Gomez MD Encounter for screening for osteoporosis (Primary Dx) 08/01/2024 Outside [facility] Scheduling [address] [place] [address] Jessica Gomez MD Encounter for screening mammogram for malignant neoplasm of breast (Primary Dx) 07/17/2024 Outside [facility] Admitting [address] [place] [address] Provider, Not In System 07/17/2024 Travel 07/17/2024 9:17 AM EDT - 07/17/2024 10:41 AM EDT Surgery [facility] Surgery Department [address] [place] [address] Chris Casey MD RIGHT EXTRACORPOREAL SHOCKWAVE LITHOTRIPSY 07/17/2024 9:37 AM EDT Anesthesia Event [facility] Surgery Department [address] [place] [address] No Win CRNA Booker, Philip Craig, MD 07/17/2024 6:43 AM EDT - 07/17/2024 11:28 AM EDT Hospital Encounter [facility] Surgery Department [address] [place] [address] Chris Casey MD Kidney stone (Primary Dx) Discharge Disposition: Home or Self Care 07/11/2024 Travel 07/11/2024 1:00 PM EDT - 07/11/2024 11:59 PM EDT Hospital Encounter [facility] Preadmission Testing [address] [facility] [address] [place] [address] Chris Casey MD Preop examination (Primary Dx); LBBB (left bundle branch block) Discharge Disposition: Home or Self Care from Last 3 Months Allergies Active Allergy Reactions Criticality Noted Date Comments Dapagliflozin Other (See Comments) High 04/15/2023 Worsening kidney function Benzalkonium Chloride Other (See Comments) High 04/2024 TACHYCARDIA Niacin Palpitations Low 02/21/2016 Semaglutide Nausea [...] pectoris 04/16/2022 Coronary artery disease invo lving [place] coronary artery of [place] heart without angina pectoris 04/16/2022 Diabetes mellitus 04/16/2022 Mixed hyperlipidemia 04/16/2022 Hypertension 04/16/2022 Palpitations 04/16/2022 Stroke with cerebral ischemia 04/16/2022 Takotsubo cardiomyopathy 04/16/2022 Resolved Problems Problem Noted Date Diagnosed Date Resolved Date Chest pain, atypical 04/16/2022 023 Shortness of breath 04/16/2022 05/20/19 23 Social History Tobacco Use Types Packs/Day Years [...] Date Yemi rded Speak language other than Guinean at home Not on file 02/20/2023 Want [...] Info) Description 10/20/2024 9:00 AM EDT Appointment [facility] Breast Imaging [address] [place] [address] Jessica Gomez MD [address] [place] [address] 10/20/2024 9:30 AM EDT Appointment [facility] Nuclear Medicine [address] [place] [phone] Jessica Gomez MD [address] [place] [address] Procedures Procedure Name Priority Date/Time Associated Diagnosis Comments NOVA GLUCOSE POC Routine 07/17/2024 10:44 AM EDT ANESTHESIA INTUBATION Routine 07/17/2024 9:43 AM EDT DC LITHOTRIPSY XTRCORP SHOCK WAVE 07/17/2024 9:35 AM EDT Calculus of kidney Case Notes AGILITI CONFIRMATION #[id number] SPOKE TO ITALIA NOVA GLUCOSE POC Routine [...] of2 resultswithin the time period is included. Pathologist [facility] POC-GLUCOSE 146(H) 70 - 110 mg/dL 07/17/2024 10:45 AM EDT [facility] Comment:In the event of poor peripheral blood flow, venous or arterial blood should be used due to the potential of erroneous results. [employer] [id number] 07/17/2024 10:45 AM EDT [facility] Blood WHOLE BLOOD / Unknown 07/17/2024 10:44 AM EDT 07/17/2024 10:45 AM EDT Narrative [facility] - 07/17/2024 10:45 AM EDT [employer] ID is - [id number] us Chris Casey MD POINT OF CARE TEST ORDERABLES Final Result [facility] [address] [email or web address] [address] [phone] * AN SINGLE LUMEN INTUBATION (07/17/2024 9:43 [...] 10.0 K/ L 07/11/2024 3:22 PM EDT [facility] RBC 4.93 3.93 - 5.22 M/ L 07/11/2024 3:22 PM EDT [facility] Hemoglobin 13.6 11.2 - 15.7 GM/DL 07/11/2024 3:22 PM EDT [facility] Hematocrit 43.7 34.1 - 44.9 % 07/11/2024 3:22 PM EDT [facility] MCV 89 79 - 95 fL 07/11/2024 3:22 PM EDT [facility] MCH 27.6 25.6 - 32.2 pg 07/11/2024 3:22 PM EDT [facility] MCHC 31.1(L) 32.2 - 36.5 GM/DL 07/11/2024 3:22 PM EDT [facility] RDW 14.6(H) 11.6 - 14.4 % 07/11/2024 3:22 PM EDT [facility] Platelets 297 163 - 369 K/CU MM 07/11/2024 3:22 PM EDT [facility] MPV 11.0 9.4 - 12.4 fL 07/11/2024 3:22 PM EDT [facility] nRBC 0(L) 1 - 5 /100 WBC 07/11/2024 3:22 PM EDT [facility] Blood Venipuncture / Unknown 07/11/2024 1:48 PM EDT 07/11/2024 3:08 PM EDT Chris Casey MD LAB BLOOD ORDERABLES Final Res ult Performing Organization Address [facility] Co de Phone Number [facility] [address] [place] [address], [facility] [phone] * (ABNORMAL) Hemoglobin A1c (07/11/2024 1:48 PM EDT) Hemoglobin A1C 7.1(H) 4.2 - 6.3 % 07/11/2024 3:47 PM EDT [facility] Comment: Hemoglobin A1C levels are related to mean glucose during the preceding 2-3 months. Less than 7% demonstrates glycemic control in diabetic patients. Hemoglobin AlC % Suggested Diagnosis > or = 6.5 Diabetic 5.7 - 6.4 Prediabetic <5.7 Non-diabetic eAVG Glucose 157.07 mg/dL 07/11/2024 3:47 PM EDT [facility] Blood Venipuncture / Unknown 07/11/2024 1:48 PM EDT 07/11/2024 3:08 PM EDT us Chris Casey MD LAB BLOOD ORDERABLES Final Res ult [facility] [address] [place] [address], [facility] [phone] * (ABNORMAL) Basic Metabolic Panel (07/11/2024 1:48 PM EDT) Sodium 139 136 - 146 meq/L 07/11/2024 3:38 PM EDT [facility] Potassium 4.8 3.5 - 5.1 meq/L 07/11/2024 3:38 PM EDT [facility] Chloride 106 102 - 112 meq/L 07/11/2024 3:38 PM EDT [facility] CO2 23 21 - 32 meq/L 07/11/2024 3:38 PM EDT [facility] Anion Gap 15 9 - 20 07/11/2024 3:38 PM EDT [facility] BUN 18 7 - 22 mg/dL 07/11/2024 3:38 PM EDT [facility] Creatinine 1.30(H) 0.55 - 1.02 mg/dL 07/11/2024 3:38 PM EDT [facility] BUN/Creatinine 14 8 - 20 07/11/2024 3:38 PM EDT [facility] Glucose 288(H) 74 - 106 mg/dL 07/11/2024 3:38 PM EDT [facility] Calcium 9.5 8.5 - 10.1 mg/dL 07/11/2024 3:38 PM EDT [facility] Osmolality Calc 290.0 mOsm/kg 3:38 PM EDT [facility] eGFR (mL/min/1.73m2) 45(L) >=60 mL/min/1.7 3m2 07/11/2024 3:38 PM EDT [facility] Comment:eGFR of <60 suggests chronic kidney disease if found over a 3 month period of time. eGFR <15 indicates renal failure. Blood Venipuncture / Unknown 07/11/2024 1:48 PM EDT 07/11/2024 3:08 PM EDT us Chris Casey MD LAB BLOOD ORDERABLES Final Res ult [facility] [address] [phone] * ECG 12 lead (07/11/2024 12:19 PM EDT) VENTRICULAR RATE EKG/MIN 77 BPM GE MUSE ATRIAL RATE (MCT) 77 BPM GE MUSE DC Interval 142 ms GE MUSE QRS-INTERVAL (MSEC) 122 ms GE MUSE QT Interval 394 ms GE MUSE QTC Interval 445 ms GE MUSE P [place] 50 degrees GE MUSE R AXIS (MCT) 51 degrees GE MUSE T Wave [place] 131 degrees GE MUSE [place] Diagnosis Normal sinus rhythm Left bundle branch [...] Health Maintenance Insurance MEDICARE PART A B [facility] [place] [id number] Advance Directives For more information, please contact: [phone] Documents on File Type Date Recorded Patient Hand Binder Cutter Expl anation Advance Directives and Livin g Will 06/01/2022 5:26 AM * Full Code (Latest Code Status on File) Date Activated Date Inactivated Comments 07/17/2024 6:40 AM 07/17/2024 12:28 PM * Full Code Date Activated Date Inactivated Comments 06/01/2022 8:46 AM 06/02/2022 4:24 AM * Full Code Date Activated Date Inactivated Comments 06/01/2022 5:25 AM 06/01/2022 8:46 AM Care Teams Feather Separator Relationship Specialty Start Date End Date Jessica Gomez MD [address] [place] [address] PCP - General Internal Medicine 08/09/23 Darrian Reno PA-C [address], [facility] [address] [place] [address] Cardiology 04/15/23 Gibson Bia MD [address] [place] [address] Consulting Physician Urology 08/09/23
--- OUTSIDE RECORDS SUMMARY | 2024-08-31 08:45 | XMS_ITS | Encounter Summary ---
Author Organization [employer] ([place], [place], [place], [place]) Address [address] [place] [address] Care Team Providers Care Glue Plant Operator Name Role Phone Jessica Gomez MD Primary Care Provider [phone] Darrian Reno PA-C Unavailable [phone] Jessica Gomez MD Primary Care Provider [phone] Gibson Bai MD Unavailable Encounter Details Date Type Department Care Team (Late st Contact Info) Description 11/29/2018 Transcribed Document [facility] [place] [address] ProviderAda MD [address] [place] [address] Social History Tobacco Use Types Packs/Day Years Used Date Smoking Tobacco: Never Assessed Comments Unknown Sex and Gender Information Value Date Recorded Sex Assigned at Not on file Legal Sex Female 5:09 PM CDT Gender Identity Not on file Sexual Orientation Not on file documented as of this encounter Miscellaneous Notes * Cerner Conversion Note - Ada ProviderMD - 11/29/2018 11:52 AM CDT UM Authorization Entered On: 11/29/2018 11:52 EDT Performed On: 11/29/2018 11:52 EDT by FELTON MG Rn-Utilization Review Primary Insurance Authorization Authorization and Policy Numbers : Insurance 1 Health Plan: ANTHEM HMOP[employer] Policy Number: Authorization Number: Insurance 2 Health Plan: MEDICARE Policy Number: [id number] Authorization Number: Insurance Primary Name : FAYE ORONAOPPO Policy Number: MEDICARE Policy Number: [id number] Historical Authorization Comments-Primary : No Authorization Comments Found [facility]ELTON MG Rn-Utilization Review - 11/29/2018 11:52 EDT Electronically signed by Jose Rafael [facility] Conversion [employer] Trimmer Cerner at 05/27/2022 11:26 PM CDT documented in this encounter Plan of Treatment Upcoming Encounters Date Type Department Care Team (Late st Contact Info) Description 10/20/2024 9:00 AM EDT Appointment [facility] Breast Imaging [address] [place] [phone] Jessica Gomez MD [address] [place] [address] 10/20/2024 9:30 AM EDT Appointment [facility] Nuclear Medicine [address] [place] [phone] Jessica Gomez MD [address] [place] [address] documented as of this encounter Visit Diagnoses Not on filedocumented in this encounter Care Teams Glue Plant Operator Relationship Specialty Start Date End Date Jessica Gomez MD [address] [place] [address] [address] [place] [address] PCP - General Internal Medicine 12/08/21 05/18/22 Jessica Gomez MD [address] [place] [address] PCP - General Internal Medicine 08/09/23 Darrian Reno PA-C [address] [facility] [address] [place] [address] Cardiology 04/15/23 Gibson Bai MD [address] [facility] [address] [place] [address] Consulting Physician Urology 08/09/23 documented as of this encounter
--- OUTSIDE RECORDS SUMMARY | 2024-08-31 08:45 | XMS_ITS | Encounter Summary ---
Author Organization [employer] ([place], [place], [place], [place]) Address [address] [place] [address] Care Team Providers Care Catalogue Illustrator Name Role Phone Jass Benoit MD Primary Care Provider [phone] Darrian Reno PA-C Unavailable [phone] Jass Benoit MD Primary Care Provider [phone] Gibson Bai MD Unavailable Encounter Details Date Type Department Care Team (Late st Contact Info) Description 11/29/2018 Transcribed Document [facility] Family Medicine [address] [place] [address] ProviderAda MD [address] [place] [address] Social History Tobacco Use Types Packs/Day Years Used Date Smoking Tobacco: Never Assessed Comments Unknown Sex and Gender Information Value Date Recorded Sex Assigned at Not on file Legal Sex Female 5:09 PM CDT Gender Identity Not on file Sexual Orientation Not on file documented as of this encounter Miscellaneous Notes * Cerner Conversion Note - Ada Abdalla MD - 11/29/2018 4:49 PM CDT [facility] [place] [address] YAMILETH HAAS :1955 Visit Time:11/28/2018 Your Visit Summary Your Care Team Admitting Physician - TIMMY SULLIVAN JR, PA-C ZOHARY, YASSER, MD-FAM Attending Physician - TIMMY SULLIVAN JR, PA-C ZOHARY, YASSER, MD-FAM Primary Care Physician - JASS BENOIT (REF)JERICA Referring Physician - TIMMY SULLIVAN JR, PA-C PHY, UNKNOWN Your Diagnosis Chest pain, unspecified, Chest pain, unspecified Discharge Vitals Temperature 36.8 ??C Heart Rate (Monitored) 72 Blood Pressure 119/48 What to do next Instructions From Your Care Team Discharge Follow Up Instructions: PCP in1 week Activity: Discharge Activity: Activity as tolerated Diet: Discharge Diet: Resume usual diet as tolerated Follow-Up Appointments Follow Up with JASS BENOIT (REF)JERICA When Within 2 to 3 days Where: [address] [place] [phone]- Medications What How Much When Instructions Next Dose escitalopram (Lexapro 5 mg oral tablet) 5 Milligram(s) Oral Every Day Pickup at [facility] 1140 lisinopril (lisinopril 5 mg oral tablet) 0.5 Tablet(s) Oral Every Day rosuvastatin (Crestor) 10 Milligram(s) Oral Every Day ALPRAZolam (ALPRAZolam 0.25 mg oral tablet) 1 Tablet(s) Oral Two Times A Day as needed for for anxiety aspirin 81 Milligram(s) Oral Every Day bisoprolol (bisoprolol 5 mg oral tablet) 0.5 Tablet(s) Oral Every Day dapagliflozin (Farxiga) 10 Milligram(s) Oral Every Day levocetirizine 5 Milligram(s) Oral Every Day levothyroxine (Levoxyl 75 mcg (0.075 mg) oral tablet) 1 Tablet(s) Oral Every Day metformin-sitagliptin (Janumet XR 100 mg-1000 mg oral tablet, extended release) 1 Tablet(s) Oral Every Day zolpidem (Ambien 10 mg oral tablet) 1 Tablet(s) Oral At Bedtime as needed for as needed for sleep Pharmacy Information [facility]: [address] [place], [place] [id number] [phone] Take your medications faithfully. Do NOT skip medication. Do NOT stop taking medications without the direction of a physician. Carry a list of your medications with you at all times, and take this medication list with you to your first follow up visit. Report any side effects. Avoid herbal remedies unless discussed with your physician. As part of your treatment plan, your physician may have prescribed a limited course of a controlled substance. This medication may be given to help people with moderate or severe pain or for other medical conditions, but there are risks involved with treatment. Common side effects may include nausea, constipation, drowsiness, sweating, itching, dry mouth, and rash. More serious side effects may include cognitive and motor impairment, like problems with thinking, concentrating, alertness, and movement (e.g. slowed reflexes), and driving and operating heavy machinery can be dangerous. It is important for you to talk to your physician if you have these side effects or questions. These controlled substances can produce physical dependence and be habit-forming if taken for an extended period of time, which means that the body has gotten used to them and may experience withdrawal symptoms if they are abruptly stopped. Withdrawal symptoms can include runny nose, sweating, goose bumps, diarrhea, abdominal cramping, rapid heartbeat, difficulty sleeping, and nervousness. Please dispose of unused and medications per your retail pharmacy guidance. Allergies Neosporin (Redness, Worse) niacin (Dizzy, Palpitations) Immunizations This Visit No Immunizations Found Education Materials Angina Pectoris Angina pectoris, often called angina, is extreme discomfort in the chest, neck, or arm. The discomfort is caused by a lack of blood in the middle and thickest layer of the heart wall (myocardium). Angina is often described as a heaviness, tightness, aching, or pressure in the chest. The discomfort can also be felt in the left arm, neck, jaw, or, back. Angina can last a few minutes, or it can last longer. There are different types of angina. It can be brought on by: ??? Physical activity. ??? Stress or excitement. ??? A large meal. ??? Exposure to cold temperatures. There are four types of angina: stable, unstable, microvascular, and Prinzmetal or variant. What are the causes? This condition is most often caused by atherosclerosis. This is the buildup of fat and cholesterol (plaque) on the inside of the arteries. Over time, the plaque may narrow or block the artery, which lessens blood flow to the heart. Plaque can also break off inside of an artery that supplies blood to the heart (coronary artery) and form a clot that causes a sudden blockage. Other causes of angina include: ??? Coronary spasm. This is a sudden tightening (spasm) in the coronary arteries. ??? Coronary artery dissection. This is when the lining of a coronary artery splits open and blocks blood flow to the heart. ??? Heart valve disease. ??? Cardiomyopathy, or other heart disease. ??? Radiation to the left side of the chest. What increases the risk? You are more likely to develop this condition if: ??? You have high cholesterol levels. ??? You have high blood pressure (hypertension). ??? You use tobacco. ??? You have diabetes. ??? You have a family history of heart disease. ??? You are obese. ??? You have an inactive (sedentary) lifestyle or do not exercise enough. ??? You eat a diet high in saturated fats. ??? You have depression. ??? You are exposed to high stress or emotional triggers of stress. ??? You use drugs, such as cocaine. ??? You have had radiation to the left side of the chest. Women have a greater risk for angina if they: ??? Are over age 55. ??? Have gone through menopause (are postmenopausal). What are the signs or symptoms? Common symptoms in both men and women may include: ??? Chest pain. ? The pain may feel like a crushing or squeezing in the chest, or a tightness, pressure, fullness, or heaviness in the chest. ? The pain may last for more than a few minutes at a time, or it may stop and come back (recur) over the course of a few minutes. ??? Pain in the arms, neck, jaw, or back. ??? Unexplained heartburn or indigestion. ??? Shortness of breath. ??? Nausea. ??? Sudden cold sweats. ??? Sudden light-headedness. Many women have chest discomfort and some of the other symptoms. However, women often have unusual (atypical) symptoms, such as: ??? Fatigue. ??? Unexplained feelings of nervousness or anxiety. ??? Unexplained weakness. ??? Dizziness or fainting. Sometimes, women may have angina without any symptoms. How is this diagnosed? This condition may be diagnosed based on: ??? Your symptoms and medical history. ??? Electrocardiogram (ECG). This measures electrical activity in the heart. ??? Blood tests. ??? Exercise stress test. This looks for signs of blockage when the heart is being exercised. ??? Pharmacologic stress test. This test looks for signs of blockage when the heart is being stressed with a medicine. ??? CT angiogram. This procedure examines the heart and the area around the heart, including the blood flow to the heart. ??? Coronary angiogram. This procedure examines the coronary arteries to see if there is any blockage. How is this treated? Angina may be treated with: ??? Medicines, such as: ? Anti-platelet medicines, such as aspirin, to decrease the risk of blood clots and heart attack. ? Nitrates, which relax blood vessel santos and improve blood flow to the heart. ? Blood pressure medicines. These medicines improve the pumping action of the heart and relax blood vessels that are spasming. ? Cholesterol-reducing medicines that help treat atherosclerosis. ??? Healthy behavioral changes to reduce or control risk factors. ??? A procedure to widen a narrowed or blocked coronary artery (angioplasty). When angioplasty is performed, a mesh tube may be placed in a coronary artery to keep it open (coronary stenting). ??? Surgery to allow blood to go around a blockage in a coronary artery (coronary artery bypass surgery). Follow these instructions at home: Medicines ??? Take [id number] and prescription medicines only as told by your health care provider. ??? Do not take the following medicines unless your health care provider approves: ? NSAIDs, such as ibuprofen, naproxen, or celecoxib. ? Vitamin supplements that contain vitamin A, vitamin E, or both. ? Hormone replacement therapy that contains estrogen with or without progestin. Eating and drinking ??? Eat a heart-healthy diet. A heart-healthy diet includes plenty of fresh fruits and vegetables, whole grains, lowfat (lean) protein, and lowfat dairy products. Your health care provider may recommend that you work with a diet and animal nutrition teacher (registered dietitian) to educate you about healthy food choices. ??? Use healthy cooking methods such as roasting, grilling, broiling, baking, poaching, steaming, or stir-frying. Talk with a dietitian to learn more about healthy cooking methods. ??? Follow instructions from your health care provider about eating or drinking restrictions. Activity ??? Follow an exercise program approved by your health care provider. ??? Return to your normal activities as told by your health care provider. Ask your health care provider what activities are safe for you. ??? When you feel fatigued, take a break. Plan rest periods if you know you are going to feel tired. Lifestyle ??? Do not use any products that contain nicotine or tobacco, such as cigarettes and e-cigarettes. If you need help quitting, ask your health care provider. ??? If your health care provider approves, limit alcohol intake to no more than 1 drink a day for non women and 2 drinks a day for men. One drink equals 12 oz of beer, 5 oz of wine, or 1?? oz of hard liquor. General instructions ??? Maintain a healthy weight. If directed, work with your health care provider to lose weight. ??? Learn to manage stress. If you need help with this, ask your health care provider. ??? Take a depression screening test to see if you are at risk for depression. If you feel depressed, talk with your health care provider. ??? Work with your health care provider to manage any other health conditions you have, such as hypertension or diabetes. ??? Keep all follow-up visits as told by your health care provider. This is important. Get help right away if: ??? You have pain in your chest, neck, arm, jaw, stomach, or back that: ? Lasts more than a few minutes. ? Is recurring. ? Is not relieved by taking nitroglycerin medicines under the tongue (sublingual nitroglycerin). ? Increases in intensity or frequency. ??? You have a lot of sweating without cause. ??? You have unexplained: ? Heartburn or indigestion. ? Shortness of breath or difficulty breathing. ? Nausea or vomiting. ? Fatigue. ? Feelings of nervousness or anxiety. ? Weakness. ? Diarrhea. ??? You have sudden light-headedness or dizziness. ??? You faint. These symptoms may represent a serious problem that is an emergency. Do not wait to see if the symptoms will go away. Get medical help right away. Call your local emergency services (911 in the [place] Do not drive yourself to the hospital. Summary ??? Angina pectoris is extreme discomfort in the chest, neck, or arm that is caused by a lack of blood in the heart wall. Angina pectoris is most often caused by atherosclerosis. ??? There are four types of angina: stable, unstable, microvascular, and Prinzmetal or variant. ??? Symptoms of angina include chest pain, pain in the arms, neck, jaw, or back, unexplained heartburn or indigestion, shortness of breath, nausea, and sudden cold sweats or light-headedness. Atypical symptoms are more common in women and include fatigue, nervousness or anxiety, weakness, dizziness, or fainting. ??? Angina may be treated with behavioral changes, medicine, angioplasty, angioplasty with stenting, or bypass surgery. This information is not intended to replace advice given to you by your health care provider. Make sure you discuss any questions you have with your health care provider. Document Released: 01/25/2006 Document Revised: 03/01/2017 Document Reviewed: 03/01/2017 Independent IP Interactive Patient Education ?? 2019 [employer]. Emergency Awareness and Preventative Care STROKE is an EMERGENCY Every Minute Counts Act FAST and Check for these signs: FACE Does the face look uneven? ARM Does one arm drift down? SPEECH Does their speech sound strange? TIME Call at any sign of stroke Stroke Risk Factors Atrial Fibrillation (irregular heartbeat) Diabetes Family history of stroke Heart Disease Heavy alcohol use High Blood Pressure High Cholesterol Physical inactivity and obesity Smoking Cigarette Smoking The facts are clear, cigarette smoking will shorten your life. Smoking can cause many illnesses along the way. As a healthcare provider, we recommend that you stop smoking. Assistance with quitting is available by contacting 5-384-LPWT-NOW. This is a free resource providing counseling, support, and referral. Or you may contact your personal physician. National Suicide Prevention Lifeline: The National Suicide Prevention Lifeline is a national network of local crisis centers that provides free and confidential emotional support to people in suicidal crisis or emotional distress 24 hours a day, 7 days a week. Don't Wait! Stop a Heart Attack Before it Starts What is a heart attack? A heart attack is damage or to a part of the heart from severely decreased or lack of blood flow to the heart. Over time, arteries can become narrow from the buildup of fat and cholesterol, which is called plaque. The plaque can rupture causing a blood clot to form. When the blood clot forms, the artery can become severely narrowed or completely blocked, causing a heart attack. Heart attack is the leading cause of in the [place]. 85% of muscle damage occurs within the first 2 hours. Delay in the recognition of heart attack symptoms increases the chances of . Know the early symptoms of a heart attack: Nausea Feeling of fullness in chest Jaw Pain Pain that travels down one or both arms Fatigue/being tired Anxiety Back Pain Chest pressure, squeezing, or discomfort Shortness of breath Sweating, or a cold sweat Feeling of impending doom There are unusual signs of a heart attack, too! Women, the elderly, and diabetics may present with atypical symptoms: Fainting/dizziness Weakness Confusion Risk Factors for a Heart Attack Some heart disease risk factors, such as age and family history, cannot be changed. Others, like smoking and lack of exercise, can be changed. Smoking High Cholesterol High Blood Pressure Family History Obesity Age Gender (Males are at higher risk) Lack of Exercise Diabetes Diet Stress Excessive Alcohol Intake If you or someone you know is experiencing the signs and symptoms of a heart attack, DON???T DELAY. Call immediately and seek help. If someone collapses, perform CPR! Do not attempt to drive if you are having symptoms of heart attack. Hands-Only CPR Why Hands-Only CPR? Hands-Only CPR has been shown to be as effective as conventional CPR for cardiac arrests that occur outside of a hospital. Survival depends on immediately receiving CPR from someone nearby. How do you perform Hands-Only CPR? There are two easy steps: Call if you see a teen or adult collapse Push hard and fast in the center of the chest at a beat of 100 beats per minute. Save a life! 4 WAYS TO GET AHEAD OF SEPSIS SEPSIS is a MEDICAL EMERGENCY. Time matters! Infections put you and your family at risk for a life-threatening condition called sepsis. Sepsis is the body's extreme response to an infection. It is life-threatening, and without timely treatment, sepsis can rapidly lead to tissue damage, organ failure, and . Sepsis happens when an infection you already have-in your skin, lungs, urinary tract or somewhere else-triggers a chain reaction throughout your body. 1 PREVENT INFECTIONS Take good care of chronic conditions. Talk to your doctor about getting the recommended vaccines. 2 PRACTICE GOOD HYGIENE Wash your hands frequently. Keep cuts or open sores clean and covered until they are healed. 3 KNOW THE SYMPTOMS Confusion or disorientation Shortness of breath High heart rate Fever, shivering, or feeling very cold Extreme pain or discomfort Clammy or sweaty skin 4 ACT FAST Get medical care IMMEDIATELY if you suspect sepsis or if you have an infection that is not getting better or is getting worse. To learn more about sepsis and how to prevent infections, visit www.cdc.gov/sepsis. Test Results Laboratory or Other Results This Visit (last charted value for your 11/28/2018 visit) Hematology 11/29/2018 7:01 AM WBC: 6.0 K/uL -- Normal range between ( 4.5 and 10.5 ) RBC: 4.87 Million/uL -- Normal range between ( 3.93 and 5.22 ) Hct: 43.1 % -- Normal range between ( 34.1 and 44.9 ) Hgb: 13.7 g/dL -- Normal range between ( 11.2 and 15.7 ) Platelet Count: 244 K/uL -- Normal range between ( 163 and 369 ) MCH: 28.1 pg -- Normal range between ( 25.6 and 32.2 ) MCHC: 31.8 Gram/dL -- Normal range between ( 32.2 and 36.5 ) MCV: 88.5 fL -- Normal range between ( 79.0 and 94.8 ) Slide Review: No RDW: 13.6 % -- Normal range between ( 11.7 and 14.9 ) MPV: 10.2 fL -- Normal range between ( 9.4 and 12.4 ) General Chemistry 11/29/2018 3:13 PM Glucose POC2: 234 mg/dL -- Normal range between ( 70 and 110 ) Device Comment 1: Received Meds 11/29/2018 7:01 AM Creatinine Level: 0.90 mg/dL -- Normal range between ( 0.55 and 1.02 ) Sodium Level: 140 mmol/L -- Normal range between ( 136 and 146 ) Potassium Level: 4.0 mmol/L -- Normal range between ( 3.5 and 5.1 ) Chloride Level: 107 mmol/L -- Normal range between ( 102 and 112 ) Carbon Dioxide Level: 27 mmol/L -- Normal range between ( 21 and 32 ) Anion Gap: 10 -- Normal range between ( 9 and 20 ) Bilirubin Total: 0.3 mg/dL -- Normal range between ( 0.2 and 1.2 ) Hgb A1C: 6.8 % A/G Ratio: 1.2 -- Normal range between ( 1.1 and 2.5 ) ALT: 19 Units/Liter -- Normal range between ( 13 and 56 ) AST: 18 Units/Liter -- Normal range between ( 5 and 37 ) Globulin: 3.3 Gram/dL -- Normal range between ( 1.5 and 4.5 ) Alk Phos: 61 Units/Liter -- Normal range between ( 27 and 136 ) eAVG Glucose: 148 mg/dL Bun/Creatinine: 16.7 -- Normal range between ( 8.0 and 20.0 ) Calcium Level: 9.2 mg/dL -- Normal range between ( 8.4 and 10.1 ) eGFR : >60 mL/min/1.73m2 eGFR NonAfrican: >60 mL/min/1.73m2 Glucose Level: 78 mg/dL -- Normal range between ( 74 and 106 ) Magnesium Level: 2.3 mg/dL -- Normal range between ( 1.5 and 2.4 ) Blood Urea Nitrogen: 15 mg/dL -- Normal range between ( 7 and 22 ) Lactic Acid Level: 0.7 mmol/L -- Normal range between ( 0.4 and 2.0 ) Protein Total: 7.1 Gram/dL -- Normal range between ( 6.4 and 8.2 ) Albumin Level: 3.8 Gram/dL -- Normal range between ( 3.4 and 5.0 ) Lipase Level: 258 Units/Liter -- Normal range between ( 73 and 393 ) Cardiac Specific Markers 11/29/2018 7:01 AM Troponin I Ultra: <0.015 ng/mL -- Normal range between ( 0.015 and 0.045 ) ProBNP: 57 pg/mL -- Normal range between ( 0 and 125 ) Lipid Studies 11/29/2018 7:01 AM Cholesterol Tot: 155 mg/dL -- Normal range between ( 0 and 199 ) Cholesterol HDL: 65.0 mg/dL Cholesterol LDL Calculation: 59.6 mg/dL -- Normal range between ( 0.0 and 99.0 ) Cholesterol VLDL Calculation: 30.4 mg/dL -- Normal range between ( 5.0 and 40.0 ) Cholesterol/HDL Ratio: 2.4 -- Normal range between ( 0.0 and 3.2 ) Triglyceride: 152 mg/dL -- Normal range between ( 0 and 249 ) LDL/HDL Ratio: 0.9 -- Normal range between ( 0.0 and 3.2 ) Fasting?: Yes Patient Name:YAMILETH HAAS JACKIE I have received and understand this information and was given the opportunity to ask questions. Patient/Ceramist Name: Patient/Ceramist Signature: Relationship to Patient: Clinician/Hospital Ceramist Signature: Date: documented in this encounter Plan of Treatment Upcoming Encounters Date Type Department Care Team (Late st Contact Info) Description 10/20/2024 9:00 AM EDT Appointment [facility] [address] [place] [id number] Jass Benoit MD [address] [facility] [place] [address] 10/20/2024 9:30 AM EDT Appointment [facility] [address] [place] [address] Jass Benoit MD [address] [facility] [place] [address] documented as of this encounter Visit Diagnoses Not on filedocumented in this encounter Care Teams Catalogue Illustrator Relationship Specialty Start Date End Date Jass Benoit MD [address] [facility] [address] [place] [address] PCP - General Internal Medicine 12/08/21 05/18/22 Jass Benoit MD [address] [facility] [place] [address] PCP - General Internal Medicine 08/09/23 Darrian Reno PA-C [address], [facility] [address] [place] [address] Cardiology 04/15/23 Gibson Bai MD [address] [facility] [address] [place] [address] Consulting Physician Urology 08/09/23 documented as of this encounter
--- OUTSIDE RECORDS SUMMARY | 2024-08-31 08:45 | XMS_ITS | Encounter Summary ---
Author Organization [employer] ([place], [place], [place], [place]) Address [address] [place] [address] Care Team Providers Care Financial Analysis Manager Name Role Phone Jessica Gomez MD Primary Care Provider [phone] Darrian Reno PA-C Unavailable [phone] Jessica Gomez MD Primary Care Provider [phone] Gibson Bai MD Unavailable Encounter Details Date Type Department Care Team (Late st Contact Info) Description 11/29/2018 Transcribed Document [facility] [place] [facility] [place] [address] ProviderAda MD [address] [place] [address] Social History Tobacco Use Types Packs/Day Years Used Date Smoking Tobacco: Never Assessed Comments Unknown Sex and Gender Information Value Date Recorded Sex Assigned at Not on file Legal Sex Female 5:09 PM CDT Gender Identity Not on file Sexual Orientation Not on file documented as of this encounter Miscellaneous Notes * Cerner Conversion Note - Ada ProviderMD - 11/29/2018 4:16 PM CDT Initial Discharge Planning Entered On: 11/29/2018 16:21 EDT Performed On: 11/29/2018 16:16 EDT by ANSELMO BARRETO, RN-Care Management Initial Assessment I Previously Documented Living Environment : No qualifying data available. Living Situation : Home Patient Lives With : Spouse Is the Patient a Caregiver at Home? : No Emergency Contact #1 : na Emergency Contact #1 Phone Number : na Emergency Contact #1 Relationship : na Emergency Contact #2 : na Emergency Contact #2 Phone Number : na Emergency Contact #2 Relationship : na Enter Doctors Name : Jessica Gomez Does Patient have PCP Listed? : Yes ANSELMO BARRETO RN-Care Management - 11/29/2018 16:16 EDT Initial Assessment II Sensory and Motor Deficits : None Current Home Treatments and Equipment : None ANSELMO BARRETO RN-Care Management - 11/29/2018 16:16 EDT Discharge Needs I Anticipated Discharge Date : 11/30/2018 EDT Anticipated Discharge To, CM : Home independently Current Home Treatment/Equipment : Current Home Treatment/Equipment No qualifying data available. Documentation Status Complete : Yes ANSELMO BARRETO RN-Care Management - 11/29/2018 16:16 EDT Discharge Needs II Professional Skilled Services : Professional Skilled Services No qualifying data available. Needs Assistance with Transportation : No Discharge Options Discussed with Patient : DME, Home Health, Short term rehabilitation ANSELMO BARRETO RN-Care Management - 11/29/2018 16:16 EDT Narrative Note Narrative Note : Pt reports lives w/spouse of 44 years and is indep w/adls and drives when needed. No DME currently at home and denies SNF and HH hx. NO needs identified during initial assessment, will cont to follow ANSELMO BARRETO RN-Care Uli - 11/29/2018 16:16 EDT documented in this encounter Plan of Treatment Upcoming Encounters Date Type Department Care Team (Late st Contact Info) Description 10/20/2024 9:00 AM EDT Appointment [facility] Breast Imaging [address] [place] [address] Jessica Gomez MD [address] [place] [address] 10/20/2024 9:30 AM EDT Appointment [facility] Nuclear Medicine [address] [place] [address] Jessica Gomez MD [address] [place] [address] documented as of this encounter Visit Diagnoses Not on filedocumented in this encounter Care Teams Financial Analysis Manager Relationship Specialty Start Date End Date Jessica Gomez MD [address] [facility] [address] [place] [address] PCP - General Internal Medicine 12/08/21 05/18/22 Jessica Gomez MD [address] [place] [address] PCP - General Internal Medicine 08/09/23 Darrian Reno PA-C [address], [facility] [address] [place] [address] Cardiology 04/15/23 Gibson Bai MD [address] [facility] [address] [place] [address] Consulting Physician Urology 08/09/23 documented as of this encounter
--- OUTSIDE RECORDS SUMMARY | 2024-08-31 08:45 | XMS_ITS | Encounter Summary ---
Author Organization [employer] ([place], [place], [place], [place]) Address [address] [place] [address] Care Team Providers Care Account Auditor Name Role Phone Jessica Gomez MD Primary Care Provider [phone] Darrian Reno PA-C Unavailable [phone] Jessica Gomez MD Primary Care Provider [phone] Gibson Bai MD Unavailable Encounter Details Date Type Department Care Team (Late st Contact Info) Description 11/29/2018 Transcribed Document [facility] [place] [facility] [place] [address] ProviderAda MD [address] [place] [address] Social History Tobacco Use Types Packs/Day Years Used Date Smoking Tobacco: Never Assessed Comments Unknown Sex and Gender Information Value Date Recorded Sex Assigned at Not on file Legal Sex Female 5:09 PM CDT Gender Identity Not on file Sexual Orientation Not on file documented as of this encounter Miscellaneous Notes * Cerner Conversion Note - Ada Abdalla MD - 11/29/2018 9:00 AM CDT Consult Phone Call Documentation Entered On: 11/29/2018 8:11 EDT Performed On: 11/29/2018 9:00 EDT by Taco Rodriguez Phone Call for Consults Consult Phone Call/Page Attempt : First call Consult Reason : chest pain Physician Requesting Consult : JAZZ RICHARDSON MD-[facility] Physician Requested for Consult : SHANEL LARA MD-CAR Consult, Additional Information : Spoke with Aliyah on 11/29/2018 @0807 Taco Rodriguez - 11/29/2018 8:10 EDT documented in this encounter Plan of Treatment Upcoming Encounters Date Type Department Care Team (Late st Contact Info) Description 10/20/2024 9:00 AM EDT Appointment [facility] Breast Imaging [address] [place] [address] Jessica Gomez MD [address] [place] [address] 10/20/2024 9:30 AM EDT Appointment [facility] Nuclear Medicine [address] [place] [address] Jessica Gomez MD [address] [place] [address] documented as of this encounter Visit Diagnoses Not on filedocumented in this encounter Care Teams Account Auditor Relationship Specialty Start Date End Date Jessica Gomez MD [address] [facility] [address] [place] [address] PCP - General Internal Medicine 12/08/21 05/18/22 Jessica Gomez MD [address] [place] [address] PCP - General Internal Medicine 08/09/23 Darrian Reno PA-C [address], [facility] [address] [place] [address] Cardiology 04/15/23 Gibson Bai MD [address] [facility] [address] [place] [address] Consulting Physician Urology 08/09/23 documented as of this encounter
--- OUTSIDE RECORDS SUMMARY | 2024-08-31 08:45 | XMS_ITS | Encounter Summary ---
Author Organization [employer] ([place], [place], [place], [place]) Address [address] [place] [address] Care Team Providers Care Power Lineman Technician Name Role Phone Jessica Gomez MD Primary Care Provider [phone] Darrian Reno PA-C Unavailable [phone] Jessica Gomez MD Primary Care Provider [phone] Gibson Bai MD Unavailable Encounter Details Date Type Department Care Team (Late st Contact Info) Description 11/29/2018 Transcribed Document [facility] [place] [facility] [place] [address] ProviderAda MD [address] [place] [address] Social History Tobacco Use Types Packs/Day Years Used Date Smoking Tobacco: Never Assessed Comments Unknown Sex and Gender Information Value Date Recorded Sex Assigned at Not on file Legal Sex Female 5:09 PM CDT Gender Identity Not on file Sexual Orientation Not on file documented as of this encounter Miscellaneous Notes * Cerner Conversion Note - Ada Abdalla MD - 11/29/2018 3:57 PM CDT Patient Education Materials Follows:Medicine Angina Pectoris Angina pectoris, often called angina, [...] these instructions at home: Medicines ??? Take [id number]-lezjtzf and prescription medicines only as told by [...] that you work with a diet and sales support specialist (registered dietitian) to educate you about healthy [...] of beer, 5 oz of wine, or 1? oz of hard liquor. General instructions ??? [...] 01/25/2006 Document Revised: 03/01/2017 Document Reviewed: 03/01/2017 [employer] Patient Education ? 2019 [employer] documented in this encounter Plan of Treatment Upcoming Encounters Date Type Department Care Team (Late st Contact Info) Description 10/20/2024 9:00 AM EDT Appointment [facility] Breast Imaging [address] [place] [address] Jessica Gomez MD [address] [place] [address] 10/20/2024 9:30 AM EDT Appointment [facility] Nuclear Medicine [address] [place] [address] Jessica Gomez MD [address] [place] [address] documented as of this encounter Visit Diagnoses Not on filedocumented in this encounter Care Teams Power Lineman Technician Relationship Specialty Start Date End Date Jessica Gomez MD [address] [facility] [address] [place] [address] PCP - General Internal Medicine 12/08/21 05/18/22 Jessica Gomez MD [address] [facility] [place] [address] PCP - General Internal Medicine 08/09/23 Darrian Reno PA-C [address], [facility] [address] [place] [address] Cardiology 04/15/23 Gibson Bai MD [address] [facility] [address] [place] [address] Consulting Physician Urology 08/09/23 documented as of this encounter
--- OUTSIDE RECORDS SUMMARY | 2024-08-31 08:45 | XMS_ITS | Encounter Summary ---
Author Organization [employer] ([place], [place], [place], [place]) Address [address] [place] [address] Care Team Providers Care Manager Of Software Name Role Phone Jessica Gomez MD Primary Care Provider [phone] Darrian Reno PA-C Unavailable [phone] Jessica Gomez MD Primary Care Provider [phone] Gibson Bai MD Unavailable Encounter Details Date Type Department Care Team (Late st Contact Info) Description 11/29/2018 Transcribed Document [facility] [place] [address] ProviderAda MD [address] [place] [address] Social History Tobacco Use Types Packs/Day Years Used Date Smoking Tobacco: Never Assessed Comments Unknown Sex and Gender Information Value Date Recorded Sex Assigned at Not on file Legal Sex Female 5:09 PM CDT Gender Identity Not on file Sexual Orientation Not on file documented as of this encounter Miscellaneous Notes * Cerner Conversion Note - Ada Abdalla MD - 11/29/2018 1:37 AM CDT Admission History, Adult Entered On: 11/29/2018 1:44 EDT Performed On: 11/29/2018 1:37 EDT by Alba Romero RN Advance Directive Patient has Advance Directive *Q : No, patient refuses Advance Directive information Alba Romero RN - 11/29/2018 1:37 EDT Anesthesia/Transfusion History Family History of Anesthesia Reaction : No prior transfusion(s) Transfusion History : Prior anesthesia reaction Type of Anesthesia Reaction : Excessive nausea/vomiting Family History of Anesthesia Reaction : None Alba Romero RN - 11/29/2018 1:37 EDT Functional Assessment Living Situation : Acute Care Facility JONES Hx Falls Immediate/Within 3 Months : No Current Home Treatments : Blood glucose monitoring Alba Romero RN - 11/29/2018 1:37 EDT General Info Support Person/Patient Drafter (Cad) Electronic : Yes Support Person/Pt Rep Name : Jorge Atwood Support Person/Pt Rep Contact Information : [phone] Want Family/Rep/Phys Notified of Admit : No Emergency Contact #1 : na Emergency Contact #1 Phone Number : na Emergency Contact #1 Relationship : na Emergency Contact #2 : na Emergency Contact #2 Phone Number : na Emergency Contact #2 Relationship : na Primary Language : French Preferred Communication Mode : Verbal Communication Barrier : None Alba Romero RN - 11/29/2018 1:37 EDT Fall Risk Scales ABCs Fall Injury Risk Identification : None JONES Hx Falls Immediate/Within 3 Months : No Jones Secondary Diagnosis : Yes JONES Use of Ambulatory Aid : Bed rest/Nurse assist JONES IV Therapy or IV Access : Yes Erna Gait/Transferring : Normal, bedrest, immobile Jones Mental Status : Oriented to own ability Jones Fall Risk Score : 35 JONES Fall Scale Risk Level : 25-45 Medium Risk Osborne Fall Interventions : Adequate lighting, Assistive devices within reach, Bed in low position, Call device within reach, Fall prevention handout/education per facility policy, Frequent orientation to surroundings, Hourly comfort/safety rounds, Non-slip footwear, Personal items within reach, Reinforced to call for assistance before getting out of bed, Room free of clutter/spills, Upper side-rails up, Wheels locked, Wires/Cords secured Alba Romero RN - 11/29/2018 1:37 EDT Health Histories Smoking Status : Former smoker, quit more than 30 days ago Smokeless Tobacco Status : Never Alba Romero RN - 11/29/2018 1:37 EDT Social History (As Of: 11/29/2018 01:44:59 EDT) Tobacco: Use in Last 12 Months: No. Smoking Status Former smoker. Years of Use: 10. Packs/Tins Daily: .5. Used Tobacco, but Quit Yes. Last Used: quit 15 years. (Last Updated: 05/30/2013 15:56:04 EDT by HOLLY OCAMPO, RN) Alcohol: Use in Last 12 Months: No. (Last Updated: 05/30/2013 15:56:08 EDT by HOLLY OCAMPO, RN) Substance Abuse: Drug Use Hx: No. Use in Last 12 Months: No. (Last Updated: 11/02/2014 18:00:15 EDT by Ailyn Russ RN) Height and Weight, Clinical Dosing Height Source : Stated Height Entry Format : Squire Height, Feet : 5 ft(Converted to: 152 cm, 60 Inch) Height, Inches : 2 Inch(Converted to: 0 ft 2 Inch, 5.08 cm) Clinical Height : 157.48 cm Weight Source : Estimated [place] Body Weight : 50 kg Alba Romero RN - 11/29/2018 1:37 EDT Estimated Weight Type of Weight Measurement Est : Squire Weight, est lb : 140 lb(Converted to: 64 kg) Estimated Clinical Dosing Weight : 63.64 kg Alba Romero RN - 11/29/2018 1:37 EDT Infectious Disease History Infectious Disease History : Chicken pox/Shingles, Influenza, Measles, Mumps Fever/Chills Last 48 Hours : No Travel To Regions with Travel Advisories : No Travel Outside [place] Within Last 30 Days : No Contact With Traveler to Advisory Region : No Tuberculosis Symptoms : None Alba Romero RN - 11/29/2018 1:37 EDT Influenza Vaccine Asmt, Adult Previous Vaccines from Immunization Schedule : No qualifying data available. Influenza Immunization, Current Season : No Inactivated Flu Vaccine Contraindications : No contraindications to inactivated influenza vaccine Transplant Workup/Recent Transplant : No Order for Influenza Vaccine : Order for influenza vaccine sent to pharmacy Alba Romero RN - 11/29/2018 1:37 EDT Pneumococcal Vaccine Previous Vaccines from Immunization Schedule : No qualifying data available. Pneumonia Immunization Received : No Pneumococcal Risk Assessment < Age 65 : None Alba Romero RN - 11/29/2018 1:37 EDT Nutrition History Adaptive Feeding Equipment : Diabetic Oral Medication Administration : By mouth Eating Poorly Due to Decreased Appetite : No Unplanned Weight Loss in Past 3-6 Months : No Malnutrition Screening Tool Total(mal) : 0 Malnutrition Screening Tool Risk Level : Patient not at risk Alba Romero RN - 11/29/2018 1:37 EDT Psychosocial History Do You Have a History of the Following? : Anxiety, Depression Currently in Unsafe Situation : No Tried to Harm Yourself in the Past? : No Thoughts of Harming/Killing Yourself : No Alba Romero RN - 11/29/2018 1:37 EDT Sleep Apnea Risk Assmt Hx of Obstructive Sleep Apnea Diagnosis : No Snore Loudly : No Tired, Fatigued, or Sleepy During Day : No Observed Stopping Breathing During Sleep : No Have/Are Being Treated for Hypertension : No BMI Greater Than 35 kg/m2 : No Age over 50 Years Old : Yes Neck Circumference Greater Than 40 cm : No Gender Male : No STOP-BANG Sleep Apnea Risk Level Score : 1 Alba Romero RN - 11/29/2018 1:37 EDT Valuables and Belongings Valuables and Belongings : Clothing Clothing : Common streetwear Clothing Disposition : Bedside, With patient Alba Romero RN - 11/29/2018 1:37 EDT documented in this encounter Plan of Treatment Upcoming Encounters Date Type Department Care Team (Late st Contact Info) Description 10/20/2024 9:00 AM EDT Appointment [facility] Breast Imaging [address] [place] [address] Jessica Gomez MD [address] [facility] [place] [address] 10/20/2024 9:30 AM EDT Appointment [facility] Nuclear Medicine [address] [place] [address] Jessica Gomez MD [address] [facility] [place] [address] documented as of this encounter Visit Diagnoses Not on filedocumented in this encounter Care Teams Manager Of Software Relationship Specialty Start Date End Date Jessica Gomez MD [address] [place] [address], [place] [address] PCP - General Internal Medicine 12/08/21 05/18/22 Jessica Gomez MD [address] [place] [address] PCP - General Internal Medicine 08/09/23 Darrian Reno PA-C [address], [facility] [address] [place] [address] Cardiology 04/15/23 Gibson Bai MD [address] [email or web address] [address] [place] [address] Consulting Physician Urology 08/09/23 documented as of this encounter
--- OUTSIDE RECORDS SUMMARY | 2024-08-31 08:45 | XMS_ITS | Encounter Summary ---
Author Organization [employer] ([place], [place], [place], [place]) Address [address] [place] [address] Care Team Providers Care Body Component Engineer Name Role Phone Jessica Gomez MD Primary Care Provider [phone] Darrian Reno PA-C Unavailable [phone] Jessica Gomez MD Primary Care Provider [phone] Gibson Bai MD Unavailable Encounter Details Date Type Department Care Team (Late st Contact Info) Description 11/29/2018 Transcribed Document [facility] [place] [address] [place] [address] ProviderAda MD [address] [place] [address] Social History Tobacco Use Types Packs/Day Years Used Date Smoking Tobacco: Never Assessed Comments Unknown Sex and Gender Information Value Date Recorded Sex Assigned at Not on file Legal Sex Female 5:09 PM CDT Gender Identity Not on file Sexual Orientation Not on file documented as of this encounter Miscellaneous Notes * Cerner Conversion Note - Ada Abdalla MD - 11/29/2018 4:55 PM CDT Nursing Discharge Summary Entered On: 11/29/2018 16:55 EDT Performed On: 11/29/2018 16:55 EDT by Shayan Godwin fountain manager Documentation Discharge Date/Time : 11/29/2018 16:55 EDT Patient Disposition, General : Discharge Discharge To : Home with ambulatory/outpatient follow-up Mode Of Departure, General Discharge : Private vehicle Accompanied By, Discharge : Spouse IV Discontinued : Yes Medications Given to Patient : No Personal Belongings With Patient : Yes Pt's Own Supply of Medications Returned : No Prescriptions Given to Patient : No Discharge Instructions Reviewed With, Opportunity For Questions Given : Patient, Spouse Patient Education Completed : Yes Teaching Method : Explanation, Printed materials Teaching Evaluation : Verbalizes understanding Senior Mechanical Estimator Utilized For DC Instructions : Yes Shayan Godwin RN - 11/29/2018 16:55 EDT Electronically signed by [facility] Conversion Park Landscape Architect Cerner at 05/27/2022 11:09 PM CDT documented in this encounter Plan of Treatment Upcoming Encounters Date Type Department Care Team (Late st Contact Info) Description 10/20/2024 9:00 AM EDT Appointment [facility] Breast Imaging [address] [place] [address] Jessica Gomez MD [address] [facility] [place] [address] 10/20/2024 9:30 AM EDT Appointment [facility] Nuclear Medicine [address] [place] [address] Jessica oGmez MD [address] [place] [address] documented as of this encounter Visit Diagnoses Not on filedocumented in this encounter Care Teams Body Component Engineer Relationship Specialty Start Date End Date Jessica Gomez MD [address] [place] [address] [address] [place] [address] PCP - General Internal Medicine 12/08/21 05/18/22 Jessica Gomez MD [address] [place] [address] PCP - General Internal Medicine 08/09/23 Darrian Reno PA-C [address] , [facility] [address] [place] [address] Cardiology 04/15/23 Gibson Bai MD [address] [place] [address] [address] Consulting Physician Urology 08/09/23 documented as of this encounter
--- OUTSIDE RECORDS SUMMARY | 2024-08-31 08:45 | XMS_ITS | Encounter Summary ---
Author Organization [facility] ([place], [place], [place], [place]) Address [address] [place] [address] Care Team Providers Care Process Designer Name Role Phone Jessica Gomez MD Primary Care Provider [phone] Darrian Reno PA-C Unavailable [phone] Jessica Gomez MD Primary Care Provider [phone] Gibson Bai MD Unavailable Encounter Details Date Type Department Care Team (Late st Contact Info) Description 11/28/2018 Transcribed Document [facility] [place] [facility] [place] [address] ProviderAda MD [address] [place] [id number] Social History Tobacco Use Types Packs/Day Years Used Date Smoking Tobacco: Never Assessed Comments Unknown Sex and Gender Information Value Date Recorded Sex Assigned at Not on file Legal Sex Female 5:09 PM CDT Gender Identity Not on file Sexual Orientation Not on file documented as of this encounter Miscellaneous Notes * Cerner Conversion Note - Ada Abdalla MD - 11/28/2018 10:27 PM CDT DATE OF ADMISSION: 11/28/2018 PRIMARY CARE PHYSICIAN: Dr. Marisol Gomez. CHIEF COMPLAINT: Chest pain. HISTORY OF PRESENT ILLNESS: This is a 63-year-old female with history of hypertension, hyperlipidemia, history of hypothyroidism, history of coronary artery disease. The patient presented at outside facility ER because have been having chest pain. The patient has been having some epigastric discomfort, nausea, heart failure, chest discomfort. The patient has been evaluated there and transferred to [facility] for cardiology evaluation. The patient states she was scheduled next Wednesday for a stress test as outpatient, but could not wait because of her epigastric discomfort. The patient came in, lying in bed, anxious. No family at bedside. SYSTEMIC REVIEW: GENERAL: No fever or chills. HEAD: No headache or dizziness. EYES: No change of vision. EARS: No earache. NOSE: No epistaxis. THROAT: No sore throat. RESPIRATORY: No shortness of breath or cough. CARDIAC: Positive for chest discomfort. GI: Positive for epigastric pain, nausea. URINARY: No hematuria. MUSCULOSKELETAL: Generalized weakness. NEUROLOGICAL: No focal numbness or weakness. SKIN: No new rashes. ENDOCRINE: No heat or cold intolerance. PAST MEDICAL HISTORY: 1. History of coronary artery disease. 2. Hypertension. 3. Hyperlipidemia. 4. Hypothyroidism. PAST SURGICAL HISTORY: 1. Coronary artery disease status post stent placement. 2. History of gastric bypass. 3. Hysterectomy. 4. Tonsillectomy. SOCIAL HISTORY: The patient is a nonsmoker. No alcohol or drug abuse. She used to be a smoker, but quit. FAMILY HISTORY: Positive for heart disease. ALLERGIES: Neosporin and niacin. HOME MEDICATIONS: 1. Xanax 0.25 mg twice daily as needed. 2. Aspirin 81 mg daily. 3. Bisoprolol 5 mg half tablet daily. 4. Farxiga 10 mg daily. 5. Levothyroxine 75 mcg daily. 6. Lisinopril 5 mg daily. 7. Janumet 100/1000 twice daily. 8. Crestor 5 mg daily. 9. Ambien 10 mg at bedtime as needed. PHYSICAL EXAMINATION: VITAL SIGNS: Temperature 97.7, heart rate 70. HEENT: Head atraumatic, normocephalic. Pupils are round and reactive. Eyes, no conjunctival injection or discharge. Ears, no discharge. Nose, no bleeding or discharge. Mouth dry. NECK: Supple. Full range of motion. CHEST: Poor inspiratory effort. Diminished air entry. No crackles, wheeze, or rhonchi. HEART: S1 and S2 heard. Regular rate and rhythm. ABDOMEN: Soft. Audible bowel sounds. No tenderness. No guarding. No rebound tenderness. EXTREMITIES: No edema, erythema or tenderness. NEUROLOGICAL: No apparent focal motor or sensory deficit. The patient is alert, awake, oriented x3. Intact cranial nerves. PSYCHIATRIC: Positive for anxiety. SKIN: No apparent rashes or induration. ENDOCRINE: No thyromegaly or tenderness. GENERAL: Patient lying in bed, anxious. LABS AND STUDIES: Pending. ASSESSMENT AND PLAN: 1. Chest pain. The patient with a history of coronary artery disease, history of stent placement. Admitted to the hospital with chest pain. The patient with hypertension and hyperlipidemia. We will check cardiac enzymes and check EKG. We will consult Cardiology. The patient will be n.p.o. for cardiology evaluation. 2. Hypertension. Resume home medication plus hydralazine as needed. 3. Diabetes mellitus. The patient will be on sliding scale. 4. Hyperlipidemia. Check lipid profile in a.m. 5. Anxiety. We will resume home medication. 6. Gastrointestinal prophylaxis, Pepcid. 7. Deep venous thrombosis prophylaxis, heparin. Plan discussed with patient, with ER physician, and with RN. Chart was reviewed. TIME SPENT: 55 minutes. /[id number] MD RICCO Herring/AQ / RICCO / MODL CC: Marisol Gomez MD Electronically signed by [facility] Conversion Mission Commander Cerner at 05/27/2022 11:15 PM CDT documented in this encounter Plan of Treatment Upcoming Encounters Date Type Department Care Team (Late st Contact Info) Description 10/20/2024 9:00 AM EDT Appointment [facility] Breast Imaging [address] [place] [phone] Jessica Gomez MD [address] [place] [phone] 10/20/2024 9:30 AM EDT Appointment [facility] Nuclear Medicine [address] [place] [address] Jessica Gomez MD [address] [place] [address] documented as of this encounter Visit Diagnoses Not on filedocumented in this encounter Care Teams Process Designer Relationship Specialty Start Date End Date Jessica Gomez MD [address] [facility] [address] [place] [address] PCP - General Internal Medicine 12/08/21 05/18/22 Jessica Gomez MD [address] [place] [address] PCP - General Internal Medicine 08/09/23 Darrian Reno PA-C [address], [facility] [address] [place] [address] Cardiology 04/15/23 Gibson Bai MD [address] [facility] [[email or web address] [address] [place] [address] Consulting Physician Urology 08/09/23 documented as of this encounter
--- OUTSIDE RECORDS SUMMARY | 2024-08-31 08:45 | XMS_ITS | Data Portability ---
Author Organization [facility] GAYLE Bonilla ORIENT CLOSED Address [address] [place] [address] Care Team Providers Care Supervisor [employer] Name Role Phone ABHISHEK NELSON Pond Tender LYNNETTE ANTHONY Primary Care Provider JASS BENOIT Primary Care Provider Assessment Encounter Date Assessment Date Assessment LastModified by Organization Details LastModified Time 2024 2024 69-year-old female with history of recurrent staghorn calculi and persistent urinary tract infections presenting with ongoing kidney stones and infection. Previous surgery in 2016 mentioned. Symptoms include renal colic and malodorous urine. Plan for KUB radiography to evaluate and guide management due to possible obstruction and superimposed infection. Recurrent Urinary Tract Infection: Obtain a urinary culture to determine infection etiology and resistance, guiding targeted antibiotic therapy. [email or web address] Not available 2024 12:03:31 08/18/2024 08/18/2024 - 69-year-old female with a history of staghorn calculi presenting with a large right renal stone post-ESWL. - No stone passage for 11 days, with intermittent bilateral flank pain. - No current dysuria or hematuria, but these were present with previous stone passage. [email or web address] Not available 08/18/2024 12:05:34 Plan of Treatment Reminders Order Date Submit Date Provider Last Modified By Organization Details Last Modified Time Details Appointments RECHECK 2024 11:00A M JHONY CASEY MD Not available Not available Not available Lab urinalysi s panel, auto 2024 025 [email or web address] 4 [facility]ly [facility], [facility]y [facility] With [facility], [facility] [address], [facility], [place], [address], 08/19/2024 11:35:59 kidney stone analysis 2024 025 [facility], [address] [place] [address], [phone], 08/26/2024 01:59:38 urinalysi s panel, auto 2024 025 [facility] With [facility], [facility] [address], [facility], [place], [address], 2024 13:41:47 culture, urine 2024 025 [facility], [address] [place] [address], [phone], 06/01/2024 14:07:38 Referral None recorded. Procedures None recorded. Surgeries None recorded. Imaging XR, abdomen, 1 view 2024 025 [email or web address] 4 [facility], [facility] [address], [place], [address], 08/19/2024 11:35:59 XR, abdomen, 1 view 2024 025 [email or web address] [facility], [facility] [address], [place], [address], 2024 15:36:12 Medication Orders None recorded. Patient TargetsNo targets recorded. Patient Instructions Encounter Date Encounter Id Patient Instructions Last Modified By Organization Details Last Modified Time 2024 [id number] learning about healthy weight [facility] Not available 06/04/2024 17:21:50 - Get a KUB x-ra y today to check your kidneys. - We will do a urine culture to find the infection cause. - Follow up with results to decide on further treatment for your stones and infection. [email or web address] Not available 2024 12:03:35 08/18/2024 [id number] - Obtain an x-ra y before leaving today. - Await a call with x-ray results and further instructions. - Stones will be sent for analysis to guide future treatment. [email or web address] Not available 08/18/2024 12:05:37 Reason for Referral None Reported. Results Created Date Observation Date Name Description Value Unit Range Abnormal Flag Note LastModifiedBy Organization Detail LastModifiedTime 06/01/19 25 06/02/2024 URINE CULTU RE urine culture COLON Y COUNT : 10,00 0 - 100,0 00 CFU/M L Three or more isola radha; mixed uroge nital estela . Not Available [facility] [address] [place] [address], [phone], 06/02/2024 13:44:06 06/01/19 25 2024 urina lysis panel , auto Unknown Analyte Clean Catch Not Available Critical access hospital Urology [facility] With [address] [facility], [place], [address], 2024 12:20:23 06/01/19 25 2024 urina lysis panel , auto Unknown Analyte Yellow Not Available [facility] With [address], [place], [address], 2024 12:20:23 06/01/19 25 2024 urina lysis panel , auto Unknown Analyte Clear Not Available [facility] With [address], [place], [address], 2024 12:20:23 06/01/19 25 2024 urina lysis panel , auto Unknown Analyte 1.025 Not Available [facility] With [address], [place], [address], 2024 12:20:23 06/01/19 25 2024 urina lysis panel , auto Unknown Analyte 1.003 - 1.030 Not Available [facility] With [address], [place], [address], 2024 12:20:23 06/01/19 25 2024 urina lysis panel , auto Unknown Analyte 5.0 Not Available [facility] With [address], [place], [address], 2024 12:20:23 06/01/19 25 2024 urina lysis panel , auto Unknown Analyte 5.0 - 8.0 Not Available [facility] With [address], [place], [address], 2024 12:20:23 06/01/19 25 2024 urina lysis panel , auto Unknown Analyte 25 Rand/uL Not Available [facility] With [address], [place], [address], 2024 12:20:23 06/01/19 25 2024 urina lysis panel , auto Unknown Analyte Negati ve Not Available [facility] With [address], [place], [address], 2024 12:20:23 06/01/19 25 2024 urina lysis panel , auto Unknown Analyte Negati ve Not Available [facility] With [address], [place], [address], 2024 12:20:23 06/01/19 25 2024 urina lysis panel , auto Unknown Analyte Negati ve Not Available [facility] With [address], [place], [address], 2024 12:20:23 06/01/19 25 2024 urina lysis panel , auto Unknown Analyte Trace Not Available [facility] With [address], [place], [address], 2024 12:20:23 06/01/19 25 2024 urina lysis panel , auto Unknown Analyte Negati ve Not Available [facility] With [address], [place], [address], 2024 12:20:23 06/01/19 25 2024 urina lysis panel , auto Unknown Analyte Normal Not Available [facility] With [address], [place], [address], 2024 12:20:23 06/01/19 25 2024 urina lysis panel , auto Unknown Analyte Normal Not Available [facility] With [address], [place], [address], 2024 12:20:23 06/01/19 25 2024 urina lysis panel , auto Unknown Analyte Negati ve Not Available [facility] With [address], [place], [address], 2024 12:20:23 06/01/19 25 2024 urina lysis panel , auto Unknown Analyte Negati ve Not Available [facility] With [address], [place], [address], 2024 12:20:23 06/01/19 25 2024 urina lysis panel , auto Unknown Analyte Normal Not Available [facility] With [address], [place], [address], 2024 12:20:23 06/01/19 25 2024 urina lysis panel , auto Unknown Analyte Normal Not Available [facility] With [address], [place], [address], 2024 12:20:23 06/01/19 25 2024 urina lysis panel , auto Unknown Analyte 1 mg/dL Not Available [facility] With [address], [place], [address], 2024 12:20:23 06/01/19 25 2024 urina lysis panel , auto Unknown Analyte Negati ve Not Available [facility] With [address], [place], [address], 2024 12:20:23 06/01/19 25 2024 urina lysis panel , auto Unknown Analyte Trace Not Available [facility] With [address], [place], [address], 2024 12:20:23 06/01/19 25 2024 urina lysis panel , auto Unknown Analyte Negati ve Not Available [facility] With [address], [place], [address], 2024 12:20:23 08/19/19 25 08/18/2024 urina lysis panel , auto Unknown Analyte Clean Catch Not Available [facility] With [address], [place], [address], 08/18/2024 12:11:22 08/19/19 25 08/18/2024 urina lysis panel , auto Unknown Analyte Yellow Not Available [facility] With [address], [place], [address], 08/18/2024 12:11:22 08/19/19 25 08/18/2024 urina lysis panel , auto Unknown Analyte Clear Not Available [facility] With [address], [place], [address], 08/18/2024 12:11:22 08/19/19 25 08/18/2024 urina lysis panel , auto Unknown Analyte 1.015 Not Available [facility] With [address], [place], [address], 08/18/2024 12:11:22 08/19/19 25 08/18/2024 urina lysis panel , auto Unknown Analyte 1.003 - 1.030 Not Available [facility] With [address], [place], [address], 08/18/2024 12:11:22 08/19/19 25 08/18/2024 urina lysis panel , auto Unknown Analyte 5.0 Not Available [facility] With [address] [address] [address], [place], [address], 08/18/2024 12:11:22 08/19/19 25 08/18/2024 urina lysis panel , auto Unknown Analyte 5.0 - 8.0 Not Available [facility] With [address], [place], [address], 08/18/2024 12:11:22 08/19/19 25 08/18/2024 urina lysis panel , auto Unknown Analyte 75 Rand/uL Not Available [facility] With [address] [address] [address], [place], [address], 08/18/2024 12:11:22 08/19/1908/18/2024 urina lysis panel , auto Unknown Analyte Negati ve Not Available [facility] With [address], [place], [address], 08/18/2024 12:11:22 08/19/19 25 08/18/2024 urina lysis panel , auto Unknown Analyte Negati ve Not Available [facility] With [address] [address] [address], [place], [address], 08/18/2024 12:11:22 08/19/19 25 08/18/2024 urina lysis panel , auto Unknown Analyte Negati ve Not Available [facility] With [address] [address] [address], [place], [address], 08/18/2024 12:11:22 08/19/1908/18/2024 urina lysis panel , auto Unknown Analyte Negati ve Not Available [facility] With [address] [address] [address], [place], [address], 08/18/2024 12:11:22 08/19/1908/18/2024 urina lysis panel , auto Unknown Analyte Negati ve Not Available [facility] With [address] [address] [address], [place], [address], 08/18/2024 12:11:22 08/19/19 25 08/18/2024 urina lysis panel , auto Unknown Analyte Normal Not Available [facility] With [address] [address] [address], [place], [address], 08/18/2024 12:11:22 08/19/19 25 08/18/2024 urina lysis panel , auto Unknown Analyte Normal Not Available [facility] With [address], [place], [address], 08/18/2024 12:11:22 08/19/19 25 08/18/2024 urina lysis panel , auto Unknown Analyte Negati ve Not Available [facility] With [address] [address] [address], [place], [address], 08/18/2024 12:11:22 08/19/1908/18/2024 urina lysis panel , auto Unknown Analyte Negati ve Not Available [facility] With [address], [place], [address], 08/18/2024 12:11:22 08/19/1908/18/2024 urina lysis panel , auto Unknown Analyte Normal Not Available [facility] [address], [place], [address], 08/18/2024 12:11:22 08/19/19 25 08/18/2024 urina lysis panel , auto Unknown Analyte Normal Not Available [facility] With [address] [address] [address], [place], [address], 08/18/2024 12:11:22 08/19/1908/18/2024 urina lysis panel , auto Unknown Analyte Negati ve Not Available [facility] With [address] [address] [address], [place], [address], 08/18/2024 12:11:22 08/19/19 25 08/18/2024 urina lysis panel , auto Unknown Analyte Negati ve Not Available [facility] [address] [address] [address], [place], [address], 08/18/2024 12:11:22 08/19/19 25 08/18/2024 urina lysis panel , auto Unknown Analyte Negati ve Not Available Critical access hospital Urology [facility] With [address], [place], [address], 08/18/2024 12:11:22 08/19/19 25 08/18/2024 urina lysis panel , auto Unknown Analyte Negati ve Not Available Critical access hospital Urology [facility] With [address], [place], [address], 08/18/2024 12:11:22 06/01/19 25 2024 XR, abdom en, [address] [place] [address] Patien t Name: EMMETT Gandara Patien t : 957 Patien t 9 Orderi ng Provid er: TEE ARROYO [facility] EXAM DATE: 2024 EXAM: XR ABDOME N [facility] CL[facility] AL INFORM ATION: Kidney stone IMAGES PROVID ED: KUB AP radiog raphic images of the abdome n. COMPAR LUIS EDUARDO: None. FINDIN GS: No abnorm al intest inal gas patter n. 1.6 cm stone in the right kidney . No radiog raphic eviden ce of free intrap eriton eal air. IMPRES ALEXEI: Right renal stone Interp reted By: Shayan Pedroza MD Electr onical ly Signed By: Shayan Pedroza MD on 025 12:45 PM [email or web address] [facility] [address] , [place], [address], 07/12/2024 11:56:13 08/19/19 25 08/18/2024 XR, abdom en, [address] [place] [address] Patien t Name: EMMETT Gandara Patien t : 957 Patien t 9 Orderi ng Provid er: JHONY Seals EXAM DATE: 2024 EXAM: XR ABDOME N [facility] AL INFORM ATION: Flank pain IMAGES PROVID ED: KUB AP radiog raphic images of the abdome n. COMPAR LUIS EDUARDO: None. FINDIN GS: No abnorm al intest inal gas patter n. Severa l tiny stones are presen t in the right kidney . The larger stone noted on the prior study on the right has either fragme nted or is no longer presen t. No radiog raphic eviden ce of free intrap eriton eal air. IMPRES ALEXEI: Tiny right renal stones Interp reted By: Shayan Pedroza MD Electr onical ly Signed By: Shayan Pedroza MD on 025 1:[email or web address] [facility] [address] [place] , [place], [address], 08/22/2024 10:12:39 Result Notes Documentation Provider Name and Address Organization Details Recorded Time Xr, Abdomen, 1 View : [address] [place] [place], [place] [id number] Patient Name: EMMETT HAAS Patient : 1955 Patient Ordering Provider: TEE MOLINA JR EXAM DATE: 2024 EXAM: XR ABDOMEN KUB CLINICAL INFORMATION: Kidney stone IMAGES PROVIDED: KUB AP radiographic images of the abdomen. COMPARISON: None. FINDINGS: No abnormal intestinal gas pattern. 1.6 cm stone in the right kidney. No radiographic evidence of free intraperitoneal air. IMPRESSION: Right renal stone Interpreted By: Shayan Pedroza MD L García [facility] 07/12/2024 11:56:13 Xr, Abdomen, 1 View : [address] [place] [address] Patient Name: EMMETT HAAS Patient : 1955 Patient Ordering Provider: JHONY CASEY EXAM DATE: 08/18/2024 EXAM: XR ABDOMEN KUB CLINICAL INFORMATION: Flank pain IMAGES PROVIDED: KUB AP radiographic images of the abdomen. COMPARISON: None. FINDINGS: No abnormal intestinal gas pattern. Several tiny stones are present in the right kidney. The larger stone noted on the prior study on the right has either fragmented or is no longer present. No radiographic evidence of free intraperitoneal air. IMPRESSION: Tiny right renal stones Interpreted By: Shayan Pedroza MD [facility] 08/22/2024 10:12:39 Problems Name Problem SNOMED Code Status Onset Date Resolution Date Notes Provider Name and Address Organization Details Recorded Time Kidney stone 58261516 Active 2014 From Automated Load;Provi gabbie: Jhony Casey;Evelia tus: Active Not Available [facility] 6 05:16:41 Diabetes mellitus 63227203 Active 2018 Pradeep Casey [facility] 9 12:47:49 Cataract 106301239 Active 2018 Pradeep Casey [facility] 9 12:47:55 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 Procedures Surgical History Date Name Laterality Status Provider Name and Address Organization Details Recorded Time 07/18/19 25 EXTRA CORPOREAL SHOCK WAVE LITHOTRIPSY (SURG) completed John Paul Orlando [facility] 07/17/2024 11:40:38 08/23/19 20 lithotripsy completed Pradeep Casey [facility] 09/07/2019 13:03:41 09/30/19 19 Cataract (right) removal with iol completed Pradeep Casey [facility] 09/30/2018 08:22:47 09/02/19 19 Cataract (left) removal with iol completed Pradeep Casey [facility] 09/02/2018 08:11:43 08/16/19 19 Axial Length, IOL Master completed ABHISHEK NELSON MD [address] [place] [address], [address], [facility] 08/15/2018 13:37:49 07/24/19 18 OCT/Retina completed Pauly Max [facility] 07/23/2017 11:04:46 03/11/19 17 Tympanogram completed MATEO HENDERSON, AUD [address] [place], [address], [facility] 03/11/2016 13:21:29 03/11/19 17 Audiogram completed MATEO HENDERSON, AUD [address] [place], [address], [facility] 03/11/2016 13:21:28 03/11/19 17 Audiogram completed Anette Goncalvesson [facility] 03/11/2016 13:32:53 03/11/19 17 Tympanometry completed Anette Goncalvesson [facility] 03/11/2016 13:32:58 LASIK completed Becca Vincenzo [facility] 07/23/2017 10:19:09 [facility]iac Surgery [facility] 03/11/2016 13:00:25 Gastric bypass for obesity completed Shae Rincon [facility] 03/11/2016 13:00:39 Removal of thyroid completed [facility] 03/11/2016 13:00:51 [facility] 03/11/2016 13:00:55 Ears/Nose/Throat Surgery completed Anette Saul [facility] 03/11/2016 13:32:25 Imaging Results None recorded. Procedure Notes None recorded. Medical Equipment None Reported. Allergies Allergen ID Allergen Name Allergen Category Reaction Reaction Severity Criticality Documentation Date Start Date Code Code System Note Provider Name and Address Organization Details Recorded Time 000200 niacin medicatio n Not available Not available Not available 03/11/2016 7393 RxNorm Abdonstephanie quiles [facility] 7 12:57:20 848347 bacitraci n / neomycin / polymyxin B medicatio n Not available Not available Not available 03/11/2016 72035 9 RxNorm Abdonstephanie quiles [facility] 7 12:57:26 125489 Avelox medicatio n Not available Not available Not available 09/01/2018 99619 6 RxNorm ABHISHEK NELSON MD [address] [place], [address] [place] [address] 9 09:52:09 Medications Name Sig Start Date Stop Date Status Note LastModified by Organization Details LastModified Time quetiapin e 25 mg tablet 08/15 completed Not Available Not Available Not Available methocarb sanjana 500 mg tablet TAKE 1 TABLET BY MOUTH THREE TIMES DAILY FOR 5 DAYS active Not Available Not Available No t Available metformin 500 mg tablet TAKE 1 TABLET BY MOUTH TWICE DAILY active Not Available Not Available No t Available ivermecti n 3 mg tablet 03/11 completed Not Available Not Available Not Available primidone 50 mg tablet TAKE 1 TABLET BY MOUTH TWICE DAILY active Not Available Not Available No t Available prednison e 10 mg tablet 09/06 completed Not Available Not Available Not Available nitrofura ntoin macrocrys tristen 50 mg capsule TAKE 1 CAPSULE BY MOUTH ONCE DAILY active Not Available Not Available No t Available trazodone 50 mg tablet 07/23 completed Not Available Not Available Not Available azithromy nancy 250 mg tablet TAKE 2 TABLETS BY MOUTH ON DAY 1, AND THEN TAKE 1 TABLET BY MOUTH ONCE A DAY ON DAY 2 THROUGH DAY 5 05/31 completed Not Available Not Available Not Available ibuprofen 800 mg tablet TAKE 1 TABLET BY MOUTH EVERY 6 HOURS NEEDED FOR PAIN OR FEVER active Not Available Not Available No t Available ofloxacin 0.3 % eye drops INSTILL 1 DROP INTO AFFECTED EYE(S) BY OPHTHALM IC ROUTE 4 TIMES PER DAY FOR 7 DAYS AFTER SURGERY AND THEN STOP 09/02 completed Not Available Not Available Not Available fluconazo le 150 mg tablet active Not Available Not Available Not Available ondansetr on HCl 8 mg tablet TAKE 1 TABLET BY MOUTH THREE TIMES DAILY NEEDED VOMITING active Not Available Not Available No t Available metronida zole 0.75 % (37.5 mg/5 gram) vaginal gel INSERT 1 APPLICAT ORFUL VAGINALL Y ONCE DAILY FOR 5 DAYS active Not Available Not Available No t Available ondansetr on HCl 4 mg tablet 03/11 completed Not Available Not Available Not Available famotidin e 40 mg tablet TAKE 1 TABLET BY MOUTH ONCE DAILY FOR 90 DAYS active Not Available Not Available No t Available Lantus U-100 Insulin 100 unit/mL subcutane ous solution 03/11 completed Not Available Not Available Not Available permethri n 5 % topical cream 03/11 completed Not Available Not Available Not Available clopidogr el 75 mg tablet 03/11 completed Not Available Not Available Not Available ciproflox acin 250 mg tablet 03/11 completed Not Available Not Available Not Available sulfameth oxazole 800 mg-trimet hoprim 160 mg tablet TAKE 1 TABLET BY MOUTH EVERY 12 HOURS FOR 5 DAYS 05/31 completed Not Available Not Available Not Available liothyron ine 5 mcg tablet TAKE 1 TABLET BY MOUTH ONCE DAILY . APPOINTM ENT REQUIRED FOR FUTURE REFILLS active Not Available Not Available No t Available tramadol 50 mg tablet TAKE 1 TABLET BY MOUTH EVERY 4 HOURS NEEDED FOR POST OP PAIN active Not Available Not Available No t Available carvedilo l 3.125 mg tablet 03/11 completed Not Available Not Available Not Available levothyro xine 75 mcg tablet TAKE 1 TABLET BY MOUTH ONCE DAILY active Not Available Not Available No t Available bisoprolo l fumarate 5 mg tablet 07/23 completed Not Available Not Available Not Available levothyro xine 100 mcg tablet TAKE 1 TABLET BY MOUTH ONCE DAILY active Not Available Not Available No t Available oxycodone -acetamin ophen 5 mg-325 mg tablet TAKE 1 TABLET BY MOUTH EVERY 6 HOURS NEEDED 09/06 completed Not Available Not Available Not Available alprazola m 0.5 mg tablet TAKE 1 TABLET BY MOUTH TWICE DAILY NEEDED active Not Available Not Available No t Available amoxicill in 875 mg tablet 05/31 completed Not Available Not Available Not Available alprazola m 0.25 mg tablet TAKE 1 TABLET BY MOUTH TWICE DAILY NEEDED active Not Available Not Available No t Available amitripty line 25 mg tablet TAKE 2 TABLETS BY MOUTH ONCE DAILY AT BEDTIME active Not Available Not Available No t Available metoclopr amide 5 mg tablet active Not Available Not Available No t Available oxycodone -acetamin ophen 10 mg-325 mg tablet 07/23 completed Not Available Not Available Not Available dexametha sone 1 mg tablet TAKE 1 TABLET BY MOUTH AT 11:00 P.M. THE NIGHT BEFORE 8:00 A.M. CORTISOL CHECK active Not Available Not Available No t Available lorazepam 2 mg tablet 08/15 completed Not Available Not Available Not Available meclizine 25 mg tablet TAKE 1 TABLET BY MOUTH EVERY 6 HOURS NEEDED FOR PAIN FOR DIZZINES S active Not Available Not Available No t Available phenazopy ridine 100 mg tablet TAKE 1 TABLET BY MOUTH THREE TIMES DAILY AFTER A MEAL active Not Available Not Available No t Available benzonata te 100 mg capsule TAKE 1 CAPSULE BY MOUTH THREE TIMES DAILY NEEDED FOR COUGH active Not Available Not Available No t Available glipizide ER 2.5 mg tablet, extended release 24 hr TAKE 1 TABLET BY MOUTH ONCE DAILY active Not Available Not Available No t Available levothyro xine 50 mcg tablet 03/11 completed Not Available Not Available Not Available hydrocodo ne 7.5 mg-acetam inophen 325 mg tablet TAKE 1 TABLET BY MOUTH EVERY 6 HOURS NEEDED FOR PAIN FOR UP TO 10 DAYS . DO NOT EXCEED DAILY AMOUNT OF 4 TABLETS active Not Available Not Available No t Available cephalexi n 500 mg capsule TAKE 1 CAPSULE BY MOUTH THREE TIMES DAILY FOR 7 DAYS 05/31 completed Not Available Not Available Not Available cyanocoba rosina (vit B-12) 1,000 mcg/mL injection solution INJECT 1 ML SUBCUTAN EOUSLY ONCE EVERY MONTH active Not Available Not Available No t Available neomycin- polymyxin -dexameth 3.5 mg/mL-10, 000 unit/mL-0 .1% eye drops INSTILL 1 DROP INTO AFFECTED EYE(S) EVERY 3 TO 4 HOURS active Not Available Not Available No t Available promethaz ine 25 mg tablet 09/06 completed Not Available Not Available Not Available polymyxin B sulfate 10,000 unit-trim ethoprim 1 mg/mL eye drops INSTILL 1 DROP INTO AFFECTED EYE(S) BY OPHTHALM IC ROUTE EVERY 6 HOURS 09/06 completed Not Available Not Available Not Available nitroglyc nelida 0.4 mg sublingua l tablet DISSOLVE ONE TABLET UNDER THE TONGUE EVERY 5 MINUTES NEEDED FOR CHEST PAIN. DO NOT EXCEED A TOTAL OF 3 DOSES IN 15 MINUTES active Not Available Not Available No t Available monteluka st 10 mg tablet TAKE 1 TABLET BY MOUTH ONCE DAILY IN THE EVENING active Not Available Not Available No t Available lisinopri l 5 mg tablet TAKE 1 TABLET BY MOUTH ONCE DAILY active Not Available Not Available No t Available zolpidem 5 mg tablet 03/11 completed Not Available Not Available Not Available metoprolo l succinate ER 25 mg tablet,ex tended release 24 hr TAKE 1 TABLET BY MOUTH IN THE MORNING active Not Available Not Available No t Available ergocalci ferol (vitamin D2) 1,250 mcg (50,000 unit) capsule TAKE 1 CAPSULE BY MOUTH ONCE EVERY MONTH active Not Available Not Available No t Available BD Tuberculi n Syringe 1 mL 25 gauge x 06/15 USE DIRECTED active Not Available Not Available No t Available oxycodone -acetamin ophen 7.5 mg-325 mg tablet 03/11 completed Not Available Not Available Not Available levofloxa nancy 750 mg tablet TAKE 1 TABLET BY MOUTH ONCE DAILY 09/06 completed Not Available Not Available Not Available zolpidem 10 mg tablet TAKE 1 TABLET BY MOUTH ONCE DAILY active Not Available Not Available No t Available methylpre dnisolone 4 mg tablets in a dose pack TAKE BY MOUTH DIRECTED ON INSIDE OF PACKAGE 09/06 completed Not Available Not Available Not Available ipratropi um bromide 42 mcg (0.06 %) nasal spray 1 spray in each nostril up to 3 times a day x 30 days 08/15 completed Not Available Not Available Not Available propranol ol 20 mg tablet TAKE 1 TABLET BY MOUTH TWICE DAILY active Not Available Not Available No t Available ondansetr on 4 mg disintegr ating tablet DISSOLVE 1 TABLET IN MOUTH EVERY 6 HOURS NEEDED active Not Available Not Available No t Available cefdinir 300 mg capsule TAKE 1 CAPSULE BY MOUTH EVERY 12 HOURS FOR 7 DAYS 05/31 completed Not Available Not Available Not Available fluticaso ne propionat e 50 mcg/actua tion nasal spray,artur pension USE 1 TO 2 SPRAY(S) IN EACH NOSTRIL TWICE DAILY ONLY WHILE SYMPTOMA TIC AFTER SALT WATER GARGLE FLAKITA POT active Not Available Not Available No t Available lisinopri l 2.5 mg tablet 03/11 completed Not Available Not Available Not Available diazepam 5 mg tablet 08/15 completed Not Available Not Available Not Available amoxicill in 875 mg-potass ium clavulana te 125 mg tablet 05/31 completed Not Available Not Available Not Available escitalop jus 10 mg tablet TAKE 1 TABLET BY MOUTH ONCE DAILY active Not Available Not Available No t Available escitalop jus 20 mg tablet TAKE 1 TABLET BY MOUTH ONCE DAILY active Not Available Not Available No t Available ezetimibe 10 mg tablet active Not Available Not Available Not Available Premarin 0.625 mg/gram vaginal cream 08/15 completed Not Available Not Available Not Available rosuvasta tin 10 mg tablet TAKE 1 TABLET BY MOUTH ONCE DAILY active Not Available Not Available No t Available rosuvasta tin 40 mg tablet TAKE 1 TABLET BY MOUTH ONCE DAILY active Not Available Not Available No t Available escitalop jus 5 mg tablet 07/23 completed Not Available Not Available Not Available nitrofura ntoin monohydra te/macroc rystals 100 mg capsule TAKE 1 CAPSULE BY MOUTH TWICE DAILY active Not Available Not Available No t Available duloxetin e 30 mg capsule,d elayed release TAKE 1 CAPSULE BY MOUTH ONCE DAILY AT BEDTIME FOR 90 DAYS active Not Available Not Available No t Available duloxetin e 60 mg capsule,d elayed release TAKE 1 CAPSULE BY MOUTH ONCE DAILY FOR 90 DAYS active Not Available Not Available No t Available zolpidem ER 12.5 mg tablet,ex tended release,m ultiphase active Not Available Not Available No t Available loratadin e active Not Available Not Available Not Available aspirin 03/11 completed Medicati on Descript ion: aspirin; refills: 0 Not Available Not Available Not Available levothyro xine 07/23 completed Medicati on Descript ion: levothyr oxine; refills: 0 Not Available Not Available Not Available Coreg 03/11 completed Medicati on Descript ion: carvedil ol; refills: 0 Not Available Not Available Not Available lisinopri l 07/23 completed Medicati on Descript ion: lisinopr il; refills: 0 Not Available Not Available Not Available metformin 08/15 completed Medicati on Descript ion: metformi n; refills: 0 Not Available Not Available Not Available NitroQuic k 03/11 completed Medicati on Descript ion: nitrogly cerin; refills: 0 Not Available Not Available Not Available Lexapro 07/23 completed Medicati on Descript ion: escitalo pram; refills: 0 Not Available Not Available Not Available Crestor active Medicati on Descript ion: rosuvast atin; refills: 0 Not Available Not Available Not Available Climara Pro 03/11 completed Medicati on Descript ion: estradio l-levono rgestrel ; Route:tr ansderma l; refills: 0 Not Available Not Available Not Available Januvia 100 mg tablet 07/23 completed Not Available Not Available Not Available cholecalc iferol (vitamin D3) 1,250 mcg (50,000 unit) capsule TAKE 1 CAPSULE BY MOUTH ONCE A WEEK active Not Available Not Available No t Available Havrix (PF) 1,440 RISSA unit/mL intramusc ular syringe active Not Available Not Available Not Available levocetir izine 5 mg tablet active Not Available Not Available No t Available Durezol 0.05 % eye drops INSTILL 1 DROP INTO AFFECTED EYE(S) BY OPHTHALM IC ROUTE 4 TIMES PER DAY FOR 7 DAYS AFTER SURGERY AND THEN USE DIRECTED 09/06 completed Not Available Not Available Not Available Effient 03/11 completed Medicati on Descript ion: prasugre l; Route:or al; refills: 0 Not Available Not Available Not Available Mucus Relief ER 600 mg tablet, extended release TAKE 1 TABLET BY MOUTH EVERY 12 HOURS FOR 10 DAYS active Not Available Not Available No t Available Janumet XR 100 mg-1,000 mg tablet,ex tended release TAKE 1 TABLET BY MOUTH ONCE DAILY active Not Available Not Available No t Available Ilevro 0.3 % eye drops,artur pension INSTILL 1 DROP TO THE OPERATED EYE BY OPHTHALM IC ROUTE ONCE DAILY STARTING 1 DAY PRIOR TO CATARACT SURGERY & FOR 14 DAYS AFTER SURGERY 09/06 completed Not Available Not Available Not Available Farxiga 10 mg tablet TAKE 1 TABLET BY MOUTH ONCE DAILY active Not Available Not Available No t Available Farxiga 5 mg tablet 03/11 completed Not Available Not Available Not Available Ozempic 0.25 mg or 0.5 mg (2 mg/3 mL) subcutane ous pen injector INJECT 0.5MG SUBCUTAN EOUSLY ONCE A WEEK active Not Available Not Available No t Available Vitals Date Recorded Body height Body mass index (BMI) Body weight Provider Name and Address Organization Details Last Updated DateTime 2024 154.94 cm 28.3 kg/m2 58815.86 g Cayetanonahomy Cayden [facility] 2024 12:04:30 Date Recorded Body height Body mass index (BMI) Body weight Provider Name and Address Organization Details Last Updated DateTime 08/18/2024 154.94 cm 28.3 kg/m2 76765.86 g Wang Rodarte [facility] 08/18/2024 12:10:15 Social History Question Answer Notes LastModified by Organizat ion Details LastModified Time Tobacco Smoking Status Former Smoker QUIT 1970[facility] 08/15/2018 12:48:13 What Was The Date Of Your Most Recent Tobacco Screening? 08/18/2024 [email or web address] Information not available 08/18/2024 Sex: Female Functional Status Question Answer Note LastModified by Organization D etails LastModified Time What is your level of alcohol consumption? None [email or web address] Information not available 03/11/2016 Mental Status None recorded. Family History Relationship Description Onset Age of this Age Resolved Age Notes LastModified by Organization Details LastModified Time Mother History of hypertension Not available 11:05:53 Mother Diabetes mellitus Not available 2024 11:05:53 Mother Glaucoma Not availabl e 2024 11:05:53 Brother History of hypertension [email or web address] Not available 11:05:53 Brother Diabetes mellitus [email or web address] Not available 2024 11:05:53 Maternal Grandfather Glaucoma [email or web address] Not available 11:05:53 Maternal Grandfather Kidney disease 80 [email or web address] Not available 2024 11:05:53 Unspecified Relation Cataract [email or web address] Not available 2024 11:05:53 Medical History Condition Response Coronary Artery Disease N Other N Gout N Kidney Cyst N Kidney Stones Y Enlarged Prostate N Heart Arrhythmia Y Erectile Dysfunction N Head Trauma/Injury N Emphysema N Sexually Transmitted Disease N Depression Y Pneumonia N Incontinence N Prostate Problems N Cancer Prostate N Paralysis N Anxiety Disorder Y Hemorrhoids Y Obesity N Arthritis Y Infertility N Acid Reflux (GERD) Y Cancer N Hematuria N Stroke Y Neck Injury N Previous Radiation Therapy? N Neurologic Disorder N Kidney Disease N Heart Conditions Y Kidney or Bladder Problems Y Constipation N Urinary Problems N Brain Injury N Ulcers N Prostate Hypertrophy N Bleeding Disorder N Low Testosterone N Tuberculosis N Previous Chemotherapy? N AIDS/HIV N BPH N Urinary Tract Infection Y Cataract Y Asthma N Cardiac Disease Y Thyroid Disorder Y Hepatitis N PCOS N Glasses/Contacts Y Colon Cancer N Hernia N Colon/Rectal Disorders N Ostomy N Glaucoma N Pacemaker N Anesthesia Complications N Genitourinary Disease N Chronic Kidney Disease Y Radiation Therapy N Bladder or Kidney Problems Y Back Injury N High Cholesterol Y High PSA N Liver Disease N Nervous System Disorder N Organ Transplant N Dialysis N Allergies/Hayfever Y False Teeth N Chronic Obstructive Pulmonary Disease N Parkinson's Disease N Chemotherapy N Transplant N Anemia Y Multiple Sclerosis N Chest Pain N Back Pain N Proteinuria N Heart Attack (VA) Y Mental Illness N Diabetes Y Ovarian Cancer N Seizures/Epilepsy N Genitourinary problem(s) Y Congestive Heart Failure (CHF) N Kidney Failure N Sleep Apnea Y Heart Disease Y Hypertension N Gynecological History Statement/Question Response Female Hormone Problem N # of Pregnancies 2 Abnormal Periods Y # of Births 2 Could you be now? N Current Control Method none Uterus/Ovaries Problem N Obstetrics History GPAL:G 0 P 0 0 0 0 Past Encounters Encounter ID Performer Location Encounter Start Date Encounter Closed Date Diagnosis/Indication Diagnosis SNOMED-CT Code Diagnosis ICD10 Code Diagnosis Note [id number] BEKAH DUMONT MD [facility] [address] [place] [address] 03/11/2016 12:33:46 03/11/2016 16:46:09 Dysfunction of eustachian tube 40877028 H69.93 Asymmetric al sensorineural hearing loss 512969822 H90.5 R>L Bilateral tinnitus 86205 82413 102 H93.13 Vasomotor rhinitis 47171 03 J30.0 [id number] OSMAN VANN ND [address] [place] [address] 03/11/2016 13:05:32 03/11/2016 13:22:00 Asymmetrical sensorineural hearing loss 820745920 H90.5 [id number] ABHISHEK NELSON MD [facility] [address] [place] [address],[address] [place] [address] 07/23/2017 10:04:47 07/23/2017 11:54:35 History of laser assisted in situ keratomileusis 750555520 Z98.890 OU. for myopia Combined f orm of senile cataract 60745389 H25.819 os discussed options: ce vs mrx vs obs. pt desires mrx rechekc 1 year Type 2 jayson betes mellitus without complication 133456554 E11.9 no retinopath y ou I discussed diabetes with this patient. I discussed the importance of sugar control for reducing risk of diabetic complicati ons in the eyes. I recommened they follow up with their PCP/endocr inologist for continue sugar evaluation /managemen t. Also discussed importance of cardiovasc ular risk reduction. Call with changing/f luxuating vision. [id number] ABHISHEK NELSON MD OPHTHALMO [address] [place] [address] 08/15/2018 12:33:05 08/15/2018 16:48:33 Combined form of senile cataract 75611438 H25.819 os>od Discussed cataracts and cataract surgery. I discussed that the decision to have cataract surgery should be determined by how bad the vision affects the patient in their daily lives. I discussed the option of updating the patients glasses and observatio n. I discussed the procedure and post op requiremen ts and expectatio ns. I discussed the risks including retinal detachment , infection in the eye, vision loss, loss of eye or blindness, swelling, inflammati on, bleeding, glaucoma, need for glasses following the procedure. I told them that this is not every possible risk of the procedure. The patient watched the cataract surgery informatio n video. I answered all of the patients questions. The patient voiced understand ing to me. The patient signed a consent today and i gave them a copy. I asked the patient to call if any problems/q uestions/i ssues were to arise prior to their surgery. discussed would likely need gls after procedure - pt understand s d/t chance of refractive suprise distance vision LASIK PL[facility] in [facility]? try to get old records as flap not easy to see today History of laser assisted in situ keratomileusis 929099093 Z98.890 OU. for myopia Type 2 jayson betes mellitus without complication [id number] E11.9 no retinopath y ou I discussed diabetes with this patient. I discussed the importance of sugar control for reducing risk of diabetic complicati ons in the eyes. I recommened they follow up with their PCP/endocr inologist for continue sugar evaluation /managemen t. Also discussed importance of cardiovasc ular risk reduction. Call with changing/f luxuating vision. [id number] ABHISHEK NELSON MD SURGERY SCHEDULE [address] [place] [address] 09/01/2018 08:19:35 09/01/2018 08:27:26 [id number] ABHISHEK NELSON MD OPHTHALMO [address] ,[address] [place] [address] 09/02/2018 08:06:38 09/02/2018 08:39:31 Pseudophakia 29569169 Z96.1 Post op Day one - excellentS tart Durezol taper QID x 1 week, TID x 1 week, BID x 1 week, Qday x 1 week.Start Ilevro Qday x 2 weeksStart pt Qid x 1 weekDrop info sheet and activity precaution sheet given.No bending/li fting, strenuous activities , water in eye, eye rubbing x 1 week.Shiel d x 1 week.Call for problems. Specifical ly changes in vision, pain, floaters.C all for any questions. 1 week po ar/d os [id number] ABHISHEK NELSON MD OPHTHALMO [facility] [address] ,[address] [place] [address] 09/14/2018 12:46:51 09/14/2018 15:10:52 Pseudophakia 45071433 Z96.1 excellent continue d/i taper Combined f orm of senile cataract 47877430 H25.819 od Discussed cataracts and cataract surgery. I discussed that the decision to have cataract surgery should be determined by how bad the vision affects the patient in their daily lives. I discussed the option of updating the patients glasses and observatio n. I discussed the procedure and post op requiremen ts and expectatio ns. I discussed the risks including retinal detachment , infection in the eye, vision loss, loss of eye or blindness, swelling, inflammati on, bleeding, glaucoma, need for glasses following the procedure. I told them that this is not every possible risk of the procedure. The patient defered the cataract surgery informatio n video. I answered all of the patients questions. The patient voiced understand ing to me. The patient signed a consent today and i gave them a copy. I asked the patient to call if any problems/q uestions/i ssues were to arise prior to their surgery. discussed would likely need gls after procedure - pt understand s d/t chance of refractive suprise distance vision lasik previously for myopia [id number] ABHISHEK NELSON MD SURGERY SCHEDULE [address] [place] [address] 09/29/2018 07:22:03 09/29/2018 07:25:59 [id number] ABHISHEK NELSON MD OPHTHALMO [facility] [address] [place] [id number] 09/30/2018 08:03:40 09/30/2018 09:23:22 Pseudophakia 69478227 Z96.1 Post op Day one - excellentS tart Durezol taper QID x 1 week, TID x 1 week, BID x 1 week, Qday x 1 week.Start Ilevro Qday x 2 weeksStart Ofloxacin Qid x 1 weekDrop info sheet and activity precaution sheet given.No bending/li fting, strenuous activities , water in eye, eye rubbing x 1 week.Shiel d x 1 week.Call for problems. Specifical ly changes in vision, pain, floaters.C all for any questions. 1 mo po mr ou d od [id number] ABHISHEK NELSON MD OPHTHALMO [facility] [address] [place] [id number] 10/31/2018 13:59:08 10/31/2018 15:10:57 Pseudophakia 28490283 Z96.1 excellent mr today 1 year complete dm check. [id number] ABHISHEK NELSON MD OPHTH[facility]MO [facility] [address] [place] [address] 09/07/2019 12:56:26 09/07/2019 14:20:40 Type 2 diabetes mellitus without complication 906549766 E11.9 no retinopath y ou I discussed diabetes with this patient. I discussed the importance of sugar control for reducing risk of diabetic complicati ons in the eyes. I recommened they follow up with their PCP/endocr inologist for continue sugar evaluation /managemen t. Also discussed importance of cardiovasc ular risk reduction. Call with changing/f luxuating vision. 1 year and prn. Pseudophakia 74774542 Z9 6.1 excellent mr today 1 year complete dm check. [id number] ABHISHEK NELSON MD OPHTHALMO [facility] [address] [place] [address] 5 09/09/2020 12:46:24 09/09/2020 14:43:55 Vitreous degeneration 53048121 H43.811 i suspect early vit degen with out detachment rd si/sx discussed call with these Type 2 jayson betes mellitus without complication 161954452 E11.9 no retinopath y ou I discussed diabetes with this patient. I discussed the importance of sugar control for reducing risk of diabetic complicati ons in the eyes. I recommened they follow up with their PCP/endocr inologist for continue sugar evaluation /managemen t. Also discussed importance of cardiovasc ular risk reduction. Call with changing/f luxuating vision. 1 year and prn. Pseudophakia 11110311 Z9 6.1 stable continue mr [id number] ABHISHEK NELSON MD O[facility]THALMO [facility] [address] [place] [address] 5 08/13/2021 09:13:59 08/13/2021 10:20:57 Type 2 diabetes mellitus without complication 131857437 E11.9 no retinopath y ou I discussed diabetes with this patient. I discussed the importance of sugar control for reducing risk of diabetic complicati ons in the eyes. I recommened they follow up with their PCP/endocr inologist for continue sugar evaluation /managemen t. Also discussed importance of cardiovasc ular risk reduction. Call with changing/f luxuating vision. 1 year and prn. Posterior vitreous detachment 698256987 H43.819 Discussed vitreous detachment with the patient. I discussed the patient monitoring for increasing flashes/fl oater/brock ge in vision and to call immediatel y for any change in the vision. [id number] ABHISHEK NELSON MD OPHTHALMO [facility] [address] [place] [address] 5 08/14/2022 12:32:10 08/14/2022 13:29:51 Type 2 diabetes mellitus without complication 989830003 E11.9 no retinopath y ou I discussed diabetes with this patient. I discussed the importance of sugar control for reducing risk of diabetic complicati ons in the eyes. I recommend they follow up with their PCP/endocr inologist for continue sugar evaluation /managemen t. Also discussed importance of cardiovasc ular risk reduction. Call with changing/f luxuating vision. 1 year and prn. Bilateral pseudophakia [id number] 1229442 Z96.1 Posterior vitreous detachment 274713606 H43.819 Discussed vitreous detachment with the patient. I discussed the patient monitoring for increasing flashes/fl oater/brock ge in vision and to call immediatel y for any change in the vision. [id number] TEE MOLINA JR, MD [address] ,[address] [place], [place] [address] 2024 11:03:19 2024 15:36:11 Kidney stone 79581235 N20.0 Perform KUB x-ray to evaluate kidney stones and guide interventi ons. Imaging to assess risks and plan management due to chronic presence. Acute urin fredy tract infection 768380634 N39.0 Recurrent urinary tract infection 710475339 N39.0 [id number] JHONY CASEY MD [address] [place], [place] [address] 08/18/2024 11:16:53 08/21/2024 04:05:01 Kidney stone 68458845 N20.0 - Plan to obtain an x-ray to assess residual stone burden. - Consider further imaging or procedures based on x-ray results. - Send stones for analysis to guide future management . Health Concerns Section Related Observation LastModified by Organization Detai ls LastModified Time None Recorded Concern Status LastModified by Organization Details LastModified Time None Recorded Advance Directives Directive None Recorded Payers Insurance Date Sequence Insurance Name Policy Number Policy Zepeda Covered Member ID Zepeda Member ID Guarantor Name 10/08/2023 2 [employer] (MEDICARE SUPPLEMENT) PLAN G Emmett Haas [id number] Emmett Haas 08/13/2021 2 [place] [id number] R Jorge Haas [id number] Emmett Haas 11/14/2018 PAYMENT PLAN Emmett Haas 08/15/2024 1 MEDICARE-ND (MEDICARE) Emmett Haas [id number] Emmett Haas 05/11/2019 2 [employer]: [employer] [place] [employer] [place] Haas Notes Date Note Type Note Provider Name and Address Organization Details Recorded Time 09/09/2020 text/html 65 Y/O WF W/PP OU AND DM COMPLETENO CHANGES IN [place] SINCE LAST EXAMC/O OS HAD FBS LOCATED IN DIFFERENT AREA OF THE OS EYE/ NOW OS IS BETTER/C/O FLASH OF LIGHT OD EVERY DAY X 2 WKS /DARDEN SHAPED/ RIGHT OUTER CORNER/ NO FLOATERS ODHX OF CE OUNO GTTS OUNIDDM 20+ YRS/ DR JASS BENOIT(AIC 6.8 04/28 PER PT(PT CHECKS B/G 3-4 WEEK/ LAST READING 169 THIS MORNINGMH new f od x 2 weeks, when moving eyesno floatersce oufbs osvision good ABHISHEK NELSON MD [address] [place] [address], [phone], [facility] 09/09/2020 13:44:56 08/13/2021 text/html 66 yo wf w/ blurry va returns for brf1. Pt has blurry va OU that comes and goes x 2 months2. Looks like a film over eyes3. Needs more light when reading4. Has not had any flashes of light or floaters OU since last visit5. C/o dryness OUs/p iol ougtts: clear eyes ou prncb fogginess x 2 mo ABHISHEK NELSON MD [address] [place] [address], [phone], [facility] 08/13/2021 10:13:50 2024 text/html The patient is a 69-year-old female presenting with kidney stones and a recurrent urinary tract infection. She has a history of kidney stone formation, including staghorn stones, with a surgical removal of one in 2016. She experiences aching sensations and occasional severe pain in areas of previous surgery. She has recurrent urinary tract infections for over a year, with symptoms including malodorous urine but no hematuria. Imaging history is uncertain; however, recent evaluations are likely lacking. She denies frequent dysuria, urinary frequency, or urgency currently. TEE MOLINA JR, MD [address] [place] [place] [address], [id number], [facility] 06/04/2024 17:21:53 08/18/2024 text/html The patient is a 69-year-old female presenting for follow-up evaluation after ESWL for a large right renal stone. She reports no stone passage for 11 days and experiences intermittent bilateral flank pain. There is no current dysuria or hematuria, though these were present with a previous stone passage. The patient has a history of staghorn calculi and has undergone more invasive procedures previously, which she wishes to avoid. JHONY CASEY MD [address] [place] [address], [phone], [facility] 08/20/2024 15:04:08 OBGyn Episode No OBEpisode recorded.
--- OUTSIDE RECORDS SUMMARY | 2024-08-31 08:45 | XMS_ITS | Encounter Summary ---
Author Organization [employer] ([place], [place], [place], [place]) Address [address] [place] [address] Care Team Providers Care Antique Dealer Name Role Phone Jessica Gomez MD Primary Care Provider [phone] Darrian Reno PA-C Unavailable [phone] Jessica Gomez MD Primary Care Provider [phone] Gibson Bai MD Unavailable Encounter Details Date Type Department Care Team (Late st Contact Info) Description 11/29/2018 Transcribed Document [facility] Cardiology [address] [place] [address] Umair Hair MD [address] [facility] [address] [place] [address] Social History Tobacco Use Types Packs/Day Years Used Date Smoking Tobacco: Never Assessed Comments Unknown Sex and Gender Information Value Date Recorded Sex Assigned at Not on file Legal Sex Female 5:09 PM CDT Gender Identity Not on file Sexual Orientation Not on file documented as of this encounter Miscellaneous Notes * Cerner Conversion Note - Umair Hair MD - 11/29/2018 4:30 PM EDT DATE OF SERVICE: Stress test with a myocardial perfuse study. This patient underwent a Lexiscan myocardial perfusion study, the EKG portion of which was unremarkable. NUCLEAR SCAN: There appears to be a, within normal, myocardial perfusion. Normal wall motion and wall thickening appreciated. Ejection fraction by gated SPECT is 76%. IMPRESSION: 1. Normal study. 2. Ejection fraction is 76%. /[id number] Umair Hair MD NMF/AQ / NMF / MODL /[id number] documented in this encounter Plan of Treatment Upcoming Encounters Date Type Department Care Team (Late st Contact Info) Description 10/20/2024 9:00 AM EDT Appointment [facility] Breast Imaging [address] [place] [address] Jessica Gomez MD [address] [place] [address] 10/20/2024 9:30 AM EDT Appointment [facility] Nuclear Medicine [address] [place] [address] Jessica Gomez MD [address] [place] [address] documented as of this encounter Visit Diagnoses Not on filedocumented in this encounter Care Teams Antique Dealer Relationship Specialty Start Date End Date Jessica Gomez MD 100 [facility] 1 [place] [address] PCP - General Internal Medicine 12/08/21 05/18/22 Jessica Gomez MD [address] [facility] [place] [address] PCP - General Internal Medicine 08/09/23 Darrian Reno PA-C [address] [place] [address] Cardiology 04/15/23 Gibson Bai MD [address] [place] [address] [place] [address] Consulting Physician Urology 08/09/23 documented as of this encounter
--- OUTSIDE RECORDS SUMMARY | 2024-08-31 08:45 | XMS_ITS | Encounter Summary ---
Author Organization [employer] ([place], [place], [place], [place]) Address [address] [place] [address] Care Team Providers Care Olive Brine Tester Name Role Phone Jessica Gomez MD Primary Care Provider Darrian Reno PA-C Unavailable [phone] Jessica Gomez MD Primary Care Provider [phone] Gibson Bai MD Unavailable Encounter Details Date Type Department Care Team (Late st Contact Info) Description 11/29/2018 Transcribed Document [facility] Family Medicine [facility] [place] [address] ProviderAda MD [address] [place] [address] Social History Tobacco Use Types Packs/Day Years Used Date Smoking Tobacco: Never Assessed Comments Unknown Sex and Gender Information Value Date Recorded Sex Assigned at Not on file Legal Sex Female 5:09 PM CDT Gender Identity Not on file Sexual Orientation Not on file documented as of this encounter Miscellaneous Notes * Cerner Conversion Note - Ada Abdalla MD - 11/29/2018 3:56 PM CDT Stroke/Warfarin Instructions Entered On: 11/29/2018 15:56 EDT Performed On: 11/29/2018 15:56 EDT by Shayan Godwin RN Stroke/Warfarin Instructions Stroke/TIA Discharge Ins : N/A Warfarin Discharge Ins : N/A Shayan Godwin RN - 11/29/2018 15:56 EDT Electronically signed by Jose Rafael [facility] Conversion Senior Accounting Analyst Cerner at 05/27/2022 11:20 PM CDT documented in this encounter Plan of Treatment Upcoming Encounters Date Type Department Care Team (Late st Contact Info) Description 10/20/2024 9:00 AM EDT Appointment [facility] Breast Imaging [address] [place] [address] Jessica Gomez MD [address] [place] [address] 10/20/2024 9:30 AM EDT Appointment [facility] Nuclear Medicine [address] [place] [address] Jessica Gomez MD [address] [place] [address] documented as of this encounter Visit Diagnoses Not on filedocumented in this encounter Care Teams Olive Brine Tester Relationship Specialty Start Date End Date Jessica Gomez MD 100 [facility] 1 [place] [address] PCP - General Internal Medicine 12/08/21 05/18/22 Jessica Gomez MD [address] [place] [address] PCP - General Internal Medicine 08/09/23 Darrian Reno PA-C [address], [facility] [address] [place] [address] Cardiology 04/15/23 Gibson Bai MD 227 [facility] [address] [place] [address] Consulting Physician Urology 08/09/23 documented as of this encounter
--- OUTSIDE RECORDS SUMMARY | 2024-08-31 08:45 | XMS_ITS | Encounter Summary ---
Author Organization [employer] ([place], [place], [place], [place]) Address [address] [place] [address] Care Team Providers Care Filtration Plant Mechanic Name Role Phone Jessica Gomez MD Primary Care Provider [phone] Darrian Reno PA-C Unavailable [phone] Jessica Gomez MD Primary Care Provider [phone] Gibson Bai MD Unavailable Encounter Details Date Type Department Care Team (Late st Contact Info) Description 11/29/2018 Transcribed Document [facility] [place] Medicine [address] [place] [address] ProviderAda MD [address] [place] [address] Social History Tobacco Use Types Packs/Day Years Used Date Smoking Tobacco: Never Assessed Comments Unknown Sex and Gender Information Value Date Recorded Sex Assigned at Not on file Legal Sex Female 5:09 PM CDT Gender Identity Not on file Sexual Orientation Not on file documented as of this encounter Miscellaneous Notes * Cerner Conversion Note - Ada ProviderMD - 11/29/2018 10:05 AM CDT Spiritual Care Short Form Entered On: 11/29/2018 13:33 EDT Performed On: 11/29/2018 10:05 EDT by DANIELLE CAN General Information, Spiritual Care Spiritual Care Referred by : Eyeglass Lens Generator initiated Reason for Visit : Initial Ministry Provided to : Patient, Family/Significant other Intervention/Comment/Summary Points : Initial Spiritual Care visit by Siri garcia. Patient demonstrates strong ge. Uatsdin Preference : HinduDANIELLE Rodriguez P - 11/29/2018 13:32 EDT Electronically signed by Wyatt Mantilla Conversion Director Of Teaching And Learning Cerner at 05/27/2022 11:09 PM CDT documented in this encounter Plan of Treatment Upcoming Encounters Date Type Department Care Team (Late st Contact Info) Description 10/20/2024 9:00 AM EDT Appointment [facility] Breast Imaging [address] [place] [address] Jessica Gomez MD [address] [place] [address] 10/20/2024 9:30 AM EDT Appointment [facility] Nuclear Medicine [address] [place] [address] Jessica Gomez MD [address] [place] [address] documented as of this encounter Visit Diagnoses Not on filedocumented in this encounter Care Teams Filtration Plant Mechanic Relationship Specialty Start Date End Date Jessica Gomez MD 100 [facility] [address] [place] [address] PCP - General Internal Medicine 12/08/21 05/18/22 Jessica Gomez MD [address] [place] [address] PCP - General Internal Medicine 08/09/23 Darrian Reno PA-C [address] [place] [address] Cardiology 04/15/23 Gibson Bai MD [address] [place] [address] Consulting Physician Urology 08/09/23 documented as of this encounter
--- OUTSIDE RECORDS SUMMARY | 2024-08-31 08:45 | XMS_ITS | Encounter Summary ---
Author Organization [employer] ([place], [place], [place], [place]) Address [address] [place] [address] Care Team Providers Care Paint Line Operator Name Role Phone Jessica Gomez MD Primary Care Provider [phone] Darrian Reno PA-C Unavailable [phone] Jessica Gomez MD Primary Care Provider [phone] Gibson Bai MD Unavailable Encounter Details Date Type Department Care Team (Late st Contact Info) Description 11/29/2018 Transcribed Document [facility] Family Medicine [facility] [place] [address] ProviderAda MD [address] [place] [address] Social History Tobacco Use Types Packs/Day Years Used Date Smoking Tobacco: Never Assessed Comments Unknown Sex and Gender Information Value Date Recorded Sex Assigned at Not on file Legal Sex Female 5:09 PM CDT Gender Identity Not on file Sexual Orientation Not on file documented as of this encounter Miscellaneous Notes * Cerner Conversion Note - Ada ProviderMD - 11/29/2018 7:00 AM CDT Admission History, Adult Entered On: 11/29/2018 7:03 EDT Performed On: 11/29/2018 7:00 EDT by Alba Romero RN Advance Directive Patient has Advance Directive *Q : No, patient refuses Advance Directive information Alba Romero RN - 11/29/2018 7:00 EDT Height and Weight, Clinical Dosing Height Source : Stated Height Entry Format : [place] Height, Feet : 5 ft(Converted to: 152 cm, 60 Inch) Height, Inches : 2 Inch(Converted to: 0 ft 2 Inch, 5.08 cm) Clinical Height : 157.48 cm Weight Source : Bed scale Weight Entry Format : [place] Clinical Dosing Weight : 63.64 kg Weight, Pounds : 140 lb Body Surface Area (BSA) : 1.64 m2 Body Mass Index : 25.7 kg/m2 (HI) [place] Body Weight : 50 kg Alba Romero RN - 11/29/2018 7:00 EDT documented in this encounter Plan of Treatment Upcoming Encounters Date Type Department Care Team (Late st Contact Info) Description 10/20/2024 9:00 AM EDT Appointment [facility] Breast Imaging [address] [place] [address] Jessica Gomez MD [address] [place] [address] 10/20/2024 9:30 AM EDT Appointment [facility] Nuclear Medicine [address] [place] [address] Jessica Gomez MD [facility]0 [place] [address] documented as of this encounter Visit Diagnoses Not on filedocumented in this encounter Care Teams Paint Line Operator Relationship Specialty Start Date End Date Jessica Gomez MD 100 [facility] 1 [place] [address] PCP - General Internal Medicine 12/08/21 05/18/22 Jessica Gomez MD [address] [facility] [place] [address] PCP - General Internal Medicine 08/09/23 Darrian Reno PA-C [address] [place] [address] Cardiology 04/15/23 Gibson Bai MD [address] [place] [address] [place] [address] Consulting Physician Urology 08/09/23 documented as of this encounter
--- OUTSIDE RECORDS SUMMARY | 2024-08-31 08:46 | XMS_ITS | Encounter Summary ---
Author Organization [employer] ([place], [place], [place], [place]) Address [address] [place] [address] Care Team Providers Care Dealer Compliance Representative Name Role Phone Jessica Gomez MD Primary Care Provider [phone] Darrian Reno PA-C Unavailable [phone] Jessica Gomez MD Primary Care Provider [phone] Gibson Bai MD Unavailable Reason for Referral * Ultrasound (Routine) - Closed Specialty Diagnoses / Procedures Referred By Contac t Referred To Contact Diagnoses Other somatoform disorders Procedures US thyroid Provider, Not In System [place] Referral ID Status Reason Start Date Expiration Date Visits Re quested Visits Authorized [id number] Closed 05/11/2022 11/07/2022 1 1 Encounter Details Date Type Department Care Team (Late st Contact Info) Description 05/11/2022 Outside Orders [facility] Central Scheduling 1 [place] [address] [place] [address] Other somatoform disorders (Primary Dx) Social History Tobacco Use Types Packs/Day Years Used Date Smoking Tobacco: Former Cigarettes 0.3 10 0 05/09/1989 - 05/10/1999 Smokeless Tobacco: Never Alcohol Use Standard Drinks/Week Comments Not Currently 0 (1 standard drink = 0.6 oz pur e alcohol) Comments Unknown Sex and Gender Information Value Date Recorded Sex Assigned at Not on file Legal Sex Female 5:09 PM CDT Gender Identity Not on file Sexual Orientation Not on file COVID-19 Exposure Response Date Recorded In the last 10 days, have yo u been in contact with someone who was confirmed or suspected to have Coronavirus/COVID-19? No / Unsure 05/06/2022 10:23 AM EDT documented as of this encounter Plan of Treatment Upcoming Encounters Date Type Department Care Team (Late st Contact Info) Description 10/20/2024 9:00 AM EDT Appointment [facility] Breast Imaging [address] [place] [address] Jessica Gomez MD [address] [place] [address] 10/20/2024 9:30 AM EDT Appointment [facility] Nuclear Medicine [address] [place] [address] Jessica Gomez MD [address] [place] [address] documented as of this encounter Results * US thyroid (05/22/2022 2:39 PM EDT) Anatomical Region Laterality Modality Thyroid, Neck Ultrasound 05/22/2022 4:03 PM EDT Impressions 05/22/2022 4:05 PM EDT No focal thyroid lesion identified. Images reviewed, interpreted, and dictated by Dr. Ya Moreau. Transcribed by Shilo Villela PA-C Narrative 05/22/2022 4:05 PM EDT THYROID ULTRASOUND HISTORY: Thyroid nodules. COMPARISON: None. PROCEDURE: Ultrasound images of the thyroid were obtained. FINDINGS: Right lobe the thyroid measures 1.7 x 1.3 x 3.3 cm. Left lobe of thyroid measures 3.3 x 1.8 x 1.4 cm. Isthmus measures 0.3 cm. Thyroid gland is homogeneous without focal nodule identified. Procedure Note Ya Moreau MD - 05/22/2022 THYROID ULTRASOUND HISTORY: Thyroid nodules. COMPARISON: None. PROCEDURE: Ultrasound images of the thyroid were obtained. FINDINGS: Right lobe the thyroid measures 1.7 x 1.3 x 3.3 cm. Left lobe of thyroid measures 3.3 x 1.8 x 1.4 cm. Isthmus measures 0.3 cm. Thyroid gland is homogeneous without focal nodule identified. IMPRESSION: No focal thyroid lesion identified. Images reviewed, interpreted, and dictated by Dr. Ya Moreau. Transcribed by Shilo Villela PA-C us Not In System Provider IMG US ORDERABLES Final R esult documented in this encounter Visit Diagnoses Diagnosis Other somatoform disorders- Primary Other somatoform disorders documented in this encounter Care Teams Dealer Compliance Representative Relationship Specialty Start Date End Date Jessica Gomez MD 100 [facility] 1 [place] [address] PCP - General Internal Medicine 12/08/21 05/18/22 Jessica Gomez MD [address] [place] [address] PCP - General Internal Medicine 08/09/23 Darrian Reno PA-C [address] [place] [address] Cardiology 04/15/23 Gibosn Bai MD [address] [place] [address] [place] [address] Consulting Physician Urology 08/09/23 documented as of this encounter
--- OUTSIDE RECORDS SUMMARY | 2024-08-31 08:46 | XMS_ITS | Encounter Summary ---
Author Organization [employer] ([place], [place], [place], [place]) Address [address] [place] [address] Care Team Providers Care Electronic Component Processor Name Role Phone Jessica Gomez MD Primary Care Provider [phone] Darrian Reno PA-C Unavailable [phone] Jessica Gomez MD Primary Care Provider [phone] Gibson Bai MD Unavailable Encounter Details Date Type Department Care Team (Late st Contact Info) Description 04/29/2022 Outside Orders [facility] Central Scheduling 1 [place] [address] Provider Not In System, McT Social History Tobacco Use Types Packs/Day Years [...] EDT Appointment [facility] Breast Imaging [address] [place] [address] Jessica Gomez MD [address] [place] [address] 10/20/2024 9:30 AM EDT Appointment [facility] Nuclear Medicine [address] [place] [address] Jessica Gomez MD [address] [place] [address] documented as of this encounter Visit Diagnoses Not on filedocumented in this encounter Care Teams Electronic Component Processor Relationship Specialty Start Date End Date Jessica Gomez MD 100 [facility] [address] [place] [address] PCP - General Internal Medicine 12/08/21 05/18/22 Jessica Gomez MD [address] [place] [address] PCP - General Internal Medicine 08/09/23 Darrian Reno PA-C [address], [facility] [address] [place] [address] Cardiology 04/15/23 Gibson Bai MD [address] [place] [address] [place] [address] Consulting Physician Urology 08/09/23 documented as of this encounter
--- OUTSIDE RECORDS SUMMARY | 2024-08-31 08:47 | XMS_ITS | Encounter Summary ---
Author Organization [employer] ([place], [place], [place], [place]) Address [address] [place] [address] Care Team Providers Care Security Shift Supervisor Name Role Phone Jessica Gomez MD Primary Care Provider [phone] Darrian Reno PA-C Unavailable [phone] Jessica Gomez MD Primary Care Provider [phone] Gibson Bai MD Unavailable Encounter Details Date Type Department Care Team (Late st Contact Info) Description 04/29/2022 Outside Orders [facility] Central Scheduling 1 [place] [address] Vonda [address] [place] [address] Social History Tobacco Use Types Packs/Day Years [...] Info) Description 10/20/2024 9:00 AM EDT Appointment [facility] Breast Imaging [address] [place] [address] Jessica Gomez MD [address] [facility] [place] [address] 10/20/2024 9:30 AM EDT Appointment [facility] Nuclear Medicine [address] [place] [address] Jessica Gomez MD [address] [place] [address] documented as of this encounter Visit Diagnoses Not on filedocumented in this encounter Care Teams Security Shift Supervisor Relationship Specialty Start Date End Date Jessica Gomez MD 100 [facility] [address] [place] [address] PCP - General Internal Medicine 12/08/21 05/18/22 Jessica Gomez MD [address] [place] [address] PCP - General Internal Medicine 08/09/23 Darrian Reno PA-C [address] [facility] [address] [place] [address] Cardiology 04/15/23 Gibson Bai MD [address] [place] [address] [place] [address] Consulting Physician Urology 08/09/23 documented as of this encounter
--- OUTSIDE RECORDS SUMMARY | 2024-08-31 08:47 | XMS_ITS | Encounter Summary ---
Author Organization [employer] ([place], [place], [place], [place]) Address [address] [place] [address] Care Team Providers Care Functional Director Name Role Phone Jessica Gomez MD Primary Care Provider Darrian Reno PA-C Unavailable [phone] Jessica Gomez MD Primary Care Provider [phone] Gibson Bai MD Unavailable Reason for Referral * Mammography (Routine) - Closed Specialty Diagnoses / Procedures Referred By Contdarci t Referred To Contact Diagnoses Visit for screening mammogram Procedures MM digital mammo screen bilateral Jessica Gomez MD Phone: tel: fax: Referral ID Status Reason Start Date Expiration Date Visits Re quested Visits Authorized [id number] Closed 12/03/2021 06/01/2022 1 1 * CAT Scan (Routine) - Closed Specialty Diagnoses / Procedures Referred By Contdarci t Referred To Contact Radiology Diagnoses Dizziness Facial pain Procedures CT brain without & with IV contrast Jessica Gomez MD Phone: tel: fax: Referral ID Status Reason Start Date Expiration Date Visits Re quested Visits Authorized [id number] Closed 12/03/2021 06/01/2022 1 1 Encounter Details Date Type Department Care Team (Late Contact Info) Description 12/03/2021 Outside Orders [facility] Central Scheduling [address] [place] [address] Jessica Gomez MD [address] [place] [address] Dizziness (Primary Dx); Facial pain; Visit for screening mammogram Social History Tobacco Use Types Packs/Day Years Used Date Smoking Tobacco: Never Assessed Comments Unknown Sex and Gender Information Value Date Recorded Sex Assigned at Not on file Legal Sex Female 5:09 PM CDT Gender Identity Not on file Sexual Orientation Not on file documented as of this encounter Plan of Treatment Upcoming Encounters Date Type Department Care Team (Late Contact Info) Description 10/20/2024 9:00 AM EDT Appointment [facility] Breast Imaging [address] [place] [address] Jessica Gomez MD [address] [place] [address] 10/20/2024 9:30 AM EDT Appointment [facility] Nuclear Medicine [address] [place] [phone] Jessica Gomez MD [address] [place] [address] documented as of this encounter Results * MM digital mammo screen bilateral (01/05/2022 [...] have been no appreciable changes. us Jessica oGmez MD IMG MAMMOGRAPHY ORDERABLES Fi nal Result * CT brain without & with IV contrast (12/09/2021 3:47 PM EDT) Anatomical Region Laterality Modality Brain, Head Computed Tomogra phy (CT) 12/09/2021 3:45 PM EDT Impressions 12/09/2021 3:59 PM EDT No significant intracranial findings. Evidence of left ethmoid sinusitis as noted. Narrative 12/09/2021 3:59 PM EDT PATIENT NAME: Emmett HAAS Accession number: [id number] Date of : 1955 EXAM: CT brain with and without IV contrast HISTORY: Headache, dizziness, frequent falls COMPARISON DATE: None FINDINGS: Pre and postcontrast imaging. Ventricles are normal in size and shape and are midline. There is no acute mass effect or edema. There are no findings suspicious for CVA or hemorrhage. There is no mass or abnormal enhancement. There is opacification of one of the left ethmoid air cells. Paranasal sinuses otherwise appear clear. This study was performed with techniques to keep radiation doses as low as reasonably achievable (ALARA). Individualized dose reduction techniques using automated exposure control or adjustment of mA and/or kV according to the patient's size were employed. Procedure Note Italia Diaz MD - 12/09/2021 PATIENT NAME: Emmett HAAS Accession number: [id number] Date of : 1955 EXAM: CT brain with and without IV contrast HISTORY: Headache, dizziness, frequent falls COMPARISON DATE: None FINDINGS: Pre and postcontrast imaging. Ventricles are normal in size and shape and are midline. There is no acute mass effect or edema. There are no findings suspicious for CVA or hemorrhage. There is no mass or abnormal enhancement. There is opacification of one of the left ethmoid air cells. Paranasal sinuses otherwise appear clear. This study was performed with techniques to keep radiation doses as low as reasonably achievable (ALARA). Individualized dose reduction techniques using automated exposure control or adjustment of mA and/or kV according to the patient's size were employed. IMPRESSION: No significant intracranial findings. Evidence of left ethmoid sinusitis as noted. us Jessica Gomez MD IMG CT ORDERABLES Final Resul t documented in this encounter Visit Diagnoses Diagnosis Dizziness- Primary Dizziness and giddiness Facial pain Headache Visit for screening mammogram Dizziness Dizziness and giddiness Facial pain Headache Visit for screening mammogram documented in this encounter Care Teams Functional Director Relationship Specialty Start Date End Date Jessica Gomez MD [address] [facility] [address] [place] [address] PCP - General Internal Medicine 12/08/21 05/18/22 Jessica Gomez MD [address] [place] [address] PCP - General Internal Medicine 08/09/23 Darrian Reno PA-C [address] [place] [address] Cardiology 04/15/23 Gibson Bai MD [address] [place] [address] Consulting Physician Urology 08/09/23 documented as of this encounter
--- OUTSIDE RECORDS SUMMARY | 2024-08-31 08:47 | XMS_ITS | Continuity of Care Document ---
Author Organization [facility] Krunal nicolas [facility] Address [address] [facility] [address] [place] [address] Care Team Providers Care Metal Burnisher Name Role Phone ABHISHEK NELSON Spooling Machine Operator LYNNETTE ANTHONY Primary Care Provider JASS BENOIT Primary Care Provider Assessment Encounter Date Assessment Date Assessment LastModified by Organization Details LastModified Time 08/18/2024 08/18/2024 - 69-year-old female with a [...] Modified Time Details Appointments RECHECK 2024 11:00A Neli CASEY MD Not available Not available Not available Lab urinalysi s panel, auto 2024 025 [email or web address] 4 [facility], [address], [place], [address], 08/19/2024 11:35:59 kidney stone analysis 2024 025 [facility], [address] [facility], [place], [address], 08/26/2024 01:59:38 Referral None recorded. Procedures None recorded. Surgeries None recorded. Imaging XR, abdomen, 1 view 2024 025 [email or web address] 4 [facility], [address] [place] [address], [place], [address], 08/19/2024 11:35:59 Medication Orders None recorded. Patient TargetsNo targets recorded. Patient Instructions Encounter Date Encounter Id Patient Instructions Last Modified By Organization Details Last Modified Time 08/18/2024 [id number] - Obtain an x-ra y before leaving today. - Await a call with x-ray results and further instructions. - Stones will be sent for analysis to guide future treatment. [email or web address] Not available 08/18/2024 12:05:37 Reason for Referral None Reported. Results Created Date Observation Date Name Description Value Unit Range Abnormal Flag Note LastModifiedBy Organization Detail LastModifiedTime 08/19/1908/18/2024 urina lysis panel , auto Unknown Analyte Clean Catch Not Available [facility] With [address] [facility], [place], [address], 08/18/2024 12:11:22 08/19/1908/18/2024 urina lysis panel , auto Unknown Analyte Yellow Not Available [facility] With [address] [facility], [place], [address], 08/18/2024 12:11:22 08/19/19 25 08/18/2024 urina lysis panel , auto Unknown Analyte Clear Not Available [facility] With [address], [place], [address], 08/18/2024 12:11:22 08/19/19 25 08/18/2024 urina lysis panel , auto Unknown Analyte 1.015 Not Available [facility] With [address], [place], [address], 08/18/2024 12:11:22 08/19/19 25 08/18/2024 urina lysis panel , auto Unknown Analyte 1.003 - 1.030 Not Available [facility] [place] [address], [place], [address], 08/18/2024 12:11:22 08/19/19 25 08/18/2024 urina lysis panel , auto Unknown Analyte 5.0 Not Available [facility] [place] [address], [place], [address], 08/18/2024 12:11:22 08/19/1908/18/2024 urina lysis panel , auto Unknown Analyte 5.0 - 8.0 Not Available [facility] [place] [address], [place], [address], 08/18/2024 12:11:22 08/19/19 25 08/18/2024 urina lysis panel , auto Unknown Analyte 75 Rand/uL Not Available [facility] [place] [address], [place], [address], 08/18/2024 12:11:22 08/19/19 25 08/18/2024 urina lysis panel , auto Unknown Analyte Negati ve Not Available [facility] [place] [address], [place], [address], 08/18/2024 12:11:22 08/19/19 25 08/18/2024 urina lysis panel , auto Unknown Analyte Negati ve Not Available [facility] [place] [address], [place], [address], 08/18/2024 12:11:22 08/19/19 25 08/18/2024 urina lysis panel , auto Unknown Analyte Negati ve Not Available [facility] With [address], [place], [address], 08/18/2024 12:11:22 08/19/19 25 08/18/2024 urina lysis panel , auto Unknown Analyte Negati ve Not Available [facility] [address], [place], [address], 08/18/2024 12:11:22 08/19/19 25 08/18/2024 urina lysis panel , auto Unknown Analyte Negati ve Not Available [facility] [place] [address], [place], [address], 08/18/2024 12:11:22 08/19/19 25 08/18/2024 urina lysis panel , auto Unknown Analyte Normal Not Available [facility] [place] [address], [place], [address], 08/18/2024 12:11:22 08/19/19 25 08/18/2024 urina lysis panel , auto Unknown Analyte Normal Not Available [facility] [place] [address], [place], [address], 08/18/2024 12:11:22 08/19/19 25 08/18/2024 urina lysis panel , auto Unknown Analyte Negati ve Not Available [facility] [place] [address], [place], [address], 08/18/2024 12:11:22 08/19/19 25 08/18/2024 urina lysis panel , auto Unknown Analyte Negati ve Not Available [facility] [place] [address], [place], [address], 08/18/2024 12:11:22 08/19/19 25 08/18/2024 urina lysis panel , auto Unknown Analyte Normal Not Available [facility] With [address], [place], [address], 08/18/2024 12:11:22 08/19/19 25 08/18/2024 urina lysis panel , auto Unknown Analyte Normal Not Available [facility] With [address], [place], [address], 08/18/2024 12:11:22 08/19/1908/18/2024 urina lysis panel , auto Unknown Analyte Negati ve Not Available [facility] [address], [place], [address], 08/18/2024 12:11:22 08/19/1908/18/2024 urina lysis panel , auto Unknown Analyte Negati ve Not Available [facility] With [address], [place], [address], 08/18/2024 12:11:22 08/19/19 25 08/18/2024 urina lysis panel , auto Unknown Analyte Negati ve Not Available [facility] With [address], [place], [address], 08/18/2024 12:11:22 08/19/1908/18/2024 urina lysis panel , auto Unknown Analyte Negati ve Not Available [facility] With [address] [place], [address], 08/18/2024 12:11:22 08/19/19 25 08/18/2024 XR, abdom en, 1 view Barb chacko [address] [place] [address] Patien t Name: EMMETT Gandara Patien t : 957 Patien t 9 Orderi ng [facility] er: JHONY Seals EXAM DATE: 2024 EXAM: [...] ly Signed By: Shayan Pedroza MD on 1:[address] Radiology [address] , [place], [address], 08/22/2024 10:12:39 Result Notes Documentation Provider Name and Address Organization Details Recorded Time Xr, Abdomen, 1 View : [address] [place] [address] Patient Name: EMMETT HAAS Patient : 1955 [...] stones Interpreted By: Shayan Pedroza MD [facility] 08/22/2024 10:12:39 Problems Name Problem SNOMED Code Status Onset Date Resolution Date Notes Provider Name and Address Organization Details Recorded Time Kidney stone 37711646 Active 09/18/ 2015 From Automated Load;Provi gabbie: Jhony Casey;Sta tus: Active Not Available [facility] 6 05:16:41 Diabetes mellitus 88520013 Active 2018 [facility] 9 12:47:49 Cataract 154787294 Active 2018 [facility] 9 12:47:55 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 Procedures Surgical History Date Name Laterality Status Provider Name and Address Organization Details Recorded Time 07/18/19 25 EXTRA CORPOREAL SHOCK WAVE LITHOTRIPSY (SURG) completed John Paul Orlando [facility] 07/17/2024 11:40:38 08/23/19 20 lithotripsy completed Pradeepmark Casey [facility] 09/07/2019 13:03:41 09/30/19 19 Cataract (right) removal with iol completed [facility] 09/30/2018 08:22:47 09/02/19 19 Cataract (left) removal with iol completed [facility] 09/02/2018 08:11:43 08/16/19 19 Axial Length, IOL Master completed ABHISHEK NELSON MD [address] [place], [address], [facility] 08/15/2018 13:37:49 07/24/19 18 OCT/Retina completed Pauly Santana [facility] 07/23/2017 11:04:46 03/11/19 17 Tympanogram completed [address], [address], [facility] 03/11/2016 13:21:29 03/11/19 17 [place], [address], [facility] 03/11/2016 13:21:28 03/11/19 17 Audiogram completed Anette Saul [facility] 03/11/2016 13:32:53 03/11/19 17 Tympanometry completed Anette Saul [facility] 03/11/2016 13:32:58 LASIK completed Becca Loya [facility] 07/23/2017 10:19:09 Cardiac Surgery completed [facility] Sergey [facility] 03/11/2016 13:00:25 [facility] 03/11/2016 13:00:39 [facility] 13:00:51 Hysterectomy/birt dder repair [facility]/11[facility]2016 13:00:55 Ears/Nose/Throat Surgery completed Anetteivan Saul [facility] 03/11/2016 13:32:25 Imaging Results None recorded. Procedure Notes None recorded. Medical Equipment None Reported. Allergies Allergen ID Allergen Name Allergen Category Reaction Reaction Severity Criticality Documentation Date Start Date Code Code System Note Provider Name and Address Organization Details Recorded Time 788733 niacin medicatio n Not available Not available Not available 03/11/2016 7393 RxNorm [facility] 7 12:57:20 025209 bacitraci n / neomycin / polymyxin B medicatio n Not available Not available Not available 03/11/2016 18354 9 [facility] 7 12:57:26 554148 Avelox medicatio n Not available Not available Not available 09/01/2018 58854 6 RxNorm ABHISHEK NELSON MD [address] [place] [address], [address] [place] [address] 9 09:52:09 Medications Name Sig Start Date [...] n Syringe 1 mL 25 gauge x 5/8 [...] Updated DateTime 08/18/2024 154.94 cm 28.3 kg/m2 21371.86 g Wang Cayden [facility] 08/18/2024 12:10:15 Social History Question Answer Notes LastModified by Organizat ion Details LastModified Time Tobacco Smoking Status Former Smoker QUIT [facility] 08/15/2018 12:48:13 What Was The Date Of [...] Details LastModified Time Mother History of hypertension [email or web address] Not available 11:05:53 Mother Diabetes mellitus [email or web address] Not available 2024 11:05:53 Mother Glaucoma [email or web address] Not availabl e 2024 11:05:53 Brother History of hypertension [email or web address] Not available 11:05:53 Brother Diabetes mellitus Not available 2024 11:05:53 Maternal Grandfather Glaucoma Not available 11:05:53 Maternal Grandfather Kidney disease 80 [email or web address] Not available 2024 11:05:53 Unspecified Relation Cataract [email or web address] Not available 2024 11:05:53 Medical History Condition Response Coronary Artery Disease N Other N Gout N Kidney Cyst N Kidney Stones Y Enlarged Prostate N Heart Arrhythmia Y Emphysema N Head Trauma/Injury N Erectile Dysfunction N Sexually Transmitted Disease N Depression Y Pneumonia N Incontinence N Prostate Problems N Cancer Prostate N Paralysis N Anxiety Disorder Y Hemorrhoids Y Obesity N Arthritis Y Infertility N Acid Reflux (GERD) Y Hematuria N Cancer N Stroke Y Neck Injury N Neurologic Disorder N Previous Radiation Therapy? N Kidney Disease N Heart Conditions Y [...] N Anesthesia Complications N Genitourinary Disease N Radiation Therapy N Chronic Kidney Disease Y Bladder or Kidney Problems Y Back Injury N High Cholesterol Y High PSA N Nervous System Disorder N Liver Disease N Organ Transplant N Dialysis N Allergies/Hayfever Y False Teeth N Chronic Obstructive Pulmonary Disease N Parkinson's Disease N Chemotherapy N Anemia Y Transplant N Back Pain N Chest Pain N Multiple Sclerosis N Proteinuria N Heart Attack ([place]) Y Mental Illness N Ovarian Cancer N Diabetes Y Seizures/Epilepsy N Genitourinary problem(s) Y Congestive Heart [...] SNOMED-CT Code Diagnosis ICD10 Code Diagnosis Note [id number] JHONY CASEY MD [address] [place] [address] 08/18/2024 11:16:53 08/21/2024 04:05:01 Kidney stone 11692066 N20.0 - Plan to obtain an x-ray to assess residual stone burden. - Consider further imaging or procedures based on x-ray results. - Send stones for analysis to guide future management . Health Concerns Section Related Observation LastModified by Organization Detai ls LastModified Time None Recorded Concern Status LastModified by Organization Details LastModified Time None Recorded Payers Encounter Date Sequence Insurance Name Policy Number Policy Zepeda Covered Member ID Zepeda Member ID Guarantor Name 08/18/2024 1 [place] Enrikesridhar Rick Samina [id number] Emmett Haas 08/18/2024 2 [employer] (MEDICARE SUPPLEMENT) PLAN G Enrikesridhar Quinteros Samina [id number] Emmett Haas Notes Date Note Type Note Provider Name and Address Organization Details Recorded Time 08/18/2024 text/html The patient is a 69-year-old [...] she wishes to avoid. JHONY CASEY MD [address] [place] [address], [address], [facility] 08/20/2024 15:04:08 OBGyn Episode No OBEpisode recorded.
== END 2024-08-31 23:59 | disposition home or self-care (01) ==
LOC: RAD 08:40
PROVIDERS: PCP Internal Medicine; Visit Provider Physician Assistant
DX: M16.12 Unilateral primary osteoarthritis, left hip (principal); S72.002A Fracture of unspecified part of neck of left femur, initial encounter for closed fracture; M79.662 Pain in left lower leg
CPT/HCPCS: 73502; 73562; 73590

== ENCOUNTER 2024-12-14 13:33 | Outpatient (CLI) | payer MEDICARE, OTHER, SELFPAY ==
--- OUTSIDE RECORDS SUMMARY | 2024-10-20 07:53 | XMS_ITS | Encounter Summary ---
Author Organization [employer] ([place], [place], [place], [place], [place]) Address [address] [place] [address] Care Team Providers Care Ice Handler Name Role Phone Darrian Giron PA-C Unavailable [phone] Jessica Gomez MD Primary Care Provider [phone] Gibson Bai MD Unavailable Reason for Referral * Mammography (Routine) - New Request Specialty Diagnoses / Procedures Referred By Contac t Referred To Contact Radiology Diagnoses Encounter for screening mammogram for malignant neoplasm of breast Procedures MM digital mammo screen with mynor bilateral Jessica Gomez MD [address] [place] [address] Phone: tel: fax: [facility] [address] [place] [phone] Phone: tel: fax: Referral ID Status Reason Start Date Expiration Date V isits Requested Visits Authorized [id number] New Request 08/01/2024 08/01/2025 1 1 Reason for Visit * Mammography (Routine) - New Request Specialty Diagnoses / Procedures Referred By Contac t Referred To Contact Radiology Diagnoses Encounter for screening mammogram for malignant neoplasm of breast Procedures MM digital mammo screen with mynor bilateral Jessica Gomez MD [address] [facility] [place] [address] Phone: tel: fax: [facility] [address] [place] [phone] Phone: tel: fax: Referral ID Status Reason Start Date Expiration Date V isits Requested Visits Authorized [id number] New Request 08/01/2024 08/01/2025 1 1 Encounter Details Date Type Department Care Team (Late st Contact Info) Description 10/20/2024 8:53 AM EDT - 10/20/2024 9:13 AM EDT Hospital Encounter [facility] [address] [place] [phone] Jessica Gomez MD [address] [facility] [place] [address] Encounter for screening mammogram for malignant neoplasm of breast Discharge Disposition: Home or Self Care Social [...] Date Yemi rded Speak language other than Puerto [place]ican at home Not on file 02/20/2023 Want [...] on file documented as of this encounter Medications at Time of Discharge ALPRAZolam (XANAX) 0.5 MG tablet Take 1 [...] tablet (2.5 mg total) by mouth daily. liothyronine (CYTOMEL) 5 MCG tablet Take 1 tablet (5 mcg total) by mouth daily. 02/04/2024 loratadine (CLARITIN) 10 mg tablet Take 1 [...] (10 mg total) by mouth daily. 05/19/2023 documented as of this encounter Plan of Treatment Not on file documented as of this encounter Procedures Procedure Name Priority Date/Time Associated Diagnosis Comments MM DIGITAL MAMMO SCREEN WITH MYNOR BILATERAL Routine 10/20/2024 9:09 AM EDT Encounter for screening mammogram for malignant neoplasm of breast documented in this encounter Results * MM digital mammo screen with mynor bilateral (10/20/2024 9:09 AM EDT) Anatomical Region Laterality Modality Breast Bilateral Mammography 10/20/2024 10:0 3 AM EDT Impressions 10/20/2024 10:12 AM EDT FINAL IMPRESSION: Stable mammogram. No findings suspicious for malignancy. Bi-RADS: ACR BI-RADS 1: Negative. RECOMMENDATIONS: Annual screening mammography. This report will serve as the order for the recommended imaging studies/procedures. A letter including results and recommendations was sent to the patient. Density notification was included for all patients. Patient information was entered into a reminder system with a target due date for the next mammogram. At our facility, a [place] marker is positioned over a visible skin lesion and a linear marker is used to indicate a scar. A triangular marker is placed on a self reported palpable finding. Note: Mammography does not detect approximately 10-15% of breast cancers. An annual clinical breast exam by the patient's breast care physician and regular monthly self breast exams by the patient are integral parts of breast cancer screening, in addition to annual mammography. A normal mammogram does not completely exclude the presence of breast cancer, especially if there is an abnormal finding on physical exam. When clinically indicated, a biopsy should not be deferred because of a normal mammogram report. . Narrative 10/20/2024 10:12 AM EDT PROCEDURE: Digital screening mammogram with Digital Breast Tomosynthesis (DBT). REASON FOR EXAM: Routine screening. FAMILY HISTORY: Intermediate risk family history of breast cancer. COMPARISON STUDY: 2019 from [facility] FINDINGS: Craniocaudal and mediolateral oblique images of both breasts were obtained in 2D and DBT modes. Synthesized views were reconstructed from DBT data. Breast parenchymal density: The breasts are heterogeneously dense, which may obscure small masses. There is no evidence of dominant mass, architectural distortion, or suspicious calcifications. The mammogram was interpreted with the benefit of computer aided detection (CAD). Jessica Gomez MD IMG MAMMOGRAPHY ORDERABLES Fi nal Result documented in this encounter Visit Diagnoses Diagnosis Encounter for screening mammogram for malignant neoplasm of breast documented in this encounter Care Teams Ice Handler Relationship Specialty Start Date End Date Jessica Gomez MD [address] [facility] [place] [address] PCP - General Internal Medicine 08/09/23 Darrian Giron PA-C [address], [facility] [address] [place] [address] Cardiology 04/15/23 Gibson Bai MD [address] [facility] [address] [place] [address] Consulting Physician Urology 08/09/23 documented as of this encounter
--- OUTSIDE RECORDS SUMMARY | 2024-10-20 08:14 | XMS_ITS | Encounter Summary ---
Author Organization [employer] ([place], [place], [place], [place], [place]) Address [address] [place] [address] Care Team Providers Care Social Media Content Manager Name Role Phone Darrian Giron PA-C Unavailable [phone] Jessica Gomez MD Primary Care Provider [phone] Gibson Bai MD Unavailable Reason for Referral * DXA (Routine) - Closed Specialty Diagnoses / Procedures Referred By Contac t Referred To Contact Radiology Diagnoses Encounter for screening for osteoporosis Procedures DXA bone density spine and hip Jessica Gomez MD [address] [place] [address] Phone: tel: fax: [facility] [address] [place] [phone] Phone: tel: fax: Referral ID Status Reason Start Date Expiration Date Visits Re quested Visits Authorized [id number] Closed 08/02/2024 08/02/2025 1 1 Reason for Visit * DXA (Routine) - Closed Specialty Diagnoses / Procedures Referred By Contac t Referred To Contact Radiology Diagnoses Encounter for screening for osteoporosis Procedures DXA bone density spine and hip Jessica Gomez MD [address] [place] [address] Phone: tel: fax: [facility] [address] [place] [phone] Phone: tel: fax: Referral ID Status Reason Start Date Expiration Date Visits Re quested Visits Authorized [id number] Closed 08/02/2024 08/02/2025 1 1 Encounter Details Date Type Department Care Team (Late st Contact Info) Description 10/20/2024 9:14 AM EDT - 10/20/2024 11:59 PM EDT Hospital Encounter [facility] [address] [place] [phone] Jessica Gomez MD [address] [place] [address] Encounter for screening for osteoporosis Discharge Disposition: Home or Self Care Social [...] Date Yemi rded Speak language other than Turkish at home Not on file 02/20/2023 Want [...] Procedure Name Priority Date/Time Associated Diagnosis Comments DXA BONE DENSITY SPINE AND HIP Routine 10/20/2024 9:27 AM EDT Encounter for screening for osteoporosis documented in this encounter Results * DXA bone density spine and hip (10/20/2024 9:27 AM EDT) Anatomical Region Laterality Modality Bone X-Ray 10/20/2024 10:0 0 AM EDT Impressions 10/20/2024 10:01 AM EDT 1. Osteopenic BMD of the lumbar spine. Intermediate risk for fracture. 2. Osteoporotic BMD of the left femoral neck. Increased risk for fracture. FRAX evaluation gives the risk of a major osteoporotic fracture over 10 years as 41.6% and the risk of a hip fracture as 13.3%. Images reviewed, interpreted, and dictated by Dr. Duane Coelho. Transcribed by Sania Webster PA-C. Narrative 10/20/2024 10:01 AM EDT BONE MINERAL DENSITOMETRY, DEXA SCAN 10/20/2024 9:27 AM . CLINICAL HISTORY: Osteoporosis. COMPARISON: None. FINDINGS: Bone densitometry calculations of the lumbar spine and left femoral neck were obtained. Average BMD for the lumbar spine from L1-L4 is 0.9 g/sq cm. T-score is -1.7. Z-score is -0.1. Left femoral neck BMD is 0.6 g/sq cm. T-score is -2.9. Z score is -1.3. Procedure Note Duane Coelho MD - 10/20/2024 BONE MINERAL DENSITOMETRY, DEXA SCAN 10/20/2024 9:27 AM . CLINICAL HISTORY: Osteoporosis. COMPARISON: None. FINDINGS: Bone densitometry calculations of the lumbar spine and left femoral neck were obtained. Average BMD for the lumbar spine from L1-L4 is 0.9 g/sq cm. T-score is -1.7. Z-score is -0.1. Left femoral neck BMD is 0.6 g/sq cm. T-score is -2.9. Z score is -1.3. IMPRESSION: 1. Osteopenic BMD of the lumbar spine. Intermediate risk for fracture. 2. Osteoporotic BMD of the left femoral neck. Increased risk for fracture. FRAX evaluation gives the risk of a major osteoporotic fracture over 10 years as 41.6% and the risk of a hip fracture as 13.3%. Images reviewed, interpreted, and dictated by Dr. Duane Coelho. Transcribed by Sania Webster PA-C. Jessica Gomez MD IMG DXA ORDERABLES Final Resu lt documented in this encounter Visit Diagnoses Diagnosis Encounter for screening for osteoporosis documented in this encounter Care Teams Social Media Content Manager Relationship Specialty Start Date End Date Jessica Gomez MD [address] [place] [address] PCP - General Internal Medicine 08/09/23 Darrian Giron PA-C [address], [facility] [address] [place] [address] Cardiology 04/15/23 Gibson Bai MD [address] [place] [address] [place] [address] Consulting Physician Urology 08/09/23 documented as of this encounter
--- OUTSIDE RECORDS SUMMARY | 2024-12-14 13:39 | XMS_ITS | Patient Health Record ---
Author Organization [facility] Address [address] [place] [phone] Support Name Relationship Address Phone YAMILETH ROCK Guarantor Unknown [phone] Reason For Referral No Information Plan Of Treatment No Information
--- OUTSIDE RECORDS SUMMARY | 2024-12-14 13:39 | XMS_ITS | Data Portability ---
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 [email or web address] Not available 08/18/2024 12:05:34 11/20/2024 11/20/2024 - 69-year-old female with a history of staghorn calculus presenting with follow-up evaluation of urolithiasis post-ESWL. - The patient has stable tiny right renal stones post-ESWL, with no significant stone burden remaining. - She expresses concern about kidney damage and reports a persistent smell in urine, which requires monitoring of kidney function. - Occasional flank pain is noted, but no burning sensation or hematuria is present, suggesting no acute complications. [email or web address] Not available 11/20/2024 16:02:21 Plan of Treatment Reminders Order Date Submit Date Provider Last Modified By Organization Details Last Modified Time Details Appointments DERM VISIT 2024 09:00A Neli MONSIVAIS NP Not available Not available Not available RECHEC K 2025 03:15P Neli CASEY MD Not available Not available Not available Lab urinal ysis panel, auto 2024 [email or web address] [place] [address] With [facility], [address], [facility], [place], [address], 11/26/2024 10:59:00 urinal ysis panel, auto 2024 [email or web address] [place] [address] With [facility], [address], [facility], [place], [address], 08/19/2024 11:35:59 kidney stone analys is 2024 025 [facility], [address] [place] [address], [address], 08/26/2024 01:59:38 urinal ysis panel, auto 2024 025 [facility] With [facility], [address], [facility], [place], [address], 2024 13:41:47 cultur e, urine 2024 025 [facility], [address] [place] [address], [address], 06/01/2024 14:07:38 Referral None record ed. Procedures None record ed. Surgeries None record ed. Imaging XR, abdome n, 1 view 2024 025 [email or web address] [id number] [facility] [address] , [place], [address], 08/19/2024 11:35:59 XR, abdome n, 1 view 2024 025 [email or web address] [facility] [address] , [place], [address], 2024 15:36:12 Medication Orders None record ed. Patient TargetsNo targets recorded. Patient Instructions Encounter Date Encounter Id Patient Instructions Last Modified By Organization Details Last Modified Time 2024 [id number] learning about healthy weight [email or web address] Not available 06/04/2024 17:21:50 - Get a KUB x-ra y today to check your kidneys. - We will do a urine culture to find the infection cause. - Follow up with results to decide on further treatment for your stones and infection. [email or web address] Not available 2024 12:03:35 08/18/2024 [id number] - Obtain an x-ra y before leaving today. - Await a call with x-ray results and further instructions. - Stones will be sent for analysis to guide future treatment. [email or web address] Not available 08/18/2024 12:05:37 11/20/2024 [id number] - Stay well hydrated to help prevent kidney stones. - Monitor for any changes in symptoms and report them to your healthcare provider. [email or web address] Not available 11/20/2024 16:02:23 Reason for Referral None Reported. Results Created Date Observation Date Name Description Value Unit Range Abnormal Flag Note LastModifiedBy Organization Detail LastModifiedTime 06/01/1906/02/2024 URINE CULTU RE urine culture COLON Y COUNT : 10,00 0 - 100,0 00 CFU/M L Three or more isola radha; mixed uroge nital estela . Not Available [facility] [address] [facility], [place], [address], 06/02/2024 13:44:06 06/01/19 25 2024 urina lysis panel , auto Unknown Analyte Clean Catch Not Available [facility] [address], [place], [address], 2024 12:20:23 06/01/19 25 2024 urina lysis panel , auto Unknown Analyte Yellow Not Available [facility] With [address] [place], [place], [address], 2024 12:20:23 06/01/19 25 2024 urina lysis panel , auto Unknown Analyte Clear Not Available [facility] With [address], [place], [address], 2024 12:20:23 06/01/19 25 2024 urina lysis panel , auto Unknown Analyte 1.025 Not Available [facility] With [address] [place], [place], [address], 2024 12:20:23 06/01/19 25 2024 urina lysis panel , auto Unknown Analyte 1.003 - 1.030 Not Available [facility] With [address] [place], [place], [address], 2024 12:20:23 06/01/19 25 2024 urina lysis panel , auto Unknown Analyte 5.0 Not Available [facility] With [place] [address], [place], [address], 2024 12:20:23 06/01/19 25 2024 urina lysis panel , auto Unknown Analyte 5.0 - 8.0 Not Available [facility] With [address] [place], [place], [address], 2024 12:20:23 06/01/19 25 2024 urina lysis panel , auto Unknown Analyte 25 Rand/uL Not Available [facility] With [address] [place], [place], [address], 2024 12:20:23 06/01/19 25 2024 urina lysis panel , auto Unknown Analyte Negati ve Not Available [facility] With [place] [address], [place], [address], 2024 12:20:23 06/01/19 25 2024 urina lysis panel , auto Unknown Analyte Negati ve Not Available [facility] With [place] [address], [place], [address], 2024 12:20:23 06/01/19 25 2024 urina lysis panel , auto Unknown Analyte Negati ve Not Available [facility] With [place] [address], [place], [address], 2024 12:20:23 06/01/19 25 2024 urina lysis panel , auto Unknown Analyte Trace Not Available [facility] With [place] [address], [place], [address], 2024 12:20:23 06/01/19 25 2024 urina lysis panel , auto Unknown Analyte Negati ve Not Available [facility] With [place] [address], [place], [address], 2024 12:20:23 06/01/19 25 2024 urina lysis panel , auto Unknown Analyte Normal Not Available [facility] With [address], [place], [address], 2024 12:20:23 06/01/19 25 2024 urina lysis panel , auto Unknown Analyte Normal Not Available [facility] With [address], [place], [address], 2024 12:20:23 06/01/19 25 2024 urina lysis panel , auto Unknown Analyte Negati ve Not Available [facility] With [address], [place], [address], 2024 12:20:23 06/01/19 25 2024 urina lysis panel , auto Unknown Analyte Negati ve Not Available [facility] With [place] [address], [place], [address], 2024 12:20:23 06/01/19 25 2024 urina lysis panel , auto Unknown Analyte Normal Not Available [facility] With [address], [place], [address], 2024 12:20:23 06/01/19 25 2024 urina lysis panel , auto Unknown Analyte Normal Not Available [facility] With [place] [address], [place], [address], 2024 12:20:23 06/01/19 25 2024 urina lysis panel , auto Unknown Analyte 1 mg/dL Not Available [facility] With [address] [place], [place], [address], 2024 12:20:23 06/01/19 25 2024 urina lysis panel , auto Unknown Analyte Negati ve Not Available [facility] [address] [facility], [place], [address], 2024 12:20:23 06/01/19 25 2024 urina lysis panel , auto Unknown Analyte Trace Not Available [facility] With [address] [facility], [place], [address], 2024 12:20:23 06/01/19 25 2024 urina lysis panel , auto Unknown Analyte Negati ve Not Available [facility] With [address] [facility], [place], [address], 2024 12:20:23 08/19/19 25 08/26/2024 STONE CLAYTON SIS composition SEE NOTE normal Calci um Oxala te Dihyd rate (Wedd ellit e) 20% Calci um Oxala te Monoh ydrat e (Whew ellit e) 80% Not Available [facility] [address] [place] [address], [address], 08/26/2024 01:59:38 08/19/19 25 08/26/2024 STONE CLAYTON SIS weight 0.375 g normal Forma isrrael, surgi zeus gel, tape adhes mary or trans port media inter fere with the clayton tical proce dure. Follo w up testi ng with the UroRi sk(R) Panel is sugge sted for affec yomaira sampl es, if clini luiz indic ated. This test was devel oped and its clayton tical perfo rmanc e shlomo cteri stics have been deter mined by [facility]. It has not been clear ed or appro sarah by the FDA. This assay has been valid ated pursu ant to the CLIA regul ation s and is used for clini zeus purpo ses. Not Available [facility] [address] [place], [place] [address], [address], 08/26/2024 01:59:38 08/19/1908/18/2024 urina lysis panel , auto Unknown Analyte Clean Catch Not Available [facility] With [address], [place], [address], 08/18/2024 12:11:22 08/19/19 25 08/18/2024 urina lysis panel , auto Unknown Analyte Yellow Not Available [facility] With [address] [place], [place], [address], 08/18/2024 12:11:22 08/19/1908/18/2024 urina lysis panel , auto Unknown Analyte Clear Not Available [facility] With [address] [place], [place], [address], 08/18/2024 12:11:22 08/19/19 25 08/18/2024 urina lysis panel , auto Unknown Analyte 1.015 Not Available [facility] With [place] [address], [place], [address], 08/18/2024 12:11:22 08/19/19 25 08/18/2024 urina lysis panel , auto Unknown Analyte 1.003 - 1.030 Not Available [facility] With [place] [address], [place], [address], 08/18/2024 12:11:22 08/19/19 25 08/18/2024 urina lysis panel , auto Unknown Analyte 5.0 Not Available [facility] With [address] [place], [place], [address], 08/18/2024 12:11:22 08/19/19 25 08/18/2024 urina lysis panel , auto Unknown Analyte 5.0 - 8.0 Not Available [facility] With [address] [place], [place], [address], 08/18/2024 12:11:22 08/19/19 25 08/18/2024 urina lysis panel , auto Unknown Analyte 75 Rand/uL Not Available [facility] With [address] [place], [place], [address], 08/18/2024 12:11:22 08/19/19 25 08/18/2024 urina lysis panel , auto Unknown Analyte Negati ve Not Available [facility] [place] [address], [place], [address], 08/18/2024 12:11:22 08/19/19 25 08/18/2024 urina lysis panel , auto Unknown Analyte Negati ve Not Available [facility] With [place] [address], [place], [address], 08/18/2024 12:11:22 08/19/19 25 08/18/2024 urina lysis panel , auto Unknown Analyte Negati ve Not Available [facility] [place] [address], [place], [address], 08/18/2024 12:11:22 08/19/19 25 08/18/2024 urina lysis panel , auto Unknown Analyte Negati ve Not Available [facility] With [place] [address], [place], [address], 08/18/2024 12:11:22 08/19/19 25 08/18/2024 urina lysis panel , auto Unknown Analyte Negati ve Not Available [facility] With [place] [address], [place], [address], 08/18/2024 12:11:22 08/19/19 25 08/18/2024 urina lysis panel , auto Unknown Analyte Normal Not Available [facility] With [address], [place], [address], 08/18/2024 12:11:22 08/19/19 25 08/18/2024 urina lysis panel , auto Unknown Analyte Normal Not Available [facility] With [address], [place], [address], 08/18/2024 12:11:22 08/19/19 25 08/18/2024 urina lysis panel , auto Unknown Analyte Negati ve Not Available [facility] With [address] [place] [place], [place], [address], 08/18/2024 12:11:22 08/19/19 25 08/18/2024 urina lysis panel , auto Unknown Analyte Negati ve Not Available [facility] With [address], [place], [address], 08/18/2024 12:11:22 08/19/19 25 08/18/2024 urina lysis panel , auto Unknown Analyte Normal Not Available [facility] With [place] [address], [place], [address], 08/18/2024 12:11:22 08/19/19 25 08/18/2024 urina lysis panel , auto Unknown Analyte Normal Not Available [facility] With [address] [place] [place], [place], [address], 08/18/2024 12:11:22 08/19/19 25 08/18/2024 urina lysis panel , auto Unknown Analyte Negati ve Not Available [facility] With [address], [place], [address], 08/18/2024 12:11:22 08/19/1908/18/2024 urina lysis panel , auto Unknown Analyte Negati ve Not Available [facility] With [address], [place], [address], 08/18/2024 12:11:22 08/19/1908/18/2024 urina lysis panel , auto Unknown Analyte Negati ve Not Available [facility] With [address], [place], [address], 08/18/2024 12:11:22 08/19/19 25 08/18/2024 urina lysis panel , auto Unknown Analyte Negati ve Not Available [facility] With [address], [place], [address], 08/18/2024 12:11:22 11/21/1911/20/2024 urina lysis panel , auto Unknown Analyte Clean Catch Not Available [facility] With [address] [place], [place], [address], 11/20/2024 16:24:58 11/21/19 25 11/20/2024 urina lysis panel , auto Unknown Analyte Yellow Not Available [facility] With [place] [address], [place], [address], 11/20/2024 16:24:58 11/21/19 25 11/20/2024 urina lysis panel , auto Unknown Analyte Clear Not Available [facility] With [address] [place], [place], [address], 11/20/2024 16:24:58 11/21/1911/20/2024 urina lysis panel , auto Unknown Analyte 1.020 Not Available [facility] With [address], [place], [address], 11/20/2024 16:24:58 11/21/1911/20/2024 urina lysis panel , auto Unknown Analyte 1.003 - 1.030 Not Available [facility] With [address], [place], [address], 11/20/2024 16:24:58 11/21/1911/20/2024 urina lysis panel , auto Unknown Analyte 5.0 Not Available [facility] With [address], [place], [address], 11/20/2024 16:24:58 11/21/1911/20/2024 urina lysis panel , auto Unknown Analyte 5.0 - 8.0 Not Available [facility] With [address], [place], [address], 11/20/2024 16:24:58 11/21/1911/20/2024 urina lysis panel , auto Unknown Analyte Negati ve Not Available [facility] With [address], [place], [address], 11/20/2024 16:24:58 11/21/1911/20/2024 urina lysis panel , auto Unknown Analyte Negati ve Not Available [facility] With [place] [address], [place], [address], 11/20/2024 16:24:58 11/21/1911/20/2024 urina lysis panel , auto Unknown Analyte Negati ve Not Available [facility] With [place] [address], [place], [address], 11/20/2024 16:24:58 11/21/1911/20/2024 urina lysis panel , auto Unknown Analyte Negati ve Not Available [facility] [place] [address], [place], [address], 11/20/2024 16:24:58 11/21/1911/20/2024 urina lysis panel , auto Unknown Analyte Negati ve Not Available [facility] With [address], [place], [address], 11/20/2024 16:24:58 11/21/1911/20/2024 urina lysis panel , auto Unknown Analyte Negati ve Not Available [facility] With [place] [address], [place], [address], 11/20/2024 16:24:58 11/21/1911/20/2024 urina lysis panel , auto Unknown Analyte Normal Not Available [facility] With [place] [address], [place], [address], 11/20/2024 16:24:58 11/21/1911/20/2024 urina lysis panel , auto Unknown Analyte Normal Not Available [facility] With [place] [address], [place], [address], 11/20/2024 16:24:58 11/21/1911/20/2024 urina lysis panel , auto Unknown Analyte Negati ve Not Available [facility] With [place] [address], [place], [address], 11/20/2024 16:24:58 11/21/1911/20/2024 urina lysis panel , auto Unknown Analyte Negati ve Not Available [facility] With [place] [address], [place], [address], 11/20/2024 16:24:58 11/21/1911/20/2024 urina lysis panel , auto Unknown Analyte Normal Not Available [facility] [place] [address], [place], [address], 11/20/2024 16:24:58 11/21/1911/20/2024 urina lysis panel , auto Unknown Analyte Normal Not Available [facility] [place] [address], [place], [address], 11/20/2024 16:24:58 11/21/1911/20/2024 urina lysis panel , auto Unknown Analyte Negati ve Not Available [facility] With [address], [place], [address], 11/20/2024 16:24:58 11/21/1911/20/2024 urina lysis panel , auto Unknown Analyte Negati ve Not Available [facility] With [address], [place], [address], 11/20/2024 16:24:58 11/21/1911/20/2024 urina lysis panel , auto Unknown Analyte Negati ve Not Available [facility] With [place] [address], [place], [address], 11/20/2024 16:24:58 11/21/1911/20/2024 urina lysis panel , auto Unknown Analyte Negati ve Not Available [facility] With [place] [address], [place], [address], 11/20/2024 16:24:58 06/01/19 25 2024 XR, abdom en, [address] [place] [address] Patien t Name: EMMETT Gandara Patimichael t : 957 Patien t 9 Orderi ng Provid er: TEE DIAZ EXAM DATE: 2024 EXAM: XR ABDOME N [...] Pedroza MD on 025 12:45 PM [email or web address] [facility] [address] , [place], [address], 07/12/2024 11:56:13 08/19/19 25 08/18/2024 XR, abdom en, [address] [place], [place] [address] [phone] Patien t Name: EMMETT Bowles t : 7 Patien t 9 Orderi ng Provid er: CHRIS CERVANTES Bozena EXAM DATE: 2024 EXAM: XR ABDOME N [...] Shayan Pedroza MD on 025 1:53 PM [facility] [place] [address] , [place], [address], 08/22/2024 10:12:39 11/21/1911/20/2024 XR, abdom en, [address] [place] [address] Patien t Name: EMMETT Gandara Patien t : 957 Patien t 9 Orderi ng Provid er: CHRIS Seals EXAM DATE: 2024 EXAM: XR ABDOME N [facility]UB CLINIC AL INFORM ATION: Kidney stones IMAGES PROVID ED: KUB AP radiog raphic images of the abdome n. COMPAR LUIS EDUARDO: None. FINDIN GS: No abnorm al intest inal gas patter n. Puncta te right renal stones are presen t. Grossl y unchan ged. No radiog raphic eviden ce of free intrap eriton eal air. IMPRES ALEXEI: Stable tiny right renal stones Interp reted By: Shayan Pedroza MD Electr onical ly Signed By: Shayan Pedroza MD on 2024 2:40 PM [email or web address] [facility] [address] , [place], [address], 11/23/2024 09:04:42 Result Notes Documentation Provider Name and Address Organization Details Recorded Time Xr, Abdomen, 1 View : [address] [place] [address] Patient Name: EMMETT HAAS Patient : 1955 [...] renal stone Interpreted By: Shayan Pedroza MD Monae Adrian [facility] 07/12/2024 11:56:13 Xr, Abdomen, 1 View : [place] [address] [place] [address] Patient Name: EMMETT HAAS Patient : 1955 Patient Ordering Provider: CHRIS CASEY EXAM DATE: 08/18/2024 EXAM: XR ABDOMEN [...] stones Interpreted By: Shayan Pedroza MD Andreia Mary [facility] 08/22/2024 10:12:39 Xr, Abdomen, 1 View : [address] [place] [address] Patient Name: EMMETT HAAS Patient : 1955 Patient Ordering Provider: CHRIS CASEY EXAM DATE: 11/20/2024 EXAM: XR ABDOMEN KUB CLINICAL INFORMATION: Kidney stones IMAGES PROVIDED: KUB AP radiographic images of the abdomen. COMPARISON: None. FINDINGS: No abnormal intestinal gas pattern. Punctate right renal stones are present. Grossly unchanged. No radiographic evidence of free intraperitoneal air. IMPRESSION: Stable tiny right renal stones Interpreted By: Shayan Pedroza MD Leslie Madrid [facility] 11/23/2024 09:04:42 Problems Name Problem SNOMED Code Status Onset Date Resolution Date Notes Provider Name and Address Organization Details Recorded Time Kidney stone 93236628 Active 2014 From Automated [employer];Provi gabbie: Chris Casey;Evelia tus: Active Not Available [facility] 6 05:16:41 Diabetes mellitus 26076064 Active 2018 [facility] 12:47:49 Cataract 768207418 Active 2018 [facility] 12:47:55 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 Procedures Surgical History Date Name Laterality Status Provider Name and Address Organization Details Recorded Time 07/18/19 25 EXTRA CORPOREAL SHOCK WAVE LITHOTRIPSY (SURG) completed John Paul Orlando [facility] 07/17/2024 11:40:38 08/23/19 20 lithotripsy completed [facility] Jacinto [facility] 09/07/2019 13:03:41 09/30/19 19 Cataract (right) removal with iol completed Counts [facility] beds at the [facility] [facility] 09/30/2018 08:22:47 09/02/19 19 Cataract (left) removal with iol completed Counts include 234 beds at the [facility] 09/02/2018 08:11:43 08/16/19 19 Axial Length, IOL Master completed ABHISHEK NELSON MD [address] [place], [address] 08/15/2018 13:37:49 07/24/19 18 OCT/Retina completed Pauly Santana [facility] 07/23/2017 11:04:46 03/11/19 17 Tympanogram completed OSMAN VANN [address] [place], [address], [facility] 03/11/2016 13:21:29 03/11/19 17 Audiogram completed OSMAN VANN [address] [place], [address], [facility] 03/11/2016 13:21:28 03/11/19 17 Audiogram completed Anette Saul [facility] 03/11/2016 13:32:53 03/11/19 17 Tympanometry completed Anette Saul [facility] 03/11/2016 13:32:58 LASIK completed Becca Loya [facility] 07/23/2017 10:19:09 Cardiac Surgery completed [facility] Sergey De Los Santos [facility] 03/11/2016 13:00:25 Gastric bypass for obesity [facility] 03/11/2016 13:00:39 Removal of thyroid completed [facility] 03/11/2016 13:00:51 Hysterectomy/brit dder repair completed [facility] 03/11/2016 13:00:55 Ears/Nose/Throat Surgery completed Anette Saul [facility] 03/11/2016 13:32:25 Imaging Results None recorded. Procedure Notes None recorded. Medical Equipment None Reported. Allergies Allergen ID Allergen Name Allergen Category Reaction Reaction Severity Criticality Documentation Date Start Date Code Code System Note Provider Name and Address Organization Details Recorded Time 288323 niacin medicatio n Not available Not available Not available 03/11/2016 7393 RxNorm Shae Rincon [facility] 7 12:57:20 943201 bacitraci n / neomycin / polymyxin B medicatio n Not available Not available Not available 03/11/2016 45351 9 RxNorm Shae Rincon [facility] 7 12:57:26 500574 Avelox medicatio n Not available Not available Not available 09/01/2018 21174 6 RxNorm ABHISHEK NELSON MD [address] [place] [address], [address] [place] [address] 9 09:52:09 Medications Name Sig Start Date [...] Updated DateTime 2024 154.94 cm 28.3 kg/m2 36996.86 [facility] [place] [facility] 12:04:30 Date Recorded Body height Body mass index (BMI) Body weight Provider Name and Address Organization Details Last Updated DateTime 08/18/2024 154.94 cm 28.3 kg/m2 11474.86 [facility] 08/18/2024 12:10:15 Date Recorded Body height Body mass index (BMI) Body weight Provider Name and Address Organization Details Last Updated DateTime 11/20/2024 154.94 cm 27 kg/m2 46291.71 g Asa Jesus [facility] 11/20/2024 16:24:33 Social History Question Answer Notes LastModified by Organizat ion Details LastModified Time Tobacco Smoking Status [facility] 12:48:13 What Was The Date Of Your Most Recent Tobacco Screening? 11/20/2024 [email or web address] Information not available 11/20/2024 Sex: Female Functional Status Question Answer Note LastModified by Organization D etails LastModified Time What is your level of alcohol consumption? None [email or web address] Information not available 03/11/2016 Mental Status None recorded. Family History Relationship Description Onset Age of this Age Resolved Age Notes LastModified by Organization Details LastModified Time Mother History of hypertension [email or web address] Not available 11:05:53 Mother Diabetes mellitus [email or web address] Not available 2024 11:05:53 Mother Glaucoma [email or web address] Not availabl e 2024 11:05:53 Brother History of hypertension Not available 11:05:53 Brother Diabetes mellitus [email or web address] Not available 2024 11:05:53 Maternal Grandfather Glaucoma [email or web address] Not available 11:05:53 Maternal Grandfather Kidney disease 80 [email or web address] Not available 2024 11:05:53 Unspecified Relation Cataract Not available 2024 11:05:53 Medical History Condition [...] Back Pain N Proteinuria N Heart Attack (ND) Y Mental Illness N Diabetes Y Ovarian [...] e and Address Organization Details Recorded Time Tdap 0 completed Not Available [facility] 11/20/2024 14:19:59 Influenza, split virus, trivalent, preservative 3 completed Not Available [facility] 11/20/2024 14:19:59 Influenza, split virus, quadrivalent, preservative 8 completed Not Available [facility] 11/20/2024 14:19:59 Influenza, recombinant, quadrivalent, PF 8 completed Not Available [facility] 11/20/2024 14:19:59 Hep A, adult 8 completed Not Available [facility] 11/20/2024 14:19:59 Hep A, adult 9 completed Not Available [facility] 11/20/2024 14:19:59 Influenza, recombinant, quadrivalent, PF 9 completed Not Available [facility] 11/20/2024 14:19:59 Past Encounters Encounter ID Performer Location Encounter Start Date Encounter Closed Date Diagnosis/Indication Diagnosis SNOMED-CT Code Diagnosis ICD10 Code Diagnosis IMO Codes Diagnosis Note [id number] MD ISAEL [facility] [address] [place] [address] 03/11/2016 12:33:46 03/11/2016 16:46:09 Dysfunction of eustachian tube 51866281 H69.93 Asymmetric al sensorineural hearing loss 085583807 H90.5 R>L Bilateral tinnitus 38501 88799 102 H93.13 Vasomotor rhinitis 37381 03 J30.0 [id number] OSMAN VANN [place] [address] [address] [place] [address] 03/11/2016 13:05:32 03/11/2016 13:22:00 Asymmetrical sensorineural hearing loss 775634177 H90.5 [id number] ABHISHEK NELSON MD OPHTHALMO LOGY [address] [place] [address] 07/23/2017 10:04:47 07/23/2017 11:54:35 History of laser assisted in situ keratomileusis 081340329 Z98.890 OU. for myopia Combined f orm of senile cataract 27837659 H25.819 os discussed options: ce vs mrx vs obs. pt desires mrx rechekc 1 year Type 2 jayson betes mellitus without complication 353100973 E11.9 no retinopath y ou I discussed diabetes with this patient. I discussed the importance of sugar control for reducing risk of diabetic complicati ons in the eyes. I recommened they follow up with their PCP/endocr inologist for continue sugar evaluation /managemen t. Also discussed importance of cardiovasc ular risk reduction. Call with changing/f luxuating vision. 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 [...] refractive suprise distance vision L[facility]IK [facility] in [facility]? try to get old records as flap not easy to see today History of laser assisted in situ keratomileusis 944008767 Z98.890 OU. for myopia Type 2 jayson betes mellitus without complication 781387675 E11.9 no retinopath y ou I discussed diabetes with this patient. I discussed the importance of sugar control for reducing risk of diabetic complicati ons in the eyes. I recommened they follow up with their PCP/endocr inologist for continue sugar evaluation /managemen t. Also discussed importance of cardiovasc ular risk reduction. Call with changing/f luxuating vision. [id number] ABHISHEK NELSON MD SURGERY SCHEDULE [address] [place] [address] 09/01/2018 08:19:35 09/01/2018 08:27:26 [id number] ABHISHEK NELSON MD OPHTHALMO LOGY [address] [place] [address] 09/02/2018 08:06:38 09/02/2018 08:39:31 Pseudophakia 79657119 Z96.1 Post op Day one - excellentS [...] any questions. 1 week po ar/d os [id number] ABHISHEK NELSON MD OPHTHALMO LOGY [address] [place] [address] 09/14/2018 12:46:51 09/14/2018 15:10:52 Pseudophakia 07262757 Z96.1 excellent continue d/i taper Combined f orm of senile cataract 69738851 H25.819 od Discussed cataracts and cataract surgery. [...] suprise distance vision lasik previously for myopia [id number] ABHISHEK NELSON MD SURGERY SCHEDULE [address] [place] [address] 09/29/2018 07:22:03 09/29/2018 07:25:59 [id number] ABHISHEK NELSON MD OPHTHALMO LOGReji [address] [place] [address] 09/30/2018 08:03:40 09/30/2018 09:23:22 Pseudophakia 01715306 Z96.1 Post op Day one - excellentS [...] 1 mo po mr ou d od [id number] ABHISHEK NELSON MD OPHTHALMO [place] [address] [place] [address] 10/31/2018 13:59:08 10/31/2018 15:10:57 Pseudophakia 79674546 Z96.1 excellent mr today 1 year complete dm check. [id number] ABHISHEK NELSON MD OPHTHALMO LOGReji [address] [place] [address] 09/07/2019 12:56:26 09/07/2019 14:20:40 Type 2 diabetes mellitus without complication 224195259 E11.9 no retinopath y ou I discussed diabetes with this patient. I discussed the importance of sugar control for reducing risk of diabetic complicati ons in the eyes. I recommened they follow up with their PCP/endocr inologist for continue sugar evaluation /managemen t. Also discussed importance of cardiovasc ular risk reduction. Call with changing/f luxuating vision. 1 year and prn. Pseudophakia 97025281 Z9 6.1 excellent mr today 1 year complete dm check. [id number] ABHISHEK NELSON MD OPHTHALMO LOGY [address] [place] [address] 09/09/2020 12:46:24 09/09/2020 14:43:55 Vitreous degeneration 07136884 H43.811 i suspect early vit degen with out detachment rd si/sx discussed call with these Type 2 jayson betes mellitus without complication 091699061 E11.9 no retinopath y ou I discussed diabetes with this patient. I discussed the importance of sugar control for reducing risk of diabetic complicati ons in the eyes. I recommened they follow up with their PCP/endocr inologist for continue sugar evaluation /managemen t. Also discussed importance of cardiovasc ular risk reduction. Call with changing/f luxuating vision. 1 year and prn. Pseudophakia 14197988 Z9 6.1 stable continue mr [id number] ABHISHEK NELSON MD O[address]THALMO LOGY [address] [place] [address] 08/13/2021 09:13:59 08/13/2021 10:20:57 Type 2 diabetes mellitus without complication 300284078 E11.9 no retinopath y ou I discussed diabetes with this patient. I discussed the importance of sugar control for reducing risk of diabetic complicati ons in the eyes. I recommened they follow up with their PCP/endocr inologist for continue sugar evaluation /managemen t. Also discussed importance of cardiovasc ular risk reduction. Call with changing/f luxuating vision. 1 year and prn. Posterior vitreous detachment 295047754 H43.819 Discussed vitreous detachment with the patient. I discussed the patient monitoring for increasing flashes/fl oater/brock ge in vision and to call immediatel y for any change in the vision. [id number] ABHISHEK NELSON MD OPHTHALMO LOGY [address] [place] [address] 5 08/14/2022 12:32:10 08/14/2022 13:29:51 Type 2 diabetes mellitus without complication 806692858 E11.9 no retinopath y ou I discussed diabetes with this patient. I discussed the importance of sugar control for reducing risk of diabetic complicati ons in the eyes. I recommend they follow up with their PCP/endocr inologist for continue sugar evaluation /managemen t. Also discussed importance of cardiovasc ular risk reduction. Call with changing/f luxuating vision. 1 year and prn. Bilateral pseudophakia 7117340409 1917725 Z96.1 Posterior vitreous detachment 117355027 H43.819 Discussed vitreous detachment with the patient. I discussed the patient monitoring for increasing flashes/fl oater/brock ge in vision and to call immediatel y for any change in the vision. [id number] TEE MOLINA JR, MD [address] [place] [address] 2024 11:03:19 2024 15:36:11 Kidney stone 96823578 N20.0 23802 Perform KUB x-ray to evaluate kidney stones and guide interventi ons. Imaging to assess risks and plan management due to chronic presence. Acute urin fredy tract infection 202994542 N39.0 726973 Recurrent urinary tract infection 193745583 N39.0 836698 [id number] CHRIS CASEY MD [place] [address] [place] [address] 5 08/18/2024 11:16:53 08/21/2024 04:05:01 Kidney stone 82804447 N20.0 77520 - Plan to obtain an x-ray to assess residual stone burden. - Consider further imaging or procedures based on x-ray results. - Send stones for analysis to guide future management . [id number] CHRIS CASEY MD [place] [address] [place] [address] 5 11/20/2024 14:18:25 11/27/2024 04:07:56 Overactive urinary bladder 643172637 N32.81 853284 - Continue monitoring symptoms and consider further evaluation if symptoms persist or worsen. Kidney stone 04590224 N2 0.0 90501 - Plan to obtain an x-ray to assess residual stone burden. - Consider further imaging or procedures based on x-ray results. - Send stones for analysis to guide future management . - Maintain adequate hydration to prevent further stone formation. - No additional interventi ons required at this time as the stone burden is minimal. Health Concerns Section Related Observation LastModified by Organization Detai ls LastModified Time None Recorded Concern Status LastModified by Organization Details LastModified Time None Recorded Advance Directives Directive None Recorded Payers Insurance Date Sequence Insurance Name Policy Number Policy Zepeda Covered Member ID Zepeda Member ID Guarantor Name 10/08/2023 2 [email or web address] (MEDICARE SUPPLEMENT) PLAN G Emmett Haas [id number] Emmett Haas 08/13/2021 2 [place] [id number] R Jorge Wander Haas [id number] Emmett Quinteros Samina 11/14/2018 PAYMENT PLAN Emmett Quinteros Samina 11/17/2024 1 [place] Emmett Zarcoill [id number] Emmett Haas 05/11/2019 2 [place] Emmett Haas Notes Date Note Type Note Provider Name and Address Organization Details Recorded Time 08/13/2021 text/html 66 yo wf w/ blurry va returns for brf1. Pt has blurry va OU that comes and goes x 2 months2. Looks like a film over eyes3. Needs more light when reading4. Has not had any flashes of light or floaters OU since last visit5. C/o dryness OUs/p iol ougtts: clear eyes ou prncb fogginess x 2 mo ABHISHEK NELSON MD [address] [place], [address], [facility] 08/13/2021 10:13:50 2024 text/html The patient is [...] or urgency currently. TEE MOLINA JR, MD [address] [place] [address], [address], [facility] 06/04/2024 17:21:53 08/18/2024 text/html The patient is [...] procedures previously, which she wishes to avoid. CHRIS CASEY MD [facility] [place], [address], [facility] 08/20/2024 15:04:08 11/20/2024 text/html The patient is a 69-year-old female presenting with a follow-up evaluation of urolithiasis post-ESWL. She has a history of staghorn calculus and underwent extracorporeal shock wave lithotripsy (ESWL) for treatment. Her recent imaging from 11/20/2024 shows stable tiny right renal stones, indicating some residual calculi post-procedure. The patient expresses concern about potential kidney damage and reports a persistent smell in her urine. She mentions the presence of foam in her urine, which has been discussed as not necessarily indicative of a specific condition. She reports occasional flank pain lasting from 10-15 seconds to an hour, but denies any burning sensation or hematuria. Documentation on this patient encounter was supported using voice-enabled Al technology. The patient consented to recording for the purpose of documenting the encounter. Provider reviewed content of the generated note prior to signature. - Imaging: Stable tiny right renal stones noted on imaging from 11/20/2024. MD Carolin JUAN [address], [place], [address], [place] [facility] 11/26/2024 10:59:25 OBGyn Episode No OBEpisode recorded.
--- OUTSIDE RECORDS SUMMARY | 2024-12-14 13:39 | XMS_ITS | Data Portability ---
Author Organization [place] [facility] ALISSA Kenney ADMIN Address [address] [place] [address] Care Team Providers Care Veterans' Coordinator Name Role Phone JASS BEONIT Primary Care Provider Assessment Encounter Date Assessment Date Assessment LastModified by Organization Details LastModified Time 05/24/2024 05/24/2024 I have personally reviewed the past medical, family, and social histories and ROS, along with all orders in today's record and have noted any changes. A xxsolofku-vr-rak t electronic swatch paster program has been utilized for much of this encounter note. Electronic swatch paster of spoken language can sometimes lead to errors, and at times, nonsensical words or phrases may be inadvertently transcribed. Every effort has been taken to review and correct these, but some may still exist. If there are any questions regarding this note please contact my office at [phone]. Thank you! Not available 05/16/2024 15:06:14 06/14/2024 06/14/2024 I have personally reviewed the past medical, family, and social histories and ROS, along with all orders in today's record and have noted any changes. A gbxnswyyo-nn-cvl t electronic swatch paster program has been utilized for much of this encounter note. Electronic swatch paster of spoken language can sometimes lead to errors, and at times, nonsensical words or phrases may be inadvertently transcribed. Every effort has been taken to review and correct these, but some may still exist. If there are any questions regarding this note please contact my office at [phone]. Thank you! Not available 06/14/2024 09:50:43 Plan of Treatment Reminders Order Date Submit Date Provider Last Modified By Organization Details Last Modified Time Details Appointments Medicare Annual Wellness 30min 2025 01:45P M Jass Benoit MD Not available Not available Not available Lab urinalysi s, dipstick 2024 [email or web address] [facility] Medicine- Dept 648, [address], [place], [address], 12/01/2024 15:01:53 vitamin D, 25-hydrox y, total, serum 2024 [facility] (Lab Registration) , [address] [place] [address] [place], [address], 12/01/2024 19:54:35 TSH + free T4, serum 2024 025 [facility] (Lab Registration) , [address] [place] [address] [place], [address], 12/02/2024 12:51:44 T3, total, serum 2024 025 [facility] (Lab Registration) , [address] [place] [address] [place], [address], 12/03/2024 07:09:55 CMP, serum or plasma 2024 025 [facility] (Lab Registration) , [address] [place] [address] [place], [address], 12/02/2024 12:00:57 CBC w/ auto diff 2024 025 [facility] (Lab Registration) , [address] [place] [address] [place], [address], 12/02/2024 11:42:19 hemoglobi n A1c, QN, blood 2024 025 [facility] (Lab Registration) , [address] [place] [address] [place], [address], 12/02/2024 12:03:11 drug confirmat ion, urine [id number] [facility] (Lab Registration) , [address] [facility] [place], [address], 12/08/2024 08:06:15 vitamin D, 25-hydrox y, total, serum 2024 025 [facility] (Lab Registration) , [address] [place] [address] [place], [address], 08/01/2024 20:18:11 TSH + free T4, serum 2024 025 [facility] (Lab Registration) , [address] [place] [address] [place], [address], 08/01/2024 23:55:48 T3, total, serum 2024 025 [facility] (Lab Registration) , [address] [place] [address] [place], [address], 08/03/2024 13:12:16 CMP, serum or plasma 2024 025 [facility] (Lab Registration) , [address] [place] [address] [place], [address], 08/01/2024 23:45:34 CBC w/ auto diff 2024 025 [facility] (Lab Registration) , [address] [place] [address] [place], [address], 08/01/2024 21:28:38 hemoglobi n A1c, QN, blood [email or web address] [facility] (Lab Registration) , [address] [place] [address] [place], [address], 08/08/2024 08:10:51 lipid panel, serum 2024 025 [facility] (Lab Registration) , [address] [place] [address] [place], [address], 08/02/2024 00:25:59 microalbu min/creat inine, ratio panel, urine 2024 025 [facility] (Lab Registration) , [address] [place] [address] [place], [address], 08/02/2024 00:10:31 vitamin B12, serum 2024 025 [facility] (Lab Registration) , [address] [place] [address] [place], [address], 08/01/2024 20:48:35 Referral None recorded. Procedures upper endoscopy procedure (EGD) (PROC) [address] (Central Scheduling), [address] [place] [address] [place], [address], 06/21/2024 08:24:05 colonosco py procedure (PROC) [address] (Central Scheduling), [address] [place] [address] [place], [address], 2024 13:39:10 Surgeries None recorded. Imaging MAMMO, screening , digital, bilateral 2024 025 [facility] (Central Scheduling), [address], [place], [address], 08/15/2024 12:00:32 bone density - Please try to schedule on same day as mammogram . 2024 025 [email or web address] [facility] (Central Scheduling), [address] [place], [address], 08/15/2024 12:00:32 Medication Orders loratadin e 10 mg tablet 2024 025 [facility], [address], [place], [address], 12/01/2024 14:04:58 propranol ol 20 mg tablet 2024 [facility], [address], [place], [address], 12/01/2024 14:04:57 zolpidem 10 mg tablet 2024 [facility], [address], [place], [address], 12/01/2024 14:05:02 rosuvasta tin 40 mg tablet 2024 025 [facility], [address], [place], [address], 12/01/2024 14:04:54 alprazola m 0.5 mg tablet 2024 [facility], [address], [place], [address], 12/01/2024 14:05:01 escitalop jus 20 mg tablet 2024 025 [facility], [address], [place], [address], 12/01/2024 14:04:59 liothyron ine 5 mcg tablet 2024 [facility], [address], [place], [address], 12/01/2024 14:04:59 glipizide ER 2.5 mg tablet, extended release 24 hr 2024 025 [facility], [address], [place], [address], 12/01/2024 14:04:57 metformin 500 mg tablet 2024 025 [facility], [address], [place], [address], 12/01/2024 14:04:56 Patient TargetsNo targets recorded. Patient Instructions Encounter Date Encounter Id Patient Instructions Last Modified By Organization Details Last Modified Time 05/24/2024 [id number] learning about swallowing problems [email or web address] Not available 05/24/2024 20:06:17 06/14/2024 [id number] learning about swallowing problems [email or web address] Not available 06/14/2024 18:17:17 Reason for Referral None Reported. Results Created Date Observation Date Name Description Value Unit Range Abnormal Flag Note LastModifiedBy Organization Detail LastModifiedTime 06/08/1906/07/2024 RFS-P ATHOL OGY SPECI MEN REQUE ST pathreq Patho logy [address] [place] [address] Phone or [phone] Fax Camacho hankins Jr., M.D., Medic al Direc tor [facility] [address] : [place] [address] Phone Numbe r: [phone] Elijah conti M.D. PATHO LOGY REPOR T Patie nt Name: OMARI CARSON Date of : 1955 Age/S ex: 69/F Accou nt Numbe r: [id number] Medic al Recor d Numbe r: [id number] Order ing MD: ROSEMARY RICHARDSON Date Colle cted : 2024 Date Recei sarah : 2024 Date Repor yomaira : 2024 Exam: Biops y Acces jhonathan# : [id number] Labor atory #: [id number] Copie s To: Techn ician : [...] [place] [address] BodyS ite ESOPH МАРИНА, BIOPS Y SubSi [...] [place] [address] BodyS ite TRANS VERSE COLON POLYP SubSi [...] POLYP EJT/[place] [address] Legal ly authe ntica yomaira by ELIJAH LOMAX MD 06-07 15:38 :00 Not Available [facility] (Pre-Op Clinic) [address] [place] [address] [place], [address], 06/07/2024 16:00:43 04/29/19 25 04/28/2024 CULTU RE URINE W PRESU MP ID results [facility] 04-29 947 No Signi fican t Growt h at [address] [facility] 04-30 853 Foster te:1 50,00 0 Colon y Count Gram Negat charanjit Rods Not Available [facility] (Pre-Op Clinic) [address] [place] [address] [place], [address], 04/30/2024 08:54:52 04/29/19 25 04/28/2024 CULTU RE URINE W PRESU MP ID note Unles s other denney noted testi ng perfo rmed at: [facility] [address] [place] [address] Elijah conti MD Not Available [facility] (Pre-Op Clinic) [address] [place] [address] [place], [address], 04/30/2024 08:54:52 04/29/19 25 04/28/2024 CULTU RE URINE W PRESU MP ID culur ===== ===== ===== ===== ===== ===== ===== ===== ===== ===== ===== ===== ===== ===== ===== ===== ===== ===== ===== ===== ===== ===== ===== ===== CULTU RE NO.: [id number] Exam Statu s: Final Exam Type: [...] thopr im/Grajeda lfame <=0.5 / S 007S [facility] 04-29 947 No Signi fican t Growt h at [address] [facility] 04-30 853 Foster te:1 50,00 0 Colon y Count Gram Negat charanjit Rods Not Available [facility] (Pre-Op Clinic) [address] [place] [address] [place], [address], 05/01/2024 07:22:52 04/29/19 25 04/28/2024 CULTU RE URINE W PRESU MP ID note Unles s other denney noted testi ng perfo rmed at: [facility] [address] [place] [address] Elijah conti MD Not Available [facility] (Pre-Op Clinic) [address] [place] [address] [place], [address], 05/01/2024 07:22:52 04/29/19 25 04/28/2024 COMPL IANCE DRUG CLAYTON SIS, UR note Unles s other denney noted testi ng perfo rmed at: [facility] [address] [place] [address] Elijah conti MD Not Available [facility] (Pre-Op Clinic) [address] [place] [address] [place], [address], 05/05/2024 16:16:31 04/29/19 25 05/05/2024 COMPL IANCE DRUG CLAYTON SIS, UR summary [...] ===== ===== ===== ===== === Not Available [facility] (Pre-Op Clinic) [address] [place] [address] [place], [address], 05/05/2024 16:16:31 04/29/19 25 05/05/2024 COMPL IANCE DRUG CLAYTON SIS, UR pdf . Perfo rmed at: [facility] [address] [place] [address] Lab Direc tor: Ivana hankins [facility] , Phone : [phone] Not Available [facility] (Pre-Op Clinic) [address] [place] [address] [place], [address], 05/05/2024 16:16:31 04/29/19 25 04/28/2024 urina lysis , dipst ick Leukocytes (reference range) small Not Available [facility] Medicine- Dept [address] [place], [address], 04/28/2024 15:38:02 04/29/19 25 04/28/2024 urina lysis , dipst ick Nitrite (reference range:) negati ve Not Available [facility]- Dept [address] [place], [address], 04/28/2024 15:38:02 04/29/19 25 04/28/2024 urina lysis , dipst ick Urobilinogen (reference range) 0.2 Not Available [place] [address] [address], [place], [address], 04/28/2024 15:38:02 04/29/19 25 04/28/2024 urina lysis , dipst ick Protein (reference range) trace Not Available [place] [address] [address], [place], [address], 04/28/2024 15:38:02 04/29/19 25 04/28/2024 urina lysis , dipst ick pH (reference range 5-8.5) 5.0 Not Available [place] [address] , [place], [address], 04/28/2024 15:38:02 04/29/19 25 04/28/2024 urina lysis , dipst ick Blood (reference range:) small Not Available [place] [address] , [place], [address], 04/28/2024 15:38:02 04/29/19 25 04/28/2024 urina lysis , dipst ick Specific Galt (reference range) 1.025 Not Available [place] [address] [address] , [place], [address], 04/28/2024 15:38:02 04/29/19 25 04/28/2024 urina lysis , dipst ick Ketone (reference range) trace Not Available [place] [address] [address] , [place], [address], 04/28/2024 15:38:02 04/29/19 25 04/28/2024 urina lysis , dipst ick Bilirubin (reference range) negati ve Not Available [place] [address] [facility] [place], [address], 04/28/2024 15:38:02 04/29/19 25 04/28/2024 urina lysis , dipst ick Glucose (reference range) negati ve Not Available [facility]- Dept [address], [place], [address], 04/28/2024 15:38:02 04/29/19 25 04/28/2024 urina lysis , dipst ick Color (reference range: yellow-brown ) Yellow Not Available [facility]- Dept [address], [place], [address], 04/28/2024 15:38:02 08/02/19 25 08/01/2024 CBC W/ AUTO DIFF WBC 7.14 K/uL 4.5-11 .5 Not Available [facility] (Pre-Op Clinic) [address] [place] [address] [place], [address], 08/01/2024 19:10:55 08/02/19 25 08/01/2024 CBC W/ AUTO DIFF RBC 4.50 M/uL 4.0-5. 4 Not Available [facility] (Pre-Op Clinic) [address] [place] [address] [place], [address], 08/01/2024 19:10:55 08/02/19 25 08/01/2024 CBC W/ AUTO DIFF HGB 12.7 g/dL 12.0-1 5.0 Not Available [facility] (Pre-Op Clinic) [address] [place] [address] [place], [address], 08/01/2024 19:10:55 08/02/19 25 08/01/2024 CBC W/ AUTO DIFF HCT 39.7 % 35-49 Not Available [facility] (Pre-Op Clinic) [address] [place] [address] [place], [address], 08/01/2024 19:10:55 08/02/19 25 08/01/2024 CBC W/ AUTO DIFF MCV 88.2 fL 80.0-1 00.0 Not Available [facility] (Pre-Op Clinic) [address] [place] [address] [place], [address], 08/01/2024 19:10:55 08/02/19 25 08/01/2024 CBC W/ AUTO DIFF MCH 28.2 pg 26.0-3 2.0 Not Available [facility] (Pre-Op Clinic) [address] [place] [address] [place], [address], 08/01/2024 19:10:55 08/02/19 25 08/01/2024 CBC W/ AUTO DIFF MCHC 32.0 g/dL 32.0-3 6.0 Not Available [facility] (Pre-Op Clinic) [address] [place] [address] [place], [address], 08/01/2024 19:10:55 08/02/19 25 08/01/2024 CBC W/ AUTO DIFF RDW 14.4 % 11.5-1 4.5 Not Available [facility] (Pre-Op Clinic) [address] [place] [address] [place], [address], 08/01/2024 19:10:55 08/02/19 25 08/01/2024 CBC W/ AUTO DIFF platelet count 295 K/uL 142-42 4 Not Available [facility] (Pre-Op Clinic) [address] [place] [address] [place], [address], 08/01/2024 19:10:55 08/02/19 25 08/01/2024 CBC W/ AUTO DIFF MPV 10.7 fL 6.8-10 .2 high Not Available [facility] (Pre-Op Clinic) [address] [place] [address] [place], [address], 08/01/2024 19:10:55 08/02/19 25 08/01/2024 CBC W/ AUTO DIFF neutrophil % 63.6 % 50-70 Not Available [facility] (Pre-Op Clinic) [address] [place] [address] [place], [address], 08/01/2024 19:10:55 08/02/19 25 08/01/2024 CBC W/ AUTO DIFF lymphocyte % 26.2 % 18.0-4 2.0 Not Available [facility] (Pre-Op Clinic) [address] [place] [address] [place], [address], 08/01/2024 19:10:55 08/02/19 25 08/01/2024 CBC W/ AUTO DIFF monocyte % 7.0 % 2.0-11 .0 Not Available [facility] (Pre-Op Clinic) [address] [place] [address] [place], [address], 08/01/2024 19:10:55 08/02/1908/01/2024 CBC W/ AUTO DIFF eosinophil % 2.2 % 1.0-3. 0 Not Available [facility] (Pre-Op Clinic) [address] [place] [address] [place], [address], 08/01/2024 19:10:55 08/02/19 25 08/01/2024 CBC W/ AUTO DIFF basophil % 0.6 % 0.0-2. 0 Not Available [facility] (Pre-Op Clinic) [address] [place] [address] [place], [address], 08/01/2024 19:10:55 08/02/1908/01/2024 CBC W/ AUTO DIFF immature granulocytes % 0.4 % 0.0-0. 8 Not Available [facility] (Pre-Op Clinic) [address] [place] [address] [place], [address], 08/01/2024 19:10:55 08/02/1908/01/2024 CBC W/ AUTO DIFF nucleated red blood cells % 0.0 % Not Available [facility] (Pre-Op Clinic) [address] [place] [address] [place], [address], 08/01/2024 19:10:55 08/02/19 25 08/01/2024 CBC W/ AUTO DIFF neutrophil # 4.54 K/uL Not Available [facility] (Pre-Op Clinic) [address] [place] [address] [place], [address], 08/01/2024 19:10:55 08/02/19 25 08/01/2024 CBC W/ AUTO DIFF lymphocyte # 1.87 K/uL Not Available [facility] (Pre-Op Clinic) [address] [place] [address] [place], [address], 08/01/2024 19:10:55 08/02/19 25 08/01/2024 CBC W/ AUTO DIFF monocyte # 0.50 K/uL Not Available [facility] (Pre-Op Clinic) [address] [place] [address] [place], [address], 08/01/2024 19:10:55 08/02/19 25 08/01/2024 CBC W/ AUTO DIFF eosinophil # 0.16 K/uL Not Available [facility] (Pre-Op Clinic) [address] [place] [address] [place], [address], 08/01/2024 19:10:55 08/02/19 25 08/01/2024 CBC W/ AUTO DIFF basophil # 0.04 K/uL Not Available [facility] (Pre-Op Clinic) [address] [place] [address] [place], [address], 08/01/2024 19:10:55 08/02/19 25 08/01/2024 CBC W/ AUTO DIFF immature gramulocytes # 0.03 K/uL Not Available [facility] (Pre-Op Clinic) [address] [place] [address] [place], [address], 08/01/2024 19:10:55 08/02/19 25 08/01/2024 CBC W/ AUTO DIFF nucleated red blood cells # 0.00 k/uL Not Available [facility] (Pre-Op Clinic) [address] [place] [address] [place], [address], 08/01/2024 19:10:55 08/02/19 25 08/01/2024 CBC W/ AUTO DIFF manual differential NO Not Available [facility] ([facility]Op [facility]) [address] [place] [address] [place], [address], 08/01/2024 19:10:55 08/02/19 25 08/01/2024 CBC W/ AUTO DIFF note Unles s other denney noted testi ng perfo rmed at: [facility] [address] [place] [address] Elijah conti MD Not Available [facility] ([facility]Op [facility]) [address] [place] [address] [place], [address], 08/01/2024 19:10:55 08/02/1908/01/2024 HEMOG LOBIN A1C HGB A1C 8.3 % 4.3-6. 1 high HEMOG LOBIN LEVEL S ARE RELAT ED TO MEAN BLOOD GLUCO SE LEVEL S DURIN G THE PRECE DING 2-3 MONTH S. REFER ENCE RANGE NON-D IABET IC PATIE NTS: 4.3 - 6.1 % DIABE TIC PATIE NTS: 6.2 % AND ABOVE Not Available [facility] (Pre[facility]Op [facility]) [address] [place] [address] [place], [address], 08/01/2024 20:02:20 08/02/1908/01/2024 HEMOG LOBIN A1C estimated average glucose(EAG) 192 mg/dL 77-128 high Not Available [facility] (Pre-Op [facility]) [address] [place] [address] [place], [address], 08/01/2024 20:02:20 08/02/19 25 08/01/2024 HEMOG LOBIN A1C note Unles s other denney noted testi ng perfo rmed at: [facility] [address] [place] [address] Elijah conti MD Not Available [facility] (Pre[facility]Op [facility]) [address] [facility] [place], [address], 08/01/2024 20:02:20 08/02/19 25 08/01/2024 COMP METAB OLIC PANEL sodium 140 mmol/ L 137-14 7 Not Available [facility] (Pre[facility]Op [facility]) [address] [facility] [place], [address], 08/01/2024 20:14:05 08/02/19 25 08/01/2024 COMP METAB OLIC PANEL potassium 4.9 mmol/ L 3.5-5. 1 Not Available [facility] (Pre[facility]Op [facility]) [address] [place] [address] [place], [address], 08/01/2024 20:14:05 08/02/19 25 08/01/2024 COMP METAB OLIC PANEL chloride 105 mmol/ L 98-110 Not Available [facility] (Pre-Op Clinic) [address] [place] [address] [place], [address], 08/01/2024 20:14:05 08/02/19 25 08/01/2024 COMP METAB OLIC PANEL carbon dioxide 27 mmol/ L 21-30 Not Available [facility] (Pre-Op Clinic) [address] [place] [address] [place], [address], 08/01/2024 20:14:05 08/02/19 25 08/01/2024 COMP METAB OLIC PANEL anion gap 8 mmol/ L 6-14 Not Available [facility] (Pre-Op Clinic) [address] [place] [address] [place], [address], 08/01/2024 20:14:05 08/02/19 25 08/01/2024 COMP METAB OLIC PANEL glucose 106 mg/dL 70-115 Not Available [facility] (Pre-Op Clinic) [address] [place] [address] [place], [address], 08/01/2024 20:14:05 08/02/19 25 08/01/2024 COMP METAB OLIC PANEL BUN 19 mg/dL 7-17 high Not Available [facility] (Pre-Op Clinic) [address] [facility] [place], [address], 08/01/2024 20:14:05 08/02/19 25 08/01/2024 COMP METAB OLIC PANEL creatinine 0.9 mg/dL 0.5-1. 5 Not Available [facility] (Pre[facility]Op [facility]) [address] [place] [address] [place], [address], 08/01/2024 20:14:05 08/02/19 25 08/01/2024 COMP METAB OLIC PANEL BUN/creatini ne ratio 21 10-20 high Not Available [facility] ([facility]Op [facility]) [address] [place] [address] [place], [address], 08/01/2024 20:14:05 08/02/19 25 08/01/2024 COMP METAB [...] arana ing kiney funct ion. Not Available [facility] (Pre[facility]Op [facility]) [address] [place] [address] [place], [address], 08/01/2024 20:14:05 08/02/19 25 08/01/2024 COMP METAB OLIC PANEL osmolality (calculated) 294 mosmo l/kg 275-30 1 OSMOL ALITY IS A CALCU LATIO N UTILI ZING THE SERUM /PLAS MA SODIU M, GLUCO SE AND UREA NITRO GEN (BUN) LEVEL S. FOR THE MOST ACCUR ATE RESUL T A MEASU RED SERUM OSMOL ALITY IS SUGGE STED. Not Available [facility] (Pre[facility]Op [facility]) [address] [place] [address] [place], [address], 08/01/2024 20:14:05 08/02/19 25 08/01/2024 COMP METAB OLIC PANEL total protein 7.0 g/dL 6.2-8. 2 Not Available [facility] (Pre[facility]Op [facility]) [address] [place] [address] [place], [address], 08/01/2024 20:14:05 08/02/19 25 08/01/2024 COMP METAB OLIC PANEL albumin 4.4 g/dL 3.5-5. 0 Not Available [facility] (Pre[facility]Op [facility]) [address] [place] [address] [place], [address], 08/01/2024 20:14:05 08/02/19 25 08/01/2024 COMP METAB OLIC PANEL calcium 9.7 mg/dL 8.5-10 .8 Not Available [facility] (Pre-Op Clinic) [address] [place] [address] [place], [address], 08/01/2024 20:14:05 08/02/19 25 08/01/2024 COMP METAB OLIC PANEL bilirubin total 0.3 mg/dL 0.2-1. 3 Not Available [facility] (Pre-Op Clinic) [address] [place] [address] [place], [address], 08/01/2024 20:14:05 08/02/19 25 08/01/2024 COMP METAB OLIC PANEL AST (SGOT) 39 IU/L 14-36 high Not Available [facility] (Pre-Op [facility]) [address] [place] [address] [place], [address], 08/01/2024 20:14:05 08/02/19 25 08/01/2024 COMP METAB OLIC PANEL ALT (SGPT) 37 IU/L 0-35 high Pleas e note new refer ence inter abril for ALT. Due to a recen t manuf actur er metho dolog y arana e, the refer ence inter abril for ALT is lower effec tive May 30, 2020. Not Available [facility] (Pre-Op Clinic) [address] [place] [address] [place], [address], 08/01/2024 20:14:05 08/02/19 25 08/01/2024 COMP METAB OLIC PANEL alk phosphatase 66 IU/L 38-126 Not Available [facility] (Pre[facility]Op [facility]) [address] [place] [address] [place], [address], 08/01/2024 20:14:05 08/02/19 25 08/01/2024 COMP METAB OLIC PANEL note Unles s other denney noted testi ng perfo [facility]med at: [facility] [facility] [address] [place] [address] Elijah conti MD Not Available [facility] (Pre-Op [facility]) [address] [place] [address] [place], [address], 08/01/2024 20:14:05 08/02/19 25 08/01/2024 LIPID PANEL cholesterol 144 mg/dL 0-200 Not Available [facility] (Pre-Op Clinic) [address] [place] [address] [place], [address], 08/01/2024 20:14:06 08/02/19 25 08/01/2024 LIPID PANEL HDL 55 mg/dL 40- Not Available [facility] (Pre-Op Clinic) [address] [place] [address] [place], [address], 08/01/2024 20:14:06 08/02/19 25 08/01/2024 LIPID PANEL total chol/HDL ratio 2.6 0-4 Not Available [facility] (Pre-Op Clinic) [address] [place] [address] [place], [address], 08/01/2024 20:14:06 08/02/19 25 08/01/2024 LIPID PANEL triglyceride 255 mg/dL 35-135 high Not Available [facility] (Pre-Op Clinic) [address] [place] [address] [place], [address], 08/01/2024 20:14:06 08/02/19 25 08/01/2024 LIPID PANEL LDL calculated <39.50 mg/dL 0-130 Not Available [facility] (Pre[facility]Op [facility]) [address] [facility] [place], [address], 08/01/2024 20:14:06 08/02/19 25 08/01/2024 LIPID PANEL VLDL calculated 51 mg/dL 0-40 high Not Available [facility] ([facility]Op [facility]) [address] [place] [address] [place], [address], 08/01/2024 20:14:06 08/02/19 25 08/01/2024 LIPID PANEL note Unles s other denney noted testi ng perfo rmed at: [facility] [address] [place] [address] Elijah conti MD Not Available [facility] (Pre[facility]Op [facility]) [address] [place] [address] [place], [address], 08/01/2024 20:14:06 08/02/19 25 08/01/2024 VITAM IN D, 25-HY DROXY vitamin D, 25-hydroxy 72.1 NG/mL 30-100 Vitam in D defic iency has been defin ed by the Insti tute of Medic ine and Endoc rine Socie ty pract ice guide line as a level of serum 25-OH vitam in D less than 20 ng/mL . The Endoc rine Socie ty went on to [facility] er defin e vitam in D insuf ficie ncy as a level betwe en 20 and 29 ng/mL . Level s of vitam in D betwe en 30 and 100 ng/mL are consi dered suffi ent. Level s above 100 ng/mL are consi dered poten tiall y toxic . Not Available [facility] (Pre[facility]Op [facility]) [address] [place] [address] [place], [address], 08/01/2024 20:18:11 08/02/19 25 08/01/2024 VITAM IN D, 25-HY DROXY note Unles s other denney noted testi ng perfo rmed at: [facility] [address] [place] [address] Elijah conti MD Not Available [facility] ([facility]Op [facility]) [address] [place] [address] [place], [address], 08/01/2024 20:18:11 08/02/19 25 08/01/2024 T4 FREE T4 free 0.70 NG/dL 0.78-2 .19 low Not Available [facility] ([facility]Op [facility]) [address] [place] [address] [place], [address], 08/01/2024 20:24:29 08/02/19 25 08/01/2024 T4 FREE note Unles s other denney noted testi ng perfo rmed at: [facility] [address] [place] [address] Elijah conti MD Not Available [facility] ([facility]) [address] [place] [address] [place], [address], 08/01/2024 20:24:29 08/02/19 25 08/01/2024 MICRO ALB/C REATI NINE RATIO creatinine urine 129.3 mg/dL 22.0-3 28.0 Not Available [facility] ([facility]Op [facility]) [address] [place] [address] [place], [address], 08/01/2024 20:37:09 08/02/19 25 08/01/2024 MICRO ALB/C REATI NINE RATIO microalbumin , urine 29.80 mg/L 0-17 high Not Available [facility] ([facility]Op [facility]) [address] [place] [address] [place], [address], 08/01/2024 20:37:09 08/02/19 25 08/01/2024 MICRO ALB/C REATI NINE RATIO microalb/cre at ratio 23.0 mg/g_ creat 0.0-30 .0 Not Available [facility] (Pre[facility]Op [facility]) [address] [place] [address] [place], [address], 08/01/2024 20:37:09 08/02/19 25 08/01/2024 MICRO ALB/C REATI NINE RATIO note Unles s other denney noted testi ng perfo rmed at: [facility] [address] [place] [address] Elijah conti MD Not Available [facility] ([facility]) [address] [place] [address] [place], [address], 08/01/2024 20:37:09 08/02/19 25 08/01/2024 TSH thyroid stim hormone 3.30 uIU/m L 0.465- 4.68 Not Available [facility] ([facility]) [address] [place] [address] [place], [address], 08/01/2024 20:41:19 08/02/19 25 08/01/2024 TSH note Unles s other denney noted testi ng perfo rmed at: [facility] [address] [place] [address] Elijah conti MD Not Available [facility] ([facility]) [address] [place] [address] [place], [address], 08/01/2024 20:41:19 08/02/19 25 08/01/2024 VITAM IN B12 vitamin B12 286 pg/mL 239-93 1 Not Available [facility] ([facility]) [address] [place] [address] [place], [address], 08/01/2024 20:48:35 08/02/19 25 08/01/2024 VITAM IN B12 note Unles s other denney noted testi ng perfo rmed at: [facility] [address] [place] [address] Elijah conti MD Not Available [facility] ([facility]) [address] [place] [address] [place], [address], 08/01/2024 20:48:35 08/02/19 25 08/01/2024 T3 TOTAL note Unles s other denney noted testi ng perfo rmed at: [facility] [address] [place] [address] Elijah conti MD Not Available [facility] ([facility]) [address] [place] [address] [place], [address], 08/03/2024 13:12:16 08/02/19 25 08/03/2024 T3 TOTAL triiodothyro nine (T3) 123 NG/dL 71-180 Perfo rmed at: - [facility] [place] [address] Lab Direc tor: Chau barriga PhD, Phone : [phone] Not Available [facility] ([facility]) [address] [place] [address] [place], [address], 08/03/2024 13:12:16 12/02/19 25 12/01/2024 CBC W/ AUTO DIFF WBC 6.97 K/uL 4.5-11 .5 Not Available [facility] ([facility]) [address] [place] [address] [place], [address], 12/01/2024 19:16:29 12/02/19 25 12/01/2024 CBC W/ AUTO DIFF RBC 4.98 M/uL 4.0-5. 4 Not Available [facility] ([facility]Op [facility]) [address] [place] [address] [place], [address], 12/01/2024 19:16:29 12/02/19 25 12/01/2024 CBC W/ AUTO DIFF HGB 13.9 g/dL 12.0-1 5.0 Not Available [facility] ([facility]) [address] [place] [address] [place], [address], 12/01/2024 19:16:29 12/02/19 25 12/01/2024 CBC W/ AUTO DIFF HCT 44.8 % 35-49 Not Available [facility] ([facility]) [address] [place] [address] [place], [address], 12/01/2024 19:16:29 12/02/1912/01/2024 CBC W/ AUTO DIFF MCV 90.0 fL 80.0-1 00.0 Not Available [facility] ([facility]) [address] [place] [address] [place], [address], 12/01/2024 19:16:29 12/02/19 25 12/01/2024 CBC W/ AUTO DIFF MCH 27.9 pg 26.0-3 2.0 Not Available [facility] ([facility]) [address] [place] [address] [place], [address], 12/01/2024 19:16:29 12/02/19 25 12/01/2024 CBC W/ AUTO DIFF MCHC 31.0 g/dL 32.0-3 6.0 low Not Available [facility] ([facility]Op [facility]) [address] [place] [address] [place], [address], 12/01/2024 19:16:29 12/02/1912/01/2024 CBC W/ AUTO DIFF RDW 14.6 % 11.5-1 4.5 high Not Available [facility] ([facility]Op [facility]) [address] [place] [address] [place], [address], 12/01/2024 19:16:29 12/02/1912/01/2024 CBC W/ AUTO DIFF platelet count 330 K/uL 142-42 4 Not Available [facility] ([facility]) [address] [place] [address] [place], [address], 12/01/2024 19:16:29 12/02/19 25 12/01/2024 CBC W/ AUTO DIFF MPV 10.6 fL 6.8-10 .2 high Not Available [facility] ([facility]) [address] [place] [address] [place], [address], 12/01/2024 19:16:29 10/24/20 25 12/01/2024 CBC W/ AUTO DIFF neutrophil % 59.7 % 50-70 Not Available [facility] ([facility]Op [facility]) [address] [place] [address] [place], [address], 12/01/2024 19:16:29 12/02/19 25 12/01/2024 CBC W/ AUTO DIFF lymphocyte % 30.8 % 18.0-4 2.0 Not Available [facility] ([facility]Op [facility]) [address] [place] [address] [place], [address], 12/01/2024 19:16:29 12/02/19 25 12/01/2024 CBC W/ AUTO DIFF monocyte % 6.5 % 2.0-11 .0 Not Available [facility] ([facility]Op [facility]) [address] [place] [address] [place], [address], 12/01/2024 19:16:29 12/02/19 25 12/01/2024 CBC W/ AUTO DIFF eosinophil % 1.7 % 1.0-3. 0 Not Available [facility] ([facility]Op [facility]) [address] [place] [address] [place], [address], 12/01/2024 19:16:29 12/02/19 25 12/01/2024 CBC W/ AUTO DIFF basophil % 1.0 % 0.0-2. 0 Not Available [facility] ([facility]Op [facility]) [address] [place] [address] [place], [address], 12/01/2024 19:16:29 12/02/19 25 12/01/2024 CBC W/ AUTO DIFF immature granulocytes % 0.3 % 0.0-0. 8 Not Available [facility] ([facility]Op [facility]) [address] [place] [address] [place], [address], 12/01/2024 19:16:29 12/02/19 25 12/01/2024 CBC W/ AUTO DIFF nucleated red blood cells % 0.0 % Not Available [facility] (Pre-Op Clinic) [address] [place] [address] [place], [address], 12/01/2024 19:16:29 12/02/19 25 12/01/2024 CBC W/ AUTO DIFF neutrophil # 4.16 K/uL Not Available [facility] ([facility]Op [facility]) [address] [facility] [place], [address], 12/01/2024 19:16:29 12/02/19 25 12/01/2024 CBC W/ AUTO DIFF lymphocyte # 2.15 K/uL Not Available [facility] ([facility]Op [facility]) [address] [facility] [place], [address], 12/01/2024 19:16:29 12/02/19 25 12/01/2024 CBC W/ AUTO DIFF monocyte # 0.45 K/uL Not Available [facility] ([facility]Op [facility]) [address] [facility] [place], [address], 12/01/2024 19:16:29 12/02/19 25 12/01/2024 CBC W/ AUTO DIFF eosinophil # 0.12 K/uL Not Available [facility] ([facility]Op [facility]) [address] [facility] [place], [address], 12/01/2024 19:16:29 12/02/19 25 12/01/2024 CBC W/ AUTO DIFF basophil # 0.07 K/uL Not Available [facility] ([facility]Op [facility]) [address] [facility] [place], [address], 12/01/2024 19:16:29 12/02/19 25 12/01/2024 CBC W/ AUTO DIFF immature gramulocytes # 0.02 K/uL Not Available [facility] (Pre-Op Clinic) [address] [place] [address] [place], [address], 12/01/2024 19:16:29 12/02/19 25 12/01/2024 CBC W/ AUTO DIFF nucleated red blood cells # 0.00 k/uL Not Available [facility] (Pre-Op [facility]) [address] [place] [address] [place], [address], 12/01/2024 19:16:29 12/02/19 25 12/01/2024 CBC W/ AUTO DIFF manual differential NO Not Available [facility] (Pre-Op [facility]) [address] [place] [address] [place], [address], 12/01/2024 19:16:29 12/02/19 25 12/01/2024 CBC W/ AUTO DIFF note Unles s other denney noted testi ng perfo rmed at: [facility] [address] [place] [address] Elijah conti MD Not Available [facility] ([facility]Op [facility]) [address] [place] [address] [place], [address], 12/01/2024 19:16:29 12/02/19 25 12/01/2024 HEMOG LOBIN A1C HGB A1C 7.7 % 4.3-6. 1 high HEMOG LOBIN LEVEL S ARE RELAT ED TO MEAN BLOOD GLUCO SE LEVEL S DURIN G THE PRECE DING 2-3 MONTH S. REFER ENCE RANGE NON-D IABET IC PATIE NTS: 4.3 - 6.1 % DIABE TIC PATIE NTS: 6.2 % AND ABOVE Not Available [facility] (Pre-Op Clinic) [address] [place] [address] [place], [address], 12/01/2024 19:48:13 12/02/19 25 12/01/2024 HEMOG LOBIN A1C estimated average glucose(EAG) 174 mg/dL 77-128 high Not Available [facility] (Pre-Op [facility]) [address] [place] [address] [place], [address], 12/01/2024 19:48:13 12/02/19 25 12/01/2024 HEMOG LOBIN A1C note Unles s other denney noted testi ng perfo rmed at: [facility] [address] [place] [address] Elijah conti MD Not Available [facility] ([facility]Op [facility]) [address] [facility] [place], [address], 12/01/2024 19:48:13 12/02/19 25 12/01/2024 COMP METAB OLIC PANEL sodium 140 mmol/ L 137-14 7 Not Available [facility] ([facility]Op [facility]) [address] [facility] [place], [address], 12/01/2024 19:49:21 12/02/19 25 12/01/2024 COMP METAB OLIC PANEL potassium 5.3 mmol/ L 3.5-5. 1 high Not Available [facility] ([facility]Op [facility]) [address] [facility] [place], [address], 12/01/2024 19:49:21 12/02/19 25 12/01/2024 COMP METAB OLIC PANEL chloride 102 mmol/ L 98-110 Not Available [facility] ([facility]Op [facility]) [address] [facility] [place], [address], 12/01/2024 19:49:21 12/02/19 25 12/01/2024 COMP METAB OLIC PANEL carbon dioxide 28 mmol/ L 21-30 Not Available [facility] (Pre-Op Clinic) [address] [facility] [place], [address], 12/01/2024 19:49:21 12/02/19 25 12/01/2024 COMP METAB OLIC PANEL anion gap 10 mmol/ L 6-14 Not Available [facility] (Pre-Op Clinic) [address] [place] [address] [place], [address], 12/01/2024 19:49:21 12/02/19 25 12/01/2024 COMP METAB OLIC PANEL glucose 247 mg/dL 70-115 high Not Available [facility] (Pre-Op Clinic) [address] [place] [address] [place], [address], 12/01/2024 19:49:21 12/02/19 25 12/01/2024 COMP METAB OLIC PANEL BUN 14 mg/dL 7-17 Not Available [facility] ([facility]) [address] [place] [address] [place], [address], 12/01/2024 19:49:21 12/02/19 25 12/01/2024 COMP METAB OLIC PANEL creatinine 1.0 mg/dL 0.5-1. 5 Not Available [facility] ([facility]Op [facility]) [address] [place] [address] [place], [address], 12/01/2024 19:49:21 12/02/1912/01/2024 COMP METAB OLIC PANEL BUN/creatini ne ratio 14 10-20 Not Available [facility] ([facility]) [address] [place] [address] [place], [address], 12/01/2024 19:49:21 12/02/19 25 12/01/2024 COMP METAB OLIC PANEL glom filtration rate 61 mL/mi n >60- GFR LIMIT ATION : [...] arana ing kiney funct ion. Not Available [facility] ([facility]) [address] [place] [address] [place], [address], 12/01/2024 19:49:21 12/02/1912/01/2024 COMP METAB OLIC PANEL osmolality (calculated) 300 mosmo l/kg 275-30 1 OSMOL ALITY IS A CALCU LATIO N UTILI ZING THE SERUM /PLAS MA SODIU M, GLUCO SE AND UREA NITRO GEN (BUN) LEVEL S. FOR THE MOST ACCUR ATE RESUL T A MEASU RED SERUM OSMOL ALITY IS PAVEL RENANDEZ. Not Available [facility] ([facility]Op [facility]) [address] [place] [address] [place], [address], 12/01/2024 19:49:21 12/02/19 25 12/01/2024 COMP METAB OLIC PANEL total protein 7.3 g/dL 6.2-8. 2 Not Available [facility] (Pre-Op Clinic) [address] [place] [address] [place], [address], 12/01/2024 19:49:21 12/02/19 25 12/01/2024 COMP METAB OLIC PANEL albumin 4.9 g/dL 3.5-5. 0 Not Available [facility] (Pre[facility]Op [facility]) [address] [place] [address] [place], [address], 12/01/2024 19:49:21 12/02/19 25 12/01/2024 COMP METAB OLIC PANEL calcium 9.8 mg/dL 8.5-10 .8 Not Available [facility] ([facility]Op [facility]) [address] [place] [address] [place], [address], 12/01/2024 19:49:21 12/02/19 25 12/01/2024 COMP METAB OLIC PANEL bilirubin total 0.5 mg/dL 0.2-1. 3 Not Available [facility] (Pre[facility]Op [facility]) [address] [place] [address] [place], [address], 12/01/2024 19:49:21 12/02/19 25 12/01/2024 COMP METAB OLIC PANEL AST (SGOT) 30 IU/L 14-36 Not Available [facility] (Pre[facility]Op [facility]) [address] [place] [address] [place], [address], 12/01/2024 19:49:21 12/02/19 25 12/01/2024 COMP METAB OLIC PANEL ALT (SGPT) 24 IU/L 0-35 Pleas e note new refer ence inter abril for ALT. Due to a recen t manuf actur er metho dolog y arana e, the refer ence inter abril for ALT is lower effec tive May 30, 2020. Not Available [facility] ([facility]) [address] [place] [address] [place], [address], 12/01/2024 19:49:21 12/02/19 25 12/01/2024 COMP METAB OLIC PANEL alk phosphatase 68 IU/L 38-126 Not Available [facility] ([facility]Op [facility]) [address] [place] [address] [place], [address], 12/01/2024 19:49:21 12/02/19 25 12/01/2024 COMP METAB OLIC PANEL note Unles s other denney noted testi ng perfo [facility]med [facility]: [facility] [address] [place] [address] Elijah conti MD Not Available [facility] ([facility]) [address] [place] [address] [place], [address], 12/01/2024 19:49:21 12/02/19 25 12/01/2024 VITAM IN D, 25-HY DROXY vitamin D, 25-hydroxy 49.7 NG/mL 30-100 Vitam in D defic iency has been defin ed by the Insti tute of Medic ine and Endoc rine Socie ty pract ice guide line as a level of serum 25-OH vitam in D less than 20 ng/mL . The Endoc rine Socie ty went on to [facility] defin e vitam in D insuf ficie ncy as a level betwe en 20 and 29 ng/mL . Level s of vitam in D betwe en 30 and 100 ng/mL are consi dered suffi ent. Level s above 100 ng/mL are consi dered poten tiall y toxic . Not Available [facility] ([facility]Op [facility]) [address] [place] [address] [place], [address], 12/01/2024 19:54:35 12/02/19 25 12/01/2024 VITAM IN D, 25-HY DROXY note Unles s other denney noted testi ng perfo rmed at: [facility] [address] [place] [address] Elijah conti MD Not Available [facility] ([facility]) [address] [place] [address] [place], [address], 12/01/2024 19:54:35 12/02/19 25 12/01/2024 TSH thyroid stim hormone 4.49 uIU/m L 0.465- 4.68 Not Available [facility] ([facility]) [address] [place] [address] [place], [address], 12/01/2024 20:11:19 12/02/19 25 12/01/2024 TSH note Unljarret s other denney noted testi ng perfo rmed at: [facility] [address] [place] [address] Elijah conti MD Not Available [facility] ([facility]) [address] [place] [address] [place], [address], 12/01/2024 20:11:19 12/02/19 25 12/01/2024 T4 FREE T4 free 0.77 NG/dL 0.78-2 .19 low Not Available [facility] ([facility]) [address] [place] [address] [place], [address], 12/01/2024 20:23:56 12/02/19 25 12/01/2024 T4 FREE note Unles s other denney noted testi ng perfo rmed at: [facility] [address] [place] [address] Elijah conti MD Not Available [facility] ([facility]) [address] [place] [address] [place], [address], 12/01/2024 20:23:56 12/02/19 25 12/01/2024 T3 TOTAL note Unles s other denney noted testi ng perfo rmed at: [facility] [address] [place] [address] Elijah conti MD Not Available [facility] ([facility]) [address] [place] [address] [place], [address], 12/03/2024 07:09:55 12/02/19 25 12/03/2024 T3 TOTAL triiodothyro nine (T3) 105 NG/dL 71-180 Perfo rmed at: - [facility] [address] [facility], [place] [address] Lab Direc tor: Chau barriga PhD, Phone : [phone] Not Available [facility] ([facility]) [address] [place] [address] [place], [address], 12/03/2024 07:09:55 12/02/19 25 12/01/2024 COMPL IANCE DRUG CLAYTON SIS, UR note Unles s other denney noted testi ng perfo rmed at: [facility] [address] [place] [address] Elijah conti MD Not Available [facility] ([facility]) [address] [place] [address] [place], [address], 12/11/2024 21:09:34 12/02/19 25 12/11/2024 COMPL IANCE DRUG CLAYTON SIS, UR summary FINAL ===== ===== ===== ===== ===== ===== ===== ===== ===== ===== ===== ===== ===== === TOXAS SURE COMP DRUG CLAYTON SIS,U R ===== ===== ===== ===== ===== ===== ===== ===== ===== ===== ===== ===== ===== === Test Resul t Flag Uni ts Drug Prese nt Alpra zolam 67 ng/ mg creat Alpha -hydr oxyal prazo cowan 246 ng/ mg creat Sourc e of alpra [...] alopr am. Aceta minop hen PRESE NT Salic ylate PRESE NT Napro xen PRESE NT Diphe [...] Flag Units Ref Ra nge Creat inine 84 mg/dL >=20 ===== ===== ===== ===== ===== ===== ===== ===== ===== ===== ===== ===== ===== === Decla red Medic ation s: Medic ation list was not provi ded. ===== ===== ===== ===== ===== ===== ===== ===== ===== ===== ===== ===== ===== === For clini zeus consu ltati on, pleas e call [phone]. ===== ===== ===== ===== ===== ===== ===== ===== ===== ===== ===== ===== ===== === Not Available [facility] ([facility]) [address] [place] [address] [place], [address], 12/11/2024 21:09:34 12/02/1912/11/2024 COMPL IANCE DRUG CLAYTON SIS, UR pdf . Perfo rmed at: [facility] [address] [place] [address] Lab Direc tor: Ivana hankins [facility] , Phone : [phone] Not Available [facility] ([facility]) [address] [place] [address] [place], [address], 12/11/2024 21:09:34 12/02/19 25 12/01/2024 urina lysis , dipst ick Leukocytes (reference range) negati ve Not Available [facility] [address] [place], [address], 12/01/2024 14:12:05 12/02/19 25 12/01/2024 urina lysis , dipst ick Nitrite (reference range:) negati ve Not Available [facility]- Dept [address], [address], 12/01/2024 14:12:05 12/02/19 25 12/01/2024 urina lysis , dipst ick Urobilinogen (reference range) 0.2 Not Available [place] [address] [address] , [place], [address], 12/01/2024 14:12:05 12/02/19 25 12/01/2024 urina lysis , dipst ick Protein (reference range) 30 Not Available [place] [address] [address] , [place], [address], 12/01/2024 14:12:05 12/02/1912/01/2024 urina lysis , dipst ick pH (reference range 5-8.5) 5.5 Not Available [place] [address] [address] , [place], [address], 12/01/2024 14:12:05 12/02/1912/01/2024 urina lysis , dipst ick Blood (reference range:) negati ve Not Available [place] [address] [address] , [place], [address], 12/01/2024 14:12:05 12/02/1912/01/2024 urina lysis , dipst ick Specific Galt (reference range) 1.025 Not Available [place] [address] [address] , [place], [address], 12/01/2024 14:12:05 12/02/1912/01/2024 urina lysis , dipst ick Ketone (reference range) negati ve Not Available [place] [address] [address] [facility] [place], [address], 12/01/2024 14:12:05 12/02/19 25 12/01/2024 urina lysis , dipst ick Bilirubin (reference range) negati ve Not Available [facility] [address] [facility], [place], [address], 12/01/2024 14:12:05 12/02/19 25 12/01/2024 urina lysis , dipst ick Glucose (reference range) negati ve Not Available [facility] [address] [facility], [place], [address], 12/01/2024 14:12:05 12/02/19 25 12/01/2024 urina lysis , dipst ick Color (reference range: yellow-brown ) Pale Yellow Not Available [facility] [address] [facility], [place], [address], 12/01/2024 14:12:05 04/30/19 25 04/28/2024 XR, chest , 2 view [facility] [address] [place] [address] (Phone ) HARVEY Nichole REPORT Name: EMMETT DHALIWAL : 1955 Accoun t #: [id number] Age: 68 Years Patien t Type: Outpat ient Sex: F Access ion#: [id number] Exam Descri ption: CHEST PA AND LAT Exam Reason : r05.3 chroni c cough Order Date/T kelsy: 2024 04:49: 47 PM Dictat ed By: Don messer MD Orderi Physic nidhi: JASS BENOIT Attend ing Physic nidih: JASS BENOIT EXAM DESCRI PTION: XR CHEST [...] EMMETT DHALIWAL : 1955 Accoun t #: [id number] Age: 68 Years Patien t Type: Outpat ient Sex: F Access ion#: [id number] Exam Descri ption: CHEST PA AND LAT Exam Reason : r05.3 chroni c cough Order Date/T kelsy: 2024 04:49: 47 PM Princi pal Interp reter Name: Don messer Provid er ID: [id number] PAGE 2 OF 2 CC'ed Logic: Orderi ng Provid er: KAYCEE REGAN CC Provid er: DECLIN ED PCP Attend ing Provid er: KAYCEE REGAN Referr ing Provid er: KAYCEE REGAN Admitt ing Provid er: KAYCEE REGAN [email or web address] [facility]) [address] [place] [address] [place], [address], 04/30/2024 10:18:57 04/30/1904/28/2024 XR, chest , 2 view No observ ation record ed. [facility] (Lab Registration) [address] [facility] [place], [address], 04/30/2024 10:18:42 10/21/19 25 10/20/2024 bone densi ty No observ ation record ed. [facility] [address] , [place], [address], 10/20/2024 13:07:50 10/25/1910/20/2024 MAMMO , scree ranjit, digit al, bilat eral No observ ation record ed. [facility] [address] [place], [address], 10/24/2024 19:18:30 Result Notes None recorded. Problems Name Problem SNOMED Code Status Onset Date Resolution Date Notes Provider Name and Address Organization Details Recorded Time Insomnia 205749313 Active 2022 Jass Benoit MD [address], [address], [place], [place], [address], [place] & [place] 3 08:20:43 Generalized anxiety disorder 73917860 Active 2022 Jass Benoit MD [address], [address], [place], [address], [place] & [place] 3 08:21:18 Coronary arterioscle rosis 94197972 Active 2022 Taylor Wright NP [address], [address], [place], [address], [place] [facility] & [place] 5 21:57:20 Hypothyroid ism 01031885 Active 2022 Jass Benoit MD [address], [address], [place], [address], [place] & [place] 3 08:21:45 Hyperlipide kristyn 41552864 Active 2022 Jass Benoit MD [address], [address], [place], [address], [place] & [place] 3 10:16:09 Gastroesoph ageal reflux disease without esophagitis 261977214 Active 2022 Jass Benoit MD [address], [address], [place], [address], [place] & [place] 3 10:16:16 Hyperglycem ia due to type 2 diabetes mellitus 3390452852578 09 Active 2022 Jass Benoit MD [address], [address], [place], [address], [place] & [place] 3 10:34:23 Iron deficiency anemia 57137192 Active 2022 Jass Benoit MD [address], [address], [place], [address], [place] & [place] 3 16:44:49 Cobalamin deficiency 519134145 Active 2022 Jass Benoit MD [address], [address], [place], [address], [place] & [place] 3 16:49:57 Vitamin D deficiency 36273253 Active 2022 Jass Benoit MD [address], [address], [place], [address], [place] & [place] 3 16:50:56 Allergic rhinitis 97937794 Active 2022 Jass Benoit MD [address], [address], [place], [address], [place] & [place] 3 16:54:56 Urinary incontinenc e 040250658 Active 2022 Jass Benoit MD [address], [address], [place], [address], [place] & [place] 3 17:00:28 Obstructive sleep apnea syndrome 64313644 Active 2022 Jass Benoit MD [facility] [address], [place], [address], [place] & [place] 3 17:04:40 Staghorn calculus 806302364 Active 2023 Jass Benoit MD [facility] [address], [address], [place], [address], [place] & [place] 4 10:33:54 Chronic urinary tract infection 936224971 Active 2023 Jass Benoit MD [facility] [address], [address], [place], [address], [place] & [place] 4 14:57:00 Hypertensiv e heart and chronic kidney disease 0534502298648 Active 2024 Jass Benoit MD [facility] [address], [address], [place], [address], [place] & [place] 5 14:12:09 Chronic kidney disease stage 3A 306189044 Active 2024 Jass Benoit MD [facility] [address], [address], [place], [address], [place] & [place] 5 14:12:13 Dysphagia 07972042 Active 2024 Taylor Wright NP [address], [address], [place], [address], [place] & [place] 5 14:33:42 Sensorineur al hearing loss of bilateral ears 023926657 Active 2024 OSMAN SANCHEZ [address], [address], [place], [address], [place] & [place] 5 16:41:58 Problem Notes Documentation Provider Name and Address Organization Details Recorded Time Informatica Mdm Architect Consult Note : [facility] [address] [facility] [address]AIPXTST, Panda M (id #[id number], : 1955) Date: 07/08/2024RE: Emmett Haas, : 1955, PT ID #[id number] Benoit MD, I would like to thank [...] Reason/Date Follow Up 06/14/2024 - 02:45PM - [facility] History of Present IllnessPleasant 68 [address] old [address] of 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 Has not had a colonoscopy in years-last one was in [facility]. Still having symptoms. No other concerns [...] record and have noted any changes. A [id number] electronic swatch paster program has been utilized for much of this encounter note. Electronic swatch paster of spoken language can sometimes lead to errors, and at times, nonsensical words or phrases may be inadvertently transcribed. Every effort has been taken to review and correct these, but some may still exist. If there are any questions regarding this note please contact my office at [phone]. Thank you! 1. Dysphagia-Patient with episodes of dysphagia due to solids. Concern for stricture versus spasm. Patient with history of acid reflux. Can order barium swallow if symptoms persist.R13.10: Dysphagia, unspecified LEARNING ABOUT SWALLOWING PROBLEMS 2.History of bariatric surgeryRecommend that patient establish with [place] [facility].Z98.84: Bariatric surgery status 3. Screening for malignant neoplasm of colon-Poor prep-recommend repeat in 1-3 years.Z12.11: Encounter for screening for malignant neoplasm of colon 4.Coronary artery disease, unspecified vessel or lesion type, unspecified whether angina present, unspecified whether chitina or transplanted heartRecommend to continue follow up with specialist/PCP regarding this.I25.10: Atherosclerotic heart disease of chitina coronary artery without angina pectoris 5. Hypertensive [...] Encourage patient to continue follow up with PCP/creel operator for disease management.E11.8: Type 2 diabetes mellitus with unspecified complications 8. Hypothyroidism- Patient with current diagnosis of hypothyroidism. Encourage follow up with PCP for disease management.E03.9: Hypothyroidism, unspecified Return to Office Jass Benoit MD for Medicare Annual Wellness 30min at [facility] Medicine- Dept 648 on 08/01/2024 at 01:45 PM Jass Benoit MD [facility] [address], [place], [address], [place] [facility] & [place] 07/09/2024 13:45:14 Procedures Surgical History Date Name Laterality Status Provider Name and Address Organization Details Recorded Time 08/02/19 25 Medicare Annual Wellness Visit Health Risk Assessment completed Jass Benoit MD [address], [address], [place], [address], [place] [facility] & [place] 08/01/2024 14:25:29 01/22/20 23 Medicare Annual Wellness Visit Health Risk Assessment completed Jass Benoit MD [address], [address], [place], [address], [place] & [place] 01/21/2023 17:08:16 01/06/20 22 Most Recent Mammogram completed Carola KIRKLAND - [facility] & [place] 01/13/2023 15:53:46 02/08/19 22 completed Carola KIRKLAND - [facility] & [place] 01/13/2023 15:52:47 12/30/19 14 Date of Last Colonoscopy completed Cheleste Garcia [place] - [facility] - [place] & [place] 04/14/2023 16:43:58 12/30/19 14 Colonoscopy completed Cheleste Garcia [place] - [place] & [place] 01/13/2023 15:51:27 02/08/19 13 Date of Last Pap Smear completed Cheleste Garcia [place] & [place] 01/13/2023 15:52:47 02/08/19 13 Most Recent Bone Density completed Cheleste [place] & [place] 01/13/2023 15:52:47 02/08/19 13 Cardiovascular Surgery completed Cheleste [place] & [place] 01/13/2023 15:52:53 02/08/19 04 Abdominal Surgery completed Cheleste Garcia [place] & [place] 01/13/2023 15:52:53 02/08/19 00 Thyroid Surgery completed Cheleste Garcia [place] & [place] 01/13/2023 15:52:53 02/08/18 99 LASIK completed Cheleste Garcia [place] & [place] 01/13/2023 15:52:52 Tonsillectomy completed Cheleste [place] & [place] 09/15/2022 12:32:44 hysterectomy completed Cheleste Garcia [place] & [place] 09/15/2022 12:32:53 thyroidectomy completed Cheleste Garcia [place] & [place] 09/15/2022 12:32:59 renal lithotripsy completed Chelest e Garcia [place] & [place] 09/15/2022 12:33:09 abdominoplasty completed Cheleste [place] & [place] 09/15/2022 12:33:24 cystoscopy completed Cheleste Garcia [place] & [place] 09/15/2022 12:33:57 Other completed Cheleste Garcia [place] & [place] 09/15/2022 12:34:15 cardiac catheterization completed Cheleste Garcia [place] & [place] 01/13/2023 15:57:10 Imaging Results None recorded. Procedure Notes None recorded. Medical Equipment None Reported. Allergies Allergen ID Allergen Name Allergen Category Reaction Reaction Severity Criticality Documentation Date Start Date Code Code System Note Provider Name and Address Organization Details Recorded Time 355280 dapaglifl ozin Not available Not available Not available Not available 04/11/2024 02818 64 RxNorm Worse ranjit davidne y funct ion [place] [facility] & [place] 5 15:49:49 491580 semagluti de medicatio n nausea vomiting Not available Not available Not available 04/11/2024 RxNorm [place] Johns [facility] & [place] 5 15:50:10 821811 ezetimibe medicatio n nausea vomiting Not available Not available Not available 04/11/2024 49563 8 RxNorm [place] Johns [facility] & [place] 5 15:50:15 75325 niacin medicatio n palpitati ons Not available Not available 11/26/2021 7393 RxNorm ISAEL Rivera [facility] & [place] 2 11:30:33 77863 bacitraci n / neomycin / polymyxin B medicatio n Not available Not available Not available 11/26/2021 00764 9 RxNorm [place] Rivera [facility] & [place] 2 11:30:47 Medications Name Sig Start Date [...] Available Not Available metformin 500 mg tablet Take 1 tablet twice a day by oral route. 2024 active Not Available Not Available Not Avai lable primidone 50 mg tablet TAKE 1 TABLET [...] Available Not Available alprazolam 0.5 mg tablet Take 1 tablet by mouth twice daily as needed 2024 active Not Available Not Available Not Avai lable amoxicillin 875 mg tablet 09/22 completed Not [...] 1 ML SUBCUTANE OUSLY ONCE EVERY MONTH 12/01 completed Not Available Not Available Not Available neomycin-po lymyxin-dex ameth 3.5 mg/mL-10,00 0 [...] Available Not Available zolpidem 10 mg tablet Take 1 tablet every day by oral route. 2024 active Not Available Not Available Not Avai lable propranolol 20 mg tablet TAKE 1 TABLET [...] Available Not Available loratadine 10 mg tablet TAKE 1 TABLET BY MOUTH ONCE DAILY active Not Available Not Available No t Available amoxicillin 875 mg-potassiu m clavulanate 125 mg tablet 09/22 completed Not Available Not Available Not Available escitalopra m 10 mg tablet TAKE 1 TABLET BY MOUTH ONCE DAILY 12/01 completed Not Available Not Available Not Available escitalopra m 20 mg tablet TAKE 1 TABLET BY MOUTH ONCE DAILY active Not Available Not Available No t Available ezetimibe 10 mg tablet 09/22 completed Not Available Not Available Not Available rosuvastati n 10 mg tablet TAKE 1 TABLET BY MOUTH ONCE DAILY 09/22 completed Not Available Not Available Not Available rosuvastati n 40 mg tablet Take 1 tablet every day by oral route. 2024 active Not Available Not Available Not Avai lable nitrofurant oin monohydrate /macrocryst als 100 mg [...] 1 CAPSULE BY MOUTH ONCE A WEEK 12/01 completed Not Available Not Available Not Available glipizide ER 2.5 mg 24 hr [...] and Address Organization Details Last Updated DateTime 157.48 cm 28.1 kg/m2 57873.7 9 g 98 [degF] 97 % 97 % 80 /min 122/80 mm[Hg] Haylee Atwood [facility] & [place] 15:08:05 Date Recorded Body height Body mass index (BMI) Body weight Body temperature Oxygen saturation Oxygen saturation in Arterial blood by Pulse oximetry Heart rate Systolic And Diastolic Provider Name and Address Organization Details Last Updated DateTime 5 157.48 cm 27.8 kg/m2 75392.0 4 g 97 [degF] 97 % 97 % 77 /min 118/78 mm[Hg] Haylee Atwood [facility] & [place] 14:57:46 Date Recorded Pain severity - 0-10 verbal numeric rating [Score] - Reported Provider Name and Address Organization Details Last Updated DateTime 08/01/2024 2 Neli Honeycutt [address] [place] [address], [address], [place], [address], [place] [facility] & [place] 08/01/2024 14:14:22 Date Recorded Body height Body mass index (BMI) Body weight Body temperature Oxygen saturation Oxygen saturation in Arterial blood by Pulse oximetry Heart rate Systolic And Diastolic Provider Name and Address Organization Details Last Updated DateTime 5 157.48 cm 27.3 kg/m2 58521.2 6 g 97.1 [degF] 97 % 97 % 67 /min 110/64 mm[Hg] Viridiana MAXWELL [facility] & [place] 5 14:02:28 Date Recorded Body height Body mass index (BMI) Body weight Oxygen saturation Oxygen saturation in Arterial blood by Pulse oximetry Body temperature Heart rate Systolic And Diastolic Provider Name and Address Organization Details Last Updated DateTime 157.48 cm 26.5 kg/m2 05568.8 9 g 98 % 98 % 97.5 [degF] 82 /min 114/60 mm[Hg] Viridiana MAXWELL [facility] & [place] 13:49:22 Social History Question Answer Notes LastModified by [employer] Details LastModified Time Tobacco Smoking Status [facility] [place] 11/26/2021 11:34:43 Do You Have An Advance [...] Functional Status Question Answer Note LastModified by OrganizSeltenerden Storkwitz ion Details LastModified Time Do you use any illicit or recreational drugs? No Information not available 11/26/2021 Do you or have you ever used any other forms of tobacco or nicotine? No Information not available 01/21/2023 What is your level of alcohol consumption? None [email or web address] Information not available 11/26/2021 What is your exercise level? Occasional Information not available 04/28/2023 Mental Status Question Answer Note LastModified by Organization D etails LastModified Time Do you feel stressed (tense, restless, nervous, or anxious, or unable to sleep at night)? [id number] Information not available 01/21/2023 Family History Relationship Description Onset Age of this Age Resolved Age Notes LastModified by Organization Details LastModified Time Mother Cirrhosis of liver [email or web address] Not available 2024 13:42:51 Mother Parents [email or web address] Not available 2024 13:42:51 Mother Disorder of endocrine system pt. added [...] Cirrhosis of liver [email or web address] Not available 2024 13:42:51 Father Parents 35 Not available 2024 13:42:51 Father Myocardial infarction pt. added direct ly (09/19) API-13 Not available 09/19/2022 16:28:50 Father Liver problem pt. added direct ly (09/19) API-13 Not available 09/19/2022 16:29:13 Father Heart disease Not available 2022 15:54:48 Maternal Grandmother Diabetes mellitus [email or web address] Not available 2024 13:42:51 Maternal Grandmother Disorder of endocrine system pt. added direct ly (09/19) API-13 Not available 09/19/2022 16:28:24 Maternal Grandmother Disorder of thyroid gland pt. added direct ly (09/19) API-13 Not available 09/19/2022 16:29:52 Maternal Grandmother Heart disease Not available 2022 15:54:48 Maternal Grandfather Diabetes mellitus [email or web address] Not available 2024 13:42:51 Maternal Grandfather Heart disease Not available 2022 15:54:48 Brother Disorder of endocrine system pt. added direct ly (09/19) API-13 Not available 09/19/2022 16:28:24 Brother Myocardial infarction pt. added direct ly (09/19) API-13 Not available 09/19/2022 16:28:50 Brother Diabetes mellitus [email or web address] Not available 2024 13:42:51 Sister Disorder of endocrine system pt. added direct ly (09/19) API-13 Not available 09/19/2022 16:28:24 Sister Hypertensive disorder pt. added direct ly (09/19) API-13 Not available 09/19/2022 16:29:34 Sister Diabetes mellitus [email or web address] Not available 2024 13:42:51 Paternal Grandfather Myocardial infarction pt. added direct ly (09/19) API-13 Not available 09/19/2022 16:28:50 Paternal Grandfather Heart disease Not available 2022 15:54:48 Paternal Uncle Myocardial infarction pt. added direct ly (09/19) API-13 Not available 09/19/2022 16:28:50 Paternal Grandmother Liver problem pt. added direct ly (09/19) API-13 Not available 09/19/2022 16:29:13 Paternal Grandmother Heart disease Not available 2022 15:54:48 Medical History Condition Response Diabetes Y Anxiety Disorder Y Coronary Artery Disease Y Vision or Eye Problems Y Arthritis Y Kidney Stones Y Ear or Hearing Problems Y Stroke Y Kidney or Bladder Problems Y Thyroid Problems Y Depression Y Hypothyroidism Y Anemia Y Reflux/GERD Y High Cholesterol Y Heart Attack ([place]) Y Heart Disease Y Hypertension Y Gynecological [...] Recorded Time Tdap 0 completed Not Available [facility] 12/01/2024 13:43:02 Influenza, split virus, trivalent, preservative 3 completed Not Available [facility] 12/01/2024 13:43:02 Influenza, split virus, quadrivalent, preservative 8 completed Not Available [facility] 12/01/2024 13:43:02 Influenza, recombinant, quadrivalent, PF 8 completed Not Available [facility] 12/01/2024 13:43:02 Hep A, adult 8 completed Not Available [facility] 12/01/2024 13:43:02 Hep A, adult 9 completed Not Available [facility] 12/01/2024 13:43:02 Influenza, recombinant, quadrivalent, PF 9 completed Not Available [facility] 12/01/2024 13:43:02 Past Encounters Encounter ID Performer Location Encounter Start Date Encounter Closed Date Diagnosis/Indication Diagnosis SNOMED-CT Code Diagnosis ICD10 Code Diagnosis IMO Codes Diagnosis Note [id number] Lilian Amaro NP, [facility] [address] [facility],[place] [address] 11/27/2021 15:20:30 11/27/2021 16:29:40 Recurrent urinary tract infection 967721539 N39.0 Urinalysis positive for leukocytes . Will send urine for culture and sensitivit y. Will start patient on cefdinir 300 mg b.i.d. for 7 days. Nocturia 076933335 R35.1 History of calculus of kidney 112095784 Z87.442 [id number] Jass Benoit MD [facility] Family Medicine- Dept [address] [place] [address] 09/22/2022 09:55:59 09/22/2022 11:48:08 Hyperglycemia due to type 2 diabetes mellitus 3566869157 44356 E11.65 Will continue with metformin. She tried ozempic, but was unable to tolerate this medication due to abdominal distension . Will restart glipizide. Unable to add VELVET or ARB due to low blood pressures due to microalbum in concerns. Hypertensi ve heart disease 27080649 I11.9 Hypothyroidism 81730123 E03.9 Will continue with current synthroid dosage. Hyperlipidemia 55225787 E78.5 Will continue with crestor. Coronary arteriosclerosis 66193783 I25.10 Had a heart cath on 06/01/2022 and had moderate single vessel coronary artery atheroscle rosis with continued patency of the LAD stent. Insomnia 367137875 G47.0 0 Will continue with ambien. She has been on this medication for a number of years and has proven to be beneficial . Dysuria 46686234 R30.0 No evidence of UTI on today's urinalysis . Will continue with staying well hydrated. Generalize d anxiety disorder 07439376 F41.1 She tried cymbalta, but this medication did not work. She is to continue with lexapro and xanax. WIll increase xanax slightly as she has been having more anxiety as of recently. [id number] Jass Benoit MD [facility] Medicine- Dept [address] [place] [address] 01/21/2023 15:42:35 01/21/2023 17:19:33 Adult health examination 218619082 Z00.00 Overall Wellness done in the office today. Screening colonoscopy 44 7355904 Z12.11 Up to date with last 2013 and will need repeat 12/2023. Screening mammography 24 677787 Z12.31 Up to date and will get report for records. Screening for osteoporosis 937423750 Z13.820 WIll plan on DEXA scan on next year's visit with mammogram. Hypertensi ve heart disease 08130084 I11.9 Coronary arteriosclerosis 89529582 I25.10 Had a heart cath on 06/01/2022 and had moderate single vessel coronary artery atheroscle rosis with continued patency of the LAD stent. Hyperglyce kristyn due to type 2 diabetes mellitus 1658344551 55003 E11.65 Will continue with metformin. She tried ozempic, but was unable to tolerate this medication due to abdominal distension . Will restart glipizide. Unable to add VELVET or ARB due to low blood pressures due to microalbum in concerns. Hyperlipidemia 64745454 E78.5 Hypothyroidism 09731035 E03.9 Will continue with current synthroid dosage. Insomnia 236614825 G47.0 0 Iron defic iency anemia 33173925 D50.9 Gastroesop hageal reflux disease without esophagitis 809417577 K21.9 Generalize d anxiety disorder 28525465 F41.1 Taking hig h risk medication 5601376182 89762 Z91.89 Resting tremor 09401596 G25.2 Will refer to neurology, but not until the new year as she is going to [place] for the winter. Cobalamin deficiency 190 962463 E53.8 Vitamin D deficiency 347 93987 E55.9 Allergic rhinitis 816969 04 J30.9 Urinary incontinence 165 461429 R32 Influenza vaccination declined 816002407 Z28.21 Body mass index 25-29 - overweight 868263033 Z68.28 Obstructiv e sleep apnea syndrome 67659371 G47.33 [id number] Jass Benoit MD [facility] Medicine- Dept [address] [place] [address] 04/19/2023 14:40:49 04/19/2023 15:54:13 Myocardial infarction due to demand ischemia 6170382056 8921394 I21.A1 Recently saw cardiology in [place]. They have requested records from [place]. Was only added back on lisinopril for now. Atrial par oxysmal tachycardia 614420199 I47.19 Doing well with metoprolol . Takotsubo cardiomyopathy 725871436 I51.81 Recent ECHO showed normal EF and heart cath was normal showing no blockage. Nausea and vomiting 1693 1999 R11.2 Likely due to a viral etiology and she is doing well now, but will get her a script for zofran PRN. Acute urin fredy tract infection 764564357 N39.0 [id number] Jass Benoit MD [facility] Medicine- Dept [address] [place] [address] 05/26/2023 14:27:43 05/26/2023 15:40:55 Hyperglycemia due to type 2 diabetes mellitus 8449827866 18375 E11.65 Will continue with metformin. Has not had any recent labs. Hypertensi ve heart disease 96980366 I11.9 Will continue with lisinopril and metoprolol . Hypothyroidism 46142654 E03.9 Will continue with current synthroid dosage. Hyperlipidemia 02736057 E78.5 Continue with crestor. Coronary arteriosclerosis 19772248 I25.10 Had a heart cath on 06/01/2022 and had moderate single vessel coronary artery atheroscle rosis with continued patency of the LAD stent. Cobalamin deficiency 190 622852 E53.8 Insomnia 838702564 G47.0 0 Continue with ambien. Iron defic iency anemia 86540572 D50.9 Trace of h emolyzed blood detected in urine 653043128 R31.9 [id number] Jass Benoit MD [facility] Medicine- Dept 648 [address] [address] 08/24/2023 09:58:29 08/24/2023 11:07:00 Hyperglycemia due to type 2 diabetes mellitus 6880143072 15361 E11.65 Will continue with metformin and glipizide. Will add jardiance for further kidney protection . Hypertensi ve heart disease 48031626 I11.9 Will continue with lisinopril and propranolo l. Coronary arteriosclerosis 99215428 I25.10 Following closely with cardiology and recently changed from metoprolol to propanolol . Hypothyroidism 11159248 E03.9 Will continue with current synthroid dosage. Hyperlipidemia 81719543 E78.5 Continue with crestor. Proteinuria 05754707 R80 .9 Has been sent by Dr. Bai for ultrasound of the kidneys next week and repeat labs. [facility] Taking hig h risk medication [id number] 95301 Z91.89 Pain of le ft hip joint 0990136651 01621 M25.552 Had steroid injection with Dr. Hall and this has helped tremendous ly. Staghorn calculus 477158 [address] Bai for now, but may need referral to [facility] in the upcoming future. Cobalamin deficiency 190 542105 E53.8 [id number] Jass Benoit MD [facility] Medicine- Dept 753 9307 [facility] R[facility] [address] 11/26/2023 14:20:15 11/26/2023 15:52:05 Hyperglycemia due to type 2 diabetes mellitus 5268772324 22284 E11.65 Will continue with metformin, glipizide, and jardiance. Hypertensi ve heart disease 92942006 I11.9 Will continue with lisinopril and propranolo l. Coronary arteriosclerosis 51361969 I25.10 Following closely with cardiology and recently changed from metoprolol to propanolol . Hyperlipidemia 63860705 E78.5 Continue with crestor. Hypothyroidism 39479504 E03.9 She is following closely with [facility] and recently changed from levothyrox ine to liothyroni ne. Iron defic iency anemia 00245367 D50.9 Most recent labs reviewed in the office today. Vitamin D deficiency 347 41992 E55.9 Influenza vaccination declined 154824830 Z28.21 [id number] Jass Benoit MD [facility] Medicine- Dept 648 [facility] [place] [address] 04/28/2024 14:22:48 04/28/2024 15:51:39 Hyperglycemia due to type 2 diabetes mellitus 0684541566 76757 E11.65 Will continue with metformin and glipizide. She reports not being as compliant with her medication s. Coronary arteriosclerosis 58083917 I25.10 Following closely with cardiology . Hypothyroidism 63448944 E03.9 She is following closely with [facility]. Obstructiv e sleep apnea syndrome 39919164 G47.33 She has not been as compliant with her CPAP as she realizes she should be. Iron defic iency anemia 54701418 D50.9 Labs reviewed in the office today. Insomnia 037966978 G47.0 0 Continue with ambien. Vitamin D deficiency 347 62780 E55.9 Chronic cough 05058746 R 05.3 49100 Will plan on xray as she had what sounds to be an aspiration pneumonia in 03/2024 and I am still concerned about food particles that she aspirated (a peanut). Chronic ki dney disease stage 3A 852842100 N18.31 7158616854 DId discuss in detail today. Hypertensi ve heart and chronic kidney disease 5650879422 104 I13.10 523820 Will continue with lisinopril and propranolo l. Dysuria 01143958 R30.0 45596 Taking hig h risk medication 6462478980 17723 Z79.965 8098645 Generalize d anxiety disorder 14547696 F41.1 Cobalamin deficiency 190 936471 E53.8 Hyperlipidemia 14496767 E78.5 Continue with crestor. Screening for malignant neoplasm of colon 445012181 Z12.11 198978 Esophageal dysphagia 408 25844 R13.19 8211 Being referred to GI and will likely need EGD. Allergic rhinitis 430204 04 J30.9 6418024 [id number] Taylor Wright NP [facility] [address] [place] [address] DR DE LEON TONYANICOLAS R, ISAEL [address] 05/24/2024 14:22:06 05/24/2024 15:01:49 Dysphagia 43760026 R13.10 Patient with episodes of dysphagia due to solids. Concern for stricture versus spasm. Patient with history of acid reflux. Will order barium swallow. Will schedule EGD to rule out stricture/ spasm and to help identify underlying cause of dysphagia. History of bariatric surgical procedure 955837451 Z98.84 940648 Recommend that patient establish with [place] [facility] . Screening for malignant neoplasm of colon 946766803 Z12.11 Will schedule for age appropriat e screening colonoscop y. Will order basic labs to ensure patient has adequate renal and hepatic function as well as no significan t abnormalit ies that would increase risk of the procedure, including anemia. Colonoscopy planned 7038 78344 Z76.89 Will schedule colonoscop y. Colonoscop y informatio n sheet given. Advised of risks and benefits of the procedure, including risks of perforatio n, possibly missing small abnormalit ies, possible infection, as well as risks of anesthesia . Patient verbalizes understand ing and wishes to proceed. Procedure prep explained to patient. Prep ordered. Coronary arteriosclerosis 27566168 I25.10 4942742844 Recommend to continue follow up with specialist /PCP regarding this. Hypertensive disorder 38 655155 I10 Patient with current diagnosis of hypertensi on. Encouraged healthy lifestyle, including sodium intake reduction, avoidance of caffeine/n icotine, increased heart healthy activity. Encourage patient to continue follow up with PCP for disease management . Hyperlipidemia 70513793 E78.5 Patient with current diagnosis of hyperlipid [...] management . Type 2 jayson betes mellitus 64101879 E11.8 Patient with current diagnosis of DMII. Encouraged glucose control, healthy lifestyle and diet, increased heart healthy activity. Encourage patient to continue follow up with PCP/endocr inologist for disease management . Hypothyroidism 51490238 E03.9 Patient with current diagnosis of hypothyroi dism. Encourage follow up with PCP for disease management . [id number] Taylor Wright NP [facility] [address] [place] [address] ISAEL GALLAGHER [address] 06/14/2024 14:36:28 06/14/2024 14:58:40 Dysphagia 10068411 R13.10 Patient with episodes of dysphagia due to solids. Concern for stricture versus spasm. Patient with history of acid reflux. Can order barium swallow if symptoms persist. History of bariatric surgical procedure 898779589 Z98.84 402065 Recommend that patient establish with [place] [facility] . Screening for malignant neoplasm of colon 652590202 Z12.11 Poor prep-recom mend repeat in 1-3 years. Coronary arteriosclerosis 23011659 I25.10 4051221484 Recommend to continue follow up with specialist /PCP regarding this. Hypertensive disorder 38 229352 I10 Patient with current diagnosis of hypertensi on. Encouraged healthy lifestyle, including sodium intake reduction, avoidance of caffeine/n icotine, increased heart healthy activity. Encourage patient to continue follow up with PCP for disease management . Hyperlipidemia 00478220 E78.5 Patient with current diagnosis of hyperlipid [...] management . Type 2 jayson betes mellitus 33710435 E11.8 Patient with current diagnosis of DMII. Encouraged glucose control, healthy lifestyle and diet, increased heart healthy activity. Encourage patient to continue follow up with PCP/endocr inologist for disease management . Hypothyroidism 09347768 E03.9 Patient with current diagnosis of hypothyroi dism. Encourage follow up with PCP for disease management . [id number] Jass Benoit MD [facility] Family Medicine- Dept 975 5527 [place] [address] 08/01/2024 13:45:15 08/01/2024 14:47:25 Adult health examination 928258728 Z00.00 Overall Wellness done in the office today. Screening colonoscopy 44 7175510 Z12.11 Up to date with last 06/06/2024 , but poor prep and repeat in 1-3 years. Screening mammography 24 500109 Z12.31 Screening for osteoporosis 900169459 Z13.820 Hyperglyce kristyn due to type 2 diabetes mellitus 0090227917 41211 E11.65 Coronary arteriosclerosis 84471071 I25.10 8686332224 Hyperlipidemia 49326571 E78.5 Iron defic iency anemia 88131333 D50.9 Obstructiv e sleep apnea syndrome 18233028 G47.33 Hypothyroidism 80402806 E03.9 Vitamin D deficiency 347 76664 E55.9 Urinary incontinence 165 429541 R32 Hypertensi ve heart and chronic kidney disease 8465349262 104 I13.10 952129 Chronic ki dney disease stage 3A 544791504 N18.31 4642657982 Allergic rhinitis 257072 04 J30.9 Cobalamin deficiency 190 802497 E53.8 Chronic ur inary tract infection 235854883 N39.0 Gastroesop hageal reflux disease without esophagitis 156274372 K21.9 Generalize d anxiety disorder 84445205 F41.1 Insomnia 837286367 G47.0 0 Overweight 579209450 E66 .3 14347 Overweight in adulthood with body mass index of 25 or more but less than 30 395020170 Z68.27 596713 [id number] OSMAN SANCHEZ ENT Associate s of [facility] - [address] [place] [address] 09/08/2024 13:33:55 09/08/2024 13:50:37 Sensorineural hearing loss of bilateral ears 976128851 H90.3 98365987 6870001 Jass Benoit MD [facility] Medicine- Dept 040 15[address] [facility] ISAEL RAMIRES [address] 12/01/2024 13:39:50 12/01/2024 14:50:19 Hyperglycemia due to type 2 diabetes mellitus 4476443588 75081 E11.65 Will continue with glipizide and metformin. Hypertensi ve heart and chronic kidney disease 3970051279 104 I13.10 685685 Stable on propranolo l. Chronic ki dney disease stage 3A 710471148 N28.89 N18.31 5410389326 Plan on labs today. Coronary arteriosclerosis 80194358 I25.10 3041341417 Following closely with cardiology . Hyperlipidemia 44331031 E78.5 Continue with crestor. Hypothyroidism 13796454 E03.9 Insomnia 074007754 G47.0 0 Continue with ambien. Generalize d anxiety disorder 79271962 F41.1 Will increase lexapro to 20mg daily. Taking hig h risk medication 9931062000 70682 Z79.797 5775528 Dysuria 70681728 R30.0 25262 Allergic rhinitis 822379 04 J30.9 Vitamin D deficiency 347 60545 E55.9 Influenza vaccination declined 729591353 Z28.21 47228039 Health Concerns Section Related Observation LastModified by Organization Detai ls LastModified Time None Recorded Concern Status LastModified by Organization Details LastModified Time None Recorded Advance Directives Directive N: Payers Insurance Date Sequence Insurance Name Policy Number Policy Zepeda Covered Member ID Zepeda Member ID Guarantor Name 08/28/2023 2 Level INS[employer]ANCE [employer] (MEDICARE SUPPLEMENT) Emmett Haas [id number] Emmett Haas 06/11/2024 2 Level INS[employer] (MEDICARE SUPPLEMENT) Emmett Haas [id number] Emmett Haas 11/13/2024 [employer] [place] A - [facility] LICENSE OF [facility] (MEDICARE) Emmett Haas [id number] Emmett Haas 11/13/2024 1 [place] Emmett Haas [id number] Enrikesridhar Quinteros Samina 01/13/2021 2 [place] [id number] R Jorge Haas [id number] Emmett Haas 01/13/2021 2 [place] [id number] R Emmett Haas [id number] Emmett Zarcoill 11/27/2021 2 [place] [id number] R Emmett Haas [id number] Emmett Haas Notes Date Note Type Note Provider Name and Address Organization Details Recorded Time 5 text/html ROS as noted in the HPI Pleasant 68 [address] of Dr[address] Jass Benoit, PCP with PMH significant for DMII, CAD, anxiety, HTN, HLD, hypothyroidism, hx of Isaura-en-Y (2003), who presents today for screening colonoscopy. Has not had a colonoscopy in years-last one was in [facility]. Intermittently has diarrhea. Dependent on what she eats. If she has Liberian or Vietnamese will cause it. Since February has begun [...] 25ALT 18Alk Phos 66 Taylor Wright, BRYNN [address] [place] [address], [address], [place], [address], [facility] - [place] & [place] 05/24/2024 21:58:33 5 text/html ROS as noted in the HPI Pleasant 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 Has not had a colonoscopy in years-last one was in [facility]. Still having symptoms. No other concerns [...] 25ALT 18Alk Phos 66 Taylor Wright NP [address] [place] [address], [address], [place], [address] [place] 07/08/2024 15:48:25 5 text/html Medicare Annual Wellness [...] For vision, (wears glasses). Jass Benoit MD [address] [place] [address], [address], [place], [address], [facility] [place] 08/01/2024 14:34:49 5 text/html Patient was seen today for a hearing aid service. Cleaned and adjusted hearing aids this date. OSMAN SANCHEZ [address] [place] [address] Drive, [address], [place], [address], [facility] [place] 09/08/2024 16:42:09 5 text/html Diabetes F/UReported by PatientHPIFor context, patient reportsnot missing doses of medicationsandno side effects from medications. For associated symptoms, patient reportsno unintentional weight gain,no unintentional weight loss,no dizziness, andno headaches.She does continue with metformin and glipizide. Jass Benoit MD [address] [place] [address], [address], [place], [address], [facility] [place] 12/01/2024 14:14:32 OBGyn Episode No OBEpisode recorded.
--- OUTSIDE RECORDS SUMMARY | 2024-12-14 13:39 | XMS_ITS | Referral Summary ---
Author Organization [employer] ([place], [place], [place], [place], [place]) Address [address] [place] [address] Care Team Providers Care Aquaculture Program Director Name Role Phone Darrian Giron PA-C Unavailable [phone] Jessica Gomez MD Primary Care Provider [phone] Gibson Bai MD Unavailable Encounters Date Type Department Care Team Description 10/20/2024 Travel 10/20/2024 9:14 AM EDT - 10/20/2024 11:59 PM EDT Hospital Encounter [facility] Nuclear Medicine [address] [place] [address] Jessica Gomez MD Encounter for screening for osteoporosis Discharge Disposition: Home or Self Care 10/20/2024 8:53 AM EDT - 10/20/2024 9:13 AM EDT Hospital Encounter [facility] Breast Imaging [address] [place] [phone] Jessica Gomez MD Encounter for screening mammogram for malignant neoplasm of breast Discharge Disposition: Home or Self Care from Last 3 Months Allergies Active Allergy Reactions Criticality Noted Date Comments Dapagliflozin Other (See Comments) High 04/15/2023 Worsening kidney function Benzalkonium Chloride Other (See Comments) High 06/0 04/2024 TACHYCARDIA Niacin Palpitations Low 02/21/2016 Semaglutide [...] Take 1 tablet by mouth daily. Active liothyronine (CYTOMEL) 5 MCG tablet Take 1 tablet (5 mcg total) by mouth daily. 4 Active Active Problems Problem Noted Date Diagnosed Date PONV (postoperative nausea and vomiting) 025 LBBB (left bundle branch block) 07/11/2024 Atrial tachycardia 07/07/2022 Abnormal ECG 04/16/2022 Angina pectoris 04/16/2022 Coronary artery disease invo lving cabaz[place] coronary artery of [place] heart without angina pectoris 04/16/2022 Diabetes mellitus [...] Date Yemi rded Speak language other than Sudanese at home Not on file 02/20/2023 Want [...] 07/17/2024 7:05 AM EDT Plan of Treatment Not on file Procedures Procedure Name Priority Date/Time Associated Diagnosis Comments DXA BONE DENSITY SPINE AND HIP Routine 10/20/2024 9:27 AM EDT Encounter for screening for osteoporosis MM DIGITAL MAMMO SCREEN WITH MYNOR BILATERAL Routine 10/20/2024 9:09 AM EDT Encounter for screening mammogram for malignant neoplasm of breast HEMOGLOBIN A1C Routine 07/11/2024 1:48 PM EDT Preop examination from Last 3 Months or Most Recently Relevant to Health Maintenance Results * DXA bone density spine and [...] Duane Coelho. Transcribed by Sania Webster PA-C. us Jessica Gomez MD IMG DXA ORDERABLES Final Resu lt * MM digital mammo screen with mynor [...] the next mammogram. At our facility, a [place] marker is positioned over a visible skin [...] of breast cancer. COMPARISON STUDY: 2019 from [facility] FINDINGS: Craniocaudal and mediolateral oblique images of both breasts were obtained in 2D and DBT modes. Synthesized views were reconstructed from DBT data. Breast parenchymal density: The breasts are heterogeneously dense, which may obscure small masses. There is no evidence of dominant mass, architectural distortion, or suspicious calcifications. The mammogram was interpreted with the benefit of computer aided detection (CAD). us Jessica Gomez MD IMG MAMMOGRAPHY ORDERABLES Fi nal Result * (ABNORMAL) Hemoglobin A1c (07/11/2024 1:48 PM EDT) Hemoglobin A1C 7.1(H) 4.2 - 6.3 % 07/11/2024 3:47 PM EDT [facility] Comment: Hemoglobin A1C levels are related to mean glucose during the preceding 2-3 months. Less than 7% demonstrates glycemic control in diabetic patients. Hemoglobin AlC % Suggested Diagnosis > or = 6.5 Diabetic 5.7 - 6.4 Prediabetic <5.7 Non-diabetic eAVG Glucose 157.07 mg/dL 07/11/2024 3:47 PM EDT [facility] Blood Venipuncture / Unknown 07/11/2024 1:48 PM EDT 07/11/2024 3:08 PM EDT us Chris Casey MD LAB BLOOD ORDERABLES Final Res ult [facility] [address] [phone] from Last 3 Months or Most Recently Relevant to Health Maintenance Insurance MEDICARE PART A B Advance Directives For more information, please contact: [phone] Documents on File Type Date Recorded Patient Refrigerated National Truck Driver Expl anation Advance Directives and Livin g Will 06/01/2022 5:26 AM * Full Code (Latest Code Status on File) Date Activated Date Inactivated Comments 07/17/2024 6:40 AM 07/17/2024 12:28 PM * Full Code Date Activated Date Inactivated Comments 06/01/2022 8:46 AM 06/02/2022 4:24 AM * Full Code Date Activated Date Inactivated Comments 06/01/2022 5:25 AM 06/01/2022 8:46 AM Care Teams Aquaculture Program Director Relationship Specialty Start Date End Date Jessica Gomez MD [address] [place] [address] PCP - General Internal Medicine 08/09/23 Darrian Giron PA-C [address], [facility] [address] [place] [address] Cardiology 04/15/23 Gibson Bai MD [address] [place] [address] Consulting Physician Urology 08/09/23
--- OUTSIDE RECORDS SUMMARY | 2024-12-14 13:39 | XMS_ITS | Clinical Summary ---
Author Organization [employer] ([place], [place], [place], [place], [place]) Address [address] [place] [address] Care Team Providers Care Saturator Name Role Phone Darrian Giron PA-C Unavailable [phone] Jessica Gomez MD Primary Care Provider [phone] Gibson Bai MD Unavailable Allergies Active Allergy [...] mcg (50,000 unit) capsule Take by mouth. Active rosuvastatin (CRESTOR) 40 MG tablet Take [...] pectoris 04/16/2022 Coronary artery disease invo lving [place] coronary artery of [place] heart without angina pectoris 04/16/2022 Diabetes mellitus 04/16/2022 Mixed hyperlipidemia 04/16/2022 Hypertension 04/16/2022 Palpitations 04/16/2022 Stroke with cerebral ischemia 04/16/2022 Takotsubo cardiomyopathy 04/16/2022 Resolved Problems Problem Noted Date Diagnosed Date Resolved Date Chest pain, atypical 04/16/2022 023 Shortness of breath 04/16/2022 05/20/19 23 Encounters Date Type Department Care Team Description 10/20/2024 9:14 AM EDT - 10/20/2024 11:59 PM EDT Hospital Encounter [facility] Nuclear Medicine [address] [phone] Jessica Gomez MD Encounter for screening for osteoporosis Discharge Disposition: Home or Self Care 10/20/2024 8:53 AM EDT - 10/20/2024 9:13 AM EDT Hospital Encounter [facility] Imaging [address] [place] [address] Jessica Gomez MD Encounter for screening mammogram for malignant neoplasm of breast Discharge Disposition: Home or Self Care 10/20/2024 Travel from Last 3 Months Family History [...] e alcohol) Family and Community Support Answer Sharham e Recorded Help with Day to Day Activities Not on file 02/20/2023 Feeling Lonely or Isolated Not on file 02/20 Educational Attainment Answer Date Yemi rded Speak language other than Swazi at home Not on file 02/20/2023 Want [...] 07/17/2024 7:05 AM EDT Plan of Treatment Health Maintenance Due Date Last Done Comments CT Colonography 1956 Colonoscopy 1956 Colorectal Cancer Screening 1956 Diabetic Kidney Health Evalu ation (KED) 1956 FOBT/FIT 1956 Fit-DNA (Cologuard) 1956 Sigmoidoscopy 1956 Depression Screening (12+) 1968 Hepatitis C Screening 1974 DTAP/TDAP/TD VACCINES (1 - Tdap) 06/01/1975 Shingles Vaccine (Zoster) (1 of 2) 2006 Respiratory Syncytial Virus (RSV) Adult or (1 - Risk 60-74 years 1-dose series) 2016 Pneumococcal 50+ years (2 of 2 - PCV) 12/09/2022 12/09/2021 Diabetic Eye Exam 08/15/2023 08/14/2022, , 09/07/2019, Additional history exists Medicare Initial AWV [id number] 01/22/2024 01/21/2023 Falls Risk Screening 02/09/2024 COVID-19 VACCINE (1 - 2023-2 5 season) 2024 Influenza Vaccine (#1) 2024 , 12/12/2018, 12/02/2017 Hemoglobin A1C 01/10/2025 07/11/2024 Tobacco Cessation Counseling and Screening (12+) 07/17/2025 07/17/2024 Breast Cancer Screening 10/20/2026 10/20/2024, 01/05 DXA SCAN 10/20/2026 10/20/2024 Procedures Procedure Name Priority Date/Time Associated Diagnosis [...] Sania Webster PA-C. us Jessica Gomez MD IM DXA ORDERABLES Final Resu lt * MM [...] the next mammogram. At our facility, a [place] marker is positioned over a visible skin [...] of breast cancer. COMPARISON STUDY: 2019 from [facility] FINDINGS: Craniocaudal and mediolateral oblique images of [...] % 07/11/2024 3:47 PM EDT [facility] Comment: Hemoglobin A1C levels are related to mean glucose during the preceding 2-3 months. Less than 7% demonstrates glycemic control in diabetic patients. Hemoglobin AlC % Suggested Diagnosis > or = 6.5 Diabetic 5.7 - 6.4 Prediabetic <5.7 Non-diabetic eAVG Glucose 157.07 mg/dL 07/11/2024 3:47 PM EDT [facility] Blood Venipuncture / Unknown 07/11/2024 1:48 PM EDT 07/11/2024 3:08 PM EDT us Chris Casey MD LAB BLOOD ORDERABLES Final Res ult [facility] [address] [phone] from Last 3 Months or Most Recently Relevant to Health Maintenance Insurance MEDICARE PART [place] [facility] Advance Directives For more information, please contact: [phone] Documents on File Type Date Recorded Patient Training And Development Specialist Expl anation Advance Directives and Livin g Will 06/01/2022 5:26 AM * Full Code (Latest Code Status on File) Date Activated Date Inactivated Comments 07/17/2024 6:40 AM 07/17/2024 12:28 PM * Full Code Date Activated Date Inactivated Comments 06/01/2022 8:46 AM 06/02/2022 4:24 AM * Full Code Date Activated Date Inactivated Comments 06/01/2022 5:25 AM 06/01/2022 8:46 AM Care Teams Saturator Relationship Specialty Start Date End Date Jessica Gomez MD [address] [place] [address] PCP - General Internal Medicine 08/09/23 Darrian Giron, HERMINIA-C [address], [facility] [address] [place] [address] Cardiology 04/15/23 Gibson Bai MD [address] [facility] [address] [place] [address] Consulting Physician Urology 08/09/23
--- OUTSIDE RECORDS SUMMARY | 2024-12-14 13:39 | XMS_ITS | Clinical Summary ---
Author Organization [facility] Address [address] [place] [address] Care Team Providers Care Lead Caregiver Name Role Phone Unavailable Primary Care Provider [...] on patient's age to complete this topic CT Colonography Completed HIB VACCINE Aged Out No longer eligi ble based on patient's age to complete this topic ROTOVIRUS VACCINE Aged Out No longer eligible based on patient's age to complete this topic Insurance MEDICARE
--- OUTSIDE RECORDS SUMMARY | 2024-12-14 13:39 | XMS_ITS | Encounter Summary ---
Author Organization [employer] ([place], [place], [place], [place], [place]) Address [address] [place] [address] Care Team Providers Care Computational Physicist Name Role Phone Darrian Giron PA-C Unavailable [phone] Jessica Gomez MD Primary Care Provider [phone] Gibson Bai MD Unavailable Encounter Details Date Type Department Care Team (Latest Contact Info) Description 10/20/2024 Travel Social History Tobacco Use Types Packs/Day [...] Date Yemi rded Speak language other than Uzbek at home Not on file 02/20/2023 Want [...] on file documented as of this encounter Visit Diagnoses Not on filedocumented in this encounter Care Teams Computational Physicist Relationship Specialty Start Date End Date Jessica Gomez MD [address] [place] [address] PCP - General Internal Medicine 08/09/23 Darrian Giron PA-C [address], [facility] [address] [place] [address] Cardiology 04/15/23 Gibson Bai MD [address] [address] [place] [address] Consulting Physician Urology 08/09/23 documented as of this encounter
--- OUTSIDE RECORDS SUMMARY | 2024-12-14 13:40 | XMS_ITS | Encounter Summary ---
Author Organization [employer] ([place], [place], [place], [place], [place]) Address [address] [place] [address] Care Team Providers Care Beveler Name Role Phone Jessica Gomez MD Primary Care Provider [phone] Darrian Giron PA-C Unavailable [phone] Jessica Gomez MD Primary Care Provider [phone] Gibson Bai MD Unavailable Encounter Details Date Type Department Care Team (Late st Contact Info) Description 11/29/2018 Transcribed Document [facility] Cardiology [address] [place] [address] Umair Hair MD [address] [facility] [address] [place] [id number] Social History Tobacco Use Types Packs/Day Years [...] Normal study. 2. Ejection fraction is 76%. /[id number] Umair Hair MD NMF/AQ / NMF / MODL /[id number] documented in this encounter Plan of Treatment Not on file documented as of this encounter Visit Diagnoses Not on filedocumented in this encounter Care Teams Beveler Relationship Specialty Start Date End Date Jessica Gomez MD [address] [facility] 1 [place] [address] PCP - General Internal Medicine 12/08/21 05/18/22 Jessica Gomez MD [address] [place] [address] PCP - General Internal Medicine 08/09/23 Darrian Giron PA-C [address], [facility] [address] [place] [address] Cardiology 04/15/23 Gibson Bai MD [address] [facility] [address] [place] [address] Consulting Physician Urology 08/09/23 documented as of this encounter
--- OUTSIDE RECORDS SUMMARY | 2024-12-14 13:40 | XMS_ITS | Encounter Summary ---
Author Organization [employer] ([place], [place], [place], [place], [place]) Address [address] [place] [address] Care Team Providers Care Process Engineering Technician Name Role Phone Jessica Gomez MD Primary Care Provider [phone] Darrian Giron PA-C Unavailable [phone] Jessica Gomez MD Primary Care Provider [phone] Gibson Bai MD Unavailable Encounter Details Date Type Department Care Team (Late st Contact Info) Description 11/29/2018 Transcribed Document [facility] Family Medicine [address] [place] [address] ProviderAda MD [address] [place] [address] Social History Tobacco Use Types Packs/Day Years Used Date Smoking Tobacco: Never Assessed Comments Unknown Sex and Gender Information Value Date Recorded Sex Assigned at Not on file Legal Sex Female 5:09 PM CDT Gender Identity Not on file Sexual Orientation Not on file documented as of this encounter Miscellaneous Notes * Cerner Conversion Note - Ada ProviderMD - 11/29/2018 4:55 PM CDT Nursing Discharge Summary Entered On: 11/29/2018 16:55 EDT Performed On: 11/29/2018 16:55 EDT by Shayan Godwin pot fluxer Documentation Discharge Date/Time : 11/29/2018 16:55 EDT [...] Printed materials Teaching Evaluation : Verbalizes understanding Rubber Engraver Utilized For DC Instructions : Yes Shayan Godwin RN - 11/29/2018 16:55 EDT Electronically signed by Jose Rafael [facility] Conversion Wood Boat Builder Supervisor Cerner at 05/27/2022 11:09 PM CDT documented in this encounter Plan of Treatment Not on file documented as of this encounter Visit Diagnoses Not on filedocumented in this encounter Care Teams Process Engineering Technician Relationship Specialty Start Date End Date Jessica Gomez MD 100 [facility] 1 [place] [address] PCP - General Internal Medicine 12/08/21 05/18/22 Jessica Gomez MD [address] [place] [address] PCP - General Internal Medicine 08/09/23 Darrian Giron PA-C [address], [facility] [address] [place] [address] Cardiology 04/15/23 Gibson Bai MD [address] [facility] [address] [place] [address] Consulting Physician Urology 08/09/23 documented as of this encounter
--- OUTSIDE RECORDS SUMMARY | 2024-12-14 13:40 | XMS_ITS | Encounter Summary ---
Author Organization [employer] ([place], [place], [place], [place], [place]) Address [address] [place] [address] Care Team Providers Care Excelsior Machine Feeder Name Role Phone Jessica Gomez MD Primary Care Provider [phone] Darrian Giron PA-C Unavailable [phone] Jessica Gomez MD Primary Care Provider [phone] Gibson Bai MD Unavailable Encounter Details Date Type Department Care Team (Late st Contact Info) Description 11/29/2018 Transcribed Document [facility] Family Medicine [address] [place] [address] ProviderAda MD [address] [place] [address] Social History Tobacco Use Types Packs/Day Years Used Date Smoking Tobacco: Never Assessed Comments Unknown Sex and Gender Information Value Date Recorded Sex Assigned at Not on file Legal Sex Female 5:09 PM CDT Gender Identity Not on file Sexual Orientation Not on file documented as of this encounter Miscellaneous Notes * Cerner Conversion Note - Ada ProviderMD - 11/29/2018 9:00 AM CDT Consult Phone Call Documentation Entered On: 11/29/2018 8:11 EDT Performed On: 11/29/2018 9:00 EDT by Taco Rodriguez Phone Call for Consults Consult Phone Call/Page Attempt : First call Consult Reason : chest pain Physician Requesting Consult : JAZZ RICHARDSON MD-[facility] Physician Requested for Consult : SHANEL LARA MD-CAR Consult, Additional Information : Spoke with Aliyah on 11/29/2018 @0807 Taco Rodriguez - 11/29/2018 8:10 EDT Electronically signed by Jose Rafael, [facility] Conversion Dry Paste Supervisor Cerner at 05/27/2022 11:08 PM CDT documented in this encounter Plan of Treatment Not on file documented as of this encounter Visit Diagnoses Not on filedocumented in this encounter Care Teams Excelsior Machine Feeder Relationship Specialty Start Date End Date Jessica Gomez MD 100 [facility] 1 [place] [address] PCP - General Internal Medicine 12/08/21 05/18/22 Jessica Gomez MD [address] [place] [address] PCP - General Internal Medicine 08/09/23 Darrian Giron PA-C [address], [facility] [address] [place] [address] Cardiology 04/15/23 Gibson Bai MD [address] [facility] [address] [place] [address] Consulting Physician Urology 08/09/23 documented as of this encounter
--- OUTSIDE RECORDS SUMMARY | 2024-12-14 13:40 | XMS_ITS | Clinical Summary ---
Author Organization [facility] Address [address] [place] [address] Care Team Providers Care Generator Technician Name Role Phone Jessica Gomez MD Primary Care Provider [phone] Allergies Active Allergy Reactions Criticality Noted Date Comments Moxifloxacin Hcl GI Intolerance 11/27/2019 Bacitracin Rash Low 03/28/2023 Dapagliflozin Itching 04/15/2023 Worsening kidney function Ezetimibe Irritability 04/15/2023 Uyy-Mgezh-Ixjw-Lidocaine Irritability 0 Neomycin Rash Low 03/28/2023 Niacin [...] Problem Noted Date Diagnosed Date Tremor 10/04/2019 Family History Medical History Relation Name Comments [...] Date Last Done Comments DXA SCAN 1956 COVID-19 Vaccine (#1) 1961 DIABETIC EYE EXAM 1966 DIABETIC FOOT EXAM [...] WELLNESS VISIT 10/04/2019 HEPATITIS C SCREENING 10/04/2019 MAMMOGRAM 01/06/2024 01/05/2022 HEMOGLOBIN A1C 04/20/2024 10/22/2023, 06/0 06/2022, 03/17/2022 INFLUENZA VACCINE 09/08/2024 Procedures Procedure Name Priority Date/Time Associated Diagnosis Comments HEMOGLOBIN A1C Routine 10/22/2023 1:52 PM EDT Controlled type 2 diabetes mellitus without complication, without long-term current use of insulin from Last 3 Months or Most Recently Relevant to Health Maintenance Results * (ABNORMAL) Hemoglobin A1c (10/22/2023 1:52 PM EDT) Hemoglobin A1C 7.60(H) 4.80 - 5.60 % 10/23/2023 12:42 AM EDT [facility] Blood Venipuncture / Unknown 10/22/2023 1:52 PM EDT 10/22/2023 1:52 PM EDT Narrative [facility] - 10/23/2023 12:42 AM EDT Hemoglobin A1C Ranges: Increased Risk for Diabetes 5.7% to 6.4% Diabetes >= 6.5% Diabetic Goal < 7.0% Tomeka Lee PA-C LAB BLOOD ORDERABLES Final Result [facility]
[address] [place] [address], from Last 3 Months or Most Recently Relevant to Health Maintenance Insurance MEDICARE A & B [facility] [employer] PPO [facility] [facility] Care Teams Generator Technician Relationship Specialty Start Date End Date Jessica Gomez MD [address] [place] [address] PCP - General Internal Medicine 10/04/19
--- OUTSIDE RECORDS SUMMARY | 2024-12-14 13:40 | XMS_ITS | Encounter Summary ---
Author Organization [employer] ([place], [place], [place], [place], [place]) Address [address] [place] [address] Care Team Providers Care Retail Service Lead Merchandiser Name Role Phone Jessica Gomez MD Primary Care Provider [phone] Darrian Giron PA-C Unavailable [phone] Jessica Gomez MD Primary Care Provider [phone] Gibson Bai MD Unavailable Encounter Details Date Type Department Care Team (Late st Contact Info) Description 11/29/2018 Transcribed Document [facility] Family Medicine [address] [place] [address] ProviderAda MD [address] [place] [address] Social History Tobacco Use Types [...] Spiritual Care Spiritual Care Referred by : Director Blood Bank initiated Reason for Visit : Initial Ministry Provided to : Patient, Family/Significant other Intervention/Comment/Summary Points : Initial Spiritual Care visit by volunteer, Siri Casey. Patient demonstrates strong ge. Christian Preference : Congregational DANIELLE CAN 11/29/2018 13:32 EDT documented in this encounter Plan of Treatment Not on file documented as of this encounter Visit Diagnoses Not on filedocumented in this encounter Care Teams Retail Service Lead Merchandiser Relationship Specialty Start Date End Date Jessica Gomez MD [address] [facility] 1 [place] [address] PCP - General Internal Medicine 12/08/21 05/18/22 Jessica Gomez MD [address] [place] [address] PCP - General Internal Medicine 08/09/23 Darrian Giron, PA-C [address], [facility] [address] [place] [address] Cardiology 04/15/23 Gibson Bai MD [address] [place] [address] [place] [address] Consulting Physician Urology 08/09/23 documented as of this encounter
--- OUTSIDE RECORDS SUMMARY | 2024-12-14 13:40 | XMS_ITS | Continuity of Care Document ---
Author Organization [facility] Address [address] [place] [address] Care Team Providers Care Paper Plate Machine Tender Name Role Phone ABHISHEK NELSON Home Paraprofessional LYNNETTE ANTHONY Primary Care Provider JASS BENOIT Primary Care Provider Assessment Encounter Date Assessment Date Assessment LastModified by Organization Details LastModified Time 11/20/2024 11/20/2024 - 69-year-old female with a [...] Lab urinal ysis panel, auto 2024 025 [email or web address] [id number] [facility] With [facility], [address] [place] [address] [address], [address], [place], [address], 11/26/2024 10:59:00 Referral None record ed. Procedures None record ed. Surgeries None record ed. Imaging None record ed. Medication Orders None record ed. Patient TargetsNo targets recorded. Patient Instructions Encounter Date Encounter Id Patient Instructions Last Modified By Organization Details Last Modified Time 11/20/2024 [id number] - Stay well hydrated to help prevent kidney stones. - Monitor for any changes in symptoms and report them to your healthcare provider. [email or web address] Not available 11/20/2024 16:02:23 Reason for Referral None Reported. Results Created Date Observation Date Name Description Value Unit Range Abnormal Flag Note LastModifiedBy Organization Detail LastModifiedTime 11/21/1911/20/2024 urina lysis panel , auto Unknown Analyte Clean Catch Not Available [facility] With [address], [place], [address], 11/20/2024 16:24:58 11/21/1911/20/2024 urina lysis panel , auto Unknown Analyte Yellow Not Available [facility] With [address], [place], [address], 11/20/2024 16:24:58 11/21/1911/20/2024 urina lysis panel , auto Unknown Analyte Clear Not Available [facility] With [place] [address] [place], [address], 11/20/2024 16:24:58 11/21/1911/20/2024 urina lysis panel , auto Unknown Analyte 1.020 Not Available [facility] With [place] [address], [place], [address], 11/20/2024 16:24:58 11/21/1911/20/2024 urina lysis panel , auto Unknown Analyte 1.003 - 1.030 Not Available [facility] With [place] [address], [place], [address], 11/20/2024 16:24:58 11/21/1911/20/2024 urina lysis panel , auto Unknown Analyte 5.0 Not Available [facility] With [place] [address], [place], [address], 11/20/2024 16:24:58 11/21/1911/20/2024 urina lysis panel , auto Unknown Analyte 5.0 - 8.0 Not Available [facility] With [place] [address], [place], [address], 11/20/2024 16:24:58 11/21/1911/20/2024 urina lysis panel , auto Unknown Analyte Negati ve Not Available [facility] With [address] [facility], [place], [address], 11/20/2024 16:24:58 11/21/1911/20/2024 urina lysis panel , auto Unknown Analyte Negati ve Not Available [facility] With [place] [address], [place], [address], 11/20/2024 16:24:58 11/21/1911/20/2024 urina lysis panel , auto Unknown Analyte Negati ve Not Available [facility] With [place] [address], [place], [address], 11/20/2024 16:24:58 11/21/1911/20/2024 urina lysis panel , auto Unknown Analyte Negati ve Not Available [facility] With [place] [address], [place], [address], 11/20/2024 16:24:58 11/21/1911/20/2024 urina lysis panel , auto Unknown Analyte Negati ve Not Available [facility] With [address], [place], [address], 11/20/2024 16:24:58 11/21/1911/20/2024 urina lysis panel , auto Unknown Analyte Negati ve Not Available [facility] With [address], [place], [address], 11/20/2024 16:24:58 11/21/1911/20/2024 urina lysis panel , auto Unknown Analyte Normal Not Available [facility] With [address], [place], [address], 11/20/2024 16:24:58 11/21/1911/20/2024 urina lysis panel , auto Unknown Analyte Normal Not Available [facility] With [address], [place], [address], 11/20/2024 16:24:58 11/21/1911/20/2024 urina lysis panel , auto Unknown Analyte Negati ve Not Available [facility] With [address], [place], [address], 11/20/2024 16:24:58 11/21/1911/20/2024 urina lysis panel , auto Unknown Analyte Negati ve Not Available [facility] With [address], [place], [address], 11/20/2024 16:24:58 11/21/1911/20/2024 urina lysis panel , auto Unknown Analyte Normal Not Available [facility] With [address], [place], [address], 11/20/2024 16:24:58 11/21/1911/20/2024 urina lysis panel , auto Unknown Analyte Normal Not Available [facility] With [address] [place] [address], [place], [address], 11/20/2024 16:24:58 11/21/19 25 11/20/2024 urina lysis panel , auto Unknown Analyte Negati ve Not Available [facility] With [address], [place], [address], 11/20/2024 16:24:58 11/21/1911/20/2024 urina lysis panel , auto Unknown Analyte Negati ve Not Available [facility] With [address], [place], [address], 11/20/2024 16:24:58 11/21/1911/20/2024 urina lysis panel , auto Unknown Analyte Negati ve Not Available [facility] With [address], [place], [address], 11/20/2024 16:24:58 11/21/1911/20/2024 urina lysis panel , auto Unknown Analyte Negati ve Not Available [facility] With [address], [place], [address], 11/20/2024 16:24:58 11/21/1911/20/2024 XR, abdom en, 1 view Barb chacko [address] [place] [address] Patien t Name: EMMETT Bowles t : 9[address] Pat[address] t 9 Orderi ng Provid er: JHONY [...] Pedroza MD on 2024 2:40 PM [email or web address] [facility] Radiology [address] , [place], [address], 11/23/2024 09:04:42 Result Notes Documentation Provider Name and Address Organization Details Recorded Time Xr, Abdomen, 1 View : [address] [place] [address] Patient Name: EMMETT HAAS Patient : [id number] Patient Ordering Provider: JHONY CASEY EXAM DATE: 11/20/2024 EXAM: XR ABDOMEN KUB CLINICAL INFORMATION: Kidney stones IMAGES PROVIDED: KUB AP radiographic images of the abdomen. COMPARISON: None. FINDINGS: No abnormal intestinal gas pattern. Punctate right renal stones are present. Grossly unchanged. No radiographic evidence of free intraperitoneal air. 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 Procedures Surgical History Date Name Laterality Status Provider Name and Address Organization Details Recorded Time 07/18/19 25 EXTRA CORPOREAL SHOCK WAVE LITHOTRIPSY (SURG) completed John Paul Orlando [facility] 07/17/2024 11:40:38 08/23/19 20 lithotripsy completed Pradeep Jacinto [facility] 09/07/2019 13:03:41 09/30/19 19 Cataract (right) removal with iol completed Pradeep Jacinto [facility] 09/30/2018 08:22:47 09/02/19 19 Cataract (left) removal with iol completed Pradeep Jacinto [facility] 09/02/2018 08:11:43 08/16/19 19 Axial Length, IOL Master completed ABHISHEK NELSON MD [address] [place], [address], [facility] 08/15/2018 13:37:49 07/24/19 18 OCT/Retina completed Pauly Santana [facility] 07/23/2017 11:04:46 03/11/19 17 Tympanogram completed MATEO HENDERSON, AUD [address] [place], [address], [facility] 03/11/2016 13:21:29 03/11/19 17 Audiogram completed MATEO HENDERSON, AUD [address] [place], [address], [facility] 03/11/2016 13:21:28 03/11/19 17 Audiogram completed Anette Saul [facility] 03/11/2016 13:32:53 03/11/19 17 Tympanometry completed Anette Saul [facility] 03/11/2016 13:32:58 LASIK completed Becca Loya [facility] 07/23/2017 10:19:09 [facility] 03/11/2016 13:00:25 Gastric bypass for obesity completed Shae Rincon [facility] 03/11/2016 13:00:39 Removal of thyroid completed Shae Rincon [facility] 03/11/2016 13:00:51 Hysterectomy/brit dder repair completed Shae Rincon [facility] 03/11/2016 13:00:55 Ears/Nose/Throat Surgery completed Anette Saul [facility] 03/11/2016 13:32:25 Imaging Results None recorded. Procedure Notes None recorded. Medical Equipment None Reported. Allergies Allergen ID Allergen Name Allergen Category Reaction Reaction Severity Criticality Documentation Date Start Date Code Code System Note Provider Name and Address Organization Details Recorded Time 223300 niacin medicatio n Not available Not available Not available 03/11/2016 7393 RxNorm [facility] 7 12:57:20 561660 bacitraci n / neomycin / polymyxin B medicatio n Not available Not available Not available 03/11/2016 80462 9 Rx[facility] 7 12:57:26 983279 Avelox medicatio n Not available Not available Not available 09/01/2018 94405 6 RxNorm ABHISHEK NELSON MD [address] [place] [address], [address] [place] [address] 9 09:52:09 Medications Name Sig Start Date [...] Updated DateTime 11/20/2024 154.94 cm 27 kg/m2 54342.71 g Asa Jesus [facility] 11/20/2024 16:24:33 Social History Question Answer Notes LastModified by Organizat ion Details LastModified Time Tobacco Smoking Status Former Smoker QUIT 1969'S Pradeep Casey [facility] 08/15/2018 12:48:13 What Was The Date Of Your Most Recent Tobacco Screening? 11/20/2024 [email or web address] Information not available 11/20/2024 Sex: Female Functional Status Question Answer Note LastModified by Organization D etails LastModified Time What is your level of alcohol consumption? None [email or web address] Information not available 03/11/2016 Mental Status None recorded. Family History Relationship Description Onset Age of this Age Resolved Age Notes LastModified by Organization Details LastModified Time Mother History of hypertension [email or web address] Not available 11:05:53 Mother Diabetes mellitus [email or web address] Not available 2024 11:05:53 Mother Glaucoma [email or web address] Not availabl e 2024 11:05:53 Brother History of hypertension Not available 11:05:53 Brother Diabetes mellitus [email or web address] Not available 2024 11:05:53 Maternal Grandfather Glaucoma [email or web address] Not available 11:05:53 Maternal Grandfather Kidney disease 80 [email or web address] Not available 2024 11:05:53 Unspecified Relation Cataract [email or web address] Not available 2024 11:05:53 Medical History Condition [...] Multiple Sclerosis N Proteinuria N Heart Attack (MA) Y Mental Illness N Ovarian Cancer N [...] Tdap 0 completed Not Available [facility] 11/20/2024 14:19:59 Influenza, split virus, trivalent, preservative 3 completed Not Available [facility] 11/20/2024 14:19:59 Influenza, split virus, quadrivalent, preservative 8 completed Not Available [facility] 11/20/2024 14:19:59 Influenza, recombinant, quadrivalent, PF 8 completed Not Available [facility] 11/20/2024 14:19:59 Hep A, adult 8 completed Not Available [facility] 11/20/2024 14:19:59 Hep A, adult 9 completed Not Available [facility] 11/20/2024 14:19:59 Influenza, recombinant, quadrivalent, PF 9 completed Not Available [facility] 11/20/2024 14:19:59 Past Encounters Encounter ID Performer Location Encounter Start Date Encounter Closed Date Diagnosis/Indication Diagnosis SNOMED-CT Code Diagnosis ICD10 Code Diagnosis IMO Codes Diagnosis Note [id number] JHONY CASEY MD [address] [place] [address] 11/20/2024 14:18:25 11/27/2024 04:07:56 Overactive urinary bladder 388461012 N32.81 313465 - Continue monitoring symptoms and consider further evaluation if symptoms persist or worsen. Kidney stone 28918969 N2 0.0 82624 - Plan to obtain an x-ray to [...] Date Sequence Insurance Name Policy Number Policy Zepead Covered Member ID Zepeda Member ID Guarantor Name 11/20/2024 1 [place] Emmett Haas [id number] Emmett Haas 11/20/2024 2 [employer] INSURANCE [employer] (MEDICARE SUPPLEMENT) PLAN G Emmett Haas [id number] Emmett Haas Notes Date Note Type Note Provider Name and Address Organization Details Recorded Time 11/20/2024 text/html The patient is a 69-year-old [...] renal stones noted on imaging from 11/20/2024. JHONY CASEY MD [address] [place] [address], [address], [facility] 11/26/2024 10:59:25 OBGyn Episode No OBEpisode recorded.
--- OUTSIDE RECORDS SUMMARY | 2024-12-14 13:40 | XMS_ITS | Encounter Summary ---
Author Organization [employer] ([place], [place], [place], [place], [place]) Address [address] [place] [address] Care Team Providers Care Business Systems Manager Name Role Phone Jessica Gomez MD Primary Care Provider [phone] Darrian Giron PA-C Unavailable [phone] Jessica Gomez MD Primary Care Provider [phone] Gibson Bai MD Unavailable Encounter Details Date Type Department Care Team (Late st Contact Info) Description 11/28/2018 Transcribed Document [facility] [place] [facility] [place] [address] [place] [address] ProviderAda MD [address] [place] [address] Social History Tobacco Use Types Packs/Day Years Used Date Smoking Tobacco: Never Assessed Comments Unknown Sex and Gender Information Value Date Recorded Sex Assigned at Not on file Legal Sex Female 5:09 PM CDT Gender Identity Not on file Sexual Orientation Not on file documented as of this encounter Miscellaneous Notes * [employer] Conversion Note - Ada ProviderMD - 11/28/2018 10:27 PM CDT DATE OF [...] has been evaluated there and transferred to [facility] for cardiology evaluation. The patient states [...] Chart was reviewed. TIME SPENT: 55 minutes. /[id number] MD RICCO Herring/AQ / RICCO / MODL CC: Marisol Gomez MD Electronically signed by [facility], [facility] Conversion Vehicle Operator Cerner at 05/27/2022 11:15 PM CDT documented in this encounter Plan of Treatment Not on file documented as of this encounter Visit Diagnoses Not on filedocumented in this encounter Care Teams Business Systems Manager Relationship Specialty Start Date End Date Jessica Gomez MD [address] [facility] 1 [place] [address] PCP - General Internal Medicine 12/08/21 05/18/22 Jessica Gomez MD [address] [place] [address] PCP - General Internal Medicine 08/09/23 Darrian Giron PA-C [address] [place] [address] Cardiology 04/15/23 Gibson Bai MD [address] [place] [address] Consulting Physician Urology 08/09/23 documented as of this encounter
--- OUTSIDE RECORDS SUMMARY | 2024-12-14 13:40 | XMS_ITS | Encounter Summary ---
Author Organization [employer] ([place], [place], [place], [place], [place]) Address [address] [place] [address] Care Team Providers Care Satellite Tv Technician Name Role Phone Jessica Gomez MD Primary Care Provider [phone] Darrian Giron PA-C Unavailable [phone] Jessica Gomez MD Primary Care Provider [phone] Gibson Bai MD Unavailable Encounter Details Date Type Department Care Team (Late st Contact Info) Description 11/29/2018 Transcribed Document [facility] [place] [address] [place] [address] ProviderAda MD [address] [place] [address] Social History Tobacco Use Types [...] Health, Short term rehabilitation ANSELMO BARRETO RN-Care Uli - 11/29/2018 16:16 EDT Narrative Note Narrative Note : Pt reports lives w/spouse of 44 years and is indep w/adls and drives when needed. No DME currently at home and denies SNF and HH hx. NO needs identified during initial assessment, will cont to follow ANSELMO BARRETO RN-Care Management - 11/29/2018 16:16 EDT documented in this encounter Plan of Treatment Not on file documented as of this encounter Visit Diagnoses Not on filedocumented in this encounter Care Teams Satellite Tv Technician Relationship Specialty Start Date End Date Jessica Gomez MD 100 [facility] 1 [place] [address] PCP - General Internal Medicine 12/08/21 05/18/22 Jessica Gomez MD [address] [place] [address] PCP - General Internal Medicine 08/09/23 Darrian Giron PA-C [address] [place] [address] Cardiology 04/15/23 Gibson Bai MD [address] [place] [address] Consulting Physician Urology 08/09/23 documented as of this encounter
--- OUTSIDE RECORDS SUMMARY | 2024-12-14 13:40 | XMS_ITS | Encounter Summary ---
Author Organization [employer] ([place], [place], [place], [place], [place]) Address [address] [place] [address] Care Team Providers Care Chief Of Staff Doctor Name Role Phone Jessica Gomez MD Primary Care Provider [phone] Darrian Giron PA-C Unavailable [phone] Jessica Gomez MD Primary Care Provider [phone] Gibson Bai MD Unavailable Encounter Details Date Type Department Care Team (Late st Contact Info) Description 11/29/2018 Transcribed Document [facility] [place] [facility] [address] ProviderAda MD [address] [place] [address] Social History Tobacco Use Types Packs/Day Years Used Date Smoking Tobacco: Never Assessed Comments Unknown Sex and Gender Information Value Date Recorded Sex Assigned at Not on file Legal Sex Female 5:09 PM CDT Gender Identity Not on file Sexual Orientation Not on file documented as of this encounter Miscellaneous Notes * [employer]ner Conversion Note - Ada ProviderMD - 11/29/2018 1:37 AM CDT Admission History, [...] 11/29/2018 1:37 EDT General Info Support Person/Patient Dry Cleaner Presser : Yes Support Person/Pt Rep Name : Jorge velásquez Support Person/Pt Rep Contact Information : [phone] Want Family/Rep/Phys Notified of Admit : No Emergency Contact #1 : na Emergency Contact #1 Phone Number : na Emergency Contact #1 Relationship : na Emergency Contact #2 : na Emergency Contact #2 Phone Number : na Emergency Contact #2 Relationship : na Primary Language : Bahraini Preferred Communication Mode : Verbal Communication Barrier : None Alba Romero RN - 11/29/2018 1:37 EDT Fall Risk Scales ABCs Fall Injury Risk Identification : None JONES Hx Falls Immediate/Within 3 Months : No Jones Secondary Diagnosis : Yes JONES Use of Ambulatory Aid : Bed rest/Nurse assist JONES IV Therapy or IV Access : Yes Jones Gait/Transferring : Normal, bedrest, immobile Jones Mental Status : Oriented to own ability Jones Fall Risk Score : 35 JONES Fall Scale Risk Level : 25-45 Medium Risk [place] Fall Interventions : Adequate lighting, Assistive devices [...] Source : Stated Height Entry Format : [place] Height, Feet : 5 ft(Converted to: 152 cm, 60 Inch) Height, Inches : 2 Inch(Converted to: 0 ft 2 Inch, 5.08 cm) Clinical Height : 157.48 cm Weight Source : Estimated [place] Body Weight : 50 kg Alba Romero RN - 11/29/2018 1:37 EDT Estimated Weight Type of Weight Measurement Est : [place] Weight, est lb : 140 lb(Converted to: [...] Alba Romero RN - 11/29/2018 1:37 EDT Electronically signed by Jose Rafael [facility] Conversion Sales Training Coordinator Cerner at 05/27/2022 11:27 PM CDT documented in this encounter Plan of Treatment Not on file documented as of this encounter Visit Diagnoses Not on filedocumented in this encounter Care Teams Chief Of Staff Doctor Relationship Specialty Start Date End Date Jessica Gomez MD 100 [facility] 1 [place] [address] PCP - General Internal Medicine 12/08/21 05/18/22 Jessica Gomez MD [address] [place] [address] PCP - General Internal Medicine 08/09/23 Darrian Giron PA-C [address] [place] [address] Cardiology 04/15/23 Gibson Bai MD [address] [place] [address] Consulting Physician Urology 08/09/23 documented as of this encounter
--- OUTSIDE RECORDS SUMMARY | 2024-12-14 13:40 | XMS_ITS | Encounter Summary ---
Author Organization [employer] ([place], [place], [place], [place], [place]) Address [address] [place] [address] Care Team Providers Care Carton Counter Feeder Name Role Phone Jessica Gomez MD Primary Care Provider [phone] Darrian Giron PA-C Unavailable [phone] Jessica Gomez MD Primary Care Provider [phone] Gibson Bai MD Unavailable Encounter Details Date Type Department Care Team (Late st Contact Info) Description 11/29/2018 Transcribed Document [facility] [place] [address] [place] [address] ProviderAda MD [address] [place] [address] Social History Tobacco Use Types [...] Source : Stated Height Entry Format : [place] Height, Feet : 5 ft(Converted to: 152 cm, 60 Inch) Height, Inches : 2 Inch(Converted to: 0 ft 2 Inch, 5.08 cm) Clinical Height : 157.48 cm Weight Source : Bed scale Weight Entry Format : [place] Clinical Dosing Weight : 63.64 kg Weight, Pounds : 140 lb Body Surface Area (BSA) : 1.64 m2 Body Mass Index : 25.7 kg/m2 (HI) [place] Body Weight : 50 kg Alba Romero RN - 11/29/2018 7:00 EDT Electronically signed by Jose Rafael, [facility] Conversion Die Welder Cerner at 05/27/2022 11:25 PM CDT documented in this encounter Plan of Treatment Not on file documented as of this encounter Visit Diagnoses Not on filedocumented in this encounter Care Teams Carton Counter Feeder Relationship Specialty Start Date End Date Jessica Gomez MD 100 [facility] 1 [place] [address] PCP - General Internal Medicine 12/08/21 05/18/22 Jessica Gomez MD [address] [facility] [address] PCP - General Internal Medicine 08/09/23 Darrian Giron PA-C [address], [facility] [address] [place] [address] Cardiology 04/15/23 Gibson Bai MD [address] [facility] [address] [place] [address] Consulting Physician Urology 08/09/23 documented as of this encounter
--- OUTSIDE RECORDS SUMMARY | 2024-12-14 13:40 | XMS_ITS | Encounter Summary ---
Author Organization [employer] ([place], [place], [place], [place], [place]) Address [address] [place] [address] Care Team Providers Care Brush Fabrication Supervisor Name Role Phone Jessica Gomez MD Primary Care Provider [phone] Darrian Giron PA-C Unavailable [phone] Jessica Gomez MD Primary Care Provider [phone] Gibson Bai MD Unavailable Encounter Details Date Type Department Care Team (Late st Contact Info) Description 11/29/2018 Transcribed Document [facility] [place] [address] [place] [address] ProviderAda MD [address] [place] [address] Social History Tobacco Use Types Packs/Day Years Used Date Smoking Tobacco: Never Assessed Comments Unknown Sex and Gender Information Value Date Recorded Sex Assigned at Not on file Legal Sex Female 5:09 PM CDT Gender Identity Not on file Sexual Orientation Not on file documented as of this encounter Miscellaneous Notes * Cerner Conversion Note - Ada ProviderMD - 11/29/2018 3:56 PM CDT Stroke/Warfarin Instructions Entered On: 11/29/2018 15:56 EDT Performed On: 11/29/2018 15:56 EDT by Shayan Godwin RN Stroke/Warfarin Instructions Stroke/TIA Discharge Ins : N/A Warfarin Discharge Ins : N/A Shayan Godwin RN - 11/29/2018 15:56 EDT Electronically signed by Jose Rafael, [facility] Conversion Senior Business Analyst Cerner at 05/27/2022 11:20 PM CDT documented in this encounter Plan of Treatment Not on file documented as of this encounter Visit Diagnoses Not on filedocumented in this encounter Care Teams Brush Fabrication Supervisor Relationship Specialty Start Date End Date Jessica Gomez MD [address] [facility] 1 [place] [address] PCP - General Internal Medicine 12/08/21 05/18/22 Jessica Gomez MD [address] [place] [address] PCP - General Internal Medicine 08/09/23 Darrian Giron PA-C [address], [facility] [address] [place] [address] Cardiology 04/15/23 Gibson Bai MD [address] [place] [address] Consulting Physician Urology 08/09/23 documented as of this encounter
--- OUTSIDE RECORDS SUMMARY | 2024-12-14 13:40 | XMS_ITS | Encounter Summary ---
Author Organization [employer] ([place], [place], [place], [place], [place]) Address [address] [place] [address] Care Team Providers Care Potato Pancake Frier Name Role Phone Jessica Gomez MD Primary Care Provider [phone] Darrian Giron PA-C Unavailable [phone] Jessica Gomez MD Primary Care Provider [phone] Gibson Bai MD Unavailable Encounter Details Date Type Department Care Team (Late st Contact Info) Description 11/29/2018 Transcribed Document [facility] [place] [address] [place] [address] ProviderAda MD [address] [place] [address] Social History Tobacco Use Types [...] Policy Numbers : Insurance 1 Health Plan: [employer] [facility] Policy Number: Authorization Number: Insurance 2 Health Plan: MEDICARE Policy Number: [id number] Authorization Number: Insurance Primary Name : FAYE PANDEY Policy Number: MEDICARE Policy Number: [id number] Historical Authorization Comments-Primary : No Authorization Comments Found FELTON MG, Rn-Utilization Review - 11/29/2018 11:52 EDT Electronically signed by [facility], [facility] Conversion Dry Paste Supervisor Cerner at 05/27/2022 11:26 PM CDT documented in this encounter Plan of Treatment Not on file documented as of this encounter Visit Diagnoses Not on filedocumented in this encounter Care Teams Potato Pancake Frier Relationship Specialty Start Date End Date Jessica Gomez MD [address] [place] [address] [place] [address] PCP - General Internal Medicine 12/08/21 05/18/22 Jessica Gomez MD [address] [place] [address] PCP - General Internal Medicine 08/09/23 Darrian Giron PA-C [address], [facility] [address] [place] [address] Cardiology 04/15/23 Gibson Bai MD [address] [place] [address] Consulting Physician Urology 08/09/23 documented as of this encounter
--- OUTSIDE RECORDS SUMMARY | 2024-12-14 13:40 | XMS_ITS | Encounter Summary ---
Author Organization [employer] ([place], [place], [place], [place], [place]) Address [address] [place] [address] Care Team Providers Care Interpreter Translator Name Role Phone Jessica Gomez MD Primary Care Provider [phone] Darrian Giron PA-C Unavailable [phone] Jessica Gomez MD Primary Care Provider [phone] Gibson Bai MD Unavailable Encounter Details Date Type Department Care Team (Late st Contact Info) Description 11/29/2018 Transcribed Document [facility] [place] [address] [place] [address] ProviderAda MD [address] [place] [address] Social History Tobacco Use Types Packs/Day Years Used Date Smoking Tobacco: Never Assessed Comments Unknown Sex and Gender Information Value Date Recorded Sex Assigned at Not on file Legal Sex Female 5:09 PM CDT Gender Identity Not on file Sexual Orientation Not on file documented as of this encounter Miscellaneous Notes * Cerner Conversion Note - Aad ProviderMD - 11/29/2018 3:57 PM CDT Patient Education [...] these instructions at home: Medicines ??? Take [id number] and prescription medicines only as told by [...] that you work with a diet and placement specialist (registered dietitian) to educate you about [...] 01/25/2006 Document Revised: 03/01/2017 Document Reviewed: 03/01/2017 Elsevier Interactive Patient Education ? 2019 [employer] documented in this encounter Plan of Treatment Not on file documented as of this encounter Visit Diagnoses Not on filedocumented in this encounter Care Teams Interpreter Translator Relationship Specialty Start Date End Date Jessica Gomez MD [address] [place] [address] PCP - General Internal Medicine 12/08/21 05/18/22 Jessica Gomez MD [address] [place] [address] PCP - General Internal Medicine 08/09/23 Darrian Giron PA-C [address] [place] [address] Cardiology 04/15/23 Gibson Bai MD [address] [place] [address] Consulting Physician Urology 08/09/23 documented as of this encounter
--- OUTSIDE RECORDS SUMMARY | 2024-12-14 13:40 | XMS_ITS | Encounter Summary ---
Author Organization [employer] ([place], [place], [place], [place], [place]) Address [address] [place] [address] Care Team Providers Care Job Captain Name Role Phone Jass Benoit MD Primary Care Provider [phone] Darrian Giron PA-C Unavailable [phone] Jass Benoit MD Primary Care Provider [phone] Gibson Bai MD Unavailable Encounter Details Date Type Department Care Team (Late st Contact Info) Description 11/29/2018 Transcribed Document [facility] [place] [address] [place] [address] ProviderAda MD [address] [place] [address] Social History Tobacco Use Types Packs/Day Years Used Date Smoking Tobacco: Never Assessed Comments Unknown Sex and Gender Information Value Date Recorded Sex Assigned at Not on file Legal Sex Female 5:09 PM CDT Gender Identity Not on file Sexual Orientation Not on file documented as of this encounter Miscellaneous Notes * Cerner Conversion Note - Ada ProviderMD - 11/29/2018 4:49 PM CDT [facility] [place] [place] [address] YAMILETH HAAS :1955 Visit Time:11/28/2018 Your [...] Follow-Up Appointments Follow Up with JASS BENOIT (REF), JERICA When Within 2 to 3 days Where: [address] [place] [address]- Medications What How Much When Instructions Next Dose escitalopram (Lexapro 5 mg oral tablet) 5 Milligram(s) Oral Every Day Pickup at [facility] lisinopril (lisinopril 5 mg oral tablet) [...] for as needed for sleep Pharmacy Information [facility]: [address] [place], [place] [id number] [phone] Take your medications faithfully. Do NOT skip [...] these instructions at home: Medicines ??? Take deoe-mts-rnysvqo and prescription medicines only as told by [...] that you work with a diet and customs compliance specialist (registered dietitian) to educate you about [...] 01/25/2006 Document Revised: 03/01/2017 Document Reviewed: 03/01/2017 [employer] Interactive Patient Education ?? 2019 [employer]. Emergency Awareness and Preventative Care STROKE is [...] Assistance with quitting is available by contacting 3-093-IBBB-NOW. This is a free resource providing counseling, [...] 3.2 ) Fasting?: Yes Patient Name:YAMILETH HAAS I have received and understand this information and was given the opportunity to ask questions. Patient/Senior Paralegal Name: Patient/Senior Paralegal Signature: Relationship to Patient: Clinician/Hospital Senior Paralegal Signature: Date: documented in this encounter Plan of Treatment Not on file documented as of this encounter Visit Diagnoses Not on filedocumented in this encounter Care Teams Job Captain Relationship Specialty Start Date End Date Jass Benoit MD 100 [facility] [address] [place] [address] PCP - General Internal Medicine 12/08/21 05/18/22 Jass Benoit MD [address] [facility] [place] [address] PCP - General Internal Medicine 08/09/23 Darrian Giron PA-C [address] [place] [address] Cardiology 04/15/23 Gibson Bai MD [address] [place] [address] Consulting Physician Urology 08/09/23 documented as of this encounter
--- OUTSIDE RECORDS SUMMARY | 2024-12-14 13:41 | XMS_ITS | Continuity of Care Document ---
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 Plan of Treatment Reminders Order Date Submit Date Provider Last Modified By Organization Details Last Modified Time Details Appointments Medicare Annual Wellness 30min 2025 01:45P M Jass Benoit MD Not available Not available Not available Lab urinalysi s, dipstick 2024 025 [email or web address] [facility]- Dept 648, [facility] [place], [address], 12/01/2024 15:01:53 vitamin D, 25-hydrox y, total, serum 2024 025 [facility] (Lab Registration) , [address] [place] [address] [place], [address], 12/01/2024 19:54:35 TSH + free T4, serum 2024 025 [facility] (Lab Registration) , [address] [place] [address] [place], [address], 12/02/2024 12:51:44 T3, total, serum 2024 025 [facility] (Lab Registration) , [address] [place] [address] [place], [address], 12/03/2024 07:09:55 CMP, serum or plasma 2024 [facility] (Lab Registration) , [address] [place] [address] [place], [address], 12/02/2024 12:00:57 CBC w/ auto diff 2024 [facility] (Lab Registration) , [address] [place] [address] [place], [address], 12/02/2024 11:42:19 hemoglobi n A1c, QN, blood 2024 [facility] (Lab Registration) , [address] [place] [address] [place], [address], 12/02/2024 12:03:11 drug confirmat ion, urine [email or web address] (Lab Registration) , [address] [place] [address] [place], [address], 12/08/2024 08:06:15 Referral None recorded. Procedures None recorded. Surgeries None recorded. Imaging None recorded. Medication Orders loratadin e 10 mg tablet 2024 [facility], [address], [place], [address], 12/01/2024 14:04:58 propranol ol 20 mg tablet 2024 [facility], [address], [place], [address], 12/01/2024 14:04:57 zolpidem 10 mg tablet 2024 [facility], [address], [place], [address], 12/01/2024 14:05:02 rosuvasta tin 40 mg tablet 2024 [facility], [address], [place], [address], 12/01/2024 14:04:54 alprazola m 0.5 mg tablet 2024 [facility], [address], [place], [address], 12/01/2024 14:05:01 escitalop jsu 20 mg tablet 2024 [facility], [address], [place], [address], 12/01/2024 14:04:59 liothyron ine 5 mcg tablet 2024 [facility], [address], [place], [address], 12/01/2024 14:04:59 glipizide ER 2.5 mg tablet, extended release 24 hr 2024 [facility], [address], [place], [address], 12/01/2024 14:04:57 metformin 500 mg tablet 2024 [facility], [address], [place], [address], 12/01/2024 14:04:56 Patient TargetsNo targets recorded. Patient InstructionsNo instructions recorded. Reason for Referral None Reported. Results Created Date Observation Date Name Description Value Unit Range Abnormal Flag Note LastModifiedBy Organization Detail LastModifiedTime 12/02/1912/01/2024 CBC W/ AUTO DIFF WBC 6.97 K/uL 4.5-11 .5 Not Available [facility] (Pre-Op Clinic) [address] [place] [address] [place], [address], 12/01/2024 19:16:29 12/02/1912/01/2024 CBC W/ AUTO DIFF RBC 4.98 M/uL 4.0-5. 4 Not Available [facility] (Pre-Op Clinic) [address] [place] [address] [place], [address], 12/01/2024 19:16:29 12/02/19 25 12/01/2024 CBC W/ AUTO DIFF HGB 13.9 g/dL 12.0-1 5.0 Not Available [facility] (Pre-Op Clinic) [address] [place] [address] [place], [address], 12/01/2024 19:16:29 12/02/19 25 12/01/2024 CBC W/ AUTO DIFF HCT 44.8 % 35-49 Not Available [facility] (Pre-Op Clinic) [address] [place] [address] [place], [address], 12/01/2024 19:16:29 12/02/19 25 12/01/2024 CBC W/ AUTO DIFF MCV 90.0 fL 80.0-1 00.0 Not Available [facility] (Pre-Op [facility]) [address] [place] [address] [place], [address], 12/01/2024 19:16:29 12/02/19 25 12/01/2024 CBC W/ AUTO DIFF MCH 27.9 pg 26.0-3 2.0 Not Available [facility] (Pre-Op [facility]) [address] [place] [address] [place], [address], 12/01/2024 19:16:29 12/02/19 25 12/01/2024 CBC W/ AUTO DIFF MCHC 31.0 g/dL 32.0-3 6.0 low Not Available [facility] (Pre-Op [facility]) [address] [place] [address] [place], [address], 12/01/2024 19:16:29 12/02/19 25 12/01/2024 CBC W/ AUTO DIFF RDW 14.6 % 11.5-1 4.5 high Not Available [facility] ([facility]Op [facility]) [address] [place] [address] [place], [address], 12/01/2024 19:16:29 12/02/19 25 12/01/2024 CBC W/ AUTO DIFF platelet count 330 K/uL 142-42 4 Not Available [facility] ([facility]Op [facility]) [address] [facility] [place], [address], 12/01/2024 19:16:29 12/02/19 25 12/01/2024 CBC W/ AUTO DIFF MPV 10.6 fL 6.8-10 .2 high Not Available [facility] ([facility]Op [facility]) [address] [place] [address] [place], [address], 12/01/2024 19:16:29 12/02/19 25 12/01/2024 CBC W/ AUTO DIFF neutrophil % 59.7 % 50-70 Not Available [facility] ([facility]Op [facility]) [address] [place] [address] [place], [address], 12/01/2024 19:16:29 12/02/19 25 12/01/2024 CBC W/ AUTO DIFF lymphocyte % 30.8 % 18.0-4 2.0 Not Available [facility] ([facility]Op [facility]) [address] [place] [address] [place], [address], 12/01/2024 19:16:29 12/02/19 25 12/01/2024 CBC W/ AUTO DIFF monocyte % 6.5 % 2.0-11 .0 Not Available [facility] ([facility]Op [facility]) [address] [place] [address] [place], [address], 12/01/2024 19:16:29 12/02/19 25 12/01/2024 CBC W/ AUTO DIFF eosinophil % 1.7 % 1.0-3. 0 Not Available [facility] ([facility]Op [facility]) [address] [place] [address] [place], [address], 12/01/2024 19:16:29 12/02/19 25 12/01/2024 CBC W/ AUTO DIFF basophil % 1.0 % 0.0-2. 0 Not Available [facility] ([facility]Op [facility]) [address] [place] [address] [place], [address], 12/01/2024 19:16:29 12/02/19 25 12/01/2024 CBC W/ AUTO DIFF immature granulocytes % 0.3 % 0.0-0. 8 Not Available [facility] ([facility]Op [facility]) [address] [place] [address] [place], [address], 12/01/2024 19:16:29 12/02/19 25 12/01/2024 CBC W/ AUTO DIFF nucleated red blood cells % 0.0 % Not Available [facility] ([facility]Op [facility]) [address] [place] [address] [place], [address], 12/01/2024 19:16:29 12/02/19 25 12/01/2024 CBC W/ AUTO DIFF neutrophil # 4.16 K/uL Not Available [facility] (Pre-Op [facility]) [address] [place] [address] [place], [address], 12/01/2024 19:16:29 12/02/19 25 12/01/2024 CBC W/ AUTO DIFF lymphocyte # 2.15 K/uL Not Available [facility] (Pre-Op [facility]) [address] [place] [address] [place], [address], 12/01/2024 19:16:29 12/02/19 25 12/01/2024 CBC W/ AUTO DIFF monocyte # 0.45 K/uL Not Available [facility] (Pre[facility]Op [facility]) [address] [place] [address] [place], [address], 12/01/2024 19:16:29 12/02/19 25 12/01/2024 CBC W/ AUTO DIFF eosinophil # 0.12 K/uL Not Available [facility] ([facility]Op [facility]) [address] [place] [address] [place], [address], 12/01/2024 19:16:29 12/02/19 25 12/01/2024 CBC W/ AUTO DIFF basophil # 0.07 K/uL Not Available [facility] ([facility]Op [facility]) [address] [place] [address] [place], [address], 12/01/2024 19:16:29 12/02/19 25 12/01/2024 CBC W/ AUTO DIFF immature gramulocytes # 0.02 K/uL Not Available [facility] ([facility]Op [facility]) [address] [place] [address] [place], [address], 12/01/2024 19:16:29 12/02/19 25 12/01/2024 CBC W/ AUTO DIFF nucleated red blood cells # 0.00 k/uL Not Available [facility] ([facility]) [address] [place] [address] [place], [address], 12/01/2024 19:16:29 12/02/19 25 12/01/2024 CBC W/ AUTO DIFF manual differential NO Not Available [facility] (Pre[facility]Op [facility]) [address] [place] [address] [place], [address], 12/01/2024 19:16:29 12/02/19 25 12/01/2024 CBC W/ AUTO DIFF note Unles s other denney noted testi ng perfo [facility]med at: [facility] [address] [place] [address] Lonnie conti MD Not Available [facility] ([facility]Op [facility]) [address] [place] [address] [place], [address], 12/01/2024 19:16:29 12/02/19 25 12/01/2024 HEMOG LOBIN A1C HGB A1C 7.7 % 4.3-6. 1 high HEMOG LOBIN LEVEL S ARE RELAT ED TO MEAN BLOOD GLUCO SE LEVEL S DURIN G THE PRECE DING 2-3 MONTH S. REFER ENCE RANGE NON-D IABET IC PATIE NTS: 4.3 - 6.1 % DIABE TIC PATIE NTS: 6.2 % AND ABOVE Not Available [facility] (Pre[facility]Op [facility]) [address] [place] [address] [place], [address], 12/01/2024 19:48:13 12/02/19 25 12/01/2024 HEMOG LOBIN A1C estimated average glucose(EAG) 174 mg/dL 77-128 high Not Available [facility] (Pre-Op [facility]) [address] [place] [address] [place], [address], 12/01/2024 19:48:13 12/02/1912/01/2024 HEMOG LOBIN A1C note Unles s other denney noted testi ng perfo rmed at: [facility] [address] [place] [address] Lonnie conti MD Not Available [facility] ([facility]) [address] [place] [address] [place], [address], 12/01/2024 19:48:13 12/02/19 25 12/01/2024 COMP METAB OLIC PANEL sodium 140 mmol/ L 137-14 7 Not Available [facility] (Pre[facility]Op [facility]) [address] [place] [address] [place], [address], 12/01/2024 19:49:21 12/02/19 25 12/01/2024 COMP METAB OLIC PANEL potassium 5.3 mmol/ L 3.5-5. 1 high Not Available [facility] ([facility]Op [facility]) [address] [place] [address] [place], [address], 12/01/2024 19:49:21 12/02/1912/01/2024 COMP METAB OLIC PANEL chloride 102 mmol/ L 98-110 Not Available [facility] ([facility]Op [facility]) [address] [place] [address] [place], [address], 12/01/2024 19:49:21 12/02/19 25 12/01/2024 COMP METAB OLIC PANEL carbon dioxide 28 mmol/ L 21-30 Not Available [facility] ([facility]) [address] [facility] [place], [address], 12/01/2024 19:49:21 12/02/19 25 12/01/2024 COMP METAB OLIC PANEL anion gap 10 mmol/ L 6-14 Not Available [facility] ([facility]) [address] [facility] [place], [address], 12/01/2024 19:49:21 12/02/19 25 12/01/2024 COMP METAB OLIC PANEL glucose 247 mg/dL 70-115 high Not Available [facility] ([facility]Op [facility]) [address] [place] [address] [place], [address], 12/01/2024 19:49:21 12/02/19 25 12/01/2024 COMP METAB OLIC PANEL BUN 14 mg/dL 7-17 Not Available [facility] ([facility]Op [facility]) [address] [place] [address] [place], [address], 12/01/2024 19:49:21 12/02/19 25 12/01/2024 COMP METAB OLIC PANEL creatinine 1.0 mg/dL 0.5-1. 5 Not Available [facility] ([facility]Op [facility]) [address] [place] [address] [place], [address], 12/01/2024 19:49:21 12/02/19 25 12/01/2024 COMP METAB OLIC PANEL BUN/creatini ne ratio 14 10-20 Not Available [facility] ([facility]-Op [facility]) [address] [place] [address] [place], [address], 12/01/2024 19:49:21 12/02/19 25 12/01/2024 COMP METAB [...] arana ing kiney funct ion. Not Available [facility] ([facility]) [address] [place] [address] [place], [address], 12/01/2024 19:49:21 12/02/19 25 12/01/2024 COMP METAB OLIC PANEL osmolality (calculated) 300 mosmo l/kg 275-30 1 OSMOL ALITY IS A CALCU LATIO N UTILI ZING THE SERUM /PLAS MA SODIU M, GLUCO SE AND UREA NITRO GEN (BUN) LEVEL S. FOR THE MOST ACCUR ATE RESUL T A MEASU RED SERUM OSMOL ALITY IS SUGGE STED. Not Available [facility] ([facility]) [address] [place] [address] [place], [address], 12/01/2024 19:49:21 12/02/19 25 12/01/2024 COMP METAB OLIC PANEL total protein 7.3 g/dL 6.2-8. 2 Not Available [facility] ([facility]) [address] [place] [address] [place], [address], 12/01/2024 19:49:21 12/02/19 25 12/01/2024 COMP METAB OLIC PANEL albumin 4.9 g/dL 3.5-5. 0 Not Available [facility] ([facility]) [address] [place] [address] [place], [address], 12/01/2024 19:49:21 12/02/19 25 12/01/2024 COMP METAB OLIC PANEL calcium 9.8 mg/dL 8.5-10 .8 Not Available [facility] ([facility]) [address] [place] [address] [place], [address], 12/01/2024 19:49:21 12/02/19 25 12/01/2024 COMP METAB OLIC PANEL bilirubin total 0.5 mg/dL 0.2-1. 3 Not Available [facility] ([facility]) [address] [place] [address] [place], [address], 12/01/2024 19:49:21 12/02/19 25 12/01/2024 COMP METAB OLIC PANEL AST (SGOT) 30 IU/L 14-36 Not Available [facility] ([facility]) [address] [place] [address] [place], [address], 12/01/2024 19:49:21 12/02/19 25 12/01/2024 COMP METAB OLIC PANEL ALT (SGPT) 24 IU/L 0-35 Pleas e note new refer ence inter abril for ALT. Due to a recen t manuf actur er metho dolog y arana e, the refer ence inter abril for ALT is lower effec tive May 30, 2020. Not Available [facility] ([facility]) [address] [place] [address] [place], [address], 12/01/2024 19:49:21 12/02/19 25 12/01/2024 COMP METAB OLIC PANEL alk phosphatase 68 IU/L 38-126 Not Available [facility] (Pre-Op [facility]) [address] [place] [address] [place], [address], 12/01/2024 19:49:21 12/02/19 25 12/01/2024 COMP METAB OLIC PANEL note Unles s other denney noted testi ng perfo rmed at: [facility] [address] [place] [address] Lonnie conti MD Not Available [facility] ([facility]) [address] [place] [address] [place], [address], 12/01/2024 19:49:21 12/02/19 25 12/01/2024 VITAM IN D, 25-HY DROXY vitamin D, 25-hydroxy 49.7 NG/mL 30-100 Vitam in D defic iency has been defin ed by the [facility]i [facility] Medic [facility] and Endoc rine Socie ty pract ice guide line as a level of serum 25-OH vitam in D less than 20 ng/mL . The Endoc rine Socie ty went [facility] er defin e vitam in D insuf ficie ncy as a level betwe en 20 and 29 ng/mL . Level s of vitam in D betwe en 30 and 100 ng/mL are consi dered suffi ent. Level s above 100 ng/mL are consi dered poten tiall y toxic . Not Available [facility] ([facility]) [address] [place] [address] [place], [address], 12/01/2024 19:54:35 12/02/19 25 12/01/2024 VITAM IN D, 25-HY DROXY note Unles s other denney noted testi ng perfo rmed at: [facility] [address] [place] [address] Lonnie conti MD Not Available [facility] ([facility]) [address] [place] [address] [place], [address], 12/01/2024 19:54:35 12/02/19 25 12/01/2024 TSH thyroid stim hormone 4.49 uIU/m L 0.465- 4.68 Not Available [facility] ([facility]) [address] [place] [address] [place], [address], 12/01/2024 20:11:19 12/02/19 25 12/01/2024 TSH note Unles s other denney noted testi ng perfo rmed at: [facility] [address] [place] [address] Lonnie conti MD Not Available [facility] ([facility]) [address] [place] [address] [place], [address], 12/01/2024 20:11:19 12/02/19 25 12/01/2024 T4 FREE T4 free 0.77 NG/dL 0.78-2 .19 low Not Available [facility] ([facility]) [address] [place] [address] [place], [address], 12/01/2024 20:23:56 12/02/19 25 12/01/2024 T4 FREE note Liliam conti other denney noted testi ng perfo rmed at: [facility] [address] [place] [address] Lonnie conti MD Not Available [facility] ([facility]) [address] [place] [address] [place], [address], 12/01/2024 20:23:56 12/02/1912/01/2024 T3 TOTAL note Liliam conti other denney noted testi ng perfo rmed at: [facility] [address] [place] [address] Lonnie conti MD Not Available [facility] ([facility]) [address] [place] [address] [place], [address], 12/03/2024 07:09:55 12/02/1912/03/2024 T3 TOTAL triiodothyro nine (T3) 105 NG/dL 71-180 Perfo rmed at: - [facility] [address] [id number] Lab Direc tor: Chau barriga PhD, Phone : [phone] Not Available [facility] ([facility]) [address] [place] [address] [place], [address], 12/03/2024 07:09:55 12/02/19 25 12/01/2024 COMPL IANCE DRUG TERRI SIS, UR note Unljarret s other denney noted testi ng perfo rmed at: [facility] [address] [place] [address] Lonnie conti MD Not Available [facility] ([facility]) [address] [place] [address] [place], [address], 12/11/2024 21:09:34 12/02/19 25 12/11/2024 COMPL IANCE DRUG TERRI SIS, UR summary FINAL ===== ===== ===== ===== ===== ===== ===== ===== ===== ===== ===== ===== ===== === TOXAS SURE COMP DRUG TERRI SIS,U R ===== ===== ===== ===== ===== [...] l by the metho d used for terri sis. Propr anolo l PRESE NT ===== [...] zeus consu ltati on, pleas e call [phone]. ===== ===== ===== ===== ===== ===== ===== ===== ===== ===== ===== ===== ===== === Not Available [facility] ([facility]) [address] [place] [address] [place], [address], 12/11/2024 21:09:34 12/02/19 25 12/11/2024 COMPL IANCE DRUG TERRI SIS, UR pdf . Perfo rmed at: [facility] [address] [place] [address] Lab Direc tor: Ivana hankins PhrmD , Phone : [phone] Not Available [facility] ([facility]) [address] [place] [address] [place], [address], 12/11/2024 21:09:34 10/12/01/2024 urina lysis , dipst ick Leukocytes (reference range) negati ve Not Available [address] [address] [address] , [place], [address], 12/01/2024 14:12:05 12/02/1912/01/2024 urina lysis , dipst ick Nitrite (reference range:) negati ve Not Available [address] [place] [address] [address] [facility] , [place], [address], 12/01/2024 14:12:05 12/02/1912/01/2024 urina lysis , dipst ick Urobilinogen (reference range) 0.2 Not Available [address] [address] [address] [facility] [place], [address], 12/01/2024 14:12:05 12/02/1912/01/2024 urina lysis , dipst ick Protein (reference range) 30 Not Available [address] [place] [address] [address] [facility], [place], [address], 12/01/2024 14:12:05 12/02/1912/01/2024 urina lysis , dipst ick pH (reference range 5-8.5) 5.5 Not Available [address] [address] [address] [facility], [place], [address], 12/01/2024 14:12:05 12/02/1912/01/2024 urina lysis , dipst ick Blood (reference range:) negati ve Not Available [address] [place] [address] [address] [facility], [place], [address], 12/01/2024 14:12:05 12/02/1912/01/2024 urina lysis , dipst ick Specific Sweet (reference range) 1.025 Not Available [facility] [address], [place], [address], 12/01/2024 14:12:05 12/02/19 25 12/01/2024 urina lysis , dipst ick Ketone (reference range) negati ve Not Available [facility] [address] , [place], [address], 12/01/2024 14:12:05 12/02/1912/01/2024 urina lysis , dipst ick Bilirubin (reference range) negati ve Not Available [facility] [address] , [place], [address], 12/01/2024 14:12:05 12/02/1912/01/2024 urina lysis , dipst ick Glucose (reference range) negati ve Not Available [facility] [address] , [place], [address], 12/01/2024 14:12:05 12/02/1912/01/2024 urina lysis , dipst ick Color (reference range: yellow-brown ) Pale Yellow Not Available [facility] [address] [facility] , [place], [address], 12/01/2024 14:12:05 Result Notes None recorded. Problems Name Problem SNOMED Code Status Onset Date Resolution Date Notes Provider Name and Address Organization Details Recorded Time Insomnia 909986722 Active 2022 Jass Benoit MD [address] [facility], [address], [place], [address], [facility] [place] 3 08:20:43 Generalized anxiety disorder 75724775 Active 2022 Jass Benoit MD [address], [address], [place], [address], [place] [facility] [place] 3 08:21:18 Coronary arterioscle rosis 54100256 Active 2022 Valerie Wright NP [address], [address], [place], [address], [place] [facility] [place] 5 21:57:20 Hypothyroid ism 99917839 Active 2022 Jass Benoit MD [address], [address], [place], [address], [place] [facility] [place] 3 08:21:45 Hyperlipide kristyn 66497565 Active 2022 Jass Benoit MD [address], [address], [place], [address], [place] [facility] [place] 3 10:16:09 Gastroesoph ageal reflux disease without esophagitis 570806499 Active 2022 Jass Benoit MD [address], [address], [place], [address], [place] [facility] [place] 3 10:16:16 Hyperglycem ia due to type 2 diabetes mellitus 3407513311748 09 Active 2022 Jass Benoit MD [address], [address], [place], [address], [place] [facility] [place] 3 10:34:23 Iron deficiency anemia 09858721 Active 2022 Jass Benoit MD [address], [address], [place], [address], [place] [facility] [place] 3 16:44:49 Cobalamin deficiency 827442839 Active 2022 Jass Benoit MD [address], [address], [place], [address], [place] [facility] [place] 3 16:49:57 Vitamin D deficiency 79903336 Active 2022 Jass Benoit MD [address], [address], [place], [address], [place] [facility] [place] 3 16:50:56 Allergic rhinitis 38951736 Active 2022 Jass Benoit MD [address], [address], [place], [address], [place] [facility] [place] 3 16:54:56 Urinary incontinenc e 345242573 Active 2022 Jass Benoit MD [address], [address], [place], [address], [place] [facility] [place] 3 17:00:28 Obstructive sleep apnea syndrome 33039378 Active 2022 Jass Benoit MD [address], [address], [place], [address], [place] [facility] [place] 3 17:04:40 Staghorn calculus 724392994 Active 2023 Jass Benoit MD [address], [address], [place], [address], [place] [facility] [place] 4 10:33:54 Chronic urinary tract infection 582412097 Active 2023 Jass Benoit MD [address], [address], [place], [address], [place] [facility] [place] 4 14:57:00 Hypertensiv e heart and chronic kidney disease 7290204117067 Active 2024 Jass Benoit MD [address], [address], [place], [address], [place] [facility] [place] 5 14:12:09 Chronic kidney disease stage 3A [id number] Active 2024 Jass Benoit MD [address], [address], [place], [address], [place] [facility] [place] 5 14:12:13 Dysphagia [id number] Active 2024 Valerie Wright NP [address], [address], [place], [address], [place] [facility] [place] & [place] 5 14:33:42 Sensorineur al hearing loss of bilateral ears [id number] Active 2024 OSMAN SANCHEZ [address], [address], [place], [address], [place] [facility] [place] & [place] 16:41:58 Problem Notes None recorded. Procedures Surgical History Date Name Laterality Status Provider Name and Address Organization Details Recorded Time 08/02/19 25 Medicare Annual Wellness Visit Health Risk Assessment completed Jass Benoit MD [address], [address], [place], [address], [place] [facility] [place] 08/01/2024 14:25:29 01/22/20 23 Medicare Annual Wellness Visit Health Risk Assessment completed Jass Benoit MD [address], [address], [place], [address], [place] [facility] 01/21/2023 17:08:16 01/06/20 22 Most Recent Mammogram [place]ola Zelaya [place] [facility] [place] 01/13/2023 15:53:46 02/08/19 22 [place]este [place] [facility] [place] [facility] [place] 01/13/2023 15:52:47 12/30/19 14 Date of Last Colonoscopy completed Cheleste [place] 04/14/2023 16:43:58 12/30/19 14 Colonoscopy [place]este [place] [facility] [place] [facility] [place] 01/13/2023 15:51:27 02/08/19 13 Date of Last Pap Smear [place]este [place] [facility] [facility] [place] 01/13/2023 15:52:47 02/08/19 13 Most Recent Bone Density completed Cheleste [place] [facility] 01/13/2023 15:52:47 02/08/19 13 Cardiovascular [place] Cheleste [place] 01/13/2023 15:52:53 02/08/19 04 Abdominal Surgery [place] Cheleste [place] 01/13/2023 15:52:53 02/08/19 00 Thyroid Surgery [place] Cheleste [place] 01/13/2023 15:52:53 02/08/18 99 LASIK [place] Cheleste [place] 01/13/2023 15:52:52 Tonsillectomy [place] Cheleste [place] [facility] & [place] 09/15/2022 12:32:44 hysterectomy [place] Cheleste [place] 09/15/2022 12:32:53 thyroidectomy [place] Cheleste [place] [facility] & [place] 09/15/2022 12:32:59 renal lithotripsy completed Chelest e Garcia [place] [facility] & [place] 09/15/2022 12:33:09 abdominoplasty completed Cheleste [place] 09/15/2022 12:33:24 cystoscopy [place] Cheleste [place] 09/15/2022 12:33:57 Other completed Cheleste [place] [facility] & [place] 09/15/2022 12:34:15 cardiac catheterization completed Cheleste [place] [facility] 01/13/2023 15:57:10 Imaging Results None recorded. Procedure Notes None recorded. Medical Equipment None Reported. Allergies Allergen ID Allergen Name Allergen Category Reaction Reaction Severity Criticality Documentation Date Start Date Code Code System Note Provider Name and Address Organization Details Recorded Time 774617 dapaglifl ozin Not available Not available Not available Not available 04/11/2024 28594 64 RxNorm Worse ranjit kidne y funct ion Genevieve ISAEL Zuniga [facility] & [place] 5 15:49:49 362635 semagluti de medicatio n nausea vomiting Not available Not available Not available 04/11/2024 02 RxNorm ISAEL Johns [facility] & [place] 5 15:50:10 923728 ezetimibe medicatio n nausea vomiting Not available Not available Not available 04/11/2024 81055 8 RxNorm ISAEL Johns [facility] & [place] 5 15:50:15 98532 niacin medicatio n palpitati ons Not available Not available 11/26/2021 7393 RxNorm ISAEL Rivera [facility] & [place] 2 11:30:33 62512 bacitraci n / neomycin / polymyxin B medicatio n Not available Not available Not available 11/26/2021 54621 9 RxNorm ISAEL Rivera [facility] & [place] 2 11:30:47 Medications Name Sig Start Date [...] Not Available No t Available amoxicillin 875 mg-ariadnau m clavulanate 125 mg tablet 09/22 completed [...] Last Updated DateTime 157.48 cm 26.5 kg/m2 64926.8 9 g 98 % 98 % 97.5 [degF] 82 /min 114/60 mm[Hg] Viridiana bourgeois [facility] & [place] 13:49:22 Social History Question Answer Notes LastModified by Organizat ion Details LastModified Time Tobacco Smoking Status Former Smoker Lilian quiles, [facility] & [place] 11/26/2021 11:34:43 Do You Have An Advance [...] use any illicit or recreational drugs? No [email or web address] Information not available 11/26/2021 Do you or have you ever used any other forms of tobacco or nicotine? No Information not available 01/21/2023 What is your level of alcohol consumption? None [email or web address] Information not available 11/26/2021 What is your exercise level? Occasional Information not available 04/28/2023 Mental Status Question Answer Note LastModified by Organization D etails LastModified Time Do you feel stressed (tense, restless, nervous, or anxious, or unable to sleep at night)? [id number] Information not available 01/21/2023 Family History Relationship Description Onset Age of this Age Resolved Age Notes LastModified by Organization Details LastModified Time Mother Cirrhosis of liver [email or web address] Not available 2024 13:42:51 Mother Parents [email or web address] Not available 2024 13:42:51 Mother Disorder of [...] [email or web address] Not available 2024 13:42:51 Father Parents [email or web address] Not available 2024 13:42:51 Father Myocardial infarction [...] Stones Y Ear or Hearing Problems Y Kidney or Bladder Problems Y Stroke Y Thyroid Problems Y Hypothyroidism Y Depression Y Anemia Y Reflux/GERD Y High Cholesterol Y Heart Attack (NE) Y Heart Disease Y Hypertension Y Gynecological [...] Recorded Time Tdap 0 completed Not Available [facility] 12/01/2024 13:43:02 Influenza, split virus, trivalent, preservative 3 completed Not Available [facility] 12/01/2024 13:43:02 Influenza, split virus, quadrivalent, preservative 8 completed Not Available [facility] 12/01/2024 13:43:02 Influenza, recombinant, quadrivalent, PF 8 completed Not Available [facility] 12/01/2024 13:43:02 Hep A, adult 8 completed Not Available [facility] 12/01/2024 13:43:02 Hep A, adult 9 completed Not Available [facility] 12/01/2024 13:43:02 Influenza, recombinant, quadrivalent, PF 9 completed Not Available [facility] 12/01/2024 13:43:02 Past Encounters Encounter ID Performer Location Encounter Start Date Encounter Closed Date Diagnosis/Indication Diagnosis SNOMED-CT Code Diagnosis ICD10 Code Diagnosis IMO Codes Diagnosis Note [id number] Jass Benoit MD [facility] Medicine- Dept [address] [place] [phone] 12/01/2024 13:39:50 12/01/2024 14:50:19 Hyperglycemia due to type 2 diabetes mellitus 4083284243 11115 E11.65 Will continue with glipizide and metformin. Hypertensi ve heart and chronic kidney disease 1927529643 104 I13.10 737001 Stable on propranolo l. Chronic ki dney disease stage 3A 097735177 N28.89 N18.31 [id number] Plan on labs today. Coronary arteriosclerosis 70463650 I25.10 4872495832 Following closely with cardiology . Hyperlipidemia 11651412 E78.5 Continue with crestor. Hypothyroidism 02734233 E03.9 Insomnia 578412280 G47.0 0 Continue with ambien. Generalize d anxiety disorder 57937247 F41.1 Will increase lexapro to 20mg daily. Taking hig h risk medication 4849601097 54921 Z79.519 7791219 Dysuria 24778796 R30.0 51392 Allergic rhinitis 863322 04 J30.9 Vitamin D deficiency 347 04853 E55.9 Influenza vaccination declined 120700762 Z28.21 35890594 Health Concerns Section Related Observation LastModified by Organization Detai ls LastModified Time None Recorded Concern Status LastModified by Organization Details LastModified Time None Recorded Payers Encounter Date Sequence Insurance Name Policy Number Policy Zepeda Covered Member ID Zepeda Member ID Guarantor Name 12/01/2024 1 [place] ([place]ICARE) Emmett Haas [id number] Emmett Quinteros Samina 12/01/2024 2 [employer] (MEDICARE SUPPLEMENT) Emmett Quinteros Samina [id number] Emmett Quinteros Samina Notes Date Note Type Note Provider Name and Address Organization Details Recorded Time 12/01/2024 text/html Diabetes F/URepo rted by PatientHPIFor context, patient reportsnot missing doses of medicationsandno side effects from medications. For associated symptoms, patient reportsno unintentional weight gain,no unintentional weight loss,no dizziness, andno headaches.She does continue with metformin and glipizide. Jass Benoit MD [address] [place] [address], [address], [place], [address], [facility] & [place] 12/01/2024 14:14:32 OBGyn Episode No OBEpisode recorded.
--- NOTE | 2024-12-14 13:45 | MR_ITS ---
FINAL REPORT TECHNIQUE: Multiplanar and multisequence imaging of the lumbar spine was obtained without contrast. CLINICAL HISTORY: Lumbar spine pain PAIN IN LEFT SIDED GROIN DOWN TO FOOT PT STATED WHEN WALKING LEG FEELS HEAVY X 6 MONTHS COMPARISON: None FINDINGS: There is normal alignment of the lumbar vertebral bodies in the sagittal plane. Vertebral body height is preserved. The spinal cord ends at the level of L1. There is normal signal intensity within the substance of the distal spinal cord. No acute bone marrow edema or pathologic marrow replacement. No acute paraspinal abnormality is identified. L1-2: No focal disc herniation, central canal stenosis or neuroforaminal narrowing. L2-3: No focal disc herniation, central canal stenosis or neuroforaminal narrowing. L3-4: Mild facet osteoarthropathy is present, with mild bilateral neural foraminal narrowing. L4-5: An annular bulge is present with degenerative endplate changes and moderate bilateral neural foraminal narrowing. L5-S1: An annular bulge is present with degenerative endplate changes, moderate left greater than right neural foraminal narrowing. IMPRESSION: Lower lumbar degenerative change as identified, with moderate foraminal narrowing at the L4-5 and L5-S1 levels as described. Reviewed, Interpreted and Dictated by Ya Moreau MD Transcribed by Christen Britton Authenticated and [facility]
== END 2024-12-14 23:59 | disposition home or self-care (01) ==
LOC: RAD 13:34
PROVIDERS: PCP Internal Medicine; Visit Provider Orthopaedic Surgery
DX: M47.816 Spondylosis without myelopathy or radiculopathy, lumbar region (principal); M99.73 Connective tissue and disc stenosis of intervertebral foramina of lumbar region; M51.369 Other intervertebral disc degeneration, lumbar region without mention of lumbar back pain or lower extremity pain
CPT/HCPCS: 72148